=== PATIENT | female | born 1970 | race Caucasian/White ===

== ENCOUNTER 2016-10-25 18:40 | Emergency (ER) | payer OTHER ==
[~2016-10-25] VITALS: Ht 167.6 cm; Wt 72.6 kg
[~2016-10-25 18:40] MED LIST: CRUTCH1 EACH; CYCLOBENZAPRINE5 MG PO; LORAZEPAM0.5 MG PO; MECLIZINE HCL25 MG PO; NAPROXEN500 MG PO; ONDANSETRON ODT8 MG PO; OXYCODONE HCL5 MG PO; POTASSIUM CHLO10 ME2 PO; PROMETHAZINE HC25 M1 PO; PROMETHEGAN25 MG PR
[2016-10-25] MEDS ORDERED: ASPIR 8181 MG PO (18:50)
[2016-10-25] MEDS ORDERED: TRAMADOL HCL50 MG PO (19:48)
--- NOTE | 2016-10-28 21:45 | EKG ---
[facility] [address] [facility] [place] [address] Signed Normal sinus rhythm Normal ECG When compared with ECG of 26-MAR-2016 16:02, No significant change was found Confirmed by STEWART RAMOS MD ([id number]) on 10/28/2016 9:45:14 PM Electronically Signed By: STEWART RAMOS MD 10/28/16 [id number] PATIENT NAME: JAVIER WEAVER Electrocardiogram DATE OF : 70 PHYSICIAN: STEWART RAMOS MD REPORT #: [id number] REPORT IS CONFIDENTIAL AND NOT TO BE RELEASED WITHOUT AUTHORIZATION
== END 2016-10-25 20:01 | disposition home or self-care (01) ==
LOC: ED 18:40
DX: R07.9 Chest pain, unspecified (principal); M25.512 Pain in left shoulder; R10.13 Epigastric pain; Z90.710 Acquired absence of both cervix and uterus; Z88.0 Allergy status to penicillin; Z88.6 Allergy status to analgesic agent; Z79.899 Other long term (current) drug therapy
CPT/HCPCS: 71010; 80053; 84484; 85025; 93005; 93010; 99284

== ENCOUNTER 2017-05-28 15:36 | Emergency (ER) | payer OTHER ==
[~2017-05-28] VITALS: Ht 167.6 cm; Wt 72.6 kg
--- OUTSIDE RECORDS SUMMARY | ~2017-05-28 | XMS | Encounter Summary ---
Demographics + + + | Address | [address] | | | [place] [address] | + + + | Home Phone | | + + + | Preferred Language | Unknown | + + + | Marital Status | | + + + | Buddhism Affiliation | 1013 | + + + | Race | Unknown | + + + | Ethnic Group | Unknown | + + + Author + + + | Author | [facility] | | | and [place] | + + + | Organization | [facility] | | | and [place] | + + + | Address | Unknown | + + + | Phone | Unavailable | + + + Support + + + + + | Name | Relationship | Address | Phone | + + + + + | Tyrel Dillon | ECON | [address] | | | | | [place] [address] | | + + + + + Care Team Providers + +------+ + | Care Moving Worker Name | Role | Phone | + +------+ + | Last Welch DO | PCP | | + +------+ + Encounter Details +--------+ + + + + | Date | Type | Department | Care Team | Description | +--------+ + + + + | 04/21/ | Procedure | [facility] | | | | 2017 | Pass | [facility] [address] | | | | | | [place], | | | | | | [place] [address] | | | | | | [phone] | | | +--------+ + + + + [...] on file | | + + + as of this encounter Plan of Treatment +--------+---------+ + + + | Date | Type | Specialty | Care Team | Description | +--------+---------+ + + + | 06/22/ | Office | Sleep Medicine | Rudolph Manriquez PA | | | 2017 | Visit | | [address] | | | | | | [place] | | | | | | [address] | | | | | | | | +--------+---------+ + + + as of this encounter Visit Diagnoses Not on filein this encounter"
--- OUTSIDE RECORDS SUMMARY | ~2017-05-28 | XMS | Encounter Summary ---
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 Reviewed by Jerilyn Cordova, PharmElder 04/20/2017 12:51 in this encounter Plan of Treatment +--------+---------+ + + + | Date | Type | Specialty | Care Team | Description | +--------+---------+ + + + | 06/22/ Office | Sleep Medicine | Rudolph Manriquez PA | | | 2017 | Visit | | [address] | | | | | | [place] | | | | | | [id number] | | | | | | | | +--------+---------+ + + + as of this encounter Results POC Glucose (04/22/2017 1147) + +-------+ + | Component | Value | Ref Range | + +-------+ + | Glucose, POC | 80 | 70 - 109 mg/dL | + +-------+ + + + + | Specimen | Performing Laboratory | + + + | Blood | [facility] [address] | | | [place] [address] | + + + MRI Thoracic Spine w wo Contrast Limited (04/22/2017 0948) + + | Narrative | + + | UNENHANCED AND ENHANCED MRI CERVICAL SPINE AND LIMITED MRI THORACIC SPINE 04/22/2017 | | 9:05 AM CLINICAL HISTORY: left sided weakness with normal brain mri; r/o cord lesion | | causing left arm/leg weakness COMPARISON: Preceding brain MRI, CTA head | | and neck April 20 TECHNIQUE: The following 1.5T MR sequences were obtained: | | 1. Coronal and sagittal T1 through the cervical spine and coronal T1 through the | | thoracic spine. 2. Axial and sagittal T2 through the cervical spine and sagittal | | large yndzz-el-fzpu T2 through the cervicothoracic spine. 3. Axial GRE through the | | cervical spine. 4. Sagittal STIR through the cervical spine. 5. Following the | | uneventful intravenous administration of 7.5 mL Gadavist, a sagittal T1 sequence | | through the cervical spine and coronal and sagittal T1 images through the thoracic | | spine were obtained. CERVICAL FINDINGS: Marrow signal is normal. Vertebral height | | and disc spaces are maintained, without evident fracture. Imaged contents of the | | posterior fossa and foramen magnum are unremarkable. The cervical spinal cord | | demonstrates normal signal intensity and caliber. No abnormal intradural, epidural, | | interspace, marrow or paraspinal enhancement is evident following contrast | | administration. Imaged cervical soft tissues are unremarkable. The craniocervical | | junction and C1-2 and C2-3 levels are unremarkable on provided sagittal and coronal | | images through the region. Minimal anterolisthesis and minimal posterior disc bulges | | are present at C3-4 and C4-5, without stenosis. Minimal anterolisthesis and a | | small central disc protrusions are present at C5-6 and C6-7, partially effacing the | | ventral thecal sac but only minimally narrowing the central canal overall. The | | C7-T1 level is unremarkable. THORACIC FINDINGS: Vertebral height and alignment are | | maintained without evident fracture or spondylolisthesis. Small Schmorl's nodes are | | present at multiple mid to lower thoracic levels. Small disc protrusions are present | | at T7-8 and T8-9, without significant central canal stenosis apparent on provided | | sagittal images through the region. No other disc pathology or central canal or | | foraminal stenosis is visible. There is mild prominence of the central canal of the | | spinal cord in the mid to lower thoracic region without abnormal intradural, epidural, | | interspace, marrow or paraspinal enhancement following contrast administration. The | | conus medullaris terminates at approximately T12. The thoracic cord above T7 is | | normal in caliber and appearance. No abnormality of the imaged paraspinal, | | intrathoracic or upper abdominal structures is evident. IMPRESSION - 1. MILD | | PROMINENCE OF THE CENTRAL CANAL OF THE MID TO LOWER THORACIC SPINAL CORD WITHOUT | | ASSOCIATED ENHANCING LESION, SIGNIFICANT CANAL STENOSIS OR OTHER SUSPICIOUS | | FINDING. THE SPINAL CORD IS NORMAL IN APPEARANCE ELSEWHERE. 2. MINIMAL | | ANTEROLISTHESIS AND EARLY DEGENERATIVE DISC DISEASE AT SEVERAL CERVICAL LEVELS WITHOUT | | STENOSIS. Dictated and Signed by: Harpreet Washburn MD Electronically signed: | | 04/22/2017 11:07 AM | + + + + | Procedure Note | + + | Abdulaziz, Rad Results In - 04/22/2017 1110 PST UNENHANCED AND ENHANCED MRI CERVICAL SPINE | | AND LIMITED MRI THORACIC SPINE04/22/2017 9:05 AMCLINICAL HISTORY: left sided weakness with | | normal brain mri; r/o cord lesioncausing left arm/leg weakness COMPARISON: Preceding | | brain MRI, CTA head and neck AprilECHNIQUE: The following 1.5T MR sequences were | | obtained:1. Coronal and sagittal T1 through the cervical spine and coronal T1 | | throughthe thoracic spine.2. Axial and sagittal T2 through the cervical spine and | | sagittal msqjbgojei-vu-maie T2 through the cervicothoracic spine.3. Axial GRE through | | the cervical spine.4. Sagittal STIR through the cervical spine.5. Following the | | uneventful intravenous administration of 7.5 mL Gadavist, asagittal T1 sequence through | | the cervical spine and coronal and sagittal [id number] through the thoracic spine were | | obtained.CERVICAL FINDINGS: Marrow signal is normal. Vertebral height and disc | | spacesare maintained, without evident fracture. Imaged contents of the posteriorfossa | | and foramen magnum are unremarkable. The cervical spinal corddemonstrates normal signal | | intensity and caliber. No abnormal intradural,epidural, interspace, marrow or | | paraspinal enhancement is evident followingcontrast administration. Imaged cervical | | soft tissues are unremarkable.The craniocervical junction and C1-2 and C2-3 levels are | | unremarkable onprovided sagittal and coronal images through the region.Minimal | | anterolisthesis and minimal posterior disc bulges are present at C3-4and C4-5, without | | stenosis.Minimal anterolisthesis and a small central disc protrusions are present at | | C5-6and C6-7, partially effacing the ventral thecal sac but only minimally narrowingthe | | central canal overall.The C7-T1 level is unremarkable.THORACIC FINDINGS: Vertebral | | height and alignment are maintained without evidentfracture or spondylolisthesis. Small | | Schmorl's nodes are present at multiplemid to lower thoracic levels. Small disc | | protrusions are present at T7-8 andT8-9, without significant central canal stenosis | | apparent on provided sagittalimages through the region. No other disc pathology or | | central canal orforaminal stenosis is visible. There is mild prominence of the central | | canal ofthe spinal cord in the mid to lower thoracic region without abnormal | | intradural,epidural, interspace, marrow or paraspinal enhancement following | | contrastadministration. The conus medullaris terminates at approximately T12. | | Thethoracic cord above T7 is normal in caliber and appearance. No abnormality ofthe | | imaged paraspinal, intrathoracic or upper abdominal structures is evident.IMPRESSION -1. | | MILD PROMINENCE OF THE CENTRAL CANAL OF THE MID TO LOWER THORACIC SPINALCORD WITHOUT | | ASSOCIATED ENHANCING LESION, SIGNIFICANT CANAL STENOSIS OR OTHERSUSPICIOUS FINDING. THE | | SPINAL CORD IS NORMAL IN APPEARANCE ELSEWHERE.2. MINIMAL ANTEROLISTHESIS AND EARLY | | DEGENERATIVE DISC DISEASE AT SEVERALCERVICAL LEVELS WITHOUT STENOSIS.Dictated and Signed | | by: Harpreet Washburn MD Electronically signed: 04/22/2017 11:07 AM | |The C7-T1 level is unremarkable. | | | |THORACIC FINDINGS: Vertebral height and alignment are maintained without evident | |fracture or spondylolisthesis. Small Schmorl's nodes are present at multiple | |mid to lower thoracic levels. Small disc protrusions are present at T7-8 and | |T8-9, without significant central canal stenosis apparent on provided sagittal | |images through the region. No other disc pathology or central canal or | |foraminal stenosis is visible. There is mild prominence of the central canal of | |the spinal cord in the mid to lower thoracic region without abnormal intradural, | |epidural, interspace, marrow or paraspinal enhancement following contrast | |administration. The conus medullaris terminates at approximately T12. The | |thoracic cord above T7 is normal in caliber and appearance. No abnormality of | |the imaged paraspinal, intrathoracic or upper abdominal structures is evident. | | | |IMPRESSION - | |1. MILD PROMINENCE OF THE CENTRAL CANAL OF THE MID TO LOWER THORACIC SPINAL | |CORD WITHOUT ASSOCIATED ENHANCING LESION, SIGNIFICANT CANAL STENOSIS OR OTHER | |SUSPICIOUS FINDING. THE SPINAL CORD IS NORMAL IN APPEARANCE ELSEWHERE. | | | |2. MINIMAL ANTEROLISTHESIS AND EARLY DEGENERATIVE DISC DISEASE AT SEVERAL | |CERVICAL LEVELS WITHOUT STENOSIS. | | | |Dictated and Signed by: Harpreet Washburn MD | | Electronically signed: 04/22/2017 11:07 AM | + + MRI Cervical Spine w wo Contrast (04/22/2017 0920) + + | Narrative | + + | UNENHANCED AND ENHANCED MRI CERVICAL SPINE AND LIMITED MRI THORACIC SPINE 04/22/2017 | | 9:05 AM CLINICAL HISTORY: left sided weakness with normal brain mri; r/o cord lesion | | causing left arm/leg weakness COMPARISON: Preceding brain MRI, CTA head | | and neck April 20 TECHNIQUE: The following 1.5T MR sequences were obtained: | | 1. Coronal and sagittal T1 through the cervical spine and coronal T1 through the | | thoracic spine. 2. Axial and sagittal T2 through the cervical spine and sagittal | | large wulcl-zp-enbw T2 through the cervicothoracic spine. 3. Axial GRE through the | | cervical spine. 4. Sagittal STIR through the cervical spine. 5. Following the | | uneventful intravenous administration of 7.5 mL Gadavist, a sagittal T1 sequence | | through the cervical spine and coronal and sagittal T1 images through the thoracic | | spine were obtained. CERVICAL FINDINGS: Marrow signal is normal. Vertebral height | | and disc spaces are maintained, without evident fracture. Imaged contents of the | | posterior fossa and foramen magnum are unremarkable. The cervical spinal cord | | demonstrates normal signal intensity and caliber. No abnormal intradural, epidural, | | interspace, marrow or paraspinal enhancement is evident following contrast | | administration. Imaged cervical soft tissues are unremarkable. The craniocervical | | junction and C1-2 and C2-3 levels are unremarkable on provided sagittal and coronal | | images through the region. Minimal anterolisthesis and minimal posterior disc bulges | | are present at C3-4 and C4-5, without stenosis. Minimal anterolisthesis and a | | small central disc protrusions are present at C5-6 and C6-7, partially effacing the | | ventral thecal sac but only minimally narrowing the central canal overall. The | | C7-T1 level is unremarkable. THORACIC FINDINGS: Vertebral height and alignment are | | maintained without evident fracture or spondylolisthesis. Small Schmorl's nodes are | | present at multiple mid to lower thoracic levels. Small disc protrusions are present | | at T7-8 and T8-9, without significant central canal stenosis apparent on provided | | sagittal images through the region. No other disc pathology or central canal or | | foraminal stenosis is visible. There is mild prominence of the central canal of the | | spinal cord in the mid to lower thoracic region without abnormal intradural, epidural, | | interspace, marrow or paraspinal enhancement following contrast administration. The | | conus medullaris terminates at approximately T12. The thoracic cord above T7 is | | normal in caliber and appearance. No abnormality of the imaged paraspinal, | | intrathoracic or upper abdominal structures is evident. IMPRESSION - 1. MILD | | PROMINENCE OF THE CENTRAL CANAL OF THE MID TO LOWER THORACIC SPINAL CORD WITHOUT | | ASSOCIATED ENHANCING LESION, SIGNIFICANT CANAL STENOSIS OR OTHER SUSPICIOUS | | FINDING. THE SPINAL CORD IS NORMAL IN APPEARANCE ELSEWHERE. 2. MINIMAL | | ANTEROLISTHESIS AND EARLY DEGENERATIVE DISC DISEASE AT SEVERAL CERVICAL LEVELS WITHOUT | | STENOSIS. Dictated and Signed by: Harpreet Washburn MD Electronically signed: | | 04/22/2017 11:07 AM | + + + + | Procedure Note | + + | Abdulaziz, Rad Results In - 04/22/2017 1110 PST UNENHANCED AND ENHANCED MRI CERVICAL SPINE | | AND LIMITED MRI THORACIC SPINE04/22/2017 9:05 AMCLINICAL HISTORY: left sided weakness with | | normal brain mri; r/o cord lesioncausing left arm/leg weakness COMPARISON: Preceding | | brain MRI, CTA head and neck AprilECHNIQUE: The following 1.5T MR sequences were | | obtained:1. Coronal and sagittal T1 through the cervical spine and coronal T1 | | throughthe thoracic spine.2. Axial and sagittal T2 through the cervical spine and | | sagittal givoacczzj-pf-llsb T2 through the cervicothoracic spine.3. Axial GRE through | | the cervical spine.4. Sagittal STIR through the cervical spine.5. Following the | | uneventful intravenous administration of 7.5 mL Gadavist, asagittal T1 sequence through | | the cervical spine and coronal and sagittal F8qceoyr through the thoracic spine were | | obtained.CERVICAL FINDINGS: Marrow signal is normal. Vertebral height and disc | | spacesare maintained, without evident fracture. Imaged contents of the posteriorfossa | | and foramen magnum are unremarkable. The cervical spinal corddemonstrates normal signal | | intensity and caliber. No abnormal intradural,epidural, interspace, marrow or | | paraspinal enhancement is evident followingcontrast administration. Imaged cervical | | soft tissues are unremarkable.The craniocervical junction and C1-2 and C2-3 levels are | | unremarkable onprovided sagittal and coronal images through the region.Minimal | | anterolisthesis and minimal posterior disc bulges are present at C3-4and C4-5, without | | stenosis.Minimal anterolisthesis and a small central disc protrusions are present at | | C5-6and C6-7, partially effacing the ventral thecal sac but only minimally narrowingthe | | central canal overall.The C7-T1 level is unremarkable.THORACIC FINDINGS: Vertebral | | height and alignment are maintained without evidentfracture or spondylolisthesis. Small | | Schmorl's nodes are present at multiplemid to lower thoracic levels. Small disc | | protrusions are present at T7-8 andT8-9, without significant central canal stenosis | | apparent on provided sagittalimages through the region. No other disc pathology or | | central canal orforaminal stenosis is visible. There is mild prominence of the central | | canal ofthe spinal cord in the mid to lower thoracic region without abnormal | | intradural,epidural, interspace, marrow or paraspinal enhancement following | | contrastadministration. The conus medullaris terminates at approximately T12. | | Thethoracic cord above T7 is normal in caliber and appearance. No abnormality ofthe | | imaged paraspinal, intrathoracic or upper abdominal structures is evident.IMPRESSION -1. | | MILD PROMINENCE OF THE CENTRAL CANAL OF THE MID TO LOWER THORACIC SPINALCORD WITHOUT | | ASSOCIATED ENHANCING LESION, SIGNIFICANT CANAL STENOSIS OR OTHERSUSPICIOUS FINDING. THE | | SPINAL CORD IS NORMAL IN APPEARANCE ELSEWHERE.2. MINIMAL ANTEROLISTHESIS AND EARLY | | DEGENERATIVE DISC DISEASE AT SEVERALCERVICAL LEVELS WITHOUT STENOSIS.Dictated and Signed | | by: Harpreet Washburn MD Electronically signed: 04/22/2017 11:07 AM | |The C7-T1 level is unremarkable. | | | |THORACIC FINDINGS: Vertebral height and alignment are maintained without evident | |fracture or spondylolisthesis. Small Schmorl's nodes are present at multiple | |mid to lower thoracic levels. Small disc protrusions are present at T7-8 and | |T8-9, without significant central canal stenosis apparent on provided sagittal | |images through the region. No other disc pathology or central canal or | |foraminal stenosis is visible. There is mild prominence of the central canal of | |the spinal cord in the mid to lower thoracic region without abnormal intradural, | |epidural, interspace, marrow or paraspinal enhancement following contrast | |administration. The conus medullaris terminates at approximately T12. The | |thoracic cord above T7 is normal in caliber and appearance. No abnormality of | |the imaged paraspinal, intrathoracic or upper abdominal structures is evident. | | | |IMPRESSION - | |1. MILD PROMINENCE OF THE CENTRAL CANAL OF THE MID TO LOWER THORACIC SPINAL | |CORD WITHOUT ASSOCIATED ENHANCING LESION, SIGNIFICANT CANAL STENOSIS OR OTHER | |SUSPICIOUS FINDING. THE SPINAL CORD IS NORMAL IN APPEARANCE ELSEWHERE. | | | |2. MINIMAL ANTEROLISTHESIS AND EARLY DEGENERATIVE DISC DISEASE AT SEVERAL | |CERVICAL LEVELS WITHOUT STENOSIS. | | | |Dictated and Signed by: Harpreet Washburn MD | | Electronically signed: 04/22/2017 11:07 AM | + + MRI Brain wo Contrast (04/22/2017 0846) + + | Narrative | + + | UNENHANCED BRAIN MRI 04/22/2017 8:18 AM CLINICAL HISTORY: Continued extremity | | weakness despite TPA, r/o stroke COMPARISON: CT from the previous day and | | CTA and MRI April 20 TECHNIQUE: The following 3T MR sequences of the brain were | | obtained: 1. Axial, coronal and sagittal 3-D T1. 2. Axial T2, FLAIR, SWI, DWI | | and ADC. FINDINGS: The cerebral parenchyma, ventricles, brainstem and cerebellum | | remain normal in appearance. There is no mass effect, abnormal diffusion | | restriction, evidence of intracranial hemorrhage or extra-axial abnormality. Mild | | mucous membrane thickening inferiorly in the maxillary sinuses and involving bilateral | | ethmoid air cells is stable. The paranasal sinuses, orbits, sellar region, mastoid | | air cells, basilar cisterns and osseous structures are otherwise unremarkable. Major | | intracranial vessels and dural sinuses demonstrate grossly normal flow voids. | | IMPRESSION - 1. STABLE, NORMAL UNENHANCED MR APPEARANCE OF THE BRAIN. NO EVIDENCE | | OF ISCHEMIA OR INFARCTION. 2. STABLE MILD PARANASAL SINUS DISEASE. Dictated | | and Signed by: Harpreet Washburn MD Electronically signed: 04/22/2017 8:46 AM | + + + + | Procedure Note | + + | Abdulaziz, Rad Results In - 04/22/2017 0850 PST UNENHANCED BRAIN MRI 04/22/2017 8:18 AM | | | | CLINICAL HISTORY: Continued extremity weakness despite TPA, r/o stroke | | | | COMPARISON: CT from the previous day and CTA and MRI April 20 | | | | TECHNIQUE: The following 3T MR sequences of the brain were obtained: | | 1. Axial, coronal and sagittal 3-D T1. | | 2. Axial T2, FLAIR, SWI, DWI and ADC. | | | | FINDINGS: The cerebral parenchyma, ventricles, brainstem and cerebellum remain | | normal in appearance. There is no mass effect, abnormal diffusion restriction, | | evidence of intracranial hemorrhage or extra-axial abnormality. Mild mucous | | membrane thickening inferiorly in the maxillary sinuses and involving bilateral | | ethmoid air cells is stable. The paranasal sinuses, orbits, sellar region, | | mastoid air cells, basilar cisterns and osseous structures are otherwise | | unremarkable. Major intracranial vessels and dural sinuses demonstrate grossly | | normal flow voids. | | | | IMPRESSION - | | 1. STABLE, NORMAL UNENHANCED MR APPEARANCE OF THE BRAIN. NO EVIDENCE OF | | ISCHEMIA OR INFARCTION. | | | | 2. STABLE MILD PARANASAL SINUS DISEASE. | | | | Dictated and Signed by: Harpreet Washburn MD | | Electronically signed: 04/22/2017 8:46 AM | + + POC Glucose (04/22/2017 0638) + +-------+ + | Component | Value | Ref Range | + +-------+ + | Glucose, POC | 84 | 70 - 109 mg/dL | + +-------+ + + + + | Specimen | Performing Laboratory | + + + | Blood | [facility] [address] | | | [place] [address] | + + + POC Glucose (04/21/20172045) + +-------+ + | Component | Value | Ref Range | + +-------+ + | Glucose, POC | 87 | 70 - 109 mg/dL | + +-------+ + + + + | Specimen | Performing Laboratory | + + + | Blood | [facility] [address] | | | [place] [address] | + + + POC Glucose (04/21/2017 1705) + +---------+ + | Component | Value | Ref Range | + +---------+ + | Glucose, POC | 113 (H) | 70 - 109 mg/dL | + +---------+ + + + + | Specimen | Performing Laboratory | + + + | Blood | [facility] [address] | | | [place] [address] | + + + ECG 12 lead (04/21/20171222) + + + + | Component | Value | Ref Range | + + + + | VENTRICULAR RATE EKG | 93 | BPM | + + + + | ATRIAL RATE | 93 | BPM | + + + + | P-R INTERVAL | 134 | ms | + + + + | QRS DURATION | 86 | ms | + + + + | Q-T INTERVAL | 352 | ms | + + + + | Q-T INTERVAL | 437 | ms | | (CORRECTED) | | | + + + + | P WAVE AXIS | 78 | degrees | + + + + | QRS AXIS | 78 | degrees | + + + + | T AXIS | 81 | degrees | + + + + | INTERPRETATION TEXT | Normal sinus rhythmNormal ECGWhen compared | | | | with ECG of 20-APR-2017 07:46,No | | | | significant change was foundConfirmed by | | | | SENDY PICKETT MD ([id number]) on 04/21/2017 5:33:05 | | | | PM | | | | | | + + + + + + + | Specimen | Performing Laboratory | + + + | | [facility] | + + + POC Glucose (04/21/2017 1134) + +-------+ + | Component | Value | Ref Range | + +-------+ + | Glucose, POC | 78 | 70 - 109 mg/dL | + +-------+ + + + + | Specimen | Performing Laboratory | + + + | Blood | [facility] [address] | | | [place] [address] | + + + CT Head wo Contrast (04/21/2017 1038) + + | Narrative | + + | CT HEAD WO CONTRAST 04/21/2017 10:38 AM HISTORY: 24 hours after tPA. COMPARISON: | | Multiple priors. PROTOCOL: Axial images of the head were obtained along with | | coronal and sagittal reformations. FINDINGS: The brain parenchyma demonstrates no | | evidence for acute infarct, mass lesion, or hemorrhage. The brainstem is unremarkable. | | The cerebellum is normal. The pituitary gland is grossly normal. The ventricles, | | cisterns, and sulci are of normal size and shape. Limited evaluation of the | | vasculature demonstrates no acute findings. The orbits show no acute findings. | | Paranasal sinuses are clear. Mastoid air cells are normal. Calvarium, temporal | | bones, and skull base structures are unremarkable. IMPRESSION - No acute | | intracranial findings. Dictated and Signed by: Zhen Stockton MD Electronically | | signed: 04/21/2017 11:09 AM | + + + + | Procedure Note | + + | Abdulaziz, Rad Results In - 04/21/[address] HEAD WO CONTRAST 04/21/2017 10:38 AM | | | | HISTORY: 24 hours after tPA. | | | | COMPARISON: Multiple priors. | | | | PROTOCOL: Axial images of the head were obtained along with coronal and sagittal | | reformations. | | | | FINDINGS: | | The brain parenchyma demonstrates no evidence for acute infarct, mass lesion, or | | hemorrhage. The brainstem is unremarkable. The cerebellum is normal. The | | pituitary gland is grossly normal. | | | | The ventricles, cisterns, and sulci are of normal size and shape. | | | | Limited evaluation of the vasculature demonstrates no acute findings. | | | | The orbits show no acute findings. Paranasal sinuses are clear. Mastoid air | | cells are normal. | | | | Calvarium, temporal bones, and skull base structures are unremarkable. | | | | IMPRESSION - | | No acute intracranial findings. 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 Procedure date | | Date: 04/21/2017Start: 07:57 AM Technical Quality: Good visualizationStudy Location: | | ICU Indications: Stroke 436/I67.89. Patient Status: Routine Height: 66 inchesWeight: | | 165 poundsBSA: 1.84 m^2BMI: 26.63 kg/m^2 Rhythm: Normal Sinus RhythmHR: 70 bpm | | Conclusions Summary Left ventricle is normal in size and function. Ejection fraction | | is estimated at 59%. There is grade 1 LV diastolic dysfunction. No evidence of right | | to left shunt with agitated saline contrast. No significant valvular disease noted. | | Compared with patient's prior study of 2014, no significant changes are noted. | | Signature | | | | 05:34 PM | | Findings Mitral Valve Structurally normal mitral valve without significant stenosis | | or regurgitation. Aortic Valve Aortic valve is trileaflet with good systolic | | excursion. Tricuspid Valve Structurally normal tricuspid valve without significant | | stenosis or regurgitation. Pulmonic Valve Structurally normal pulmonic valve without | | significant stenosis or regurgitation. Left Atrium Normal size left atrium. Left | | Ventricle Left ventricle is normal in size and function. Ejection fraction is | | estimated at 59%. There is grade 1 LV diastolic dysfunction. Right Atrium Normal | | right atrial size. Right Ventricle Normal right ventricular size. Right ventricle | | global systolic function is normal. TAPSE = 2.6 cm. Pericardial Effusion No evidence | | of pericardial effusion. Pleural Effusion No evidence of pleural effusion. | | Miscellaneous Aortic root dimension within normal limits. Ascending aorta is mildly | | enlarged. The IVC appears normal size. IVC respiratory change in dimension > 50%. No | | evidence of right to left shunt with agitated saline contrast. Valves Mitral | | Valve Peak E-Wave: 0.54 m/s Peak A-Wave: 0.42 m/s Tissue Doppler Septal | | e' Velocity: 0.08 m/s Septal E/e' Ratio:6.55 Aortic Valve Area | | (continuity): 2.27 cm^2 Mean Gradient: 2.79 mmHg LVOT Peak Velocity: | | 0.93 m/s LVOT Diameter: 2.03 cm Structures Left Atrium LA A/P | | Dimension: 3.38 cm LA Area: 13.1 cm^2 LA | | Vol/BSA Index: 18 mL/m^2 LA Volume: 32.94 ml | | | | EF Byxwdblsv45% Left Ventricle Diastolic Dimension: 4.55 | | cm Systolic Dimension: 3.02 cm Septum Diastolic: 1.53 cm PW | | Diastolic: 1.1 cm EF Calculated: 59% Miscellaneous Aorta Aortic Root: | | 2.49 cm Ascending Aorta: 3.84 cm | + + + + | Procedure Note | + + | Abdulaziz, Rad Results In - 04/21/2017 1734 PST Transthoracic Echocardiography Report (TTE) | | | | Demographics | | | | Patient Name OWEN HERRERA Room Number 451 | | RIO | | | | Patient Number [id number] Date of Study 04/21/2017 | | | | Visit Number [id number] | | | | Referring Physician JER Moncada | | Number | | | | 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 | | | | Procedure date | | Date: 04/21/2017Start: 07:57 AM | | | | Technical Quality: Good visualizationStudy Location: ICU | | Indications: Stroke 436/I67.89. | | Patient Status: Routine | | Height: 66 inchesWeight: 165 poundsBSA: 1.84 m^2BMI: 26.63 kg/m^2 | | Rhythm: Normal Sinus RhythmHR: 70 bpm | | | | Conclusions | | Summary | | Left ventricle is normal in size and function. Ejection fraction is | | estimated at 59%. | | There is grade 1 LV diastolic dysfunction. | | No evidence of right to left shunt with agitated saline contrast. | | No significant valvular disease noted. | | Compared with patient's prior study of 2014, no significant changes are | | noted. | | | | Signature | | | | Electronically signed by MAGDALENO BELLAMY MD(Interpreting physician) on | | 04/21/2017 05:34 PM | | | | | | Findings | | Mitral Valve | | Structurally normal mitral valve without significant stenosis or | | regurgitation. | | Aortic Valve | | Aortic valve is trileaflet with good systolic excursion. | | Tricuspid Valve | | Structurally normal tricuspid valve without significant stenosis or | | regurgitation. | | Pulmonic Valve | | Structurally normal pulmonic valve without significant stenosis or | | regurgitation. | | Left Atrium | | Normal size left atrium. | | Left Ventricle | | Left ventricle is normal in size and function. Ejection fraction is | | estimated at 59%. | | There is grade 1 LV diastolic dysfunction. | | Right Atrium | | Normal right atrial size. | | Right Ventricle | | Normal right ventricular size. | | Right ventricle global systolic function is normal. | | TAPSE = 2.6 cm. | | Pericardial Effusion | | No evidence of pericardial effusion. | | Pleural Effusion | | No evidence of pleural effusion. | | Miscellaneous | | Aortic root dimension within normal limits. | | Ascending aorta is mildly enlarged. | | The IVC appears normal size. | | IVC respiratory change in dimension > 50%. | | No evidence of right to left shunt with agitated saline contrast. | | | | Valves | | | | Mitral Valve | | | | Peak E-Wave: 0.54 m/s | | Peak A-Wave: 0.42 m/s | | | | Tissue Doppler | | | | Septal e' Velocity: 0.08 m/s | | Septal E/e' Ratio:6.55 | | | | Aortic Valve | | | | Area (continuity): 2.27 cm^2 | | Mean Gradient: 2.79 mmHg | | | | LVOT | | | | Peak Velocity: 0.93 m/s | | LVOT Diameter: 2.03 cm | | | | Structures | | | | Left Atrium | | | | LA A/P Dimension: 3.38 cm LA Area: 13.1 cm^2 | | LA Vol/BSA Index: 18 mL/m^2 LA Volume: 32.94 ml | | EF Ilpfmhorh18% | | | | Left Ventricle | | | | Diastolic Dimension: 4.55 cm Systolic Dimension: 3.02 cm | | Septum Diastolic: 1.53 cm | | PW Diastolic: 1.1 cm | | EF Calculated: 59% | | | | Miscellaneous | | | | Aorta | | | | Aortic Root: 2.49 cm | | Ascending Aorta: 3.84 cm | + + POC Glucose (04/21/2017 075) + +-------+ + | Component | Value | Ref Range | + +-------+ + | Glucose, POC | 94 | 70 - 109 mg/dL | + +-------+ + + + + | Specimen | Performing Laboratory | + + + | Blood | [facility] [address] | | | [place] [address] | + + + Lipid Panel (04/21/2017 0420) + + + + | Component | Value | Ref Range | + + + + | Triglycerides | 142 | 35 - 160 mg/dL | + + + + | Cholesterol | 220 (H) | 150 - 200 mg/dL | + + + + | HDL | 42Comment: New HDL Reference Range as | 28 - 83 mg/dL | | | of October 26, 2014 Values may be | | | | 10-20% lower with new, standardized method. | | | | | | | | | | + + + + | Chol/HDL Ratio | 5.2 | | + + + + | LDL, Calculated | 150 (H) | <=130 mg/dL | + + + + + + + | Specimen | Performing Laboratory | + + + | Blood | [facility] [address] | | | [place] [address] | + + + CBC with Differential (04/21/2017 0420) + + + + | Component | Value | Ref Range | + + + + | WBC | 3.5 (L) | 4.0 - 11.0 K/uL | + + + + | RBC | 4.64 | 3.70 - 5.20 M/uL | + + + + | Hgb | 12.6 | 11.5 - 16.0 g/dL | + + + + | Hct | 39.2 | 34.0 - 47.0 % | + + + + | MCV | 84.4 | 83.0 - 101.0 fL | + + + + | MCH | 27.2 (L) | 28.0 - 35.0 pg | + + + + | MCHC | 32.2 | 32.0 - 36.0 g/dL | + + + + | RDW-CV | 13.5 | <15.0 % | + + + + | Platelet Count | 166 | 140 - 440 K/uL | + + + + | MPV | 8.0 | fL | + + + + | % Neutrophils | 60.6 | 45.0 - 82.0 % | + + + + | % Lymphocytes | 27.1 | 20.0 - 45.0 % | + + + + | % Monocytes | 8.7 | 4.0 - 12.0 % | + + + + | % Eosinophils | 2.9 | 0.0 - 5.0 % | + + + + | % Basophils | 0.7 | 0.0 - 1.0 % | + + + + | Absolute Neutrophils | 2.10 | 1.80 - 8.50 K/uL | + + + + | Absolute Lymphocytes | 1.00 | 0.60 - 3.20 K/uL | + + + + | Absolute Monocytes | 0.30 | 0.00 - 1.00 K/uL | + + + + | Absolute Eosinophils | 0.10 | 0.00 - 0.40 K/uL | + + + + | Absolute Basophils | 0.00 | 0.00 - 0.10 K/uL | + + + + + + + | Specimen | Performing Laboratory | + + + | Blood | [facility] [address] | | | [place] [address] | + + + PTT (04/21/2017 0420) + +-------+ + | Component | Value | Ref Range | + +-------+ + | PTT | 28 | 22 - 36 seconds | + +-------+ + + + + | Specimen | Performing Laboratory | + + + | Blood | [facility] [address] | | | [place] [address] | + + + Protime INR (04/21/2017 0420) + + + + | Component | Value | Ref Range | + + + + | Protime | 13.6 | 11.3 - 13.9 seconds | + + + + | INR | 1.05Comment: Usual Oral Anticoagulation | 0.90 - 1.10 | | | Range: 2.0 - 3.0High Level Oral | | | | Anticoagulation Range: 2.5 - 3.5 | | | |High Level Oral Anticoagulation Range: 2.5 - 3.5 | | + + + + + + + | Specimen | Performing Laboratory | + + + | Blood | [facility] [address] | | | [place] [address] | + + + Phosphorus (04/21/2017 0420) + +---------+ + | Component | Value | Ref Range | + +---------+ + | PHOSPHORUS | 4.7 (H) | 2.5 - 4.6 mg/dL | + +---------+ + + + + | Specimen | Performing Laboratory | + + + | Blood | [facility] [address] | | | [place] [address] | + + + Magnesium (04/21/2017 0420) + +-------+ + | Component | Value | Ref Range | + +-------+ + | MG | 2.2 | 1.8 - 2.5 mg/dL | + +-------+ + + + + | Specimen | Performing Laboratory | + + + | Blood | [facility] [address] | | | [place] [address] | + + + Comprehensive Metabolic Panel (04/21/2017 0420) + + + + | Component | Value | Ref Range | + + + + | NA | 138 | 136 - 149 mmol/L | + + + + | K | 3.6 | 3.5 - 5.1 mmol/L | + + + + | CL | 102 | 98 - 109 mmol/L | + + + + | CO2 | 28 | 24 - 31 mmol/L | + + + + | ANION GAP | 8 | 3 - 16 mmol/L | + + + + | GLUCOSE | 91 | 70 - 109 mg/dL | + + + + | BUN | 15 | 7 - 18 mg/dL | + + + + | Creatinine, | 0.87 | 0.60 - 1.30 mg/dL | | Serum/Plasma | | | + + + + | eGFR if not | >60Comment: GLOMERULAR FILTRATION | >=60 mL/min/1.73m2 | | PALEST[place]IAN | RATE,ESTIMATED mL/min/1.47v7Lxly than | | | | 60 Chronic kidney disease,if found over | | | | a 3-month period.Less than 15 Kidney | | | | failureFor Americans,multiply the | | | | calculated GFR by 1.21. | | | | | | | | | | + + + + | CALCIUM | 9.0 | 8.3 - 10.5 mg/dL | + + + + | ALBUMIN | 3.9 | 3.2 - 5.0 g/dL | + + + + | BILIRUBIN TOTAL | 0.6 | 0.1 - 1.5 mg/dL | + + + + | Total protein | 6.4 | 6.0 - 7.8 g/dL | + + + + | AST | 10 | 10 - 42 U/L | + + + + | ALT | 13 | 6 - 45 U/L | + + + + | ALK PHOS | 85 | 40 - 110 U/L | + + + + | GLOBULIN | 2.5 | 2.1 - 3.8 g/dL | + + + + | Albumin/Globulin | 1.6 | 0.8 - 2.0 | | ratio | | | + + + + | BUN/CREA | 17.2 | | + + + + + + + | Specimen | Performing Laboratory | + + + | Blood | [facility] [address] | | | [place] [address] | + + + Troponin I (04/20/20172334) + + + + | Component | Value | Ref Range | + + + + | Troponin I | <0.01Comment: Reference Ranges:0.00-0.06 = | <0.06 ng/mL | | | NORMAL>0.06 = SUSPICIOUS FOR | | | | MYOCARDIAL DAMAGE NOTE: Values greater than | | | | 0.50 ng/mL have been shown to be strongly | | | | associated with acute myocardial | | | | infarction. The [employer] | | | | Cardiology (ACC) recommends a decision | | | | limit of 0.06 ng/mL for this | | | | assay. Results greater than 0.06 can | | | | reflect a pre-infarct acute coronary | | | | syndrome, but can also reflect myocardial | | | | necrosis or injury that is not due to | | | | coronary artery disease. Some of these | | | | causes are sepsis, hypocolemia, atrial | | | | fibrillation, heart failure, pulmonary | | | | embolism, myocarditis, myocardial | | | | contusion, and renal failure. The | | | | diagnosis of myocardial infarction should | | | | be based on a combination of the patient's | | | | clinical presentation and the clinical | | | | laboratory test results (especially serial | | | | troponin levels). | | + + + + + + + | Specimen | Performing Laboratory | + + + | Blood | [facility] [address] | | | [place] [address] | + + + POC Glucose (04/20/20172) + +-------+ + | Component | Value | Ref Range | + +-------+ + | Glucose, POC | 89 | 70 - 109 mg/dL | + +-------+ + + + + | Specimen | Performing Laboratory | + + + | Blood | [facility] [address] | | | [place] [address] | + + + POC Glucose (04/20/20171707) + +-------+ + | Component | Value | Ref Range | + +-------+ + | Glucose, POC | 90 | 70 - 109 mg/dL | + +-------+ + + + + | Specimen | Performing Laboratory | + + + | Blood | [facility] [address] | | | [place] [address] | + + + Troponin I (04/20/20171654) + + + + | Component | Value | Ref Range | + + + + | Troponin I | <0.01Comment: Reference Ranges:0.00-0.06 = | <0.06 ng/mL | | | NORMAL>0.06 = SUSPICIOUS FOR | | | | MYOCARDIAL DAMAGE NOTE: Values greater than | | | | 0.50 ng/mL have been shown to be strongly | | | | associated with acute myocardial | | | | infarction. The [employer] | | | | Cardiology (ACC) recommends a decision | | | | limit of 0.06 ng/mL for this | | | | assay. Results greater than 0.06 can | | | | reflect a pre-infarct acute coronary | | | | syndrome, but can also reflect myocardial | | | | necrosis or injury that is not due to | | | | coronary artery disease. Some of these | | | | causes are sepsis, hypocolemia, atrial | | | | fibrillation, heart failure, pulmonary | | | | embolism, myocarditis, myocardial | | | | contusion, and renal failure. The | | | | diagnosis of myocardial infarction should | | | | be based on a combination of the patient's | | | | clinical presentation and the clinical | | | | laboratory test results (especially serial | | | | troponin levels). | | + + + + + + + | Specimen | Performing Laboratory | + + + | Blood | [facility] [address] | | | [place] [address] | + + + POC Glucose (04/20/20171255) + +-------+ + | Component | Value | Ref Range | + +-------+ + | Glucose, POC | 88 | 70 - 109 mg/dL | + +-------+ + + + + | Specimen | Performing Laboratory | + + + | Blood | [facility] [address] | | | [place] [address] | + + + Extra Lavender Top Tube (04/20/2017 1229) + +-------+ + | Component | Value | Ref Range | + +-------+ + | Extra Lavender Top | Done | | | Tube | | | + +-------+ + + + + | Specimen | Performing Laboratory | + + + | Blood | [facility] [address] | | | [place] [address] | + + + Troponin I (04/20/2017 122) + + + + | Component | Value | Ref Range | + + + + | Troponin I | <0.01Comment: Reference Ranges:0.00-0.06 = | <0.06 ng/mL | | | NORMAL>0.06 = SUSPICIOUS FOR | | | | MYOCARDIAL DAMAGE NOTE: Values greater than | | | | 0.50 ng/mL have been shown to be strongly | | | | associated with acute myocardial | | | | infarction. The [employer] | | | | Cardiology (ACC) recommends a decision | | | | limit of 0.06 ng/mL for this | | | | assay. Results greater than 0.06 can | | | | reflect a pre-infarct acute coronary | | | | syndrome, but can also reflect myocardial | | | | necrosis or injury that is not due to | | | | coronary artery disease. Some of these | | | | causes are sepsis, hypocolemia, atrial | | | | fibrillation, heart failure, pulmonary | | | | embolism, myocarditis, myocardial | | | | contusion, and renal failure. The | | | | diagnosis of myocardial infarction should | | | | be based on a combination of the patient's | | | | clinical presentation and the clinical | | | | laboratory test results (especially serial | | | | troponin levels). | | + + + + + + + | Specimen | Performing Laboratory | + + + | Blood | [facility] [address] | | | [place] [address] | + + + MRI Brain wo Contrast (04/20/2017 1200) + + | Narrative | + + | UNENHANCED BRAIN MRI 04/20/2017 11:59 AM CLINICAL HISTORY: cva | | COMPARISON: Preceding CTA TECHNIQUE: The following 3T MR sequences of the brain | | were obtained: 1. Axial, coronal and sagittal 3-D T1. 2. Axial T2, FLAIR, SWI, | | DWI and ADC. FINDINGS: The cerebral parenchyma, ventricles, brainstem and cerebellum | | appear normal. There is no mass effect, abnormal diffusion restriction, evidence of | | intracranial hemorrhage or extra-axial abnormality. There is minimal mucous | | membrane thickening inferiorly in the maxillary sinuses and also involving ethmoid air | | cells. The paranasal sinuses, orbits, sellar region, mastoid air cells, basilar | | cisterns and osseous structures are otherwise unremarkable. Major intracranial vessels | | and dural sinuses demonstrate grossly normal flow voids. IMPRESSION - | | 1. NORMAL UNENHANCED MRI APPEARANCE OF THE BRAIN. NO EVIDENCE OF EVOLVING | | ISCHEMIA/INFARCTION. 2. MINIMAL PARANASAL SINUS DISEASE. Dictated and Signed | | by: Harpreet Washburn MD Electronically signed: 04/20/2017 12:43 PM | + + + + | Procedure Note | + + | Abdulaziz, Rad Results In - 04/20/2017 1246 PST UNENHANCED BRAIN MRI 04/20/2017 11:59 AM | | | | CLINICAL HISTORY: cva | | | | COMPARISON: Preceding CTA | | | | TECHNIQUE: The following 3T MR sequences of the brain were obtained: | | 1. Axial, coronal and sagittal 3-D T1. | | 2. Axial T2, FLAIR, SWI, DWI and ADC. | | | | FINDINGS: The cerebral parenchyma, ventricles, brainstem and cerebellum appear | | normal. There is no mass effect, abnormal diffusion restriction, evidence of | | intracranial hemorrhage or extra-axial abnormality. There is minimal mucous | | membrane thickening inferiorly in the maxillary sinuses and also involving | | ethmoid air cells. The paranasal sinuses, orbits, sellar region, mastoid air | | cells, basilar cisterns and osseous structures are otherwise unremarkable. | | Major intracranial vessels and dural sinuses demonstrate grossly normal flow | | voids. | | | | IMPRESSION - | | 1. NORMAL UNENHANCED MRI APPEARANCE OF THE BRAIN. NO EVIDENCE OF EVOLVING | | ISCHEMIA/INFARCTION. | | | | 2. MINIMAL PARANASAL SINUS DISEASE. | | | | Dictated and Signed by: Harpreet Washburn MD | | Electronically signed: 04/20/2017 12:43 PM | + + Culture, MRSA (04/20/2017 1133) + + + + | Component | Value | Ref Range | + + + + | Culture | Negative for MRSA by chromogenic agar | | | | method | | + + + + | Culture | 3+ Coagulase positive Staphylococcus | | + + + + + + + | Specimen | Performing Laboratory | + + + | Respiratory - Nares | [facility] [address] | | | [place] [address] | + + + CT Angiogram Head Neck Acute Stroke (04/20/2017 0843) + + | Narrative | + + | CT ANGIOGRAM HEAD NECK ACUTE STROKE 04/20/2017 7:59 AM HISTORY: Acute Stroke. | | COMPARISON: None. PROTOCOL: Axial CT images of the head were obtained precontrast. | | Thin section axial CTA images of the head and neck were acquired after 65 mL Omnipaque | | 350. Coronal and sagittal reformations were obtained. CT HEAD FINDINGS: The brain | | parenchyma demonstrates no evidence for acute infarct, mass lesion, or hemorrhage. The | | brainstem is unremarkable. The cerebellum is normal. The pituitary gland is grossly | | normal. The orbits show no acute findings. Small right and moderate left inferior | | maxillary sinus mucous retention cysts are noted. Mastoid air cells are normal. | | Calvarium, temporal bones, and skull base structures are unremarkable. CTA HEAD | | FINDINGS: Right Carotid: The petrous, cavernous, and supraclinoid segments are patent. | | There is normal branching of the MCA and CRYSTAL. Anterior and posterior communicating | | arteries are seen. Left Carotid: The petrous, cavernous, and supraclinoid segments | | are patent. There is normal branching of the MCA and CRYSTAL. Anterior and posterior | | communicating arteries are seen. Vertebrobasilar: The bilateral vertebral arteries | | and basilar artery are patent. The pharmaceutical detailer are normal. CTA NECK FINDINGS: Aorta and | | Branches: The aorta and proximal branches are patent. Right Carotid: The common, | | internal, and external carotid arteries are patent with no significant stenosis. | | Left Carotid: The common, internal, and external carotid arteries are patent with no | | significant stenosis. Vertebrals: The bilateral vertebral arteries are patent. | | The nasopharynx, oropharynx, epiglottis, hypopharynx, and larynx are normal. The oral | | cavity is unremarkable. The parapharyngeal, retropharyngeal, and electrical engineering drafting officer spaces are | | normal. The parotid glands and submandibular glands are normal. There is a tiny | | low-attenuation nodule in the right thyroid lobe measuring 3 mm. No enlarged lymph | | nodes are visualized of the neck. There are no acute osseous abnormalities. The | | upper chest shows no acute findings. IMPRESSION - No acute intracranial findings. | | Gross patency of bilateral carotid and vertebrobasilar systems. Dictated and | | Signed by: Zhen Stockton MD Electronically signed: 04/20/2017 9:00 AM | + + + + | Procedure Note | + + | Abdulaziz, Rad Results In - 04/20/[address] ANGIOGRAM HEAD NECK ACUTE STROKE | | 04/20/2017 7:59 AMHISTORY: Acute Stroke.COMPARISON: None.PROTOCOL: Axial CT images of the | | head were obtained precontrast. Thin sectionaxial CTA images of the head and neck were | | acquired after 65 mL Omnipaque 350.Coronal and sagittal reformations were obtained.CT | | HEAD FINDINGS:The brain parenchyma demonstrates no evidence for acute infarct, mass | | lesion, orhemorrhage. The brainstem is unremarkable. The cerebellum is normal. | | Thepituitary gland is grossly normal.The orbits show no acute findings. Small right and | | moderate left inferiormaxillary sinus mucous retention cysts are noted. Mastoid air | | cells are normal.Calvarium, temporal bones, and skull base structures are | | unremarkable.CTA HEAD FINDINGS:Right Carotid: The petrous, cavernous, and supraclinoid | | segments are patent.There is normal branching of the MCA and CRYSTAL. Anterior and | | posteriorcommunicating arteries are seen.Left Carotid: The petrous, cavernous, and | | supraclinoid segments are patent.There is normal branching of the MCA and CRYSTAL. Anterior | | and posteriorcommunicating arteries are seen.Vertebrobasilar: The bilateral vertebral | | arteries and basilar artery are patent.The pharmaceutical detailer are normal.CTA NECK FINDINGS:Aorta and | | Branches: The aorta and proximal branches are patent.Right Carotid: The common, | | internal, and external carotid arteries are patentwith no significant stenosis.Left | | Carotid: The common, internal, and external carotid arteries are patentwith no | | significant stenosis.Vertebrals: The bilateral vertebral arteries are patent.The | | nasopharynx, oropharynx, epiglottis, hypopharynx, and larynx are normal. Theoral cavity | | is unremarkable. The parapharyngeal, retropharyngeal, and masticatorspaces are normal. | | The parotid glands and submandibular glands are normal. Thereis a tiny low-attenuation | | nodule in the right thyroid lobe measuring 3 mm. Noenlarged lymph nodes are visualized | | of the neck.There are no acute osseous abnormalities.The upper chest shows no acute | | findings.IMPRESSION -No acute intracranial findings.Gross patency of bilateral carotid | | and vertebrobasilar systems.Dictated and Signed by: Zhen Stockton MD Electronically | | signed: 04/20/2017 9:00 AM | |communicating arteries are seen. | | | |Vertebrobasilar: The bilateral vertebral arteries and basilar artery are patent. | |The pharmaceutical detailer are normal. | | | |CTA NECK FINDINGS: | |Aorta and Branches: The aorta and proximal branches are patent. | | | |Right Carotid: The common, internal, and external carotid arteries are patent | |with no significant stenosis. | | | |Left Carotid: The common, internal, and external carotid arteries are patent | |with no significant stenosis. | | | |Vertebrals: The bilateral vertebral arteries are patent. | | | |The nasopharynx, oropharynx, epiglottis, hypopharynx, and larynx are normal. The | |oral cavity is unremarkable. The parapharyngeal, retropharyngeal, and electrical engineering drafting officer | |spaces are normal. The parotid glands and submandibular glands are normal. There | |is a tiny low-attenuation nodule in the right thyroid lobe measuring 3 mm. No | |enlarged lymph nodes are visualized of the neck. | | | |There are no acute osseous abnormalities. | | | |The upper chest shows no acute findings. | | | |IMPRESSION - | |No acute intracranial findings. | | | |Gross patency of bilateral carotid and vertebrobasilar systems. | | | |Dictated and Signed by: Zhen Stockton MD | | Electronically signed: 04/20/2017 9:00 AM | + + XR Chest AP Portable (04/20/2017 0839) + + | Narrative | + + | CLINICAL INFORMATION: CVA. COMPARISON: 04/06/2014. FINDINGS: Portable | | frontal chest radiograph Lungs: No focal airspace disease, pleural effusion, or | | pneumothorax. Heart/mediastinum: Cardiac silhouette is of normal size. Central | | pulmonary vasculature has a normal appearance. Bones: No acute osseous abnormality | | appreciated. IMPRESSION - No acute disease. Dictated and Signed by: | | Fran Hair MD Electronically signed: 04/20/2017 9:41 AM | + + + + | Procedure Note | + + | Abdulaziz, Rad Results In - 04/20/2017 0944 PST | | CLINICAL INFORMATION: CVA. | | | | COMPARISON: 04/06/2014. | | | | FINDINGS: | | Portable frontal chest radiograph | | | | Lungs: No focal airspace disease, pleural effusion, or pneumothorax. | | | | Heart/mediastinum: Cardiac silhouette is of normal size. Central pulmonary | | vasculature has a normal appearance. | | | | Bones: No acute osseous abnormality appreciated. | | | | IMPRESSION - No acute disease. | | | | Dictated and Signed by: Fran Hair MD | | Electronically signed: 04/20/2017 9:41 AM | + + Extra Gold Top Tube (04/20/2017 0805) + +-------+ + | Component | Value | Ref Range | + +-------+ + | EGDT | Done | | + +-------+ + + + + | Specimen | Performing Laboratory | + + + | Blood | [facility] [address] | | | [place] [address] | + + + POC Glucose (04/20/2017799) + +-------+ + | Component | Value | Ref Range | + +-------+ + | Glucose, POC | 96 | 70 - 109 mg/dL | + +-------+ + + + + | Specimen | Performing Laboratory | + + + | Blood | [facility] [address] | | | [place] [address] | + + + Troponin I (04/20/2017799) + + + + | Component | Value | Ref Range | + + + + | Troponin I | <0.01Comment: Reference Ranges:0.00-0.06 = | <0.06 ng/mL | | | NORMAL>0.06 = SUSPICIOUS FOR | | | | MYOCARDIAL DAMAGE NOTE: Values greater than | | | | 0.50 ng/mL have been shown to be strongly | | | | associated with acute myocardial | | | | infarction. The [employer] | | | | Cardiology (ACC) recommends a decision | | | | limit of 0.06 ng/mL for this | | | | assay. Results greater than 0.06 can | | | | reflect a pre-infarct acute coronary | | | | syndrome, but can also reflect myocardial | | | | necrosis or injury that is not due to | | | | coronary artery disease. Some of these | | | | causes are sepsis, hypocolemia, atrial | | | | fibrillation, heart failure, pulmonary | | | | embolism, myocarditis, myocardial | | | | contusion, and renal failure. The | | | | diagnosis of myocardial infarction should | | | | be based on a combination of the patient's | | | | clinical presentation and the clinical | | | | laboratory test results (especially serial | | | | troponin levels). | | + + + + + + + | Specimen | Performing Laboratory | + + + | Blood | [facility] [address] | | | [place] [address] | + + + PTT (04/20/2017 0800) + +-------+ + | Component | Value | Ref Range | + +-------+ + | PTT | 25 | 22 - 36 seconds | + +-------+ + + + + | Specimen | Performing Laboratory | + + + | Blood | [facility] [address] | | | [place] [address] | + + + Protime INR (04/20/2017 0800) + + + + | Component | Value | Ref Range | + + + + | Protime | 15.8 (H) | 11.3 - 13.9 seconds | + + + + | INR | 1.26 (H)Comment: Usual Oral Anticoagulation | 0.90 - 1.10 | | | Range: 2.0 - 3.0High Level Oral | | | | Anticoagulation Range: 2.5 - 3.5 | | | |High Level Oral Anticoagulation Range: 2.5 - 3.5 | | + + + + + + + | Specimen | Performing Laboratory | + + + | Blood | [facility] [address] | | | [place] [address] | + + + Comprehensive Metabolic Panel (04/20/2017799) + + + + | Component | Value | Ref Range | + + + + | NA | 137 | 136 - 149 mmol/L | + + + + | K | 3.8 | 3.5 - 5.1 mmol/L | + + + + | CL | 103 | 98 - 109 mmol/L | + + + + | CO2 | 25 | 24 - 31 mmol/L | + + + + | ANION GAP | 9 | 3 - 16 mmol/L | + + + + | GLUCOSE | 100 | 70 - 109 mg/dL | + + + + | BUN | 12 | 7 - 18 mg/dL | + + + + | Creatinine, | 0.83 | 0.60 - 1.30 mg/dL | | Serum/Plasma | | | + + + + | eGFR if not | >60Comment: GLOMERULAR FILTRATION | >=60 mL/min/1.73m2 | | P[place]IAN | RATE,ESTIMATED mL/min/1.86l5Sghv than | | | | 60 Chronic kidney disease,if found over | | | | a 3-month period.Less than 15 Kidney | | | | failureFor Americans,multiply the | | | | calculated GFR by 1.21. | | | | | | | | | | + + + + | CALCIUM | 9.1 | 8.3 - 10.5 mg/dL | + + + + | ALBUMIN | 4.2 | 3.2 - 5.0 g/dL | + + + + | BILIRUBIN TOTAL | 0.6 | 0.1 - 1.5 mg/dL | + + + + | Total protein | 6.9 | 6.0 - 7.8 g/dL | + + + + | AST | 13 | 10 - 42 U/L | + + + + | ALT | 14 | 6 - 45 U/L | + + + + | ALK PHOS | 91 | 40 - 110 U/L | + + + + | GLOBULIN | 2.7 | 2.1 - 3.8 g/dL | + + + + | Albumin/Globulin | 1.6 | 0.8 - 2.0 | | ratio | | | + + + + | BUN/CREA | 14.5 | | + + + + + + + | Specimen | Performing Laboratory | + + + | Blood | [facility] [address] | | | [place] [address] | + + + CBC w/ Auto Differential (04/20/2017 08) + +---------+ + | Component | Value | Ref Range | + +---------+ + | WBC | 4.3 | 4.0 - 11.0 K/uL | + +---------+ + | RBC | 4.97 | 3.70 - 5.20 M/uL | + +---------+ + | Hgb | 14.0 | 11.5 - 16.0 g/dL | + +---------+ + | Hct | 41.5 | 34.0 - 47.0 % | + +---------+ + | MCV | 83.5 | 83.0 - 101.0 fL | + +---------+ + | MCH | 28.1 | 28.0 - 35.0 pg | + +---------+ + | MCHC | 33.7 | 32.0 - 36.0 g/dL | + +---------+ + | RDW-CV | 13.6 | <15.0 % | + +---------+ + | Platelet Count | 180 | 140 - 440 K/uL | + +---------+ + | MPV | 8.3 | fL | + +---------+ + | % Neutrophils | 59.4 | 45.0 - 82.0 % | + +---------+ + | % Lymphocytes | 28.6 | 20.0 - 45.0 % | + +---------+ + | % Monocytes | 7.9 | 4.0 - 12.0 % | + +---------+ + | % Eosinophils | 2.7 | 0.0 - 5.0 % | + +---------+ + | % Basophils | 1.4 (H) | 0.0 - 1.0 % | + +---------+ + | Absolute Neutrophils | 2.60 | 1.80 - 8.50 K/uL | + +---------+ + | Absolute Lymphocytes | 1.20 | 0.60 - 3.20 K/uL | + +---------+ + | Absolute Monocytes | 0.30 | 0.00 - 1.00 K/uL | + +---------+ + | Absolute Eosinophils | 0.10 | 0.00 - 0.40 K/uL | + +---------+ + | Absolute Basophils | 0.10 | 0.00 - 0.10 K/uL | + +---------+ + + + + | Specimen | Performing Laboratory | + + + | Blood | [facility] [address] | | | [place] [address] | + + + ECG 12 lead (04/20/2017745) + + + + | Component | Value | Ref Range | + + + + | VENTRICULAR RATE EKG | 87 | BPM | + + + + | ATRIAL RATE | 87 | BPM | + + + + | P-R INTERVAL | 130 | ms | + + + + | QRS DURATION | 84 | ms | + + + + | Q-T INTERVAL | 364 | ms | + + + + | Q-T INTERVAL | 438 | ms | | (CORRECTED) | | | + + + + | P WAVE AXIS | 64 | degrees | + + + + | QRS AXIS | 57 | degrees | + + + + | T AXIS | 44 | degrees | + + + + | INTERPRETATION TEXT | Normal sinus rhythmNormal ECGWhen compared | | | | with ECG of 20-SEP-2015 09:54,No | | | | significant change was foundConfirmed by | | | | SENDY PICKETT MD ([id number]) on 04/20/2017 3:13:45 | | | | PM | | | | | | + + + + + + + | Specimen | Performing Laboratory | + + + | | [facility] | + + + in this encounter Visit Diagnoses + + | Diagnosis | + + | Acute ischemic stroke (HCC) - Primary | + + | Unspecified cerebral artery occlusion with cerebral infarction | + + | Cerebrovascular accident (CVA) due to thrombosis of cerebral artery (HCC) | + + | Received intravenous tissue plasminogen activator (t-PA) in emergency department | + + | Received intravenous tissue plasminogen activator (tPA) in emergency department | + + | Chest pain, unspecified type | + + | Cerebrovascular accident (CVA) determined by clinical assessment (HCC) | + + Admitting Diagnoses + + | Diagnosis | + + | Acute ischemic stroke (HCC) | + + | Unspecified cerebral artery occlusion with cerebral infarction | + + | Received intravenous tissue plasminogen activator (t-PA) in emergency department | + + | Cerebrovascular accident (CVA) due to thrombosis of cerebral artery (HCC) | + + Administered Medications + +--------+ +--------+-------+------+ | Medication Order | MAR | Action | Dose | Rate | Site | | | Action | Date | | | | + +--------+ +--------+-------+------+ | alteplase (ACTIVASE) 7.5 mg | Given | 04/20/2017 | 7.5 mg | 450 | | | bolus 7.5 mg (rounded from 7.461 | | 9:10 | | mL/hr | | | mg = 0.09 mg/kg | | PST | | | | | 82.9 kg), Intravenous, | | | | | | | Administer over 1 Minutes, ONCE, | | | | | | | 04/20/17 at 0850, For 1 dose | | | | | | + +--------+ +--------+-------+------+ +---+---+ | | | +---+---+ + +---------+ +-------+ +---+ | alteplase (ACTIVASE) infusion | New Bag | 04/20/2017 | 67 mg | 67 mL/hr | | | 67 mg 67 mg (rounded from 67.149 | | 9:15 | | | | | mg = 0.81 mg/kg | | PST | | | | | 82.9 kg), Intravenous, | | | | | | | Administer over 60 Minutes, ONCE, | | | | | | | 04/20/17 at 0850, For 1 dose, | | | | | | | Maximum infusion dose 81 mg (for | | | | | | | patient > 100 kg). Infuse 50 mL | | | | | | | of Normal Saline to clear tubing | | | | | | | when infusion is complete. | | | | | | + +---------+ +-------+ +---+ +---+---+ | | | +---+---+ + +-------+ +--------+---+---+ | aluminum & magnesium | Given | 04/21/2017 | 30 mLs | | | | hydroxide-simethicone (MAALOX | | 20:29 | | | | | PLUS REGULAR STRENGTH) 200-200-20 | | PST | | | | | mg/5 mL suspension 30 mL 30 mL, | | | | | | | Oral, EVERY 4 HOURS PRN, | | | | | | | Indigestion, Starting 04/21/17 | | | | | | | at 2013, Shake well. | | | | | | + +-------+ +--------+---+---+ +---+---+ | | | +---+---+ + +-------+ +--------+---+---+ | aspirin EC tablet 325 mg 325 | Given | 04/22/2017 | 325 mg | | | | mg, Oral, DAILY, First dose on | | 10:05 | | | | | 04/22/17 at 0915, Do not cut or | | PST | | | | | crush. | | | | | | + +-------+ +--------+---+---+ + +---+ | | | + +---+ | atorvaSTATin (LIPITOR) tablet | | | 40 mg 40 mg, Oral, NIGHTLY, | | | First dose on Thu04/22/17 at 2100 | | + +---+ | | | + +---+ | dextrose 50% injection 12.5 g | | | 12.5 g, Intravenous, PRN, Low | | | Blood Sugar, Starting Thu04/20/17 | | | at 1027 | | + +---+ | | | + +---+ + +-------+ +-------+---+---+ | famotidine (PEPCID) injection | Given | 04/21/2017 | 20 mg | | | | 20 mg 20 mg, Intravenous, 2 | | 10:05 | | | | | TIMES DAILY, First dose on Thu | | PST | | | | | 04/20/17 at 1145, Prior to | | | | | | | administration, prepare a 20 mg | | | | | | | dose by diluting 2 mL of | | | | | | | famotidine 10 mg/mL to 10 mL with | | | | | | | normal saline. | | | | | | + +-------+ +-------+---+---+ +-------+ +-------+---+---+ | Given | 04/21/2017 | 20 mg | | | | | 20:29 | | | | | | PST | | | | +-------+ +-------+---+---+ | Given | 04/22/2017 | 20 mg | | | | | 10:05 | | | | | | PST | | | | +-------+ +-------+---+---+ +---+---+ | | | +---+---+ + +-------+ +-------+---+---+ | gadobutrol (GADAVIST) injection | Given | 04/22/2017 | 3 mLs | | | | 3 mL 3 mL, Intravenous, ONCE | | 9:21 | | | | | PRN, Other, Starting 04/22/17 | | PST | | | | | at 0920, For 1 dose, MRI | | | | | | + +-------+ +-------+---+---+ +---+---+ | | | +---+---+ + +-------+ +-------+---+---+ | gadobutrol (GADAVIST) injection | Given | 04/22/2017 | 4 mLs | | | | 4 mL 4 mL, Intravenous, ONCE | | 9:22 | | | | | PRN, Other, Starting 04/22/17 | | PST | | | | | at 0921, For 1 dose, MRI | | | | | | + +-------+ +-------+---+---+ + +---+ | | | + +---+ | insulin lispro (humaLOG | | | KWIKPEN) 100 units/mL injection | | | (pen) 0-6 Units 0-6 Units, | | | Subcutaneous, 4 TIMES DAILY WITH | | | MEALS & NIGHTLY, First dose on | | | 04/20/17 at 1200, CORRECTION | | | SCALE: Blood Glucose (BG) < | | | 150: None BG | | | 150-200: DAY: 1 units. NIGHT: 0 | | | units BG 201-250: DAY: 2 units. | | | NIGHT: 1 units BG 251-300: | | | DAY: 3 units. NIGHT: 2 units | | | BG 301-350: DAY: 4 units. NIGHT: | | | 3 units BG 351-400: DAY: 5 | | | units. NIGHT: 4 units BG > | | | 400 : DAY: 6 units. NIGHT: 5 | | | units | | | AND CALL PROVIDER Use DAY DOSE | | | for doses scheduled: AC, | | | NPO, Daytime [id number] Use NIGHT | | | DOSE for doses scheduled: | | | HS, 3AM, Nighttime [id number] | | + +---+ | | | + +---+ + +-------+ +---------+---+---+ | iohexol (OMNIPAQUE 350) 350 | Given | 04/20/2017 | 115 mLs | | | | mg/mL injection 115 mL 115 mL, | | 8:30 | | | | | Intravenous, ONCE PRN, Other, | | PST | | | | | Starting 04/20/17 at 0844, For | | | | | | | 1 dose, Cat Scanner | | | | | | + +-------+ +---------+---+---+ + +---+ | | | + +---+ | pantoprazole (PROTONIX) DR | | | tablet 40 mg 40 mg, Oral, DAILY | | | BEFORE BREAKFAST, First dose on | | | 04/22/17 at 1215, Do not cut or | | | crush. | | + +---+ | | | + +---+ + +------+ +--------+-------+---+ | sodium chloride 0.9% (NS) bolus | Push | 04/20/2017 | 50 mLs | 3000 | | | 50 mL 50 mL, Intravenous, | | 8:30 | | mL/hr | | | Administer over 1 Minutes, ONCE | | PST | | | | | PRN, for contrast study, Starting | | | | | | | 04/20/17 at 0844, For 1 dose, | | | | | | | May infuse at a different rate | | | | | | | per protocol. | | | | | | + +------+ +--------+-------+---+ +---+---+ | | | +---+---+ + +---------+ +--------+ +---+ | sodium chloride 0.9% (NS) bolus | New Bag | 04/20/2017 | 50 mLs | 50 mL/hr | | | 50 mL 50 mL, Intravenous, | | 10:17 | | | | | Administer over 1 Hours, ONCE, | | PST | | | | | 04/20/17 at 0950, For 1 dose, | | | | | | | To clear tubing when alteplase | | | | | | | infusion is complete. | | | | | | + +---------+ +--------+ +---+ +---+---+ | | | +---+---+ in this encounter
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
--- OUTSIDE RECORDS SUMMARY | ~2017-05-28 | XMS | Encounter Summary ---
Demographics + + + | Address | [address] | | | [place] [address] | + + + | Home Phone | | + + + | Preferred Language | Unknown | + + + | Marital Status | | + + + | Alevism Affiliation | 1013 | + + + | Race | Unknown | + + + | Ethnic Group | Unknown | + + + Author + + + | Author | [facility] | | | and [place] | + + + | Organization | [facility] | | | and [place] | + + + | Address | Unknown | + + + | Phone | Unavailable | + + + Support + + + + + | Name | Relationship | Address | Phone | + + + + + | Tyrel Dillon | ECON | [address] | | | | | [place] [address] | | + + + + + Care Team Providers + +------+ + | Care Horticultural Services Supervisor Name | Role | Phone | + +------+ + | Lats Welch DO | PCP | | + +------+ + Encounter Details +--------+ + + + + | Date | Type | Department | Care Team | Description | +--------+ + + + + | 05/24/ | Procedure | [facility] | | | | 2017 | Pass | [facility] [address] | | | | | | [place], | | | | | | [place] [address] | | | | | | [phone] | | | +--------+ + + + [...]
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
--- OUTSIDE RECORDS SUMMARY | ~2017-05-28 | XMS | Encounter Summary ---
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 Internal Carotid Arteries: Nor mal. Middle Cerebral Arteries: Middle cerebral arteries and major MCA branch vessels are nor mal. Anterior Cerebral Arteries: Anterior cerebral arteries and anterior communicating arter y are normal. Posterior Circulation: Intracranial segments of the vertebral arteries, basila r artery, inferior cerebellar, superior cerebellar, and posterior cerebral arteries are norm al. CTA Neck: Aortic Arch: Conventional anatomy. Brachiocephalic and subclavian arteries are normal. Right Carotid Artery: Carotid origin, common carotid artery, carotid bifurcation, e xternal carotid artery, and cervical segments of the internal carotid artery are normal. Lef t Carotid Artery: Carotid origin, common carotid artery, carotid bifurcation, external carot id artery, and cervical segments of the internal carotid artery are normal. Vertebral Arteri es: Vertebral artery origins and cervical segments of the vertebral arteries are normal. IMP RESSION - 1. No acute intracranial hemorrhage or mass effect. 2. No major branch vessel oc clusion or high grade stenosis. A preliminary report was sent by [facility] with no sign ificant discrepancy on 05/24/2017 3:47:23 PM. Dictated and Signed by: Zhen Stockton MD Electro nically signed: 05/24/2017 4:04 PM ASSESSMENT and PLAN: Active Hospital Problems Diagnosis *Acute left-sided muscle weakness Hyperlipidemia PTSD (post-traumatic stress disorder) GERD (gastroesophageal reflux disease) Burn scar contracture of multiple sites Resolved Hospital Problems Diagnosis Date Noted Date Resolved No resolved problems to display. Acute left-sided weakness and numbness: - Similar symptoms as presentation on 04/20, reports these symptoms had never fully resolved - Received TPA in ER on 05/24 for acute symptoms, admitted to ICU on post-TPA protocol - Brain MRI 05/25 showed no acute or chronic abnormalities other than minimal bilateral maxil varsha sinus disease - CT 05/24 showed no abnormalities in the brain parenchyma or head/neck vasculature - Repeat Head CT at 18:00 today 24 hours s/p TPA - Appreciate PT/OT/speech therapy recommendations - Restart aspirin tomorrow if CT negative - Telemetry has showed no acute abnormalities - Echo done in April showed grade 1 diastolic dysfunction, otherwise normal with no shunt, will not repeat - BP goal <180/105, not an issue at present - Eating well Hyperlipidemia: - Lipids greatly improved from a month ago - Increased atorvastatin to 80 mg nightly GERD: - Continue PPI Disposition : Likely home with outpatient PT as soon as tomorrow Prophylaxis : Walking/SCD Current Facility-Administered Medications: acetaminophen 650 mg Per NG tube Q4H PRN Or acetaminophen 650 mg Oral Q4H PRN Or acetaminophen 650 mg Rectal Q4H PRN atorvaSTATin 80 mg Oral Nightly docusate sodium 100 mg Oral BID PRN labetalol 10 mg Intravenous Q10 Min PRN magnesium hydroxide 30 mL Oral Nightly PRN ondansetron 4 mg Intravenous Q6H PRN pantoprazole 40 mg Oral QAM AC senna 8.6 mg Oral BID PRN Total time of approximately 25 minutes was spent with the patient and/or patient's family, and/or on the patient's floor/unit, of which more than 50% was spent counseling and/or coord ination the patient's care as outlined above. Ari Irizarry 05/25/2017 11:53 [facility] in this encounter Plan of Treatment +--------+---------+ + + + | Date | Type | Specialty | Care Team | Description | +--------+---------+ + + + | 06/22/ | Office | Sleep Medicine | Rudolph Manriquez PA | | | 2017 | Visit | | [address] [facility] | | | | | | [place] | | | | | | [id number] | | | | | | | | +--------+---------+ + + + as of this encounter Results CT Head wo Contrast (05/25/2017 1803) + + | Narrative | + + | EXAM: CT HEAD WO CONTRAST dated 05/25/2017 6:00 PM HISTORY: Acute stroke symptoms | | Comparison: 04/21/2017 TECHNIQUE: Noncontrast CT is performed from the top of | | calvarium through the skull base. Coronal and sagittal reformats are performed. | | FINDINGS: BRAIN: No areas of increased attenuation to suggest intracranial | | hemorrhage. There is no mass, mass effect, or midline shift. There are no abnormal | | extra-axial fluid or air collections. There is preservation of the mckoy-white | | differentiation at this time. Normal There is no significant white matter | | disease. SCALP/ CALVARIUM: The scalp and skull are intact and are unremarkable. | | SINUSES / ORBITS/ MASTOIDS: The visible mastoid air cells and paranasal sinuses are | | clear. The globes and retroconal contents are intact and without evidence of acute | | abnormality. IMPRESSION - 1. No acute intracranial abnormality identified. No | | evidence of hemorrhage or large vessel infarct. Dictated and Signed by: | | Jose Gage MD Electronically signed: 05/25/2017 6:17 PM | + + + + | Procedure Note | + + | Abdulaziz, Rad Results In - 05/25/2017 1820 PDT EXAM: CT HEAD WO CONTRAST dated 05/25/2017 | | 6:00 PMHISTORY: Acute stroke symptomsComparison: 04/21/2017TECHNIQUE: Noncontrast CT is | | performed from the top of calvarium through theskull base. Coronal and sagittal | | reformats are performed.FINDINGS: BRAIN: No areas of increased attenuation to suggest | | intracranial hemorrhage. There is no mass, mass effect, or midline shift. There are no | | abnormalextra-axial fluid or air collections. There is preservation of the | | mckoy-whitedifferentiation at this time. Normal There is no significant white | | matterdisease. SCALP/ CALVARIUM: The scalp and skull are intact and are | | unremarkable.SINUSES / ORBITS/ MASTOIDS: The visible mastoid air cells and paranasal | | sinusesare clear. The globes and retroconal contents are intact and without evidenceof | | acute abnormality.IMPRESSION -1. No acute intracranial abnormality identified. No | | evidence of hemorrhage orlarge vessel infarct.Dictated and Signed by: Jose Gage MD | | Electronically signed: 05/25/2017 6:17 PM | |extra-axial fluid or air collections. There is preservation of the mckoy-white | |differentiation at this time. Normal There is no significant white matter | |disease. | | | |SCALP/ CALVARIUM: The scalp and skull are intact and are unremarkable. | | | |SINUSES / ORBITS/ MASTOIDS: The visible mastoid air cells and paranasal sinuses | |are clear. The globes and retroconal contents are intact and without evidence | |of acute abnormality. | | | |IMPRESSION - | |1. No acute intracranial abnormality identified. No evidence of hemorrhage or | |large vessel infarct. | | | | | | | | | |Dictated and Signed by: Jose Gage MD | | Electronically signed: 05/25/2017 6:17 PM | + + POC Glucose (05/25/2017 0822) + +-------+ + | Component | Value | Ref Range | + +-------+ + | Glucose, POC | 106 | 70 - 109 mg/dL | + +-------+ + + + + | Specimen | Performing Laboratory | + + + | Blood | [facility] Yane[facility] | | | [place] [address] | + + + MRI Brain wo Contrast (05/25/2017 0715) + + | Narrative | + + | TECHNIQUE: MRI of the brain with sequences to include sagittal T1, axial T1, | | coronal T1, axial diffusion-weighted imaging and ADC maps, axial T2, axial T2 FLAIR, | | axial susceptibility weighted imaging. CLINICAL INFORMATION: Acute stroke symptoms | | COMPARISON: MRI dated 04/22/[address] 05/24/2017. FINDINGS: Orbits have a normal | | appearance. Minimal mucosal thickening at the floor of the maxillary sinuses. | | No intracranial blood product or abnormal extra-axial fluid collection. No evidence of | | intracranial mass or mass effect. The ventricles and other CSF spaces are normal in | | size and shape. Normal mckoy and white matter signal characteristics are seen | | throughout. Normal appearance of the midline developmental anatomy. Diffusion | | weighted imaging and ADC maps show no areas of high or low signal respectively to | | suggest acute ischemia/infarction. No abnormal susceptibility artifact to suggest | | petechial hemorrhage. No focal vascular abnormality identified. | | IMPRESSION - No evidence of acute ischemia. Minimal bilateral maxillary sinus | | disease. Dictated and Signed by: Fran Hair MD Electronically signed: | | 05/25/2017 8:40 AM | + + + + | Procedure Note | + + | Abdulaziz, Rad Results In - 05/25/2017 0843 PDT | | TECHNIQUE: MRI of the brain with sequences to include sagittal T1, axial T1, | | coronal T1, axial diffusion-weighted imaging and ADC maps, axial T2, axial T2 | | FLAIR, axial susceptibility weighted imaging. | | | | CLINICAL INFORMATION: Acute stroke symptoms | | | | COMPARISON: MRI dated 04/22/[address] 05/24/2017. | | | | FINDINGS: | | Orbits have a normal appearance. | | | | Minimal mucosal thickening at the floor of the maxillary sinuses. | | | | No intracranial blood product or abnormal extra-axial fluid collection. No | | evidence of intracranial mass or mass effect. | | | | The ventricles and other CSF spaces are normal in size and shape. | | | | Normal mckoy and white matter signal characteristics are seen throughout. Normal | | appearance of the midline developmental anatomy. | | | | Diffusion weighted imaging and ADC maps show no areas of high or low signal | | respectively to suggest acute ischemia/infarction. | | | | No abnormal susceptibility artifact to suggest petechial hemorrhage. | | | | No focal vascular abnormality identified. | | | | | | IMPRESSION - | | No evidence of acute ischemia. | | | | Minimal bilateral maxillary sinus disease. | | | | Dictated and Signed by: Fran Hair MD | | Electronically signed: 05/25/2017 8:40 AM | + + Lipid Panel (05/25/2017 0235) + + + + | Component | Value | Ref Range | + + + + | Triglycerides | 90 | 35 - 160 mg/dL | + + + + | Cholesterol | 129 (L) | 150 - 200 mg/dL | + + + + | HDL | 39Comment: New HDL Reference Range as | 28 - 83 mg/dL | | | of October 26, 2014 Values may be | | | | 10-20% lower with new, standardized method. | | | | | | | | | | + + + + | Chol/HDL Ratio | 3.3 | | + + + + | LDL, Calculated | 72 | <=130 mg/dL | + + + + + + + | Specimen | Performing Laboratory | + + + | Blood | [facility]ane[facility] | | | [place] [address] | + + + CBC with Differential (05/25/2017 023) + + + + | Component | Value | Ref Range | + + + + | WBC | 3.7 (L) | 4.0 - 11.0 K/uL | + + + + | RBC | 4.28 | 3.70 - 5.20 M/uL | + + + + | Hgb | 11.6 | 11.5 - 16.0 g/dL | + + + + | Hct | 36.1 | 34.0 - 47.0 % | + + + + | MCV | 84.4 | 83.0 - 101.0 fL | + + + + | MCH | 27.2 (L) | 28.0 - 35.0 pg | + + + + | MCHC | 32.2 | 32.0 - 36.0 g/dL | + + + + | RDW-CV | 13.6 | <15.0 % | + + + + | Platelet Count | 134 (L) | 140 - 440 K/uL | + + + + | MPV | 8.0 | fL | + + + + | % Neutrophils | 59.4 | 45.0 - 82.0 % | + + + + | % Lymphocytes | 29.7 | 20.0 - 45.0 % | + + + + | % Monocytes | 7.6 | 4.0 - 12.0 % | + + + + | % Eosinophils | 2.4 | 0.0 - 5.0 % | + + + + | % Basophils | 0.9 | 0.0 - 1.0 % | + + + + | Absolute Neutrophils | 2.20 | 1.80 - 8.50 K/uL | + + + + | Absolute Lymphocytes | 1.10 | 0.60 - 3.20 K/uL | + [...] | + + + | Blood | [facility] Peggy Yane[facility] | | | [place] [address] | + + + Basic Metabolic Panel (05/25/2017234) + + + + | Component | Value | Ref Range | + + + + | NA | 139 | 136 - 149 mmol/L | + + + + | K | 3.6 | 3.5 - 5.1 mmol/L | + + + + | CL | 109 | 98 - 109 mmol/L | + + + + | CO2 | 26 | 24 - 31 mmol/L | + + + + | ANION GAP | 4 | 3 - 16 mmol/L | + + + + | GLUCOSE | 97 | 70 - 109 mg/dL | + + + + | BUN | 10 | 7 - 18 mg/dL | + + + + | Creatinine, | 0.73 | 0.60 - 1.30 mg/dL | | Serum/Plasma | | | + + + + | eGFR if not | >60Comment: GLOMERULAR FILTRATION | >=60 mL/min/1.73m2 | | ERITREAN | RATE,ESTIMATED mL/min/1.60h3Nwma than | | | | 60 Chronic kidney disease,if found over | | | | a 3-month period.Less than 15 Kidney | | | | failureFor Americans,multiply the | | | | calculated GFR by 1.21. | | | | | | | | | | + + + + | CALCIUM | 8.8 | 8.3 - 10.5 mg/dL | + + + + | BUN/CREA | 13.7 | | + + + + + + + | Specimen | Performing Laboratory | + + + | Blood | [facility] | | | [place] [address] | + + + POC Glucose (05/24/20171945) + +-------+ + | Component | Value | Ref Range | + +-------+ + | Glucose, POC | 91 | 70 - 109 mg/dL | + +-------+ + + + + | Specimen | Performing Laboratory | + + + | Blood | [facility] Daniels [facility] | | | [place] [address] | + + + Culture, MRSA (05/24/20171851) + + + + | Component | Value | Ref Range | + + + + | Culture | Negative for MRSA by chromogenic agar | | | | method | | + + + + + + + | Specimen | Performing Laboratory | + + + | Respiratory - Nares | [facility] | | | [place] [address] | + + + ECG 12 lead (05/24/2017 1548) + + + + | Component | Value | Ref Range | + + + + | VENTRICULAR RATE EKG | 78 | BPM | + + + + | ATRIAL RATE | 78 | BPM | + + + + | P-R INTERVAL | 138 | ms | + + + + | QRS DURATION | 84 | ms | + + + + | Q-T INTERVAL | 414 | ms | + + + + | Q-T INTERVAL | 471 | ms | | (CORRECTED) | | | + + + + | P WAVE AXIS | 69 | degrees | + + + + | QRS AXIS | 64 | degrees | + + + + | T AXIS | 53 | degrees | + + + + | INTERPRETATION TEXT | Normal sinus rhythmST segments in lead V4 | | | | cannot be interpretedNonspecific T wave | | | | abnormality Anterior leadsProlonged QTcWhen | | | | compared with ECG of 21-APR-2017 12:23,QTC | | | | has increased in durationT wave amplitude | | | | has decreased in Anterior leadsConfirmed by | | | | PIYUSH AVALOS, SENDY ([id number]) on 05/25/2017 | | | | 7:39:13 AM | | | | | | + + + + + + + | Specimen | Performing Laboratory | + + + | | [facility] | + + + XR Chest AP Portable (05/24/2017 1535) + + | Narrative | + + | XR CHEST AP PORTABLE 05/24/2017 3:21 PM HISTORY: WEAKNESS HEART PALPITATIONS. | | COMPARISON: Multiple priors. Findings: Heart size is within normal limits. Aorta is | | normal. Mediastinum is unremarkable. Central pulmonary vasculature is normal. The | | bilateral lungs are clear with no evidence for pleural effusion or pneumothorax. Mild | | right curvature of the thoracolumbar spine is seen. There are cholecystectomy clips. | | IMPRESSION - No acute findings. Dictated and Signed by: Zhen Stockton MD | | Electronically signed: 05/24/2017 4:29 PM | + + + + | Procedure Note | + + | Abdulaziz, Rad Results In - 05/24/2017 1632 PDT XR CHEST AP PORTABLE 05/24/2017 3:21 PM | | | | HISTORY: WEAKNESS | | HEART PALPITATIONS. | | | | COMPARISON: Multiple priors. | | | | Findings: | | Heart size is within normal limits. Aorta is normal. Mediastinum is | | unremarkable. Central pulmonary vasculature is normal. The bilateral lungs are | | clear with no evidence for pleural effusion or pneumothorax. Mild right | | curvature of the thoracolumbar spine is seen. There are cholecystectomy clips. | | | | IMPRESSION - | | No acute findings. | | | | Dictated and Signed by: Zhen Stockton MD | | Electronically signed: 05/24/2017 4:29 PM | + + CT Angiogram Head Neck Acute Stroke (05/24/2017 1528) + + | Narrative | + + | CT ANGIOGRAM HEAD NECK ACUTE STROKE 05/24/2017 3:05 PM HISTORY: Suspect Acute | | Stroke. COMPARISON: None. PROTOCOL: Axial CT images of the head were obtained | | precontrast. Thin section axial CTA images of the head and neck were acquired after 125 | | mL Omnipaque 350. Coronal and sagittal reformations were obtained. FINDINGS: CT | | Head: Brain: No intracranial hemorrhage. No midline shift or pathologic mass effect. | | No cerebral edema, mass lesion, or evidence of acute infarct. Ventricles and | | extra-axial fluid spaces: Normal. Paranasal sinuses and mastoid air cells: Normal. | | Calvarium and extracranial soft tissues: Normal. Orbits: Imaged portions of the | | orbits are normal. CTA Head: Intracranial Segments of the Internal Carotid | | Arteries: Normal. Middle Cerebral Arteries: Middle cerebral arteries and major MCA | | branch vessels are normal. Anterior Cerebral Arteries: Anterior cerebral arteries | | and anterior communicating artery are normal. Posterior Circulation: Intracranial | | segments of the vertebral arteries, basilar artery, inferior cerebellar, superior | | cerebellar, and posterior cerebral arteries are normal. CTA Neck: Aortic Arch: | | Conventional anatomy. Brachiocephalic and subclavian arteries are normal. Right | | Carotid Artery: Carotid origin, common carotid artery, carotid bifurcation, external | | carotid artery, and cervical segments of the internal carotid artery are normal. | | Left Carotid Artery: Carotid origin, common carotid artery, carotid bifurcation, | | external carotid artery, and cervical segments of the internal carotid artery are | | normal. Vertebral Arteries: Vertebral artery origins and cervical segments of the | | vertebral arteries are normal. IMPRESSION - 1. No acute intracranial hemorrhage | | or mass effect. 2. No major branch vessel occlusion or high grade stenosis. A | | preliminary report was sent by [facility] with no significant discrepancy on | | 05/24/2017 3:47:23 PM. Dictated and Signed by: Zhen Stockton MD Electronically | | signed: 05/24/2017 4:04 PM | + + + + | Procedure Note | + + | Abdulaziz, Rad Results In - 05/24/[address] ANGIOGRAM HEAD NECK ACUTE STROKE | | 05/24/2017 3:05 PMHISTORY: Suspect Acute Stroke.COMPARISON: None.PROTOCOL: Axial CT images | | of the head were obtained precontrast. Thin sectionaxial CTA images of the head and | | neck were acquired after 125 mL Omnipaque 350.Coronal and sagittal reformations were | | obtained.FINDINGS:CT Head:Brain: No intracranial hemorrhage. No midline shift or | | pathologic masseffect. No cerebral edema, mass lesion, or evidence of acute | | infarct.Ventricles and extra-axial fluid spaces: Normal.Paranasal sinuses and mastoid | | air cells: Normal.Calvarium and extracranial soft tissues: Normal.Orbits: Imaged | | portions of the orbits are normal.CTA Head:Intracranial Segments of the Internal Carotid | | Arteries: Normal.Middle Cerebral Arteries: Middle cerebral arteries and major MCA | | branchvessels are normal.Anterior Cerebral Arteries: Anterior cerebral arteries and | | anteriorcommunicating artery are normal.Posterior Circulation: Intracranial segments of | | the vertebral arteries,basilar artery, inferior cerebellar, superior cerebellar, and | | posteriorcerebral arteries are normal.CTA Neck:Aortic Arch: Conventional anatomy. | | Brachiocephalic and subclavianarteries are normal.Right Carotid Artery: Carotid origin, | | common carotid artery, carotidbifurcation, external carotid artery, and cervical | | segments of theinternal carotid artery are normal.Left Carotid Artery: Carotid origin, | | common carotid artery, carotidbifurcation, external carotid artery, and cervical | | segments of theinternal carotid artery are normal.Vertebral Arteries: Vertebral artery | | origins and cervical segments ofthe vertebral arteries are normal.IMPRESSION -1. No | | acute intracranial hemorrhage or mass effect.2. No major branch vessel occlusion or | | high grade stenosis.A preliminary report was sent by [facility] with no significant | | discrepancyon 05/24/2017 3:47:23 PM.Dictated and Signed by: Zhen Stockton MD | | Electronically signed: 05/24/2017 4:04 PM | |Intracranial Segments of the Internal Carotid Arteries: Normal. | | | |Middle Cerebral Arteries: Middle cerebral arteries and major MCA branch | |vessels are normal. | | | |Anterior Cerebral Arteries: Anterior cerebral arteries and anterior | |communicating artery are normal. | | | |Posterior Circulation: Intracranial segments of the vertebral arteries, | |basilar artery, inferior cerebellar, superior cerebellar, and posterior | |cerebral arteries are normal. | | | |CTA Neck: | |Aortic Arch: Conventional anatomy. Brachiocephalic and subclavian | |arteries are normal. | | | |Right Carotid Artery: Carotid origin, common carotid artery, carotid | |bifurcation, external carotid artery, and cervical segments of the | |internal carotid artery are normal. | | | |Left Carotid Artery: Carotid origin, common carotid artery, carotid | |bifurcation, external carotid artery, and cervical segments of the | |internal carotid artery are normal. | | | |Vertebral Arteries: Vertebral artery origins and cervical segments of | |the vertebral arteries are normal. | | | |IMPRESSION - | |1. No acute intracranial hemorrhage or mass effect. | |2. No major branch vessel occlusion or high grade stenosis. | | | |A preliminary report was sent by [facility] with no significant discrepancy | |on 05/24/2017 3:47:23 PM. | | | |Dictated and Signed by: Zhen Stockton MD | | Electronically signed: 05/24/2017 4:04 PM | + + Extra Gold Top Tube (05/24/2017 1512) + +-------+ + | Component | Value | Ref Range | + +-------+ + | EGDT | Done | | + +-------+ + + + + | Specimen | Performing Laboratory | + + + | Blood | [facility] Peggy Yane[facility] | | | [place] [address] | + + + Magnesium (05/24/20171504) + +-------+ + | Component | Value | Ref Range | + +-------+ + | MG | 2.2 | 1.8 - 2.5 mg/dL | + +-------+ + + + + | Specimen | Performing Laboratory | + + + | Blood | [facility] | | | [address] [place], [place] [address] | + + + Troponin I (05/24/2017 1505) + + + + | Component | [...] myocardial | | | | infarction. [employer] | | | | [employer] [...] | + + + | Blood | [facility] Peggy FortinoDanitza Yanez | | | [place] [address] | + + + B Type Natriuretic Peptide (05/24/2017 1505) + +-------+ + | Component | Value | Ref Range | + +-------+ + | BNP | 36 | <100 pg/mL | + +-------+ + + + + | Specimen | Performing Laboratory | + + + | Blood | [facility] Peggy Yane[facility] | | | [place] [address] | + + + Protime INR (05/24/2017 1505) + + + + | Component | Value | Ref Range | + + + + | Protime | 12.7 | 11.3 - 13.9 seconds | + + + + | INR | 0.96Comment: Usual Oral Anticoagulation | 0.90 - 1.10 | | | Range: 2.0 - 3.0High Level Oral | | | | Anticoagulation Range: 2.5 - 3.5 | | | |High Level Oral Anticoagulation Range: 2.5 - 3.5 | | + + + + + + + | Specimen | Performing Laboratory | + + + | Blood | [facility] Peggy Yanez | | | [place] [address] | + + + Lipase (05/24/2017 1505) + +-------+ + | Component | Value | Ref Range | + +-------+ + | LIPASE | 27 | 0 - 60 U/L | + +-------+ + + + + | Specimen | Performing Laboratory | + + + | Blood | [facility]ane[facility] | | | [place] [address] | + + + Comprehensive Metabolic Panel (05/24/2017 1505) + + + + | Component | Value | Ref Range | + + + + | NA | 141 | 136 - 149 mmol/L | + + + + | K | 3.2 (L) | 3.5 - 5.1 mmol/L | + + + + | CL | 106 | 98 - 109 mmol/L | + + + + | CO2 | 27 | 24 - 31 mmol/L | + + + + | ANION GAP | 8 | 3 - 16 mmol/L | + + + + | GLUCOSE | 96 | 70 - 109 mg/dL | + + + + | BUN | 10 | 7 - 18 mg/dL | + + + + | Creatinine, | 0.92 | 0.60 - 1.30 mg/dL | | Serum/Plasma | | | + + + + | eGFR if not | >60Comment: GLOMERULAR FILTRATION | >=60 mL/min/1.73m2 | | ERITREAN | RATE,ESTIMATED mL/min/1.31i2Lqfh than | | | | 60 Chronic kidney disease,if found over | | | | a 3-month period.Less than 15 Kidney | | | | failureFor Americans,multiply the | | | | calculated GFR by 1.21. | | | | | | | | | | + + + + | CALCIUM | 9.5 | 8.3 - 10.5 mg/dL | + + + + | ALBUMIN | 4.2 | 3.2 - 5.0 g/dL | + + + + | BILIRUBIN TOTAL | 0.5Comment: This is an appended report. | 0.1 - 1.5 mg/dL | | | These results have been appended to a | | | | previously preliminary verified report. | | + + + + | Total protein | 6.8 | 6.0 - 7.8 g/dL | + + + + | AST | 16Comment: This is an appended report. | 10 - 42 U/L | | | These results have been appended to a | | | | previously preliminary verified report. | | + + + + | ALT | 24Comment: This is an appended report. | 6 - 45 U/L | | | These results have been appended to a | | | | previously preliminary verified report. | | + + + + | ALK PHOS | 107Comment: This is an appended report. | 40 - 110 U/L | | | These results have been appended to a | | | | previously preliminary verified report. | | + + + + | GLOBULIN | 2.6 | 2.1 - 3.8 g/dL | + + + + | Albumin/Globulin | 1.6 | 0.8 - 2.0 | | ratio | | | + + + + | BUN/CREA | 10.9 | | + + + + + + + | Specimen | Performing Laboratory | + + + | Blood | [facility] [address] | | | [place] [address] | + + + CBC with Differential (05/24/2017 1505) + + + + | Component | Value | Ref Range | + + + + | WBC | 5.1 | 4.0 - 11.0 K/uL | + + + + | RBC | 4.77 | 3.70 - 5.20 M/uL | + + + + | Hgb | 13.1 | 11.5 - 16.0 g/dL | + + + + | Hct | 40.3 | 34.0 - 47.0 % | + + + + | MCV | 84.4 |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
--- OUTSIDE RECORDS SUMMARY | ~2017-05-28 | XMS | Encounter Summary ---
Demographics + + + | Address | [address] | | | [place] [address] | + + + | Home Phone | | + + + | Preferred Language | Unknown | + + + | Marital Status | | + + + | Orthodox Affiliation | 1013 | + + + | Race | Unknown | + + + | Ethnic Group | Unknown | + + + Author + + + | Author | [facility] | | | and [place] | + + + | Organization | [facility] | | | and [place] | + + + | Address | Unknown | + + + | Phone | Unavailable | + + + Support + + + + + | Name | Relationship | Address | Phone | + + + + + | Tyrel Dillon | ECON | [address] | | | | | [place] [address] | | + + + + + Care Team Providers + +------+ + | Care Heat Treat Supervisor Name | Role | Phone | + +------+ + | Last Welch DO | PCP | | + +------+ + Encounter Details +--------+ + + + + | Date | Type | Department | Care Team | Description | +--------+ + + + + | 04/22/ | Procedure | [facility] | | | | 2017 | Pass | [facility] [address] | | | | | | [place], | | | | | | [place] [address] | | | | | | [phone] | | | +--------+ + + + [...]
--- OUTSIDE RECORDS SUMMARY | ~2017-05-28 | XMS | Encounter Summary ---
Demographics + + + | Address | [address] | | | [place] [address] | + + + | Home Phone | | + + + | Preferred Language | Unknown | + + + | Marital Status | | + + + | Druze Affiliation | 1013 | + + + | Race | Unknown | + + + | Ethnic Group | Unknown | + + + Author + + + | Author | [facility] | | | and [place] | + + + | Organization | [facility] | | [...] | | | | | [place] [address] | | + + + + + Care Team Providers + +------+ + | Care Bottle House Cleaners Supervisor Name | Role | Phone | [...] [address] | | | | | | [place], | | | | | | [place] [address] | | | | | | [phone] | | | +--------+ + + + [...]
--- OUTSIDE RECORDS SUMMARY | ~2017-05-28 | XMS | Encounter Summary ---
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 mmol/L | + + + + | CL | 101 | 98 - 109 mmol/L | + + + + | CO2 | 30 | 24 - 31 mmol/L | + + + + | ANION GAP | 7 | 3 - 16 mmol/L | + + + + | GLUCOSE | 95 | 70 - 109 mg/dL | + + + + | BUN | 16 | 7 - 18 mg/dL | + + + + | Creatinine, | 0.84 | 0.60 - 1.30 mg/dL | | Serum/Plasma | | | + + + + | eGFR if not | >60Comment: GLOMERULAR FILTRATION | >=60 mL/min/1.73m2 | | MOLDOVAN | RATE,ESTIMATED mL/min/1.00u1Ttwx than | | | | 60 Chronic kidney disease,if found over | | | | a 3-month period.Less than 15 Kidney | | | | failureFor Americans,multiply the | | | | calculated GFR by 1.21. | | | | | | | | | | + + + + | CALCIUM | 9.6 | 8.3 - 10.5 mg/dL | + + + + | BUN/CREA | 19.0 | | + + + + + + + | Specimen | Performing Laboratory | + + + | Blood | [facility] [address] | | | [place] [address] | + + + POC Glucose (04/22/20172041) + +-------+ + | Component | Value | Ref Range | + +-------+ + | Glucose, POC | 91 | 70 - 109 mg/dL | + +-------+ + + + + | Specimen | Performing Laboratory | + + + | Blood | [facility] [address] | | | [place] [address] | + + + POC Glucose (04/22/2017 1727) + +-------+ + | Component | Value | Ref Range | + +-------+ + | Glucose, POC | 77 | 70 - 109 mg/dL | + +-------+ + + + + | Specimen | Performing Laboratory | + + + | Blood | [facility] [address] | | | [place] [address] | + + + in this encounter Visit Diagnoses + + | Diagnosis | + + | Cerebrovascular accident (CVA) due to thrombosis of cerebral artery (HCC) - Primary | + + | PTSD (post-traumatic stress disorder) | + + | Posttraumatic stress disorder | + + Admitting Diagnoses + + | Diagnosis | + + | CVA | + + Administered Medications + +--------+ +--------+------+------+ | Medication Order | MAR | Action | Dose | Rate | Site | | | Action | Date | | | | + +--------+ +--------+------+------+ | acetaminophen (TYLENOL) tablet | Given | | 650 mg | | | | 650 mg 650 mg, Oral, EVERY 4 | | 8 5:58 | | | | | HOURS PRN, Fever, greater than or | | PDT | | | | | equal to 38.3 C (101.5 F) or | | | | | | | Pain, Starting 04/22/17 at | | | | | | | 1421, Not to exceed 4000 mg in 24 | | | | | | | hours | | | | | | + +--------+ +--------+------+------+ +-------+ +--------+---+---+ | Given | | 650 mg | | | | | 8 20:41 | | | | | | PDT | | | | +-------+ +--------+---+---+ +---+---+ | | | +---+---+ + +-------+ +--------+---+---+ | aspirin EC tablet 325 mg 325 | Given | | 325 mg | | | | mg, Oral, DAILY, First dose on | | 8 9:15 | | | | | [place] 04/23/17 at 0900, Do not cut or | | PST | | | | | crush. | | | | | | + +-------+ +--------+---+---+ +-------+ +--------+---+---+ | Given | | 325 mg | | | | | 8 9:04 | | | | | | PDT | | | | +-------+ +--------+---+---+ | Given | | 325 mg | | | | | 8 9:14 | | | | | | PDT | | | | +-------+ +--------+---+---+ +---+---+ | | | +---+---+ + +-------+ +-------+---+---+ | atorvaSTATin (LIPITOR) tablet | Given | 04/24/2017 | 40 mg | | | | 40 mg 40 mg, Oral, NIGHTLY, | | 20:09 | | | | | First dose on Thu04/22/17 at 2100, | | PST | | | | | Discharge Readmit | | | | | | + +-------+ +-------+---+---+ +-------+ +-------+---+---+ | Given | | 40 mg | | | | | 8 21:04 | | | | | | PST | | | | +-------+ +-------+---+---+ | Given | | 40 mg | | | | | 8 20:39 | | | | | | PDT | | | | +-------+ +-------+---+---+ +---+---+ | | | +---+---+ + +-------+ +-------+---+---+ | pantoprazole (PROTONIX) DR | Given | | 40 mg | | | | tablet 40 mg 40 mg, Oral, DAILY | | 8 6:52 | | | | | BEFORE BREAKFAST, First dose on | | PST | | | | | [place] 04/23/17 at 0730, Do not cut or | | | | | | | crush. | | | | | | + +-------+ +-------+---+---+ +-------+ +-------+---+---+ | Given | | 40 mg | | | | | 8 6:00 | | | | | | PDT | | | | +-------+ +-------+---+---+ | Given | | 40 mg | | | | | 8 6:34 | | | | | | PDT | | | | +-------+ +-------+---+---+ +---+---+ | | | +---+---+ in this encounter
--- OUTSIDE RECORDS SUMMARY | ~2017-05-28 | XMS | Encounter Summary ---
Demographics + + + | Address | [address] | | | [place] [address] | + + + | Home Phone [...] Author | [facility] | | | and [place] | + + + | Organization | [facility] | | | and [place] | + + + | Address | Unknown | + + + | Phone | Unavailable | + + + Support + + + + + | Name | Relationship | Address | Phone | + + + + + | Tyrel Dillon | ECON | [address] | | | | | [place] [address] | | + + + + + Care Team Providers + +------+ + | Care Char Filter Operator Name | Role | Phone | [...] W | | | | | | [place], | | | | | | [place] [address] | | | | | | [phone] | | | +--------+ + + + [...]
--- OUTSIDE RECORDS SUMMARY | ~2017-05-28 | XMS | Encounter Summary ---
Demographics + + + | Address | [address] | | | [place] [address] | + + + | Home Phone | | + + + | Preferred Language | Unknown | + + + | Marital Status | | + + + | Synagogue Affiliation | 1013 | + + + | Race | Unknown | + + + | Ethnic Group | Unknown | + + + Author + + + | Author | [facility] | | | and [place] | + + + | Organization | [facility] | | | and [place] | + + + | Address | Unknown | + + + | Phone | Unavailable | + + + Support + + + + + | Name | Relationship | Address | Phone | + + + + + | Tyrel Dillon | ECON | [address] | | | | | [place] [address] | | + + + + + Care Team Providers + +------+ + | Care Floral Assistant Name | Role | Phone | + [...] | SLEEP DISORDER [address] | [address] | Dx) | | | | [address] [place] | [place], [place] | | | | | [place] [address] | [address] | | | | | [phone] | | | +--------+---------+ + + + [...] Exam Assessment: Problem #1: OBSTRUCTIVE SLEEP APNEA ([id number]) This is controlled with CPAP. She has [...] month, sooner prn. Twenty-five minutes were spent [id number] , with the majority of time spent in counseling. Rudolph Manriquez PA-C cc: Last Welch, DO in this encounter Plan of Treatment +--------+---------+ + + + | Date | Type | Specialty | Care Team | Description | +--------+---------+ + + + | 06/22/ | Office | Sleep Medicine | Rudolph Manriquez PA | | | 2017 | Visit | | [address] | | | | | | [...]
--- OUTSIDE RECORDS SUMMARY | ~2017-05-28 | XMS | Clinical Summary ---
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 (04/22/2017947) + + | Narrative | + + [...] cervical spine and sagittal | | large rcgeo-ed-ayym T2 through the cervicothoracic spine. 3. Axial [...] the cervical spine and | | sagittal dsokgunfac-oq-pinh T2 through the cervicothoracic spine.3. Axial GRE through | | the cervical spine.4. Sagittal STIR through the cervical spine.5. Following the | | uneventful intravenous administration of 7.5 mL Gadavist, asagittal T1 sequence through | | the cervical spine and coronal and sagittal F5hpmkee through the thoracic spine were | | [...] cervical spine and sagittal | | large sadbl-ff-mdpl T2 through the cervicothoracic spine. 3. Axial [...] the cervical spine and | | sagittal hqnggpajai-sr-girc T2 through the cervicothoracic spine.3. Axial GRE through | | the cervical spine.4. Sagittal STIR through the cervical spine.5. Following the | | uneventful intravenous administration of 7.5 mL Gadavist, asagittal T1 sequence through | | the cervical spine and coronal and sagittal B0leaupq through the thoracic spine were | | [...] signed: 04/22/2017 11:07 AM | + + ECHO Complete (04/21/2017 0824) + +-------+ + | Component | Value | Ref Range | + +-------+ + | LVEF-TTE | 59 | | | TRANSTHORACIC ECHO | | | + +-------+ + + + | Narrative | + + | Transthoracic Echocardiography Report (TTE) Demographics Patient Name | | HUA HERRERA Room Number 451 | | RIO Patient Number | | [id number] Date of Study 04/21/2017 Visit | | Number [id number] Referring | | Physician RAMO Moncada Number Date of 1970 | | Tare Worker Bradley Sanders Age 46 | | year(s) Interpreting MIA LAUREN | | | | Marble Coper MAGDALENO | | | | MAGDALENO BELLAMY MD Gender | | Female Nurse | | Stress Fire Equipment Inspector Helper | | Procedure Type of Study TTE [...] 32.94 ml | | | | EF Tvuzpjuig95% Left Ventricle Diastolic Dimension: 4.55 | | [...] Demographics | | | | Patient Name HUA HERRERA Room Number 451 | | RIO | | | | Patient Number [id number] Date of Study 04/21/2017 | | | | Visit Number [id number] | | | | Referring Physician RAMO Moncada | | Number | | | | Date of 1970 Tare Worker Bradley Sanders | | | | Age 46 year(s) Interpreting MIA LAUREN | | Marble Coper MAGDALENO | | MAGDALENO BELLAMY MD | | | | Gender Female Nurse | | | | Stress Fire Equipment Inspector Helper | | | | Procedure | | [...] LA Volume: 32.94 ml | | EF Bprpgdesy17% | | | | Left Ventricle | | | | Diastolic Dimension: 4.55 cm Systolic Dimension: 3.02 cm | | Septum Diastolic: 1.53 cm | | PW Diastolic: 1.1 cm | | EF Calculated: 59% | | | | Miscellaneous | | | | Aorta | | | | Aortic Root: 2.49 cm | | Ascending Aorta: 3.84 cm | + + PTT (04/21/2017 0420)Only the most recent of 2 results within the time period is included. + +-------+ + | Component | Value | Ref Range | + +-------+ + | PTT | 28 | 22 - 36 seconds | + +-------+ + + + + | Specimen | Performing Laboratory | + + + | Blood | [facility] Peggy Yanez | | | [place] [address] | + + + Phosphorus (04/21/2017419) + +---------+ + | Component | Value | Ref Range | + +---------+ + | PHOSPHORUS | 4.7 (H) | 2.5 - 4.6 mg/dL | + +---------+ + + + + | Specimen | Performing Laboratory | + + + | Blood | [facility] Peggy Yanez | | | [place] [address] | + + + Extra Lavender Top Tube (04/20/2017 1229) + +-------+ + | Component | Value | Ref Range | + +-------+ + | Extra Lavender Top | Done | | | Tube | | | + +-------+ + + + + | Specimen | Performing Laboratory | + + + | Blood | [facility] [address] | | | [place] [address] | + + + CBC w/ Auto Differential (04/20/2017799) + +---------+ + | Component | Value [...] + + + | Blood | [facility] Peggy Yanez | | | [place] [address] | + + + from Last 3 Months Insurance + +--------+ +------+ +---------+ | Payer | Benefi | Subscriber | Type | Phone | Address | | | t Plan | ID | | | | | | / | | | | | | | Group | | | | | + +--------+ +------+ +---------+ | [employer] | PHP | xxxxxxxxxxx | PPO | [phone] | | PLAN | PERSON | [...] | Self | [birth year] | Home: | [facility] [address] | | | [address] | | 1971 | [phone] | [place] [address] | | | yuli | | | [phone] | | + +--------+ +--------+ + +
--- OUTSIDE RECORDS SUMMARY | ~2017-05-28 | XMS | Encounter Summary ---
Demographics + + + | Address | [address] | | | [place] [address] | + + + | Home Phone | | + + + | Preferred Language | Unknown | + + + | Marital Status | | + + + | Temple Affiliation | 1013 | + + + | Race | Unknown | + + + | Ethnic Group | Unknown | + + + Author + + + | Author | [facility] | | | and [place] | + + + | Organization | [facility] | | | and [place] | + + + | Address | Unknown | + + + | Phone | Unavailable | + + + Support + + + + + | Name | Relationship | Address | Phone | + + + + + | Tyrel Dillon | ECON | [address] | | | | | [place] [address] | | + + + + + Care Team Providers + +------+ + | Care Near East Archeology Professor Name | Role | Phone | + +------+ + | Last Welch DO | PCP | | + +------+ + Encounter Details +--------+ + + + + | Date | Type | Department | Care Team | Description | +--------+ + + + + | 04/27/ | Hospital | [facility] | Jayne Last PT | | | 2018 | Encounter | [facility] | | | | | | PHYSICAL THERAPY | | | | | | [address] [place] | | | | | | [place] [address] | | | | | | [phone] | | | +--------+ + + + [...] + + + as of this encounter Medications at Time [...] +--------+---------+ + + as of this encounter Plan of Treatment +--------+---------+ + + + | Date | Type | Specialty | Care Team | Description | +--------+---------+ + + + | 06/22/ | Office | Sleep Medicine | Rudolph Manriquez PA | | | 2018 | Visit | | [address] | | | | | | [place] | | | | | | [address] | | | | | | | | +--------+---------+ + + + as of this encounter Visit Diagnoses Not on filein this encounter"
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
--- OUTSIDE RECORDS SUMMARY | ~2017-05-28 | XMS | Encounter Summary ---
Demographics + + + | Address | [address] | | | [place] [address] | + + + | Home Phone | | + + + | Preferred Language | Unknown | + + + | Marital Status | | + + + | Mandaen Affiliation | 1013 | + + + | Race | Unknown | + + + | Ethnic Group | Unknown | + + + Author + + + | Author | [facility] | | | and [place] | + + + | Organization | [facility] | | | and [place] | + + + | Address | Unknown | + + + | Phone | Unavailable | + + + Support + + + + + | Name | Relationship | Address | Phone | + + + + + | Tyrel Dillon | ECON | [address] | | | | | [place] [address] | | + + + + + Care Team Providers + +------+ + | Care Co Op Name | Role | Phone | + [...] W | | | | | | [place], | | | | | | [place] [address] | | | | | | [phone] | | | +--------+ + + + [...]
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
--- OUTSIDE RECORDS SUMMARY | ~2017-05-28 | XMS | Encounter Summary ---
Demographics + + + | Address | [address] | | | [place] [address] | + + + | Home Phone | | + + + | Preferred Language | Unknown | + + + | Marital Status | | + + + | Faith Affiliation | 1013 | + + + | Race | Unknown | + + + | Ethnic Group | Unknown | + + + Author + + + | Author | [facility] | | | and [place] | + + + | Organization | [facility] | | | and [place] | + + + | Address | Unknown | + + + | Phone | Unavailable | + + + Support + + + + + | Name | Relationship | Address | Phone | + + + + + | Tyrel Dillon | ECON | [address] | | | | | [place] [address] | | + + + + + Care Team Providers + +------+ + | Care Relief Manager Name | Role | Phone | [...] W | | | | | | [place], | | | | | | [place] [address] | | | | | | [phone] | | | +--------+ + + + [...]
--- OUTSIDE RECORDS SUMMARY | ~2017-05-28 | XMS | Encounter Summary ---
Demographics + + + | Address | [address] | | | [place] [address] | + + + | Home Phone | | + + + | Preferred Language | Unknown | + + + | Marital Status | | + + + | Jainism Affiliation | 1013 | + + + | Race | Unknown | + + + | Ethnic Group | Unknown | + + + Author + + + | Author | [facility] | | | and [place] | + + + | Organization | [facility] | | | and [...] | | | | | [place] [address] | | + + + + + Care Team Providers + +------+ + | Care Jack Spinner Name | Role | Phone | + [...] lar accident | [address] | [place], | | | | | (CVA) due | [place] | [place] [address] | | | | | to | [place] | Phone: | | | | | thrombosis | [address] | [phone] | | | | | of cerebral | Phone: | Fax: | | | | | artery (HCC) | [phone] | [phone] | | | | | I63.30 | Fax: | | | | | | (ICD-10-CM) | [phone] | | | | | | - [...] | | | | | thrombosis | [address] | | | | | | of cerebral | Phone: | | | | | | artery (HCC) | [phone] | | | | | | | Fax: | | | | | | | [phone] | | + + + + + + + Encounter Details +--------+ + + + + | Date | Type | Department | Care Team | Description | +--------+ + + + + | 04/22/ | Hospital | [facility] | Jagdeep Cruz | Cerebrovascular | | 2018 - | Encounter | MED CTR IRF [address] | MD Guy [address] | accident (CVA) due | | | | [place], | [address] [place] | to thrombosis of | | 04/27/ | | [place] [address] | [place] [address] | cerebral artery | | 2018 | | [phone] | [phone] | ([facility]) | | | | | | | [...] on file Social History Narrative Lives [place] in house with . Exercise: walk 2-3 [...] arteries and basilar artery are patent. The family welfare social work professor are normal. CTA NECK FINDINGS: Aorta and [...] cavity is unremarkable. The parapharyngeal, retropharyngeal, and fish agent spaces are normal. The parotid glands and [...] through the cervical spine and sagittal large dtefq-tb-hnyk T2 through the cervicothoracic spine. 3. Axial [...] through the cervical spine and sagittal large isubv-zx-pbpz T2 through the cervicothoracic spine. 3. Axial [...] presented to the emergency room here at [facility] evaluated medically by Dr. Sara Rivas: This [...] stroke treatment medical decision making: Baseline Modified Bellmore Scale (MRS): 0 - No Symptoms CT [...] until cleared to swallow by BSS or ENAMEL CRACKER -PT, OT, ENAMEL CRACKER consults as appropriate -Begin stroke patient/family education [...] Procedure: EGD; Surgeon: August Price MD; Location: [facility] Meds During Hospitalization No [...] this chart may have been created with [employer] voice recognition software. Occasi onal wrong-word or [...] Ms Sequeira was an inpatient here at [facility] April 20 through April 27, 2017 , [...] bowel and bladder, and coordination with the Enrollment Eligibility Representative managing medical co -morbidities; including Coordinate with [...] term memory, problem solving and carry over. Building Maintenance Supervisor Respiratory Therapy Please see each of the [...] of function to allow discharge to the count includes the [facility] at the optimal level of function. Current [...] am is advanced. Specific short term and petroleum terminal plant operator Rehabilitation Team Treatment Goals will be developed, sh ared and implemented in collaboration with our patient and family/caregivers. The Recreational Facilities Motel Manager is the [facility] customer care team coach interfacing with them. Rehab Potential: Good Expected Functional Level at Discharge: Independent/Modified Independent/Supervision/Min Assist. Estimated length of stay: 6 days Discharge Plan: Discharge to pre-morbid independent living setting with the supportive care of patient's spouse/significant other/family/caregivers and community resources.Zackary Cruz MD - 04/24/2017 1733 PSTFormatting of this note may be different from the anabell mcgowan Pwap[facility] Rehabilitation Medicine Daily Progress Note Date: 04/24/17 [...] occupational therapy, speech therapy, case management, and 7th grade social studies teacher #Rehab - -Continue PT for gait, mobility -Continue OT for ADL's, toileting, adaptive equipment -Continue ENAMEL CRACKER for cognition, -Continue SW for discharge planning [...] was provided to the jhon cabrera. Each customer care team coach is addressing this as the patient advances [...] patient and her as well as our window caser, and we reviewed the [facility] plan of care and projected discharged date an,d destination. Supportive and going through hands-on training with the team today. We'll have her go on a day pass this weekend work on her rehab skills in the community sett ing. Note: My Progress Notes document close and ongoing Physiatric involvement; tobr-qy-kxlb vi sits, professionally assessing the Patient, both [...] this chart may have been created with [employer] voice recognition software. Occasi onal wrong-word or sound-alike substitutions may have occurred due to the inherent weaver itations of voice recognition software. Please read the chart carefully and recognize, using context, where these substitutions have occurred.Ryan Holliday RN - 04/24/2017 0546 PSTR eferral placed to Core Shaper Sides. Electronically signed by: RYAN HOLLIDAY RN 04/24/2017 5:46Burges Ryan diez RN - 04/24/2017 0575 PSTPatient called this RN into her room [...] prior to discharge. She would like a adoption social worker to facilitate a conversation with her . Care management will be notified. Patient does report that conversation with is RN was helpful and therapeutic. Electronically signed by: RYAN HOLLIDAY RN 04/24/2017 5:4 Jagdeep Enciso MD - 04/23/2017 0150 PSTFormatting of this note may be different from t frandy original. Ampb-kw[facility]Jx[facility] Rehabilitation Medicine Daily Progress Note Date: 04/23/17 [...] was found Confirmed by PIYUSH AVALOS, SENDY ([id number]) on 04/21/2017 5:33:05 PM POC Glucose Result [...] physical therapy, occupational therapy, case management, and 7th grade social studies teacher #Rehab - -Continue PT for gait, mobility [...] continuing to coordinate and collaborate [facility] to complement their therapy [...] rehab therapy regimen as tolerated; therapy staff sleene schwarz closely to see if any fatigue complaints reported after therapy. I am directing the above issues, and coordinating with the patient's other y sicians in this regards, considering relationships with the other medical co-morbidities, a s well as following up with the patient's bedside nurse, and window caser/adoption social worker. The patient is seen in collaboration with [...] 4 Handrail Location: both sides Level of [place]: supervised, verbal cues required Assistive Device: 2 [...] Notes document close and ongoing Physiatric involvement; wglr-bj-yvvj vis its , professionally assessing the Patient, [...] time, as well as time communicating with [facility] patient and treatment team as discussed above. Also : Please see the post lit KOTHARI Signed: Jagdeep Cruz MD Portions of this chart may have been created with [employer] voice recognition software. Occasi onal wrong-word or [...] 2018 | Visit | | [address] [facility] | | | | | | [place], [place] | | | | | | [id number] | | | | | | | | +--------+---------+ + + + + +--------+ + + | Name | Priori | Associated Diagnoses | Order Schedule | | | ty | | | + +--------+ + + | AMB Referral to [facility] Physical | Routin | Cerebrovascular | Ordered: 04/27/2017 | | Therapy | e | accident (CVA) due | | | | | to thrombosis of | | | | | cerebral artery | | | | | (HCC) | | + +--------+ + + | AMB Referral to [facility] Occupational | Routin | Cerebrovascular | Ordered: [...] | + + + | Blood | [facility] Peggy Yanez | | | [place] [address] | + + + Hemoglobin A1C (04/23/2017629) + +-------+ + | Component | Value | Ref Range | + +-------+ + | Hemoglobin A1c | 4.8 | 4.3 - 6.0 % | + +-------+ + + + + | Specimen | Performing Laboratory | + + + | Blood | [facility] Peggy Yanez | | | [place] [address] | + + + Prealbumin (04/23/2017629) + +-------+ + | Component | Value | Ref Range | + +-------+ + | PREALBUMIN | 28 | 18 - 38 mg/dL | + +-------+ + + + + | Specimen | Performing Laboratory | + + + | Blood | [facility] Peggy Yanez | | | [place] [address] | + + + Magnesium (04/23/2017629) + +-------+ + | Component | Value | Ref Range | + +-------+ + | MG | 2.3 | 1.8 - 2.5 mg/dL | + +-------+ + + + + | Specimen | Performing Laboratory | + + + | Blood | [facility] Peggy Yanez | | | [place] [address] | + + + CBC no Differential [...] + + + | Blood | [facility] Peggy Yanez | | | [place] [address] | + + + Basic Metabolic Panel [...] GLOMERULAR FILTRATION | >=60 mL/min/1.73m2 | | LATVIAN | RATE,ESTIMATED mL/min/1.66r6Cfih than | | | | 60 Chronic [...] | + + + | Blood | [facility] [address] | | | [place] [address] | + + + POC Glucose (04/22/20172041) + +-------+ + | Component | Value | Ref Range | + +-------+ + | Glucose, POC | 91 | 70 - 109 mg/dL | + +-------+ + + + + | Specimen | Performing Laboratory | + + + | Blood | [facility] [address] [place] | | | [place] [address] | + + + POC Glucose (04/22/2017 1727) + +-------+ + | Component | Value | Ref Range | + +-------+ + | Glucose, POC | 77 | 70 - 109 mg/dL | + +-------+ + + + + | Specimen | Performing Laboratory | + + + | Blood | [facility] Peggy Yanez | | | [place] [address] | + + + in this encounter [...]
--- OUTSIDE RECORDS SUMMARY | ~2017-05-28 | XMS | Clinical Summary ---
Demographics + + + | Address | [address] | | | [place] [address] | + + + | Home Phone | | + + + | Preferred Language | Unknown | + + + | Marital Status | Unknown | + + + | Pentecostalism Affiliation | Unknown | + + + | Race | Unknown | + + + | Ethnic Group | Unknown | + + + Author + + + | Author | [facility] | + + + | Organization | [facility] | + + + | Address | Unknown | + + + | Phone | Unavailable | + + + Support + + +---------+ + | Name | Relationship | Address | Phone | + + +---------+ + | No,Contact | ECON | Unknown | | + + +---------+ + Care Team Providers + +------+ + | Care Fulling Mill Operator Name | Role | Phone | [...] | | | | Screening (Pap) | 2 | | | + + + + + | Vaccine: Influenza | | | | | (Season Ended) | 8 | | | + + + + + Results Not on filefrom Last 3 Months"
--- OUTSIDE RECORDS SUMMARY | ~2017-05-28 | XMS | Clinical Summary ---
Demographics + + + | Address | [address] | | | [place] [address] | + + + | Home Phone | | + + + | Preferred Language | Unknown | + + + | Marital Status | Unknown | + + + | Zoroastrian Affiliation | Unknown | + + + | Race | Unknown | + + + | Ethnic Group | Unknown | + + + Author + + + | Author | [facility] | + + + | Organization | [facility] | + + + | Address | Unknown | + + + | Phone | Unavailable | + + + Support + + +---------+ + | Name | Relationship | Address | Phone | + + +---------+ + | No,Contact | ECON | Unknown | | + + +---------+ + Care Team Providers + +------+ + | Care Reheat Furnace Operator Name | Role | Phone | [...]
--- OUTSIDE RECORDS SUMMARY | ~2017-05-28 | XMS | Encounter Summary ---
Demographics + + + | Address | [address] | | | [place] [address] | + + + | Home Phone | | + + + | Preferred Language | Unknown | + + + | Marital Status | | + + + | Anglican Affiliation | 1013 | + + + | Race | Unknown | + + + | Ethnic Group | Unknown | + + + Author + + + | Author | [facility] | | | and [place] | + + + | Organization | [facility] | | | and [place] | + + + | Address | Unknown | + + + | Phone | Unavailable | + + + Support + + + + + | Name | Relationship | Address | Phone | + + + + + | Tyrel Dillon | ECON | [address] | | | | | [place] [address] | | + + + + + Care Team Providers + +------+ + | Care Account Financial Manager Name | Role | Phone | + +------+ + | Last Welch DO | PCP | | + +------+ + Encounter Details +--------+ + + + + | Date | Type | Department | Care Team | Description | +--------+ + + + + | 04/27/ | Hospital | [facility] | Jayne Last PT | | | 2018 | Encounter | MED CTR ACUTE | | | | | | PHYSICAL THERAPY | | | | | | [address] [place] | | | | | | [place] [address] | | | | | | [phone] | | | +--------+ + + + [...] [place] | | | | | | [address] | | | | | | | | +--------+---------+ + + + as of this encounter Visit Diagnoses Not on filein this encounter"
--- OUTSIDE RECORDS SUMMARY | ~2017-05-28 | XMS | Encounter Summary ---
Demographics + + + | Address | [address] | | | [place] [address] | + + + | Home Phone | | + + + | Preferred Language | Unknown | + + + | Marital Status | | + + + | Pentecostalism Affiliation | 1013 | + + + | Race | Unknown | + + + | Ethnic Group | Unknown | + + + Author + + + | Author | [facility] | | | and [place] | + + + | Organization | [facility] | | | and [...] | | | | | [place] [address] | | + + + + + Care Team Providers + +------+ + | Care Diversified Crops Farmworker Name | Role | Phone | + [...] [address] | | | | | | [place], | | | | | | [place] [address] | | | | | | [phone] | | | +--------+ + + + [...]
[~2017-05-28 15:36] MED LIST changes: +ASPIR 8181 MG PO; +TRAMADOL HCL50 MG PO
--- NOTE | 2017-05-29 22:49 | EKG ---
[facility] [address] [facility] [place] [address] Signed Normal sinus rhythm Normal ECG When compared with ECG of 25-OCT-2016 18:45, No significant change was found Confirmed by STEWART RAMOS MD ([id number]) on 05/29/2017 10:48:53 PM Electronically Signed By: STEWART RAMOS MD 05/29/17 2249 PATIENT NAME: JAVIER WEAVER Electrocardiogram DATE OF : 70 PHYSICIAN: STEWART RAMOS MD REPORT #: [id number] REPORT IS CONFIDENTIAL AND NOT TO BE RELEASED WITHOUT AUTHORIZATION
== END 2017-05-28 17:20 | disposition home or self-care (01) ==
LOC: ED 15:36
DX: R20.8 Other disturbances of skin sensation (principal); Z88.8 Allergy status to other drugs, medicaments and biological substances; Z88.0 Allergy status to penicillin; Z79.82 Long term (current) use of aspirin
CPT/HCPCS: 70450; 71045; 80053; 84484; 85025; 85610; 85730; 93005; 93010; 99284

== ENCOUNTER 2017-08-26 09:02 | Emergency (ER) | payer OTHER ==
[~2017-08-26] VITALS: Ht 167.6 cm; Wt 72.6 kg
[2017-08-26] MEDS ORDERED: RIZATRIPTAN10 M1 PO (09:17)
[2017-08-26] MEDS ORDERED: TOPIRAMATE25 MG PO (09:17)
[2017-08-26] MEDS ORDERED: PROCHLORPERAZIN10 MG PO (09:17)
[2017-08-26] MEDS ORDERED: METOPROLOL SUCC50 MG PO (09:17)
[2017-08-26] MEDS ORDERED: PANTOPRAZOLE SO40 MG PO (09:18)
[2017-08-26] MEDS ORDERED: ATORVASTATIN CA80 MG PO (09:18)
== END 2017-08-26 10:48 | disposition home or self-care (01) ==
LOC: ED 09:02
DX: G43.909 Migraine, unspecified, not intractable, without status migrainosus (principal); Z88.8 Allergy status to other drugs, medicaments and biological substances; Z88.0 Allergy status to penicillin; Z79.899 Other long term (current) drug therapy; Z79.82 Long term (current) use of aspirin
CPT/HCPCS: 36415; 80053; 81001; 83605; 85025; 99284

== ENCOUNTER 2017-08-28 22:33 | Emergency (ER) | payer OTHER ==
[~2017-08-28] VITALS: Ht 167.6 cm; Wt 72.6 kg
[~2017-08-28 22:33] MED LIST changes: +ATORVASTATIN CA80 MG PO; +METOPROLOL SUCC50 MG PO; +PANTOPRAZOLE SO40 MG PO; +PROCHLORPERAZIN10 MG PO; +RIZATRIPTAN10 M1 PO; +TOPIRAMATE25 MG PO
[2017-08-28] MEDS ORDERED: TRANSDERM-SCOP1 EACH TD (23:53)
[2017-08-28] MEDS ORDERED: MECLIZINE HCL25 MG PO (23:53)
== END 2017-08-29 00:04 | disposition home or self-care (01) ==
LOC: ED 22:33
DX: R51 Headache (principal); G89.29 Other chronic pain; Z88.6 Allergy status to analgesic agent; Z88.0 Allergy status to penicillin; Z79.899 Other long term (current) drug therapy; Z79.82 Long term (current) use of aspirin
CPT/HCPCS: 99283

== ENCOUNTER 2017-10-14 14:51 | Emergency (ER) | payer OTHER ==
[~2017-10-14] VITALS: Ht 167.6 cm; Wt 72.6 kg
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
--- OUTSIDE RECORDS SUMMARY | ~2017-10-14 | XMS | Clinical Summary ---
Demographics + + + | Address | [address] | | | [place] [address] | + + + | Home Phone | | + + + | Preferred Language | Unknown | + + + | Marital Status | Unknown | + + + | Buddhist Affiliation | Unknown | + + + | Race | Unknown | + + + | Ethnic Group | Unknown | + + + Author + + + | Author | [facility] | + + + | Organization | [facility] | + + + | Address | Unknown | + + + | Phone | Unavailable | + + + Support + + +---------+ + | Name | Relationship | Address | Phone | + + +---------+ + | No,Contact | ECON | Unknown | | + + +---------+ + Care Team Providers + +------+ + | Care Cost Estimating Clerk Name | Role | Phone | + [...] +------+-------+---------+ | [facility] | PROVID | [id number] | PPO | | | | PLAN [...] | 1971 | [phone] | [place] [address] | | | [place] | | | [phone] | | + +--------+ +--------+ + +"
--- OUTSIDE RECORDS SUMMARY | ~2017-10-14 | XMS | Clinical Summary ---
Demographics + + + | Address | [address] | | | [place] [address] | + + + | Home Phone | | + + + | Preferred Language | Unknown | + + + | Marital Status | Unknown | + + + | Restoration Affiliation | Unknown | + + + | Race | Unknown | + + + | Ethnic Group | Unknown | + + + Author + + + | Author | [facility] | + + + | Organization | [facility] | + + + | Address | Unknown | + + + | Phone | Unavailable | + + + Support + + +---------+ + | Name | Relationship | Address | Phone | + + +---------+ + | No,Contact | ECON | Unknown | | + + +---------+ + Care Team Providers + +------+ + | Care Slag Production Worker Name | Role | Phone | [...] +------+-------+---------+ | [facility] | PROVID | [id number] | PPO | | | | PLAN [...] | 1971 | [phone] | [place] [address] | | | [place] | | | [phone] | | + +--------+ +--------+ + +"
--- OUTSIDE RECORDS SUMMARY | ~2017-10-14 | XMS | Encounter Summary ---
Demographics + + + | Address | [address] | | | [place] [address] | + + + | Home Phone | | + + + | Preferred Language | Unknown | + + + | Marital Status | | + + + | Episcopalian Affiliation | 1013 | + + + | Race | Unknown | + + + | Ethnic Group | Unknown | + + + Author + + + | Author | [facility] | | | and [place] | + + + | Organization | [facility] | | | and [...] | | | | | [place] [address] | | + + + + + Care Team Providers + +------+ + | Care Hoisting Pile Driving Engineer Name | Role | Phone | [...] Description | +--------+---------+ + + + | 08/21/ | Office | [facility] | Rudolph Manriquez PA | VIOLET on CPAP (Primary | | 2018 | Visit | SLEEP DISORDER [address] | [address] | Dx) | | | | [address] [place] | [place], [place] | | | | | [place] [address] | [address] | | | | | [phone] | | | +--------+---------+ + + + [...] 0901 PDT | + + + + in [...] + + + as of this encounter Progress Notes Rudolph Manriquez PA - 08/21/2017 1130 PDTFormatting of this note may be different from the or iginal. Subjective: Patient ID: Doris Sequeira is a 46 y.o. female. HPI last office visit: 05/20/2017 date of polysomnography: 08/02/2014 AHI: 8 RDI: 8 O2%: 90% with 0.0 minutes below 88% Machine type: ResMed AirSense 10 Mask type: Full face mask DME: [facility] pressure: 4-20 cm Median: 6.9 cm 95%: 8.9 cm maximum: 9.9 cm Nights using CPAP: 72/91 66/68 68/197 42/159 % of nights >4 hours: 60% 79% 27% 20% average usage (all nights): 4:20 6:01 2:05 1:27 average usage (nights used): 5:30 6:13 6:05 5:32 AHI: 1.0 Doris comes in for CPAP compliance. Her CPAP usage has fluctuated. She does very well at times, but also struggles at times. She was doing pretty well for a while, but has struggle for about the last year. She has again had stressful situations occur. She says this was too overwhelming for her and she "couldn't" use her CPAP. She knows she is able to function better and deal with life stress better when she is using her CPAP. She knows this, but co ntinues to struggle with choosing to wear it. I have discussed the download in detail. The download shows that her sleep apnea is contro lled, with an AHI of 1.0. It also shows that her leaks are [...] for counseling. She is in counseling. She is currently in a safe, healthy relationship. BP 130/80 | Pulse 93 | Resp 16 | Wt 78.4 kg (172 lb 15.2 oz) | LMP (LMP Unknown) | Sp O2 99% | BMI 27.50 kg/m Review of Systems Objective: Physical Exam Assessment: Problem #1: OBSTRUCTIVE SLEEP APNEA (CWL95-X72.33) This is controlled with CPAP. She has struggled with her CPAP usage during the last year. Plan: 1. She is to continue with CPAP indefinitely. 2. She is to continue to work toward wearing her CPAP 100% of the time she is asleep. 3. She is to avoid making excuses for not using her CPAP. I will follow up again in 2 months, sooner prn. Fifteen minutes were spent [id number], w ith the majority of time spent in counseling. Rudolph Manriquez PA-C cc: Last Welch, DO in this encounter Plan of Treatment +--------+---------+ + + + | Date | Type | Specialty | Care Team | Description | +--------+---------+ + + + | 10/23/ | Office | Sleep Medicine | Rudolph Manriquez PA | | | 2018 | Visit | | [address] | | | | | | [place] | | | | | | [address] | | | | | | | | +--------+---------+ + + + as of this encounter Visit Diagnoses + + | Diagnosis | + + | VIOLET on CPAP - Primary | + + | Obstructive sleep apnea (adult) (pediatric) | + +
--- OUTSIDE RECORDS SUMMARY | ~2017-10-14 | XMS | Encounter Summary ---
Demographics + + + | Address | [address] | | | [place] [address] | + + + | Home Phone | | + + + | Preferred Language | Unknown | + + + | Marital Status | | + + + | Rastafari Affiliation | 1013 | + + + | Race | Unknown | + + + | Ethnic Group | Unknown | + + + Author + + + | Author | [facility] | | | and [place] | + + + | Organization | [facility] | | | and [place] | + + + | Address | Unknown | + + + | Phone | Unavailable | + + + Support + + + + + | Name | Relationship | Address | Phone | + + + + + | Tyrel Dillon | ECON | [address] | | | | | [place] [address] | | + + + + + Care Team Providers + +------+ + | Care Medical Equipment Repair Technician Name | Role | Phone | + +------+ + | Last Welch DO | PCP | | + +------+ + Encounter Details +--------+ + + + + | Date | Type | Department | Care Team | Description | +--------+ + + + + | 08/31/ | Transcribed | [facility] | Last Welch, | Migraine without | | 2018 | Orders | [facility] | DO [address] | status migrainosus, | | | | CENTER [address] | [place] | not intractable, | | | | [place], [place] | [address] | unspecified migraine | | | | [address] | [phone] | type (Primary Dx) | | | | [phone] | | | +--------+ + + + [...] + + + as of this encounter Functional Status + [...] 2018 | Visit | | [address] [facility] | | | | | | [place] | | | | | | [address] | | | | | | | | +--------+---------+ + + + as of this encounter Results EEG (09/06/2017 1615) + + + | Narrative | Performed At | + + + | Neal Castano MD 09/06/2017 16:21 ROUTINE EEG REPORT | | | Date: 09/01/17 Time: 14:09:09 to 15:15:19 Ordering | | | provider: Last Welch DO Manual Winder: Danni Lieberman | | | History: Doris Sequeira is a 46 y.o. female with history [...] | Neurology | | + + + in this encounter Visit Diagnoses + + | Diagnosis | + + | Migraine without status migrainosus, not intractable, unspecified migraine type - | | Primary | + +"
--- OUTSIDE RECORDS SUMMARY | ~2017-10-14 | XMS | Encounter Summary ---
Demographics + + + | Address | [address] | | | [place] [address] | + + + | Home Phone | | + + + | Preferred Language | Unknown | + + + | Marital Status | | + + + | Druze Affiliation | 1013 | + + + | Race | Unknown | + + + | Ethnic Group | Unknown | + + + Author + + + | Author | [facility] | | | and [place] | + + + | Organization | [facility] | | | and [place] | + + + | Address | Unknown | + + + | Phone | Unavailable | + + + Support + + + + + | Name | Relationship | Address | Phone | + + + + + | Tyrel Dillon | ECON | [address] | | | | | [place] [address] | | + + + + + Care Team Providers + +------+ + | Care At Home Independent Call Center Agent Name | Role | Phone | + [...] | 08/21/ | Office | [facility] | Rudolph Manriquez PA | VIOLET on CPAP (Primary | | 2018 | Visit | SLEEP DISORDER [address] | [address] | Dx) | | | | [address] [place] | [place], [place] | | | | | [place] [address] | [address] | | | | | [phone] | | | +--------+---------+ + + + [...] face mask DME: [facility] [place] pressure: 4-20 cm Median: 6.9 cm 95%: [...] Exam Assessment: Problem #1: OBSTRUCTIVE SLEEP APNEA ([id number]-O23.33) This is controlled with CPAP. She has [...] months, sooner prn. Fifteen minutes were spent [id number], w ith the majority of time spent in counseling. Rudolph Manriquez PA-C cc: Last Welch, DO in this encounter Plan of Treatment +--------+---------+ + + + | Date | Type | Specialty | Care Team | Description | +--------+---------+ + + + | 10/23/ | Office | Sleep Medicine | Rudolph Manriquez PA | | | 2018 | Visit | | [address] | | | | | | [place] | | | | | | [address] | | | | | | | | +--------+---------+ + + + as of this encounter Visit Diagnoses + + | Diagnosis | + + | VIOLET on CPAP - Primary | + + | Obstructive sleep apnea (adult) (pediatric) | + +
--- OUTSIDE RECORDS SUMMARY | ~2017-10-14 | XMS | Encounter Summary ---
Demographics + + + | Address | [address] | | | [place] [address] | + + + | Home Phone | | + + + | Preferred Language | Unknown | + + + | Marital Status | | + + + | Druze Affiliation | 1013 | + + + | Race | Unknown | + + + | Ethnic Group | Unknown | + + + Author + + + | Author | [facility] | | | and [place] | + + + | Organization | [facility] | | [...] | | | | | [place] [address] | | + + + + + Care Team Providers + +------+ + | Care Wet Trimmer Name | Role | Phone | + +------+ + | Last Welch DO | PCP | | + +------+ + Reason for Visit Service/Procedure (Routine) +--------+--------+ + + + + | Status | Reason | Specialty | Diagnoses / | Referred By | Referred To | | | | | Procedures | Contact | Contact | +--------+--------+ + + + + | Closed | | Sleep | Diagnoses | [facility] | | | | Medicine | Migraine | DO Last | Center [address] | | | | | headache | [address] | [place] | | | | | Procedures | [place] | [place], | | | | | EEG CA EEG | [place] | [place] [address] | | | | | >1 HR EEG > | [address] | Phone: | | | | | 60 min. | Phone: | [phone] | | | | | | [phone] | Fax: | | | | | | Fax: | [phone] | | | | | | [phone] | | +--------+--------+ + + + + Encounter Details +--------+ + + + + | Date | Type | Department | Care Team | Description | +--------+ + + + + | 09/01/ | Hospital | [facility] | Last Welch, | Migraine without | | 2018 - | Encounter | [facility] SLEEP | DO [address] | status migrainosus, | | | | CENTER [address] | [place], [place] | not intractable, | | 09/02/ | | [place] | [address] | unspecified migraine | | 2018 | | [address] | [phone] | type | | | | [phone] | | | +--------+ + + + [...] 2018 | Visit | | [address] | | | | | | [place] | | | | | | [address] | | | | | | | | +--------+---------+ + + + as of this encounter Procedures + +--------+ [...] | | + +--------+ + + + in this encounter Results EEG (09/06/2017 1615) + + + | Narrative | Performed At | + + + | Neal Casatno MD 09/06/2017 16:21 ROUTINE EEG REPORT | | | Date: 09/01/17 Time: 14:09:09 to 15:15:19 Ordering | | | provider: Last Welch DO Ceo & Founder: Danni Lieberman | | | History: Doris [...] status migrainosus, not intractable, unspecified migraine type | + +"
--- OUTSIDE RECORDS SUMMARY | ~2017-10-14 | XMS | Encounter Summary ---
Demographics + + + | Address | [address] | | | [place] [address] | + + + | Home Phone | | + + + | Preferred Language | Unknown | + + + | Marital Status | | + + + | Restorationist Affiliation | 1013 | + + + | Race | Unknown | + + + | Ethnic Group | Unknown | + + + Author + + + | Author | [facility] | | | and [place] | + + + | Organization | [facility] | | | and [place] | + + + | Address | Unknown | + + + | Phone | Unavailable | + + + Support + + + + + | Name | Relationship | Address | Phone | + + + + + | Tyrel Dillon | ECON | [address] | | | | | [place] [address] | | + + + + + Care Team Providers + +------+ + | Care Rip Saw Operator Name | Role | Phone | [...] | | | | CENTER [address] | [place] | not intractable, | | | | [place], [place] | [address] | unspecified migraine | | | | [address] | [phone] | type (Primary Dx) | | | | [phone] | | | +--------+ + + + [...] 2018 | Visit | | [address] [facility] | | | | | | [place] | | | | | | [address] | | | | | | | | +--------+---------+ + + + as of this encounter Results EEG (09/06/2017 1615) + + + | Narrative | Performed At | + + + | Neal Castano MD 09/06/2017 16:21 ROUTINE EEG REPORT | | | Date: 09/01/17 Time: 14:09:09 to 15:15:19 Ordering | | | provider: Last Welch DO Cokeman: Danni Lieberman | | | History: Doris [...]
--- OUTSIDE RECORDS SUMMARY | ~2017-10-14 | XMS | Clinical Summary ---
Demographics + + + | Address | [address] | | | [place] [address] | + + + | Home Phone | | + + + | Preferred Language | Unknown | + + + | Marital Status | | + + + | Mandaen Affiliation | 1013 | + + + | Race | Unknown | + + + | Ethnic Group | Unknown | + + + Author + + + | Author | [facility] | | | and Paulana | + + + | Organization | [facility] | | | and Paulana | + + + | Address | Unknown | + + + | Phone | Unavailable | + + + Support + + + + + | Name | Relationship | Address | Phone | + + + + + | Tyrel Dillon | ECON | [address] | | | | | [place] [address] | | + + + + + Care Team Providers + +------+ + | Care Operations Plant Attendant Name | Role | Phone | [...] 2017 | Visit | | [address] | | | | | | [place] | | | | | | [address] | | | | | | | [...] | | | provider: Last Welch DO Application Support Manager: Danni Lieberman | | | History: Doris [...] | | + +--------+ +------+ +---------+ | [facility] | PHP | [phone] | PPO | [phone] | | PLAN | PERSON | [...] | 1971 | [phone] | [place] [address] | | | [place] | | | [phone] | | + +--------+ +--------+ + +
--- OUTSIDE RECORDS SUMMARY | ~2017-10-14 | XMS | Encounter Summary ---
Demographics + + + | Address | [address] | | | [place] [address] | + + + | Home Phone | | + + + | Preferred Language | Unknown | + + + | Marital Status | | + + + | Spiritism Affiliation | 1013 | + + + | Race | Unknown | + + + | Ethnic Group | Unknown | + + + Author + + + | Author | [facility] | | | and Paulana | + + + | Organization | [facility] | | | and [...] | | | | | [place] [address] | | + + + + + Care Team Providers + +------+ + | Care Psych Specialist Name | Role | Phone | [...] | headache | [address] | [place] | | | | | Procedures | [place] | [place], | | | | | EEG VT EEG | [place] | [place] [address] | | | | | >1 HR EEG > | [address] | Phone: | | | | | 60 min. | Phone: | [phone] | | | | | | [phone] | Fax: | | | | | | Fax: | [phone] | | | | | | [phone] | | +--------+--------+ + + + + Encounter Details +--------+ + + + + | Date | Type | Department | Care Team | Description | +--------+ + + + + | 09/01/ | Hospital | [facility] | Last Welch, | Migraine without | | 2018 - | Encounter | [facility] | DO [address] | status migrainosus, | | | | CENTER [address] | [place], [place] | not intractable, | | 09/02/ | | [place] | [address] | unspecified migraine | | 2018 | | [address] | [phone] | type | | | | [phone] | | | +--------+ + + + [...] 2018 | Visit | | [address] | | | | | | [place] | | | | | | [address] | | | | | | | [...] | | | provider: Last Welch DO Independent Video Producer: Danni Lieberman | | | History: Doris [...]
[~2017-10-14 14:51] MED LIST changes: +TRANSDERM-SCOP1 EACH TD
== END 2017-10-14 16:55 | disposition home or self-care (01) ==
LOC: ED 14:51
DX: S16.1XXA Strain of muscle, fascia and tendon at neck level, 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 (principal); S39.012A Strain of muscle, fascia and tendon of lower back, 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; S00.83XA Contusion of other part of head, 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; V43.51XA Car driver injured in collision with sport utility vehicle in traffic accident, 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; G43.909 Migraine, unspecified, not intractable, without status migrainosus; Z88.0 Allergy status to penicillin; Z88.8 Allergy status to other drugs, medicaments and biological substances; Z79.899 Other long term (current) drug therapy; Z79.82 Long term (current) use of aspirin
CPT/HCPCS: 70450; 72100; 72125; 99284

== ENCOUNTER 2018-03-30 11:04 | Emergency (ER) | payer OTHER ==
[~2018-03-30] VITALS: Ht 167.6 cm; Wt 72.6 kg
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
[2018-03-30] MEDS ORDERED: INDERAL LA60 MG PO (15:46)
--- NOTE | 2018-03-31 00:35 | EKG ---
[facility] [address] [place] [address] Signed Normal sinus rhythm Normal ECG When compared with ECG of 28-MAY-2017 15:40, No significant change was found Confirmed by ROBEL RENAE MD ([id number]) on 03/31/2018 12:34:51 AM Electronically Signed By: ROBEL RENAE MD 03/31/18 0035 PATIENT NAME: JAVIER WEAVER Electrocardiogram DATE OF : 70 PHYSICIAN: ROBEL RENAE MD REPORT #: [id number] REPORT IS CONFIDENTIAL AND NOT TO BE RELEASED WITHOUT AUTHORIZATION
--- NOTE | 2018-03-31 00:35 | EKG ---
[facility] [address] [place], [place] [address] Signed Normal sinus rhythm Normal ECG When compared with ECG of 30-MAR-2018 11:11, (Unconfirmed) No significant change was found Confirmed by ROBEL RENAE MD ([id number]) on 03/31/2018 12:35:04 AM Electronically Signed By: ROBEL RENAE MD 03/31/18 0035 PATIENT NAME: JAVIER WEAVER Electrocardiogram DATE OF : 70 PHYSICIAN: ROBEL RENAE MD REPORT #: [id number] REPORT IS CONFIDENTIAL AND NOT TO BE RELEASED WITHOUT AUTHORIZATION
== END 2018-03-30 15:56 | disposition home or self-care (01) ==
LOC: ED 11:04
DX: R07.89 Other chest pain (principal); Z90.710 Acquired absence of both cervix and uterus; Z88.6 Allergy status to analgesic agent; Z88.0 Allergy status to penicillin; Z79.899 Other long term (current) drug therapy; Z79.82 Long term (current) use of aspirin
CPT/HCPCS: 71045; 80053; 84484; 85025; 85379; 85610; 93005; 93010; 99285-25

== ENCOUNTER 2018-04-18 17:11 | Emergency (ER) | payer OTHER ==
[~2018-04-18] VITALS: Ht 167.6 cm; Wt 73.9 kg
[~2018-04-18 17:11] MED LIST changes: +INDERAL LA60 MG PO
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
[2018-04-18] MEDS ORDERED: NITROGLYCERIN0.4 MG SL (17:29)
[2018-04-18] MEDS ORDERED: SUCRALFATE1 GM PO (17:29)
[2018-04-18] MEDS ORDERED: KLOR-CON20 MEQ PO (18:38)
--- NOTE | 2018-04-18 22:37 | EKG ---
[facility] [address] [facility] [place] [address] Signed Normal sinus rhythm Nonspecific T wave abnormality Prolonged QT Abnormal ECG When compared with ECG of 30-MAR-2018 12:09, No significant change was found Confirmed by ROBEL RENAE MD ([id number]) on 04/18/2018 10:37:21 PM Electronically Signed By: ROBEL RENAE MD 04/18/18 2237 PATIENT NAME: JAVIER WEAVER Electrocardiogram DATE OF : 70 PHYSICIAN: ROBEL RENAE MD REPORT #: [id number] REPORT IS CONFIDENTIAL AND NOT TO BE RELEASED WITHOUT AUTHORIZATION
== END 2018-04-18 20:12 | disposition home or self-care (01) ==
LOC: ED 17:11
DX: E87.6 Hypokalemia (principal); Z90.710 Acquired absence of both cervix and uterus; Z88.6 Allergy status to analgesic agent; Z88.0 Allergy status to penicillin; Z79.899 Other long term (current) drug therapy; Z79.82 Long term (current) use of aspirin
CPT/HCPCS: 71045; 80053; 84484; 85025; 93005; 93010; 96374; 99285-25; J2270

== ENCOUNTER 2018-04-21 13:12 | Emergency (ER) | payer OTHER ==
[~2018-04-21] VITALS: Ht 167.6 cm; Wt 73.9 kg
[~2018-04-21 13:12] MED LIST changes: +KLOR-CON20 MEQ PO; +NITROGLYCERIN0.4 MG SL; +SUCRALFATE1 GM PO
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
--- NOTE | 2018-04-21 17:36 | EKG ---
[facility] [address] [facility] [place], [place] [address] Signed Sinus tachycardia Otherwise normal ECG When compared with ECG of 18-APR-2018 17:18, No significant change was found Confirmed by JOSH TORRES DO ([id number]) on 04/21/2018 5:36:29 PM Electronically Signed By: JOSH TORRES DO 04/21/18 1736 PATIENT NAME: OWENJAVIER Electrocardiogram DATE OF : 70 PHYSICIAN: JOSH TORRES DO REPORT #: [id number] REPORT IS CONFIDENTIAL AND NOT TO BE RELEASED WITHOUT AUTHORIZATION
== END 2018-04-21 15:35 | disposition home or self-care (01) ==
LOC: ED 13:12
DX: E87.6 Hypokalemia (principal); R11.10 Vomiting, unspecified; Z90.710 Acquired absence of both cervix and uterus; Z88.6 Allergy status to analgesic agent; Z88.0 Allergy status to penicillin; Z79.899 Other long term (current) drug therapy; Z79.82 Long term (current) use of aspirin
CPT/HCPCS: 71045; 80053; 81001; 84484; 85025; 85379; 93005; 93010; 96361; 96374; 96375; 96376; 99285-25; J2405; J2550; J7030

== ENCOUNTER → 2018-06-21 | Emergency (ER) | payer OTHER ==
[~2018-06-21] VITALS: Ht 167.6 cm; Wt 72.6 kg
[~2018-06-21] MED LIST changes: +K-TAB ER20 MEQ PO; +KEFLEX500 MG PO; +ZOFRAN4 MG PO
--- OUTSIDE RECORDS SUMMARY | ~2018-06-21 | XMS | Clinical Summary ---
Demographics + + + | Address | [address] | | | [place] [address] | + + + | Home Phone | | + + + | Preferred Language | Unknown | + + + | Marital Status | Unknown | + + + | Advent Affiliation | Unknown | + + + | Race | Unknown | + + + | Ethnic Group | Unknown | + + + Author + + + | Author | [facility] | + + + | Organization | [facility] | + + + | Address | Unknown | + + + | Phone | Unavailable | + + + Support + + +---------+ + | Name | Relationship | Address | Phone | + + +---------+ + | No,Contact | ECON | Unknown | | + + +---------+ + Care Team Providers + +------+ + | Care Base Loader Name | Role | Phone | + +------+ + PP | Unavailable | + +------+ + Allergies Not on File Current Medications Not on file Active Problems Not on file Social History + +-------+ +--------+------+ | Tobacco Use | Types | Packs/Day | Years | Date | | | | | Used | | + +-------+ +--------+------+ | Never Assessed | | | | | + +-------+ +--------+------+ + + + | Sex Assigned at | Date Recorded | | | | + + + | Not on file | | + + + Plan of Treatment + + + + + | Health [...] Vaccine: Influenza | | | | | (Season Ended) | 9 | | | + + + + + Results Not on filefrom Last 3 Months Insurance + +--------+ +------+-------+---------+ | Payer | Benefi | Subscriber | Type | Phone | Address | | | t Plan | ID | | | | | | / | | | | | | | Group | | | | | + +--------+ +------+-------+---------+ | [employer] [facility] | PROVID | [id number] | PPO | | | | PLAN | ENCE | | | | | | | HEALTH | | | | | | | PLAN | | | | | + +--------+ +------+-------+---------+ + +--------+ +--------+ + + | Guarantor Name | Accoun | Relation to | Date | Phone | Billing Address | | | t Type | Patient | of | | | | | | | | | | + +--------+ +--------+ + + | DORIS SEQUEIRA | Person | Self [birth year] Home: | [address] | | | al/Fam | | 1971 | [phone] | [place] [address] | | | yuli | | | [phone] | | + +--------+ +--------+ + +"
--- OUTSIDE RECORDS SUMMARY | ~2018-06-21 | XMS | Encounter Summary ---
Demographics + + + | Address | [address] | | | [place] [address] | + + + | Home Phone | | + + + | Preferred Language | Unknown | + + + | Marital Status | | + + + | Jew Affiliation | 1013 | + + + | Race | Unknown | + + + | Ethnic Group | Unknown | + + + Author + + + | Author | [facility] | | | and [place] | + + + | Organization | [facility] | | | and [place] | + + + | Address | Unknown | + + + | Phone | Unavailable | + + + Support + + + + + | Name | Relationship | Address | Phone | + + + + + | Tyrel Dillon | ECON | [address] | | | | | [address] [facility] [place] | | | | | [address] | | + + + + + | Jelena Maurice | ECON | Unknown | | + + + + + Care Team Providers + +------+ + | Care Polisher Eyeglass Frames Name | Role | Phone | + +------+ + | Last Welch DO | PCP | | + +------+ + Reason for Referral Diagnostic/Screening (Routine) +--------+--------+ + + + + | Status | Reason | Specialty | Diagnoses / | Referred By | Referred To | | | | | Procedures | Contact | Contact | +--------+--------+ + + + + | Closed | | Radiology | Diagnoses | Olswanger, | [facility] | | | | | Chest pain, | Last, DO | [facility] | | | | | unspecified | [address] | [facility] | | | | | type | [facility] | MEDICAL | | | | | Procedures | [place], [place] | CENTER [address] | | | | | [place] | [address] | [place] | | | | | Stress Test | Phone: | [place], | | | | | (Exercise) | [phone] | [place] [address] | | | | | [place] [facility] | Fax: | Phone: | | | | | Stress Test | [phone] | [phone] | | | | | (Exercise) | | Fax: | | | | | | | [phone] | +--------+--------+ + + + + Diagnostic/Screening (Routine) +--------+--------+ + + + + | Status | Reason | Specialty | Diagnoses / | Referred By | Referred To | | | | | Procedures | Contact | Contact | +--------+--------+ + + + + | Closed | | Radiology | Diagnoses | Olswanger, | [facility] | | | | | Chest pain, | DO Last | [facility] | | | | | unspecified | [address] | [facility] | | | | | type | [facility] | MEDICAL | | | | | Procedures | [place] | CENTER [address] | | | | | [place] | [address] | [place] | | | | | Stress Test | Phone: | S[place]ida [place], | | | | | (Exercise) | [phone] | [place] [address] | | | | | [place] [facility] | Fax: | Phone: | | | | | Stress Test | [phone] | [phone] | | | | | (Exercise) | | Fax: | | | | | | | [phone] | +--------+--------+ + + + + Reason for Visit Auth/Cert +--------+--------+ + + + + | Status | Reason | Specialty | Diagnoses / | Referred By | Referred To | | | | | Procedures | Contact | Contact | +--------+--------+ + + + + | | | | | | | +--------+--------+ + + + + Encounter Details +--------+ + + + + | Date | Type | Department | Care Team | Description | +--------+ + + + + | 04/29/ | Hospital | [facility] | Last Welch, | Chest pain, | | 2019 | Encounter | [facility] | DO [address] | unspecified type | | | | MEDICINE [address] | [place], [place] | | | | | [place], | [address] | | | | | [place] [address] | [phone] | | | | | [phone] | | | | | | | Line Service AttendantIsabelle | | +--------+ + + + + Social History + [...] on file | | + + + + + + + | Job Start Date | Occupation | Industry | + + + + | Not on file | Not on file | Not on file | + + + + + + + + | Travel History | Travel Start | Travel End | + + + + + + | No recent travel history available. | + + documented as of this encounter Functional Status + + + + | Functional Status | Response | Date of Assessment | + + + + | Are you deaf or do you have serious | No | 05/26/2017 | | difficulty hearing? | | | + + + + | Are you blind or do you have serious | No | 05/26/2017 | | difficulty seeing, even when wearing | | | | glasses? | | | + + + + | Do you have serious difficulty walking or | No | 05/26/2017 | | climbing stairs? (5 years old or older) | | | + + + + | Do you have difficulty dressing or bathing? | No | 05/26/2017 | | (5 years old or older) | | | + + + + | Because of a physical, mental, or emotional | No | 05/26/2017 | | condition, do you have difficulty doing | | | | errands alone such as visiting a doctor's | | | | office or shopping? [15 years old or | | | | older)] | | | + + + + + + + + | Cognitive Status | Response | Date of Assessment | + + + + | Because of a physical, mental, or emotional | No | 05/26/2017 | | condition, do you have serious difficulty | | | | concentrating, remembering, or making | | | | decisions? (5 years old or older) | | | + + + + documented as of this encounter Medications at Time of Discharge + + + +---------+ + + | Medication | Sig | Dispensed | Refills | Start | End Date | | | | | | Date | | + + + +---------+ + + | atorvaSTATin | Take 1 tablet by | 30 | 0 | 05/27/19 | | | (LIPITOR) 80 MG | mouth nightly. | tablet | | 18 | | | tablet | | | | | | + + + +---------+ + + | diazePAM (VALIUM) | Take 2 mg by mouth | | 0 | 04/27/19 | | | 2 mg tablet | Daily. | | | 19 | | + + + +---------+ + + | metoprolol | 50 mg Daily. | | 0 | 12/21/19 | | | succinate | | | | 18 | | | (TOPROL-XL) 50 mg 24 | | | | | | | hr tablet | | | | | | + + + +---------+ + + | nitroglycerin | 0.4 mg. | | 0 | 03/31/19 | | | (NITROSTAT) 0.4 mg | | | | 19 | | | SL tablet | | | | | | + + + +---------+ + + | omeprazole | Take 20 mg by mouth. | | 0 | 05/16/19 | | | (PRILOSEC) 20 mg | | | | 15 | | | capsule | | | | | | + + + +---------+ + + | pantoprazole | Take 1 tablet by | 30 | 1 | 04/29/19 | | | (PROTONIX) 40 mg | mouth every morning | tablet | | 18 | | | tablet | (before breakfast). | | | | | + + + +---------+ + + | rizatriptan | Take 10 mg by mouth. | | 0 | | | | (MAXALT-C CONSULTANT) 10 mg | | | | | | | disintegrating | | | | | | | tablet | | | | | | + + + +---------+ + + | TIZANIDINE HCL PO | Take by mouth 2 | | 0 | | | | | times daily. | | | | | + + + +---------+ + + | topiramate | Take 25 mg by mouth. | | 0 | | | | (TOPAMAX) 25 mg | | | | | | | tablet | | | | | | + + + +---------+ + + | venlafaxine | Take 1 capsule by | | 0 | 11/09/19 | | | (EFFEXOR XR) 75 mg | mouth. | | | 18 | | | 24 hr capsule | | | | | | + + + +---------+ + + | diazePAM (VALIUM) | Take 3 mg by mouth 3 | | 0 | | | | 1 mg/mL solution | times daily. | | | | 9 | + + + +---------+ + + | omeprazole | Take 20 mg by mouth | | 0 | 05/16/19 | | | (PRILOSEC) 20 mg | Daily. | | | 15 | 9 | | capsule | | | | | | + + + +---------+ + + | potassium chloride | Take by mouth | | 0 | | | | 20 mEq/15 mL liquid | Daily. Pt sts that | | | | 9 | | | she takes 1.5 tsp's. | | | | | | | Unknown | | | | | | | concentration at | | | | | | | this time. | | | | | + + + +---------+ + + documented as of this encounter Plan of Treatment +--------+---------+ + + + | Date | Type | Specialty | Care Team | Description | +--------+---------+ + + + | 11/29/ | Office | Sleep Medicine | Rudolph Manriquez PA | | | 2019 | Visit | | [address] | | | | | | [place] | | | | | | [phone] | | | | | | | | +--------+---------+ + + + documented as of this encounter Procedures + +--------+ + + + | Procedure Name | Priori | Date/Time | Associated Diagnosis | Comments | | | ty | | | | + +--------+ + + + | [place] NUCLEAR STRESS | Routin | 04/29/2018 | Chest pain, | Results for this | | TEST (EXERCISE) | e | 13:18 PDT | unspecified type | procedure are in the | | | | | | results section. | + +--------+ + + + documented in this encounter Results [place] Nuclear Stress Test (Exercise) (04/29/2018 13:18 PDT) + +--------+ + + + | Component | Value | Ref Range | Performed | Pathologist | | | | | At | Signature | + +--------+ + + + | BASELINE | 89 | bpm | [facility] | | | HEART RATE | | | | | + +--------+ + + + | BASELINE | 114/79 | mmHg | [facility] | | | BLOOD | | | | | | PRESSURE | | | | | + +--------+ + + + | PEAK HEART | 181 | | [facility] | | | RATE | | | | | + +--------+ + + + | PEAK BLOOD | 151/83 | mmHG | [facility] | | | PRESSURE | | | | | + +--------+ + + + | Target HR | 147 | | [facility] | | + +--------+ + + + | Exercise | 0 | sec | [facility] | | | duration | | | | | | (sec) | | | | | + +--------+ + + + | Percent HR | 105 | | [facility] | | + +--------+ + + + | Exercise | 4 | min | [facility] | | | duration | | | | | | (min) | | | | | + +--------+ + + + | Estimated | 5.8 | METS | [facility] | | | workload | | | | | + +--------+ + + + | Angina | 1 | | [facility] | | | Index | | | | | + +--------+ + + + | LVEF-SPECT | 81 | % | [facility] | | | NUCLEAR | | | | | | STRESS/VIAB | | | | | | ILITY | | | | | + +--------+ + + + | ST | 0.0 | mm | [facility] | | | Elevation | | | | | | (mm) | | | | | + +--------+ + + + | Cazares | 0 | | [facility] | | | Treadmill | | | | | | Score | | | | | + +--------+ + + + + + | Specimen | + + | | + + + + + | Narrative | Performed At | + + + | 1. Exercise | [facility] | | EKG is negative.2. Blood pressure response is normal.3. Patient | | | has shortness of breath but no chest pain during | | | procedure.4. There is no arrhythmia during procedure.5. Exercise | | | tolerance is markedly diminished for age.6. Normal exercise | | | sestamibi myocardial perfusion imaging study. Normal left | | | ventricular size, wall thickness and motion. Preserved left | | | ventricular systolic function. LVEF by gated SPECT is 81%. | | + + + + +---------+ + + | Performing | Address | City/State/Zipcode | Phone Number | | Organization | | | | + +---------+ + + | [facility] | | | | + +---------+ + + documented in this encounter Visit Diagnoses + + | Diagnosis | + + | Chest pain, unspecified type | + + documented in this encounter Administered Medications + +--------+ + +------+------+ | Medication Order | MAR | Action | Dose | Rate | Site | | | Action | Date | | | | + +--------+ + +------+------+ | technetium TC-99M sestamibi | Given | 04/30/19 | 10.4 | | | | (CARDIOLITE) injection 10.4 | | 19 9:24 | millicur | | | | millicurie 10.4 millicurie, | | PDT | ies | | | | Intravenous, ONCE VEDAN, Other, | | | | | | | Starting [facility] 04/29/18 at 0924, For | | | | | | | 1 dose, Nuclear Medicine | | | | | | + +--------+ + +------+------+ +---+---+ | | | +---+---+ documented in this encounter"
--- OUTSIDE RECORDS SUMMARY | ~2018-06-21 | XMS | Encounter Summary ---
Demographics + + + | Address | [address] | | | [place] [address] | + + + | Home Phone | | + + + | Preferred Language | Unknown | + + + | Marital Status | | + + + | Samaritan Affiliation | 1013 | + + + | Race | Unknown | + + + | Ethnic Group | Unknown | + + + Author + + + | Author | [facility] | | | and [place]ana | + + + | Organization | [facility] | | | and Paulana | + + + | Address | Unknown | + + + | Phone | Unavailable | + + + Support + + + + + | Name | Relationship | Address | Phone | + + + + + | Tyrel Dillon | ECON | [address] | | | | | [place], [place] | | | | | [address] | | + + + + + | Jelena Maurice | ECON | Unknown | | + + + + + Care Team Providers + +------+ + | Care Cathode Builder Name | Role | Phone | + +------+ + | Juan Welch DO | PCP | | + +------+ + Reason for Visit + + + | Reason | Comments | + + + | Chest Pain | | + + + | Shortness of Breath | | + + + Encounter Details +--------+ + + + + | Date | Type | Department | Care Team | Description | +--------+ + + + + | 04/25/ | Emergency | [facility] | Ildefonso, | Atypical chest pain | | 2019 | | [facility] | Joel Loomis MD [address] | (Primary Dx) | | | | [place] [address] | [facility] | | | | | [place], [place] | [place] [address] | | | | | [address] | [phone] | | | | | [phone] | | | +--------+ + + + [...] + + documented as of this encounter Last Filed Vital Signs + + + + | Vital Sign | Reading | Time Taken | + + + + | Blood Pressure | 118/75 | 04/25/20181857 PDT | + + + + | Pulse | 83 | 04/25/20181857 PDT | + + + + | Temperature | 36.8 C (98.2 F) | 04/25/20181651 PDT | + + + + | Respiratory Rate | 14 | 04/25/20181857 PDT | + + + + | Oxygen Saturation | 97% | 04/25/20181857 PDT | + + + + | Inhaled Oxygen | - | - | | Concentration | | | + + + + | Weight | 73.9 kg (163 lb) | 04/25/20181651 PDT | + + + + | Height | 167.6 cm (5' 6") | 04/25/20181651 PDT | + + + + | Body Mass Index | 26.31 | 04/25/20181651 PDT | + + + + documented in this encounter Functional Status + + + [...] + + documented as of this encounter Discharge Instructions Joel Valdes MD - 04/25/2018Selaquita Gandhi as scheduled Return for more severe symptoms, changing symptoms, passing out, or other concerns documented in this encounter Medications at Time of Discharge [...] | | 0 | | | | (MAXALT-VP INFORMATICS) 10 mg | | | | | [...] 11/29/ | Office | Sleep Medicine | uRdolph Manriquez PA | | | 2019 | Visit | | [address] | | | | | | [place] | | | | | | [address] | | | | | | | | +--------+---------+ + + + + +--------+ + + | Name | Priori | Associated Diagnoses | Date/Time | | | ty | | | + +--------+ + + | ED INFORMATION EXCHANGE | Routin | | 04/25/2018 16:47 PDT | | | e | | | + +--------+ + + documented as of this encounter Procedures + +--------+ + + + | Procedure Name | Priori | Date/Time | Associated Diagnosis | Comments | | | ty | | | | + +--------+ + + + | ECG 12 LEAD | STAT | 04/25/2018 | | Results for this | | | | 17:12 PDT | | procedure are in the | | | | | | results section. | + +--------+ + + + | XR CHEST AP PORTABLE | STAT | 04/25/2018 | | Results for this | | | | 17:03 PDT | | procedure are in the | | | | | | results section. | + +--------+ + + + | TROPONIN I | STAT | 04/25/2018 | | Results for this | | | | 17:03 PDT | | procedure are in the | | | | | | results section. | + +--------+ + + + | D-DIMER | STAT | 04/25/2018 | | Results for this | | | | 17:03 PDT | | procedure are in the | | | | | | results section. | + +--------+ + + + | CBC WITH | STAT | 04/25/2018 | | Results for this | | DIFFERENTIAL | | 17:03 PDT | | procedure are in the | | | | | | results section. | + +--------+ + + + | B TYPE NATRIURETIC | STAT | 04/25/2018 | | Results for this | | PEPTIDE | | 17:03 PDT | | procedure are in the | | | | | | results section. | + +--------+ + + + | COMPREHENSIVE | STAT | 04/25/2018 | | Results for this | | METABOLIC PANEL | | 17:03 PDT | | procedure are in the | | | | | | results section. | + +--------+ + + + | ED INFORMATION | Routin | 04/25/2018 | | | | EXCHANGE | e | 16:47 PDT | | | + +--------+ + + + +---+--------+ | | | | | Proced | | | ure | | | Note - | | | Moises, | | | Lab In | | | | | | Hlseve | | | n - | | | 03/10/ | | | 2019 | | | 1648 | | | PDT | | | Format | | | ting | | | of | | | this | | | note | | | might | | | be | | | differ | | | ent | | | from | | | the | | | origin | | | al.COL | | | LECTIV | | | E?NOTI | | | FICATI | | | ON?03/ | | | 10/201 | | | 9 | | | 16:45? | | | OWEN, | | | DORIS | | | | | | M?MRN: | | | | | | [id number] | | | [id number] | | | riteri | | | a Met | | | 4 | | | visits | | | in | | | 60Secu | | | rity | | | and | | | Safety | | | No | | | recent | | | | | | Securi | | | ty | | | Events | | | | | | curren | | | tly on | | | | | | fileED | | | Care | | | Guidel | | | inesTh | | | ere | | | are | | | curren | | | tly no | | | ED | | | Care | | | Guidel | | | jamison | | | for | | | this | | | patien | | | t. | | | Please | | | check | | | your | | | facili | | | ty's | | | medica | | | l | | | record | | | s | | | system | | | .Presc | | | riptio | | | n Drug | | | | | | Report | | | (12 | | | Mo.)PD | | | MP | | | query | | | found | | | no | | | report | | | .E.D. | | | Visit | | | Count | | | (12 | | | mo.)Fa | | | cility | | | | | | Visits | | | Low | | | Acuity | | | | | | Provid | | | ence | | | St. | | | [facility] | | | Medica | | | l | | | Center | | | 4 0 | | | [facility] | [place] | | | y | | | Hospit | | | al 7 0 | | | Total | | | 11 0 | | | Note: | | | Visits | | | | | | indica | | | te | | | total | | | known | | | visits | | | . | | | Medica | | | id Low | | | | | | Acuity | | | Dx | | | are | | | the | | | number | | | of | | | primar | | | y | | | diagno | | | ses on | | | the | | | Medica | | | id's | | | Low | | | Acuity | | | dx | | | list. | | | | | | Recent | | | | | | Emerge | | | ncy | | | Depart | | | ment | | | Visit | | | [facility] | | | yShowi | | | ng 10 | | | most | | | recent | | | | | | visits | | | out | | | of 11 | | | in the | | | past | | | 12 | | | months | | | Date | | | Facili | | | ty | | | City | | | State | | | Type | | | Diagno | | | ses or | | | Chief | | | | | | Compla | | | int | | | Mar | | | 10, | | | 2019 | | | Provid | | | ence | | | St[facility] | | | [facility] | | [place] | | | [place] | | | Emerge | | | ncy | | | Mar 6, | | | 2019 | | | [facility] | [facility] | [place] | | | y H. | | | [place] | | | [place] | | | Emerge | | | ncy | | | Chief | | | Compla | | | int: | | | CHEST | | | PAIN/N | | | AUSEA | | | Mar | | | 3, | | | 2019 | | | [facility] | [place] | | | y H. | | | [place] | | | [place] | | | Emerge | | | ncy | | | | | | Allerg | | | y | | | status | | | to | | | penici | | | llin | | | Long | | | term | | | (curre | | | nt) | | | use of | | | | | | aspiri | | | n | | | Chest | | | pain, | | | unspec | | | ified | | | | | | Allerg | | | y | | | status | | | to | | | analge | | | sic | | | agent | | | status | | | | | | Acquir | | | ed | | | absenc | | | e of | | | both | | | cervix | | | and | | | uterus | | | | | | [place] | | | lemia | | | | | | Other | | | long | | | term | | | (curre | | | nt) | | | drug | | | therap | | | y Feb | | | 12, | | | 2019 | | | [facility] | [place] | | | y H. | | | [place] | | [place] | | | Emerge | | | ncy | | | | | | Allerg | | | y | | | status | | | to | | | penici | | | llin | | | | | | Chest | | | pain, | | | unspec | | | ified | | | | | | Long | | | term | | | (curre | | | nt) | | | use of | | | | | | aspiri | | | n | | | Allerg | | | y | | | status | | | to | | | analge | | | sic | | | agent | | | status | | | | | | Other | | | long | | | term | | | (curre | | | nt) | | | drug | | | therap | | | y | | | Other | | | chest | | | pain | | | | | | Acquir | | | ed | | | absenc | | | e of | | | both | | | cervix | | | and | | | uterus | | | Nov | | | 15, | | | 2018 | | | Provid | | | ence | | | St[facility] | | | [facility] | [place] | | | [place] | | | Emerge | | | ncy | | | cp/ | | | left | | | arm pn | | | | | | Chest | | | Pain | | | | | | Radicu | | | lopath | | | y, | | | cervic | | | othora | | | cic | | | region | | | Oct | | | 7, | | | 2018 | | | Provid | | | ence | | | St[facility] | | | [facility] | | [place] | | | [place] | | | Emerge | | | ncy | | | back | | | pain | | | Low | | | back | | | pain | | | Aug | | | 29, | | | 2018 | | | [facility] | [facility] | [place] | | | [facility]. | | | [place] 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 | | | | | | injure | | | d in | | | sarahy | | | ion | | | with | | | sport | | | utilit | | | y | | | vehicl | | | e in | | | traffi | | | c | | | accide | | | nt, | | | initia | | | l | | | encoun | | | ter | | | | | | Strain | | | of | | | muscle | | | , | | | fascia | | | and | | | tendon | | | of | | | lower | | | back, | | | initia | | | l | | | encoun | | | ter | | | | | | Allerg | | | y | | | status | | | to | | | penici | | | llin | | | Long | | | term | | | (curre | | | nt) | | | use of | | | | | | aspiri | | | n | | | Migrai | | | ne, | | | unspec | | | ified, | | | not | | | intrac | | | table, | | | | | | withou | | | t | | | status | | | | | | migrai | | | nosus | | | | | | Other | | | long | | | term | | | (curre | | | nt) | | | drug | | | therap | | | y | | | Allerg | | | y | | | status | | | to | | | other | | | drugs, | | | | | | medica | | | ments | | | and | | | biolog | | | ical | | | substa | | | nces | | | status | | | Farhad | | | 13, | | | 2018 | | | [facility] | [place] | | | [facility] | | | [place] | | [place] | | | Emerge | | | ncy | | | | | | Allerg | | | y | | | status | | | to | | | penici | | | llin | | | Long | | | term | | | (curre | | | nt) | | | use of | | | | | | aspiri | | | n | | | Headac | | | he | | | Dizzin | | | ess | | | and | | | giddin | | | ess | | | Other | | | long | | | term | | | (curre | | | nt) | | | drug | | | therap | | | y | | | Allerg | | | y | | | status | | | to | | | analge | | | sic | | | agent | | | status | | | | | | Other | | | chroni | | | c pain | | | Farhad | | | 11, | | | 2018 | | | [facility] | [facility] | [place] | | | [facility]. | | | [place] | | | [place] | | | Emerge | | | ncy | | | | | | Migrai | | | ne, | | | unspec | | | ified, | | | not | | | intrac | | | table, | | | | | | withou | | | t | | | status | | | | | | migrai | | | nosus | | | | | | Allerg | | | y | | | status | | | to | | | other | | | drugs, | | | | | | medica | | | ments | | | and | | | biolog | | | ical | | | substa | | | nces | | | status | | | | | | Allerg | | | y | | | status | | | to | | | penici | | | llin | | | Long | | | term | | | (curre | | | nt) | | | use of | | | | | | aspiri | | | n | | | Other | | | long | | | term | | | (curre | | | nt) | | | drug | | | therap | | | y Apr | | | 12, | | | 2018 | | | [facility] | [place] | | | [facility] | | | [place] | | [place] | | | Emerge | | | ncy | | | | | | Allerg | | | y | | | status | | | to | | | penici | | | llin | | | Long | | | term | | | (curre | | | nt) | | | use of | | | | | | aspiri | | | n | | | Allerg | | | y | | | status | | | to | | | other | | | drugs, | | | | | | medica | | | ments | | | and | | | biolog | | | ical | | | substa | | | nces | | | status | | | | | | Other | | | distur | | | bances | | | of | | | skin | | | sensat | | | ion | | | Recent | | | | | | Inpati | | | ent | | | Visit | | | [facility] | | | yDate | | | Facili | | | ty | | | City | | | State | | | Type | | | Diagno | | | ses or | | | Chief | | | | | | Compla | | | int | | | Apr 8, | | | 2018 | | | Provid | | | ence | | | [facility] | | | [facility] | | [place] | | | [place] | | | Intens | | | shannon | | | Care | | | | | | Cerebr | | | al | | | infarc | | | tion, | | | unspec | | | ified | | | | | | Hemipl | | | egia, | | | unspec | | | ified | | | affect | | | ing | | | left | | | nondom | | | inant | | | side | | | | | | Muscle | | | | | | weakne | | | ss | | | (gener | | | alized | | | ) | | | Hyperl | | | ipidem | | | ia, | | | unspec | | | ified | | | | | | Rosas | | | involv | | | ing | | | 30-39% | | | of | | | body | | | surfac | | | e with | | | 0% to | | | 9% | | | third | | | degree | | | rosas | | | Care | | | | | | Provid | | | ersPro | | | vider | | | PRC | | | Type | | | Phone | | | Fax | | | Servic | | | e | | | Dates | | | OLSWAN | | | MARCELA, | | | JUAN | | | , MD | | | Family | | | | | | Medici | | | ne: | | | Adult | | | Medici | | | ne | | | Farhad | | | 12, | | | 2018 - | | | | | | Curren | | | t | | | [facility] | | | tive | | | Portal | | | This | | | patien | | | t has | | | regist | | | ered | | | at the | | | | | | Provid | | | ence | | | St. | | | [facility] | Medica | | | l | | | Center | | | | | | Emerge | | | ncy | | | Depart | | | ment | | | For | | | more | | | inform | | | ation | | | visit: | | | | | | https: | | | //secu | | | [email or web address] | | | ecarep | | | [email or web address] | | | m/[email or web address] | | | ent/[email or web address] | | | [id number] | | | -[email or web address] | | | [phone] | | | [phone] | | | [id number] | | | [id number] | | | The | | | above | | | inform | | | ation | | | is | | | provid | | | ed for | | | the | | | sole | | | purpos | | | e of | | | patien | | | t | | | treatm | | | ent. | | | Use of | | | this | | | inform | | | ation | | | beyond | | | the | | | terms | | | of | | | Data | | | Sharin | | | g | | | Memora | | | ndum | | | of | | | Unders | | | tandin | | | g and | | | Licens | | | e | | | Agreem | | | ent is | | | | | | prohib | | | ited. | | | In | | | certai | | | n | | | cases | | | not | | | all | | | visits | | | may | | | be | | | repres | | | ented. | | | | | | Consul | | | t the | | | aforem | | | ention | | | ed | | | facili | | | ties | | | for | | | additi | | | onal | | | inform | | | ation. | | | ? | | | 2019 | | | [facility] | | | tive | | | Medica | | | l | | | [employer] | | | deshawn | | | , [employer] | | | - | | | [place] | | | [place] | | | [facility], | | | [place] - | | | info@c | | | ollect | | | ivemed | | | icalte | | | [email or web address] | | | | +---+--------+ documented in this encounter Results ECG 12 lead (04/25/2018 17:12 PDT) + + + + + + | Component | Value | Ref Range | Performed | Pathologist | | | | | At | Signature | + + + + + + | VENTRICULAR | 94 | BPM | [facility] | | | RATE EKG | | | | | + + + + + + | ATRIAL RATE | 94 | BPM | [facility] | | + + + + + + | P-R | 138 | ms | [facility] | | | INTERVAL | | | | | + + + + + + | QRS | 84 | ms | [facility] | | | DURATION | | | | | + + + + + + | Q-T | 370 | ms | [facility] | | | INTERVAL | | | | | + + + + + + | Q-T | 462 | ms | [facility] | | | INTERVAL | | | | | | (CORRECTED) | | | | | + + + + + + | P WAVE AXIS | 71 | degrees | [facility] | | + + + + + + | QRS AXIS | 62 | degrees | [facility] | | + + + + + + | T AXIS | 52 | degrees | [facility] | | + + + + + + | INTERPRETAT | Normal sinus rhythmRSR' | | [facility] | | | ION TEXT | or QR pattern in V2 | | | | | | suggests right | | | | | | ventricular conduction | | | | | | delayWhen compared with | | | | | | ECG of 31-DEC-2017 | | | | | | 07:19,Nonspecific T wave | | | | | | abnormality now evident | | | | | | in Anterior leads | | | | | | :cannot exclude | | | | | | ischemiaConfirmed by | | | | | | SENDY PICKETT MD ([id number]) | | | | | | on 04/26/2018 7:48:03 AM | | | | + + + + + + + + | Specimen | + + | | + + + + + | Narrative | Performed At | + + + | | | + + + + +---------+ + + | Performing | Address | City/State/Zipcode | Phone Number | | Organization | | | | + +---------+ + + | [facility] | | | | + +---------+ + + XR Chest AP Portable (04/25/2018 17:03 PDT) + + | Specimen | + + | | + + + + + | Narrative | Performed At | + + + | CLINICAL INFORMATION: CHEST PAIN SHORTNESS OF BREATH. | [facility] | | COMPARISON: 12/31/2017. FINDINGS: Portable frontal chest | | | radiograph. Lungs: No focal airspace disease, pleural effusion, or | | | pneumothorax. Heart/mediastinum: Cardiac silhouette is of normal | | | size. Central pulmonary vasculature has a normal appearance. | | | Bones: No acute osseous abnormality appreciated. IMPRESSION - No | | | acute disease. Dictated and Signed by: Fran Hair MD | | | Electronically signed: 04/25/2018 6:03 PM | | + + + + + | Procedure Note | + + | Moises, Rad Results In - 04/25/2018 1807 PDT | | CLINICAL INFORMATION: CHEST PAIN | | SHORTNESS OF BREATH. | | | | COMPARISON: 12/31/2017. | | | | FINDINGS: | | Portable frontal chest radiograph. | | | | Lungs: No focal [...] Fran Hair MD | | Electronically signed: 04/25/2018 6:03 PM | + + + +---------+ + + | Performing | Address | City/State/Zipcode | Phone Number | | Organization | | | | + +---------+ + + | [facility] | | | | + +---------+ + + D-Dimer (04/25/2018 17:03 PDT) + + + + + + | Component | Value | Ref Range | Performed | Pathologist | | | | | At | Signature | + + + + + + | D-Dimer | <0.27Comment: This | <=0.50 ug/ml | [facility] | | | Quantitativ | quantitative D-Dimer | | [facility] | | | e | assay has been evaluated | | MEDICAL | | | | for screening for | | CENTER - | | | | venous thrombotic | | LABORATORY | | | | disease, and may be | | | | | | useful in ruling out, | | | | | | but not ruling in | | | | | | disease. Values less | | | | | | than 0.50 ug/mL FEU | | | | | | (Fibrinogen Equivalent | | | | | | Units) have a negative | | | | | | predictive value of | | | | | | approximately 95% for | | | | | | ruling out large | | | | | | pulmonary emboli or | | | | | | proximal deep vein | | | | | | thrombosis. Distal DVT | | | | | | are not excluded. An | | | | | | elevated D-dimer can be | | | | | | present in patients with | | | | | | liver disease, | | | | | | , eclampsia, | | | | | | heart disease and some | | | | | | cancers among other | | | | | | conditions. The presence | | | | | | of rheumatoid factor at | | | | | | a level >50 IU/mL may | | | | | | falsely elevate the | | | | | | determined D-dimer | | | | | | levels. | | | | + + + + + + + + | Specimen | + + | Blood | + + + + + + + | Performing | Address | City/State/Zipcode | Phone Number | | Organization | | | | + + + + + | [facility] | [address] | [place] | [phone] | | [facility] | | [address] | | | - LABORATORY | | | | + + + + + B Type Natriuretic Peptide (04/25/2018 17:03 PDT) + +-------+ + + + | Component | Value | Ref Range | Performed | Pathologist | | | | | At | Signature | + +-------+ + + + | BNP | 19 | <100 pg/mL | [facility] | | | | | | [facility] | | | | | | MEDICAL | | | | | | CENTER - | | | | | | LABORATORY | | + +-------+ + + + + + | Specimen | + + | Blood | + + + + + + + | Performing | Address | City/State/Zipcode | Phone Number | | Organization | | | | + + + + + | [facility] | [address] | [place] | [phone] | | [facility] | | [address] | | | - LABORATORY | | | | + + + + + Troponin I (04/25/2018 17:03 PDT) + +-------+ + + + | Component | Value | Ref Range | Performed | Pathologist | | | | | At | Signature | + +-------+ + + + | Troponin I | <0.00 | <0.06 ng/mL | [facility] | | | | | | [facility] | | | | | | [facility]ICAL | | | | | | CENTER - | | | | | | LABORATORY | | + +-------+ + + + + + | Specimen | + + | Blood | + + + + + + + | Performing | Address | City/State/Zipcode | Phone Number | | Organization | | | | + + + + + | [facility] | [address] | [place] | [phone] | | [facility] | | [address] | | | - LABORATORY | | | | + + + + + Comprehensive Metabolic Panel (04/25/2018 17:03 PDT) + +---------+ + + + | Component | Value | Ref Range | Performed | Pathologist | | | | | At | Signature | + +---------+ + + + | Na | 142 | 136 - 145 | [facility] | | | | | mmol/L | [facility] | | | | | | [facility] | | | | | | CENTER - | | | | | | LABORATORY | | + +---------+ + + + | K | 3.2 (L) | 3.4 - 5.1 | [facility] | | | | | mmol/L | [facility] | | | | | | MEDICAL | | | | | | CENTER - | | | | | | LABORATORY | | + +---------+ + + + | Cl | 108 (H) | 98 - 107 mmol/L | [facility] | | | | | | [facility] | | | | | | MEDICAL | | | | | | CENTER - | | | | | | LABORATORY | | + +---------+ + + + | CO2 | 28 | 20 - 31 mmol/L | [facility] | | | | | | [facility] | | | | | | MEDICAL | | | | | | CENTER - | | | | | | LABORATORY | | + +---------+ + + + | Anion Gap | 6 | 3 - 16 mmol/L | [facility] | | | | | | [facility] | | | | | | MEDICAL | | | | | | CENTER - | | | | | | LABORATORY | | + +---------+ + + + | Glucose | 118 (H) | 60 - 106 mg/dL | [facility] | | | | | | [facility] | | | | | | MEDICAL | | | | | | CENTER - | | | | | | LABORATORY | | + +---------+ + + + | BUN | 11 | 9 - 23 mg/dL | [facility] | | | | | | [facility] | | | | | | MEDICAL | | | | | | CENTER - | | | | | | LABORATORY | | + +---------+ + + + | Creatinine | 0.79 | 0.55 - 1.02 | [facility] | | | | | mg/dL | [facility] | | | | | | MEDICAL | | | | | | CENTER - | | | | | | LABORATORY | | + +---------+ + + + | eGFR if not | >60 | >=60 | [facility] | | | | | mL/min/1.73m2 | [facility] | | [facility] | | | [facility] | | | | | | [facility] - | | | | | | LABORATORY | | + +---------+ + + + | Ca | 9.1 | 8.7 - 10.4 | [facility] | | | | | mg/dL | [facility] | | | | | | [facility] | | | | | | CENTER - | | | | | | LABORATORY | | + +---------+ + + + | Albumin | 4.3 | 3.2 - 4.8 g/dL | [facility] | | | | | | [facility] | | | | | | [facility] | | | | | | CENTER - | | | | | | LABORATORY | | + +---------+ + + + | Bilirubin | 0.3 | 0.3 - 1.2 mg/dL | [facility] | | | Total | | | [facility] | | | | | | [facility] | | | | | | CENTER - | | | | | | LABORATORY | | + +---------+ + + + | Total | 6.1 | 5.7 - 8.2 g/dL | [facility] | | | Protein | | | [facility] | | | | | | MEDICAL | | | | | | CENTER - | | | | | | LABORATORY | | + +---------+ + + + | AST | 10 | 0 - 34 U/L | [facility] | | | | | | [facility] | | | [facility] | | [facility] | | | | | | C[facility] - | | | | | | LABORATORY | | + +---------+ + + + | ALT | 14 | 10 - 49 U/L | [facility] | | | | | | [facility] | | | | | | [facility] | | | | | | CENTER - | | | | | | LABORATORY | | + +---------+ + + + | Alkaline | 98 | 46 - 116 U/L | [facility] | | | Phosphatase | | | [facility] | | | | | | [facility] | | | | | | CENTER - | | | | | | LABORATORY | | + +---------+ + + + | Globulin | 1.8 (L) | 2.1 - 3.8 g/dL | [facility] | | | | | | [facility] | | | | | | [facility] | | | | | | CENTER - | | | | | | LABORATORY | | + +---------+ + + + | Albumin/Chrissy | 2.4 (H) | 0.8 - 1.9 | [facility] | | | bulin Ratio | | | [facility] | | | | | | [facility] | | | | | | CENTER - | | | | | | LABORATORY | | + +---------+ + + + | BUN/Creatin | 13.9 | | [facility] | | | ine Ratio | | | [facility] | | | | | | [facility] | | | | | | CENTER - | | | | | | LABORATORY | | + +---------+ + + + + + | Specimen | + + | Blood | + + + + + + + | Performing | Address | City/State/Zipcode | Phone Number | | Organization | | | | + + + + + | [facility] | [address] | [place] | [phone] | | [facility] | | [id number] | | | - LABORATORY | | | | + + + + + CBC with Differential (04/25/2018 17:03 PDT) + + + + + + | Component | Value | Ref Range | Performed | Pathologist | | | | | At | Signature | + + + + + + | WBC | 6.0 | 4.0 - 11.0 K/uL | [facility] | | | | | | [facility] | | | | | | [facility] | | | | | | C[facility] - | | | | | | LABORATORY | | + + + + + + | RBC | 4.44 | 3.70 - 5.20 | [facility] | | | | | M/uL | [facility] | | | | | | [facility] | | | | | | CENTER - | | | | | | LABORATORY | | + + + + + + | Hemoglobin | 12.4 | 11.5 - 16.0 | [facility] | | | | | g/dL | [facility] | | | | | | MEDICAL | | | | | | CENTER - | | | | | | LABORATORY | | + + + + + + | Hematocrit | 38.4 | 34.0 - 47.0 % | [facility] | | | | | | [facility] | | | | | | [facility] | | | | | | CENTER - | | | | | | LABORATORY | | + + + + + + | MCV | 86.5 | 83.0 - 101.0 fL | [facility] | [facility] | | | [facility] - | | | | | | LABORATORY | | + + + + + + | MCH | 27.9 (L) | 28.0 - 35.0 pg | [facility] | | | | | | [facility] | [facility] | [facility] | | | | [facility] - | | | | | | LABORATORY | | + + + + + + | MCHC | 32.3 | 32.0 - 36.0 | [facility] | | | | | g/dL | [facility] | | | | | | [facility] | | | | | | CENTER - | | | | | | LABORATORY | | + + + + + + | RDW-CV | 12.9 | <15.0 % | [facility] | | | | | [facility] | [facility] | | | | [facility] - | | | | | | LABORATORY | | + + + + + + | RDW-SD | 40.0 | 35.1 - 46.3 fL | [facility] | [facility] | [facility] | | | [facility] - | | | | | | LABORATORY | | + + + + + + | Platelet | 196 | 140 - 440 K/uL | [facility] | | | Count | | | [facility] | | | [facility] | | [facility] | | | | [facility] - | | | | | | LABORATORY | | + + + + + + | MPV | 10.1 | 6.5 - 12.4 fL | [facility] | [facility] | | | [facility] | [facility] | [facility] | | | [facility] - | | | | | | LABORATORY | | + + + + + + | % | 67.0 | 45.0 - 82.0 % | [facility] | | | Neutrophils | | | [facility] | | | | | | [facility] | | | | | | CENTER - | | | | | | LABORATORY | | + + + + + + | % | 24.0 | 20.0 - 45.0 % | [facility] | | | Lymphocytes | | | [facility] | | | | | | [facility] | | | | | | C[facility] - | | | | | | LABORATORY | | + + + + + + | % Monocytes | 7.0 | 4.0 - 12.0 % | [facility] | | | | | | [facility] | | | [facility] | [facility] | | | | | | [facility] - | | | | | | LABORATORY | | + + + + + + | % | 1.3 | 0.0 - 5.0 % | [facility] | | | Eosinophils | | | [facility] | [facility] | | [facility] | | | | | | C[facility] - | | | | | | LABORATORY | | + + + + + + | % Basophils | 0.5 | 0.0 - 1.0 % | [facility] | | | | | | [facility] | | | [facility] | [facility] | | | | | | [facility] - | | | | | | LABORATORY | | + + + + + + | % Immature | 0.2 | 0.0 - 0.4 % | [facility] | | | Granulocyte | | | [facility] | | | s | | | MEDICAL | | | | | | CENTER - | | | | | | LABORATORY | | + + + + + + | Absolute | 4.03 | 1.80 - 8.50 | [facility] | | | Neutrophils | | K/uL | [facility] | | | | | | [facility] | | | | | | CENTER - | | | | | | LABORATORY | | + + + + + + | Absolute | 1.44 | 0.60 - 3.20 | [facility] | | | Lymphocytes | | K/uL | [facility] | | | | | | [facility]ICAL | | | | | | CENTER - | | | | | | LABORATORY | | + + + + + + | Absolute | 0.42 | 0.00 - 1.00 | [facility] | | | Monocytes | | K/uL | [facility] | | | | | | [facility] | | | | | | CENTER - | | | | | | LABORATORY | | + + + + + + | Absolute | 0.08 | 0.00 - 0.40 | [facility] | | | Eosinophils | | K/uL | [facility] | [facility] | | | | | | C[facility] - | | | | | | LABORATORY | | + + + + + + | Absolute | 0.03 | 0.00 - 0.10 | [facility] | | | Basophils | | K/uL | [facility] | | | | | | [facility] | | | | | | CENTER - | | | | | | LABORATORY | | + + + + + + | Absolute | 0.01 | 0.00 - 0.03 | [facility] | | | Immature | | K/uL | [facility] | | | Granulocyte | | | MEDICAL | | | s | | | CENTER - | | | | | | LABORATORY | | + + + + + + | % nRBC | 0 | 0 - 2 per 100 | [facility] | | | | | WBC's | [facility] | | | [facility] | | [facility] | | | | | | CENTER - | | | | | | LABORATORY | | + + + + + + | Absolute | 0.00 | 0.00 - 0.01 | [facility] | | | nRBC | | K/uL | [facility] | | | | | | [facility]ICAL | | | | | | CENTER - | | | | | | LABORATORY | | + + + + + + + + | Specimen | + + | Blood | + + + + + + + | Performing | Address | City/State/Zipcode | Phone Number | | Organization | | | | + + + + + | [facility] | [address] | [place], [place] | [phone] | | [facility] | | [address] | | | - LABORATORY | | | | + + + + + documented in this encounter Visit Diagnoses + + | Diagnosis | + + | Atypical chest pain - Primary Other chest pain | + + documented in this encounter Administered Medications + +--------+ +--------+------+------+ | Medication Order | MAR | Action | Dose | Rate | Site | | | Action | Date | | | | + +--------+ +--------+------+------+ | potassium bicarb-citric acid | Given | 04/26/19 | 40 mEq | | | | (EFFER-K) effervescent tablet 40 | | 19 19:02 | | | | | mEq 40 mEq, Oral, ONCE, Sun | | PDT | | | | | 04/25/18 at 1855, For 1 dose, | | | | | | | Dissolve 10 mEq tab in 58-85 mL | | | | | | | water. Dissolve 20 mEq tab in | | | | | | | 85-115 mL water., | | | | | | + +--------+ +--------+------+------+ +---+---+ | | | +---+---+ documented in this encounter
--- OUTSIDE RECORDS SUMMARY | ~2018-06-21 | XMS | Encounter Summary ---
Demographics + + + | Address | [address] | | | [place] [address] | + + + | Home Phone | | + + + | Preferred Language | Unknown | + + + | Marital Status | | + + + | Congregation Affiliation | 1013 | + + + | Race | Unknown | + + + | Ethnic Group | Unknown | + + + Author + + + | Author | [facility] | | | and [place] | + + + | Organization | [facility] | | | and [place] | + + + | Address | Unknown | + + + | Phone | Unavailable | + + + Support + + + + + | Name | Relationship | Address | Phone | + + + + + | Tyrel Dillon | ECON | [address] | | | | | [place] [place] | | | | | [address] | | + + + + + | Jelena Maurice | ECON | Unknown | | + + + + + Care Team Providers + +------+ + | Care Store Sales Manager Name | Role | Phone | + +------+ + | Last Welch DO | PCP | | + +------+ + Reason for Visit Auth/Cert +--------+--------+ + [...] + + | 04/29/ | Hospital | [facility] | Last Welch, | | | 2019 | Encounter | MED CTR NUCLEAR | DO [address] | | | | | MEDICINE [address] | [place], [place] | | | | | [place], | [address] | | | | | [place] [address] | [phone] | | | | | [phone] | | | +--------+ + + + [...] | | 0 | | | | (MAXALT-PASSENGER CAR INSPECTOR) 10 mg | | | | | [...] 1 capsule by | | 0 | 11/08/ | | | (EFFEXOR XR) 75 mg [...] [place] | | | | | | [id number] | | | | | | | [...] + documented in this encounter Visit Diagnoses Not on filedocumented in this encounter Administered Medications + +--------+ + +------+------+ | Medication Order | MAR | Action | Dose | Rate | Site | | | Action | Date | | | | + +--------+ + +------+------+ | technetium TC-99M sestamibi | Given | 04/30/19 | 34.3 | | | | (CARDIOLITE) injection 34.3 | | 19 13:18 | millicur | | | | millicurie 34.3 millicurie, | | PDT | ies | | | | Intravenous, ONCE PRN, Other, | | | | | | | Starting [facility] 04/29/18 at 1318, For | | | | | | | 1 dose, Nuclear Medicine | | | | | | + +--------+ + +------+------+ +---+---+ | | | +---+---+ documented in this encounter"
--- OUTSIDE RECORDS SUMMARY | ~2018-06-21 | XMS | Encounter Summary ---
Demographics + + + | Address | [address] | | | [place] [address] | + + + | Home Phone | | + + + | Preferred Language | Unknown | + + + | Marital Status | | + + + | Restoration Affiliation | 1013 | + + + | Race | Unknown | + + + | Ethnic Group | Unknown | + + + Author + + + | Author | [facility] | | | and [place] | + + + | Organization | [facility] | | | and [place] | + + + | Address | Unknown | + + + | Phone | Unavailable | + + + Support + + + + + | Name | Relationship | Address | Phone | + + + + + | Tyrel Dillon | ECON | [address] | | | | | [facility] [place] [place] [place] | | | | | [address] | | + + + + + | Jelena Maurice | ECON | Unknown | | + + + + + Care Team Providers + +------+ + | Care Adzing And Boring Machine Operator Name | Role | Phone | + +------+ + | Last Welch DO | PCP | | + +------+ + Reason for Visit + + + | Reason | Comments | + + + | Chest Pain | | + + + Encounter Details +--------+ + + + + | Date | Type | Department | Care Team | Description | +--------+ + + + + | 04/27/ | Telephone | [facility] | Faizan Gandhi | Chest Pain | | 2019 | | CARDIOLOGY [address] | MD Sun[address] | | | | | [place], | [address] [place] | | | | | [place] [address] | [place] [address] | | | | | [phone] | [phone] | | | | | | | | +--------+ + + + [...] 2019 | Visit | | [address] | | | | | | [place] | | | | | | [address] | | | | | | | | +--------+---------+ + + + documented as of this encounter Visit Diagnoses Not on filedocumented in this encounter"
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
--- OUTSIDE RECORDS SUMMARY | ~2018-06-21 | XMS | Encounter Summary ---
Demographics + + + | Address | [address] | | | [place] [address] | + + + | Home Phone | | + + + | Preferred Language | Unknown | + + + | Marital Status | | + + + | Roman Catholic Affiliation | 1013 | + + + | Race | Unknown | + + + | Ethnic Group | Unknown | + + + Author + + + | Author | [facility] | | | and [place] | + + + | Organization | [facility] | | | and [place] | + + + | Address | Unknown | + + + | Phone | Unavailable | + + + Support + + + + + | Name | Relationship | Address | Phone | + + + + + | Tyrel Dillon | ECON | [address] | | | | | [facility] [place] | | | | | [address] | | + + + + + | Jelena Maurice | ECON | Unknown | | + + + + + Care Team Providers + +------+ + | Care Dyer And Washer Name | Role | Phone | + [...] | | | | | Procedures | [place], [place] | CENTER [address] | | | | | [place] Nuclear | [address] | [place] | | | | | Stress Test | Phone: | [place], | | | | | (Exercise) | [phone] | [place] [address] | | | | | [place] Nuclear | Fax: | Phone: | | | | | Stress Test | [phone] | [phone] | | | | | (Exercise) | | Fax: | | | | | | | [phone] | +--------+--------+ + + + + Diagnostic/Screening [...] | | | | Procedures | [place] | CENTER [address] | | | | | [place] Nuclear | [address] | [place] | | | | | Stress Test | Phone: | [place], | | | | | (Exercise) | [phone] | [place] [address] | | | | | [place] Nuclear | Fax: | Phone: | | | | | Stress Test | [phone] | [phone] | | | | | (Exercise) | | Fax: | | | | | | | [phone] | +--------+--------+ + + + + Reason [...] + + | 04/29/ | Hospital | [facility] | Last Welch, | Chest pain, | | 2019 | Encounter | MED CTR NUCLEAR | DO [address] | unspecified type | | | | MEDICINE [address] | [place], [place] | | | | | [place], | [address] | | | | | [place] [address] | [phone] | | | | | [phone] | | | | | | | [place] Line AttendantIsabelle | | +--------+ + + + [...] | | 0 | | | | (MAXALT-WEBSITE OPTIMIZATION STRATEGIST) 10 mg | | | | | [...] [place] | | | | | | [id number] | | | | | | | [...] | | | | | | Starting [facility] 04/29/18 at 0924, For | | | | | | | 1 dose, Nuclear Medicine | | | | | | + +--------+ + +------+------+ +---+---+ | | | +---+---+ documented in this encounter"
--- OUTSIDE RECORDS SUMMARY | ~2018-06-21 | XMS | Encounter Summary ---
Demographics + + + | Address | [address] | | | [place] [address] | + + + | Home Phone | | + + + | Preferred Language | Unknown | + + + | Marital Status | | + + + | Gnosticist Affiliation | 1013 | + + + | Race | Unknown | + + + | Ethnic Group | Unknown | + + + Author + + + | Author | [facility] | | | and [place] | + + + | Organization | [facility] | | | and [place] | + + + | Address | Unknown | + + + | Phone | Unavailable | + + + Support + + + + + | Name | Relationship | Address | Phone | + + + + + | Tyrel Dillon | ECON | [address] | | | | | [facility] [place] [place] | | | | | [address] | | + + + + + | Jelena Maurice | ECON | Unknown | | + + + + + Care Team Providers + +------+ + | Care Composing Room Machinist Apprentice Name | Role | Phone | + [...] + + | 05/27/ | Office | [facility] | Rudolph Manriquez PA | VIOLET on CPAP (Primary | | 2019 | Visit | SLEEP DISORDER [address] | [address] | Dx) | | | | [address] [place] | [place] | | | | | [place] [address] | [address] | | | | | [phone] | | | +--------+---------+ + + + [...] face mask DME: [facility] [place] pressure: 4-20 cm Median: 9.7 cm 95%: [...] Exam Assessment: Problem #1: OBSTRUCTIVE SLEEP APNEA ([id number]) This is controlled with CPAP. She has [...] months, sooner prn. Fifteen minutes were spent [id number], w ith the majority of time spent [...] 2019 | Visit | | [address] | | | | | | [place], [place] | | | | | | [address] | | | | | | | | +--------+---------+ + + + documented as of this encounter Visit Diagnoses + + | Diagnosis | + + | VIOLET on CPAP - Primary Obstructive sleep apnea (adult) (pediatric) | + + documented in this encounter"
--- OUTSIDE RECORDS SUMMARY | ~2018-06-21 | XMS | Encounter Summary ---
Demographics + + + | Address | [address] | | | [place] [address] | + + + | Home Phone | | + + + | Preferred Language | Unknown | + + + | Marital Status | | + + + | Yazdanism Affiliation | 1013 | + + + | Race | Unknown | + + + | Ethnic Group | Unknown | + + + Author + + + | Author | [facility] | | | and [place] | + + + | Organization | [facility] | | | and [place] | + + + | Address | Unknown | + + + | Phone | Unavailable | + + + Support + + + + + | Name | Relationship | Address | Phone | + + + + + | Tyrel Dillon | ECON | [address] | | | | | [facility] [place] | | | | | [address] | | + + + + + | Jelena Maurice | ECON | Unknown | | + + + + + Care Team Providers + +------+ + | Care Pin Worker Name | Role | Phone | [...] + + | 04/29/ | Hospital | [facility] | Last Welch, | | | 2019 | Encounter | MED CTR NUCLEAR | DO [address] [facility] [address] [facility] | | | | | MEDICINE [address] | [place], [place] | | | | | [place], | [address] | | | | | [place] [address] | [phone] | | | | | [phone] | | | +--------+ + + + [...] | | 0 | | | | (MAXALT-EDUCATION REPORTER) 10 mg | | | | | [...] [place] | | | | | | [id number] | | | | | | | [...] | | | | | | Starting [facility] 04/29/18 at 1318, For | | | | | | | 1 dose, Nuclear Medicine | | | | | | + +--------+ + +------+------+ +---+---+ | | | +---+---+ documented in this encounter"
--- OUTSIDE RECORDS SUMMARY | ~2018-06-21 | XMS | Encounter Summary ---
Demographics + + + | Address | [address] | | | [place] [address] | + + + | Home Phone | | + + + | Preferred Language | Unknown | + + + | Marital Status | | + + + | Scientology Affiliation | 1013 | + + + | Race | Unknown | + + + | Ethnic Group | Unknown | + + + Author + + + | Author | [facility] | | | and Paulana | + + + | Organization | [facility] | | | and Paulana [...] [place], [place] | | | | | [address] | | + + + + + | Jelena Maurice | ECON | Unknown | | + + + + + Care Team Providers + +------+ + | Care Copywriter Name | Role | Phone | + [...] + + | 04/25/ | Emergency | [facility] | Ildefonso, | Atypical chest pain | | 2019 | | [facility] | Joel Loomis MD [address] | (Primary Dx) | | | | [place] [address] | [facility] | | | | | [place], [place] | [place] [address] | | | | | [address] | [phone] | | | | | [phone] | | | +--------+ + + + [...] | | 0 | | | | (MAXALT-COUNCILLOR ABORIGINAL LAND COUNCIL) 10 mg | | | | | [...] [place] | | | | | | [address] | | | | | | | [...] M?MRN: | | | | | | [id number] | | | [id number] | | | riteri | | | [...] | | | St. | | | [place] | | | y | | | [...] | | | St. | | | [place] | | | y H. | | [...] | | | St. | | | [place] | | | y H. | | [...] | | | St. | | | [place] | | | y H. | | [...] | | | St. | | | [place] | | | y H. 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 | | | [place] | | | y H. | | [...] | | | St. | | | [place] | | | y H. | | [...] | | | St. | | | [place] | | | y H. | | [...] | | | Leonard | | | [facility], | | | [place] - | | | info@c | | | ollect | | | ivemed | | | icalte | | | [email or web address] | | | | +---+--------+ documented in [...] | | | | SENDY PICKETT MD ([id number]) | | | | | | on [...] [address] | [place] | [phone] | | [facility] | | [address] | | | - LABORATORY | | [...] + | [facility] | [address] | [place] | [phone] | | [facility] | | [address] | | | - LABORATORY | | [...] + | [facility] | [address] | [place] | [phone] | | [facility] | | [address] | | | - LABORATORY | | [...] mL/min/1.73m2 | [facility] | | | [place] | | | MEDICAL | | | [...] | | | | | | [facility] | | | | | | MEDICAL [...] + | [facility] | [address] | [place] | [phone] | | [facility] | | [address] | | | - LABORATORY | | [...] ST. | [address] | [place], [place] | [phone] | | [facility] | | [address] | | | - LABORATORY | | [...]
--- OUTSIDE RECORDS SUMMARY | ~2018-06-21 | XMS | Encounter Summary ---
Demographics + + + | Address | [address] | | | [place] [address] | + + + | Home Phone | | + + + | Preferred Language | Unknown | + + + | Marital Status | | + + + | Buddhism Affiliation | 1013 | + + + | Race | Unknown | + + + | Ethnic Group | Unknown | + + + Author + + + | Author | [facility] | | | and Paulana | + + + | Organization | [facility] | | | and Paulana | + + + | Address | Unknown | + + + | Phone | Unavailable | + + + Support + + + + + | Name | Relationship | Address | Phone | + + + + + | Tyrel Dillon | ECON | [address] | | | | | [facility] [place] | | | | | [address] | | + + + + + | Jelena Maurice | ECON | Unknown | | + + + + + Care Team Providers + +------+ + | Care Director Immunology Name | Role | Phone | + [...] + + | 04/27/ | Telephone | [facility] | Faizan Gandhi | Chest Pain | | 2019 | | CARDIOLOGY [address] | MD Sunil [address] | | | | | [place], | [address] [place] | | | | | [place] [address] | [place] [address] | | | | | [phone] | [phone] | | | | | | | [...] 2019 | Visit | | [address] | | | | | | [place] | | | | | | [address] | | | | | | | | +--------+---------+ + + + documented as of this encounter Visit Diagnoses Not on filedocumented in this encounter"
--- OUTSIDE RECORDS SUMMARY | ~2018-06-21 | XMS | Clinical Summary ---
Demographics + + + | Address | [address] | | | [place] [address] | + + + | Home Phone | | + + + | Preferred Language | Unknown | + + + | Marital Status | | + + + | Latter-Day Affiliation | 1013 | + + + | Race | Unknown | + + + | Ethnic Group | Unknown | + + + Author + + + | Author | [facility] | | | and Paulana | + + + | Organization | [facility] | | [...] [place] | | | | | [address] | | + + + + + | Jelena Maurice | ECON | Unknown | | + + + + + Care Team Providers + +------+ + | Care Test Department Helper Name | Role | Phone | + [...] 0 | | | Activ | | (MAXALT-DROP HAMMER OPERATOR HELPER) 10 mg | | | | | [...] | Added automatically from request for surgery [id number] | + + + + + | [...] | 2019 | Encounter | | DO Anchorman, | unspecified type | | | | [...] GO | | | | | | [id number] | | | | | | | [...] M?MRN: | | | | | | [id number] | | | [id number] | | | riteri | | | [...] | | | St. | | | [place] | | | y | | | [...] | | | St. | | | [place] | | | y H. | | [...] | | | St. | | | [place] | | | y H. | | [...] | | | St. | | | [place] | | | y H. | | [...] | | | St. | | | [place] | | | y H. 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 | | | [place] | | | y H. | | [...] | | | St. | | | [place] | | | y H. | | [...] | | | St. | | | [place] | | | y H. | | [...] | | | | | SUNIL [place] ([id number]) on | | | | | | [...] [address] | [place] | [phone] | | [facility] | | [address] | | | - LABORATORY | | [...] [address] | [place] | [phone] | | [facility] | | [address] | | | - LABORATORY | | [...] [address] | [place] | [phone] | | [facility] | | [address] | | | - LABORATORY | | [...] + | [facility] | [address] | [place] | [phone] | | [facility] | | [address] | | | - LABORATORY | | [...] mL/min/1.73m2 | [facility] | | | [place] | | | MEDICAL | | | [...] + | [facility] | [address] | [place] | [phone] | | [facility] | | [address] | | | - LABORATORY | | [...] | | + +--------+ +--------+ +---------+------+ | [facility] | PHP | [phone] | 02/16/19 | [phone] | | PPO | | PLAN | [...] [place] | | | 0 (Home) | [address] | + +--------+ +--------+ + + Advance Directives Patient has advance care planning documents, and code status on file. For more information, please contact:[facility] [place] [address] + + + + + | Code [...]
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
--- OUTSIDE RECORDS SUMMARY | ~2018-06-21 | XMS | Encounter Summary ---
Demographics + + + | Address | [address] | | | [place] [address] | + + + | Home Phone | | + + + | Preferred Language | Unknown | + + + | Marital Status | | + + + | Yazdanism Affiliation | 1013 | + + + | Race | Unknown | + + + | Ethnic Group | Unknown | + + + Author + + + | Author | [facility] | | | and Paulana | + + + | Organization | [facility] | [...] [address] | | | | | [facility] [place] [place] | | | | | [address] | | + + + + + | Jelena Maurice | ECON | Unknown | | + + + + + Care Team Providers + +------+ + | Care Washer Off Name | Role | Phone | + [...] [facility] | [place] | [address] | | | | | PT, LAST | [place] | [place] | | | | | SEEN 09-20-15 | [address] | [place] | | | | | | Phone: | [address] Phone: | | | | | | [phone] | [phone] | | | | | | | Fax: | | | | | | | [phone] | +--------+--------+ + + + + Encounter Details +--------+---------+ + + + | Date | Type | Department | Care Team | Description | +--------+---------+ + + + | 05/06/ | Office | [facility] | Faizan Bellamy | Chest pain, | | 2018 | Visit | CARDIOLOGY [address] | MD Sunil [address] | unspecified type; | | | | [place], | [address] [place] | Palpitations; | | | | [place] [address] | [place] [address] | Cerebrovascular | | | | [phone] | [phone] | accident (CVA) due | | | [...] Procedure: EGD; Surgeon: August Price MD; Location: [facility] Family History Problem Relation [...] Concern None Social History Narrative Lives in [place] in house with . Exercise: walk 2-3 [...] (before break fast). 30 tablet 1 rizatriptan (MAXALT-HOMEBOUND TEACHER) 10 mg disintegrating tablet Take 10 mg [...] PLT 196 04/25/2018 I reviewed records from [facility] for emergency department visit o n [...] made to ensure accuracy; however, inadvertent computerized cartridge filler errors may be pre sent. Electronically signed [...] | | | | | [place] | | | | | | [address] | | | | | | | [...] | | | | | SUNIL AVALOS ([id number]) on | | | | | | [...]
--- OUTSIDE RECORDS SUMMARY | ~2018-06-21 | XMS | Clinical Summary ---
Demographics + + + | Address | [address] | | | [place] [address] | + + + | Home Phone | | + + + | Preferred Language | Unknown | + + + | Marital Status | Unknown | + + + | Yarsani Affiliation | Unknown | + + + | Race | Unknown | + + + | Ethnic Group | Unknown | + + + Author + + + | Author | [facility] [employer] [facility] | + + + | Organization | [facility] | + + + | Address | Unknown | + + + | Phone | Unavailable | + + + Support + + +---------+ + | Name | Relationship | Address | Phone | + + +---------+ + | No,Contact | ECON | Unknown | | + + +---------+ + Care Team Providers + +------+ + | Care Underwear Cutter Name | Role | Phone | + [...] +------+-------+---------+ | [facility] | PROVID | [phone] | PPO | | | | PLAN [...] | 1971 | [phone] | [place] [address] | | | [place] | | | [phone] | | + +--------+ +--------+ + +"
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
== END ==
LOC: ED 19:36
DX: K52.9 Noninfective gastroenteritis and colitis, unspecified (principal); N39.0 Urinary tract infection, site not specified; Z90.49 Acquired absence of other specified parts of digestive tract; Z90.710 Acquired absence of both cervix and uterus; Z88.0 Allergy status to penicillin; Z79.899 Other long term (current) drug therapy; Z79.82 Long term (current) use of aspirin
CPT/HCPCS: 80053; 81001; 85025; 87088; 96374; 96376; 99284-25; J2405; J7040

== ENCOUNTER 2018-08-02 21:26 | Emergency (ER) | payer OTHER ==
[~2018-08-02] VITALS: Ht 167.6 cm; Wt 76.2 kg
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
[2018-08-02] MEDS ORDERED: BENZONATATE200 MG PO (22:12)
[2018-08-02] MEDS ORDERED: HYDROXYZINE HCL25 MG PO (22:12)
[2018-08-02] MEDS ORDERED: [UNRECOGNIZED DRUG - OTHER] PO (22:13)
== END 2018-08-02 23:47 | disposition home or self-care (01) ==
LOC: ED 21:26
DX: S93.401A Sprain of unspecified ligament of right ankle, 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 (principal); Z88.0 Allergy status to penicillin; Z90.49 Acquired absence of other specified parts of digestive tract; Z90.710 Acquired absence of both cervix and uterus; Z79.899 Other long term (current) drug therapy; X50.1XXA Overexertion from prolonged static or awkward postures, 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
CPT/HCPCS: 73610; 99283

== ENCOUNTER 2019-10-08 09:50 | Emergency (ER) | payer OTHER ==
[~2019-10-08] VITALS: Ht 167.6 cm; Wt 71.2 kg
[~2019-10-08 09:50] MED LIST changes: +BENZONATATE200 MG PO; +HYDROXYZINE HCL25 MG PO; +[UNRECOGNIZED DRUG - OTHER] PO
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
[2019-10-08] MEDS ORDERED: ONDANSETRON ODT8 MG PO (10:18)
== END 2019-10-08 12:20 | disposition home or self-care (01) ==
LOC: ED 09:50
DX: S06.0X0A Concussion without loss of consciousness, 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 (principal); G43.909 Migraine, unspecified, not intractable, without status migrainosus; Z88.0 Allergy status to penicillin; W22.8XXA Striking against or struck by other objects, 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
CPT/HCPCS: 99283

== ENCOUNTER 2020-10-03 13:09 | Emergency (ER) | payer OTHER ==
[~2020-10-03] VITALS: Ht 167.6 cm; Wt 71.2 kg
--- OUTSIDE RECORDS SUMMARY | 2020-10-03 13:18 | XMS ---
PreManage Notification: JAVIER MARTÍNEZ Security General Office Assistant Events No recent Security Events currently on file CRITERIA MET - [facility] - 2 Visits in 30 Days CARE PROVIDERS JUAN BERGER Family Medicine: Adult Medicine 10/10/2019-Current PHONE: [phone] Travis has no Care Guidelines for this patient. Care History Medical/Surgical 08/03/2018 [facility] - PATIENT TO ESTABLISH CARE WITH DR OSEGUERA ON 08/13/18. - Patient is currently established with [facility]. If patient is seen in the ED during business hours. Please contact CHWs at [facility]. - Care Recommendation: This patient has had 5 or more Emergency Department visits in the last 12 months.\T\nbsp; Patient requires education on the scope and purpose of the ED as an acute care provider not a Primary Care Provider and should not be utilized for chronic conditions.\T\nbsp; These are guidelines and the provider should exercise clinical judgment when providing care. 06/22/2018 [facility] - E[place]IPA REFERRAL MADE- DUE TO PATIENT ED UTILIZATION AND PCP UTILIZATION- E.D. VISIT COUNT (12 MO.) 1 [facility] 2 [facility]ADEN Reynolds[facility]it[facility] TOTAL 5 NOTE: Visits indicate total known visits. ED/UCC VISIT TRACKING (12 MO.) 10/03/2020 13:10 JADEN Marcelo [place] TYPE: Emergency COMPLAINT: - BEE STING, SOB, TONGUE SWELLING, DRY MOUTH 09/13/2020 21:20 [facility]: Emergency DIAGNOSES: - Esophagitis, unspecified without bleeding - Chest Pain 06/12/2020 10:01 [facility] [place] TYPE: Emergency DIAGNOSES: - Syncope and collapse - Dizziness and giddiness - Anxiety disorder, unspecified - Primary focal hyperhidrosis, palms - Neurologic Problem 01/04/2020 10:43 [facility]: Emergency DIAGNOSES: - poss TIA - Weakness - Injury of unspecified nerve at lower leg level, left leg, 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 10/08/2019 09:51 JADEN Marcelo [place] TYPE: Emergency COMPLAINT: - HEADACHE, VISION PROBLEM- INJ DIAGNOSES: - Striking against or struck by other objects, 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 - Unspecified injury of head, 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 - Concussion without loss of consciousness, 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 - Migraine, unspecified, not intractable, without status migrainosus - Allergy status to penicillin INPATIENT VISIT TRACKING (12 MO.) No inpatient visits to display in this time frame [email or web address]
== END 2020-10-03 16:16 | disposition home or self-care (01) ==
LOC: ED 13:09
DX: T63.441A Toxic effect of venom of bees, accidental (unintentional), 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 (principal); G43.909 Migraine, unspecified, not intractable, without status migrainosus; Z88.0 Allergy status to penicillin; Z79.899 Other long term (current) drug therapy
CPT/HCPCS: 99282

== ENCOUNTER 2020-12-04 20:51 | Emergency (ER) | payer OTHER ==
[~2020-12-04] VITALS: Ht 167.6 cm; Wt 73.0 kg
[2020-12-04] MEDS ORDERED: ASPIRIN81 MG PO (22:05)
[2020-12-04] MEDS ORDERED: K-TAB ER20 MEQ PO (22:05)
[2020-12-04] MEDS ORDERED: AVASTIN25 MG/1 ML PO (22:06)
[2020-12-04] MEDS ORDERED: VITAMIN D310 MC5 PO (22:07)
[2020-12-04] MEDS ORDERED: CALCIUM500 MG PO (22:07)
[2020-12-04] MEDS ORDERED: OMEPRAZOLE20 MG PO (22:07)
== END 2020-12-04 23:30 | disposition home or self-care (01) ==
LOC: ED 20:51
DX: S80.02XA Contusion of left knee, 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 (principal); S50.11XA Contusion of right forearm, 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; G43.909 Migraine, unspecified, not intractable, without status migrainosus; Z88.0 Allergy status to penicillin; W18.30XA Fall on same level, unspecified, 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; Y99.0 Civilian activity done for income or pay; Z79.82 Long term (current) use of aspirin; Z79.899 Other long term (current) drug therapy
CPT/HCPCS: 73090; 73560; 99283-25

== ENCOUNTER 2021-02-05 11:40 | Emergency (ER) | payer OTHER ==
[~2021-02-05] VITALS: Ht 167.6 cm; Wt 73.0 kg
--- NOTE | ~2021-02-05 | EKG ---
[facility] [address] [place], [place] [address] Draft EK completed, results pending confirmation PATIENT NAME: JAVIER MARTÍNEZ Electrocardiogram DATE OF : 70 PHYSICIAN: PRELIMINARY REPORT #: [id number] REPORT IS CONFIDENTIAL AND NOT TO BE RELEASED WITHOUT AUTHORIZATION
[~2021-02-05 11:40] MED LIST changes: +ASPIRIN81 MG PO; +AVASTIN25 MG/1 ML PO; +CALCIUM500 MG PO; +OMEPRAZOLE20 MG PO; +VITAMIN D310 MC5 PO
--- OUTSIDE RECORDS SUMMARY | 2021-02-05 11:42 | XMS ---
PreManage Notification: JAVIER MARTÍNEZ Security Sports Betting Manager Events No recent Security Events currently on file CRITERIA MET - [facility] - 2 Visits in 30 Days - PDMP - [facility] - 3 Facilities in 90 Days - 6 ED Visits in 6 Months CARE PROVIDERS JUAN BERGER Family Medicine: Adult Medicine 10/10/2019-Current PHONE: Unknown Travis has no Care Guidelines for this patient. Care History Medical/Surgical 08/03/2018 [facility] - PATIENT TO ESTABLISH CARE WITH DR OSEGUERA ON 08/13/18. - Patient is currently established with [facility]. If patient is seen in the ED during business hours. Please contact CHWs at [facility]. - Care Recommendation: This patient has had 5 or more Emergency Department visits in the last 12 months.\T\nbsp; Patient requires education on the scope and purpose of the ED as an acute care provider not a Primary Care Provider and should not be utilized for chronic conditions.\T\nbsp; These are guidelines and the provider should exercise clinical judgment when providing care. 06/22/2018 [facility] - E[place]IPA REFERRAL MADE- DUE TO PATIENT ED UTILIZATION AND PCP UTILIZATION- E.D. VISIT COUNT (12 MO.) [facility] [address] [place] TOTAL 9 NOTE: Visits indicate total known visits. ED/UCC VISIT TRACKING (12 MO.) 02/05/2021 11:41 JADEN Marcelo [place] TYPE: Emergency COMPLAINT: - R FOOT PAIN 01/24/2021 03:55 [facility] Sobeida SIMON TYPE: Emergency DIAGNOSES: - Headache, unspecified - poss Aneurysm - Dizziness and giddiness 01/14/2021 17:39 [facility] TYPE: Emergency DIAGNOSES: - Facial Numbness - Anesthesia of skin 01/01/2021 20:48 [facility] TYPE: Emergency DIAGNOSES: - Cerebral aneurysm, nonruptured - Headache (Adult - New Onset Or New Symptoms) - Chest pain, unspecified - Dissection of vertebral artery 12/30/2020 04:39 [facility] TYPE: Emergency DIAGNOSES: - Headache (Adult - New Onset Or New Symptoms) - Numbness - Cerebral aneurysm, nonruptured - Headache, unspecified - Lightheaded 12/04/2020 20:52 JADEN Marcelo [place] TYPE: Emergency COMPLAINT: - RT ARM INJURY, LT LEG PAIN DIAGNOSES: - Civilian activity done for income or pay - Contusion of left knee, 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 - terminal operations manager (current) use of aspirin - Fall on same level, unspecified, 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 - Other halfway (current) drug therapy - Pain in left knee - Contusion of right forearm, 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 - Allergy status to penicillin - Migraine, unspecified, not intractable, without status migrainosus 10/03/2020 13:[address] [facility] [address] [facility] TEIXEIRA TYPE: Emergency COMPLAINT: - BEE STING, SOB, TONGUE SWELLING, DRY MOUTH DIAGNOSES: - Allergy status to penicillin - Other halfway (current) drug therapy - Migraine, unspecified, not intractable, without status migrainosus - Toxic effect of venom of bees, accidental (unintentional), 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 09/13/2020 21:20 [facility] TYPE: Emergency DIAGNOSES: - Esophagitis, unspecified without bleeding - Chest Pain 06/12/2020 10:01 [facility]: Emergency DIAGNOSES: - Syncope and collapse - Dizziness and giddiness - Anxiety disorder, unspecified - Primary focal hyperhidrosis, palms - Neurologic Problem INPATIENT VISIT TRACKING (12 MO.) No inpatient visits to display in this time frame [email or web address]
[2021-02-05] MEDS ORDERED: VITAMIN B122500 MCG PO (12:00)
[2021-02-05] MEDS ORDERED: PREDNISONE20 MG PO (13:05)
[2021-02-06] MEDS ORDERED: METOPROLOL TART25 MG PO (09:44)
[2021-02-06] MEDS ORDERED: NARCAN4 MG NS (09:44)
[2021-02-06] MEDS ORDERED: OXYCODONE HCL5 MG PO (09:44)
[2021-02-06] MEDS ORDERED: FLUOXETINE HCL20 MG PO (09:44)
[2021-02-06] MEDS ORDERED: HYDROXYZINE HCL25 MG PO (09:45)
== END 2021-02-05 13:15 | disposition home or self-care (01) ==
LOC: ED 11:40
DX: M10.9 Gout, unspecified (principal); G43.909 Migraine, unspecified, not intractable, without status migrainosus; Z88.0 Allergy status to penicillin; Z79.899 Other long term (current) drug therapy; Z79.82 Long term (current) use of aspirin
CPT/HCPCS: 73630; 93005; 93010; 99285-25; J7512

== ENCOUNTER 2021-02-06 09:29 | Emergency (ER) | payer OTHER ==
[~2021-02-06] VITALS: Ht 167.6 cm; Wt 73.0 kg
--- NOTE | ~2021-02-06 | EKG ---
[facility] [address] [facility] [place], [place] [address] Draft EK completed, results pending confirmation PATIENT NAME: JAVIER MARTÍNEZ Electrocardiogram DATE OF : 70 PHYSICIAN: PRELIMINARY REPORT #: [id number] REPORT IS CONFIDENTIAL AND NOT TO BE RELEASED WITHOUT AUTHORIZATION
[~2021-02-06 09:29] MED LIST changes: +PREDNISONE20 MG PO; +VITAMIN B122500 MCG PO
--- OUTSIDE RECORDS SUMMARY | 2021-02-06 09:32 | XMS ---
PreManage Notification: JAVIER MARTÍNEZ Security Adjunct Instructor Events No recent Security Events currently on file CRITERIA MET - [facility] - 3 Facilities in 90 Days - PDMP - [facility] - 2 Visits in 30 Days - 6 ED Visits in 6 Months CARE PROVIDERS JUAN BERGER Family Medicine: Adult Medicine 10/10/2019-Current PHONE: Unknown Travis has no Care Guidelines for this patient. Care History Medical/Surgical 08/03/2018 [facility] - PATIENT TO ESTABLISH CARE WITH DR OSEGUERA ON 08/13/18. - Patient is currently established with [facility]. If patient is seen in the ED during business hours. Please contact CHWs at [facility]. - Care Recommendation: This patient has had 5 or more Emergency Department visits in the last 12 months.\T\nbsp; Patient requires education on the scope and purpose of the ED as an acute care provider not a Primary Care Provider and should not be utilized for chronic conditions.\T\nbsp; These are guidelines and the provider should exercise clinical judgment when providing care. 06/22/2018 [facility] - [place]IPA REFERRAL MADE- DUE TO PATIENT ED UTILIZATION AND PCP UTILIZATION- E.D. VISIT COUNT (12 MO.) 4 [facility] 2 [facility] 4 JADEN Roldan TOTAL 10 NOTE: Visits indicate total known visits. ED/UCC VISIT TRACKING (12 MO.) 02/06/2021 09:30 JADEN Marcelo [place] TYPE: Emergency COMPLAINT: - CHEST PAIN, L ARM, ABD, LEG PAIN 02/05/2021 11:41 JADEN Marcelo [place] TYPE: Emergency COMPLAINT: - R FOOT PAIN 01/24/2021 03:[facility] DIAGNOSES: - Headache, unspecified - poss Aneurysm - Dizziness and giddiness 01/14/2021 17:[facility] DIAGNOSES: - Facial Numbness - Anesthesia of skin 01/01/2021 20:[facility]: [facility] DIAGNOSES: - Cerebral aneurysm, nonruptured - Headache (Adult - New Onset Or New Symptoms) - Chest pain, unspecified - Dissection of vertebral artery 12/30/2020 04:39 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 - Pain in left knee - Contusion of right forearm, 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 - Allergy status to penicillin - Migraine, unspecified, not intractable, without status migrainosus 10/03/2020 13:10 JADEN Mejia TYPE: Emergency COMPLAINT: - BEE STING, SOB, TONGUE SWELLING, DRY MOUTH DIAGNOSES: - Allergy status to penicillin - Other petroleum terminal plant operator (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) drug 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 - Migraine, unspecified, not intractable, without status migrainosus - Toxic effect of venom of bees, accidental (unintentional), 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 09/13/2020 21:20 [facility] Royer SIMON TYPE: Emergency DIAGNOSES: - Esophagitis, unspecified without bleeding - Chest Pain 06/12/2020 10:01 [facility] TYPE: Emergency DIAGNOSES: - Syncope and collapse - Dizziness and giddiness - Anxiety disorder, unspecified - Primary focal hyperhidrosis, palms - Neurologic Problem INPATIENT VISIT TRACKING (12 MO.) No inpatient visits to display in this time frame [email or web address]
[2021-02-06] MEDS ORDERED: FLUOXETINE HCL20 MG PO (09:44)
[2021-02-06] MEDS ORDERED: OXYCODONE HCL5 MG PO (09:44)
[2021-02-06] MEDS ORDERED: METOPROLOL TART25 MG PO (09:44)
[2021-02-06] MEDS ORDERED: NARCAN4 MG NS (09:44)
[2021-02-06] MEDS ORDERED: HYDROXYZINE HCL25 MG PO (09:45)
== END 2021-02-06 11:40 | disposition home or self-care (01) ==
LOC: ED 09:29
DX: R07.9 Chest pain, unspecified (principal); Z20.822 Contact with and (suspected) exposure to COVID-19
CPT/HCPCS: 71045; 80048; 84484; 85025; 85379; 93005; 93010; 96374; 99285-25; C9803; J2270

== ENCOUNTER 2021-02-20 18:54 | Emergency (ER) | payer OTHER ==
[~2021-02-20] VITALS: Ht 167.6 cm; Wt 73.0 kg
--- NOTE | ~2021-02-20 | EKG ---
[facility] [address] [place], [place] [address] Draft EK completed, results pending confirmation PATIENT NAME: JAVIER MARTÍNEZ Electrocardiogram DATE OF : 70 PHYSICIAN: PRELIMINARY REPORT #: [id number] REPORT IS CONFIDENTIAL AND NOT TO BE RELEASED WITHOUT AUTHORIZATION
[~2021-02-20 18:54] MED LIST changes: +FLUOXETINE HCL20 MG PO; +METOPROLOL TART25 MG PO; +NARCAN4 MG NS
--- OUTSIDE RECORDS SUMMARY | 2021-02-20 18:56 | XMS ---
PreManage Notification: JAVIER MARTÍNEZ Security Director Of Operations For Therapy Events No recent Security Events currently on file CRITERIA MET - [facility] - 2 Visits in 30 Days - PDMP - 6 ED Visits in 6 Months - [facility] - 3 Facilities in 90 Days CARE PROVIDERS JUAN BERGER Family Medicine: Adult Medicine 10/10/2019-Current PHONE: Unknown Travis has no Care Guidelines for this patient. Care History Medical/Surgical 08/03/2018 [facility] - PATIENT TO ESTABLISH CARE WITH DR OSEGUERA ON 08/13/18. - Patient is currently established with [facility]. If patient is seen in the ED during business hours. Please contact CHWs at [facility]. - Care Recommendation: This patient has had 5 or more Emergency Department visits in the last 12 months.\T\nbsp; Patient requires education on the scope and purpose of the ED as an acute care provider not a Primary Care Provider and should not be utilized for chronic conditions.\T\nbsp; These are guidelines and the provider should exercise clinical judgment when providing care. 06/22/2018 [facility] - EOIPA REFERRAL MADE- DUE TO PATIENT ED UTILIZATION AND PCP UTILIZATION- E.D. VISIT COUNT (12 MO.) [address] [facility] JADEN Roldan TOTAL 13 NOTE: Visits indicate total known visits. ED/UCC VISIT TRACKING (12 MO.) 02/20/2021 18:54 JADEN Marcelo [place] TYPE: Emergency COMPLAINT: - CHEST PAIN 02/10/2021 08:04 [facility] [place] TYPE: Emergency DIAGNOSES: - Chest pain, unspecified - Muscle weakness (generalized) - Chest Pain - Unspecified fall, 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 - Weakness - Neurologic Problem 02/07/2021 16:19 [facility] Royer SIMON TYPE: Emergency DIAGNOSES: - Chest Pain - LOC - Syncope and collapse - Loss of Consciousness 02/06/2021 09:30 JADEN Mejia TYPE: Emergency COMPLAINT: - CHEST PAIN, L ARM, ABD, LEG PAIN DIAGNOSES: - Chest pain, unspecified 02/05/2021 11:41 JADEN Marcelo [place] TYPE: Emergency COMPLAINT: - R FOOT PAIN DIAGNOSES: - Allergy status to penicillin - Migraine, unspecified, not intractable, without status migrainosus - 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 of 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 - Gout, unspecified - Other rat exterminator (current) drug therapy 01/24/2021 03:55 [facility] TYPE: Emergency DIAGNOSES: - Headache, unspecified - poss Aneurysm - Dizziness and giddiness 01/14/2021 17:39 [facility] TYPE: Emergency DIAGNOSES: - Facial Numbness - Anesthesia of skin 01/01/2021 20:48 [facility] TYPE: Emergency DIAGNOSES: - Cerebral aneurysm, nonruptured - Headache (Adult - New Onset Or New Symptoms) - Chest pain, unspecified - Dissection of vertebral artery 12/30/2020 04:39 [facility] TYPE: Emergency DIAGNOSES: - Headache (Adult - New Onset Or New Symptoms) - Numbness - Cerebral aneurysm, nonruptured - Headache, unspecified - Lightheaded 12/04/2020 20:52 [facility] [place] TYPE: Emergency COMPLAINT: - RT ARM INJURY, LT LEG PAIN DIAGNOSES: - Civilian activity done for income or pay - Contusion of left knee, 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 - intermediate (current) use of aspirin - Fall on same level, unspecified, 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 - Other rat exterminator (current) drug therapy - Pain in left knee - Contusion of right forearm, 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 - Allergy status to penicillin - Migraine, unspecified, not intractable, without status migrainosus 10/03/2020 13:[address] [facility] [address] [facility] TEIXEIRA TYPE: Emergency COMPLAINT: - BEE STING, SOB, TONGUE SWELLING, DRY MOUTH DIAGNOSES: - Allergy status to penicillin - Other correction (current) drug therapy - Migraine, unspecified, not intractable, without status migrainosus - Toxic effect of venom of bees, accidental (unintentional), 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 09/13/2020 21:20 [facility] Cesia SIMON TYPE: Emergency DIAGNOSES: - Esophagitis, unspecified without bleeding - Chest Pain 06/12/2020 10:01 [facility] [place] TYPE: Emergency DIAGNOSES: - Syncope and collapse - Dizziness and giddiness - Anxiety disorder, unspecified - Primary focal hyperhidrosis, palms - Neurologic Problem INPATIENT VISIT TRACKING (12 MO.) 02/10/2021 08:04 [facility] [place] TYPE: Internal Medicine DIAGNOSES: - Muscle weakness (generalized) - Unspecified fall, 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 - Chest pain, unspecified - Weakness 02/07/2021 16:[facility] DIAGNOSES: - Syncope and collapse - Other chest pain - Cerebral aneurysm, nonruptured - Torticollis - Chest pain, unspecified - Dissection of vertebral artery - Cerebral infarction due to thrombosis of unspecified cerebral artery [email or web address]
[2021-02-20] MEDS ORDERED: PREGABALIN50 MG PO (19:10)
[2021-02-20] MEDS ORDERED: OXYCODONE-ACET1 EAC3 PO (19:11)
[2021-02-20] MEDS ORDERED: DIAZEPAM5 MG PO (19:11)
[2021-02-20] MEDS ORDERED: OXYCODONE HCL30 MG PO (19:11)
[2021-02-20] MEDS ORDERED: ATORVASTATIN CA80 MG PO (19:11)
== END 2021-02-20 21:14 | disposition home or self-care (01) ==
LOC: ED 18:54
DX: R07.89 Other chest pain (principal); G43.909 Migraine, unspecified, not intractable, without status migrainosus; Z88.0 Allergy status to penicillin; Z79.52 Long term (current) use of systemic steroids; Z79.899 Other long term (current) drug therapy; Z79.891 Long term (current) use of opiate analgesic; Z79.82 Long term (current) use of aspirin
CPT/HCPCS: 71045; 80053; 83735; 84484; 85025; 93005; 93010; 99285-25

== ENCOUNTER 2021-11-12 02:48 | Emergency (ER) | payer OTHER ==
[~2021-11-12] VITALS: Ht 167.6 cm; Wt 76.2 kg
[~2021-11-12 02:48] MED LIST changes: +DIAZEPAM5 MG PO; +OXYCODONE HCL30 MG PO; +OXYCODONE-ACET1 EAC3 PO; +PREGABALIN50 MG PO
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
[2021-11-12] MEDS ORDERED: GABAPENTIN100 MG PO (03:07)
[2021-11-12] MEDS ORDERED: BENZONATATE100 MG PO (05:15)
[2021-11-12] MEDS ORDERED: ONDANSETRON ODT8 MG PO (05:15)
--- NOTE | 2021-11-12 20:05 | EKG ---
[facility] [address] [place], [place] [address] Signed Sinus tachycardia Otherwise normal ECG When compared with ECG of 20-FEB-2021 18:58, No significant change was found Confirmed by ROBEL RENAE MD ([id number]) on 11/12/2021 8:05:06 PM Electronically Signed By: ROBEL RENAE MD 11/12/212004 PATIENT NAME: JAVIER MARTÍNEZ Electrocardiogram DATE OF : 70 PHYSICIAN: ROBEL RENAE MD REPORT #: [id number] REPORT IS CONFIDENTIAL AND NOT TO BE RELEASED WITHOUT AUTHORIZATION
== END 2021-11-12 05:37 | disposition home or self-care (01) ==
LOC: ED 02:48
DX: R42 Dizziness and giddiness (principal); R11.2 Nausea with vomiting, unspecified; R05.9 Cough, unspecified; T38.0X5A Adverse effect of glucocorticoids and synthetic analogues, 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; M51.36 Other intervertebral disc degeneration, lumbar region; Z20.822 Contact with and (suspected) exposure to COVID-19; Z88.0 Allergy status to penicillin; Z88.8 Allergy status to other drugs, medicaments and biological substances; Z79.899 Other long term (current) drug therapy; Z79.82 Long term (current) use of aspirin
CPT/HCPCS: 36415; 71045; 80053; 81001; 83735; 83880; 84484; 85025; 85379; 87502; 93005; 93010; 96361; 96374; 96375; 99284-25; A9270; J2405; J2550; J7030; U0003

== ENCOUNTER 2021-11-24 20:07 | Emergency (ER) | payer OTHER ==
[~2021-11-24] VITALS: Ht 167.6 cm; Wt 76.2 kg
[~2021-11-24 20:07] MED LIST changes: +BENZONATATE100 MG PO; +GABAPENTIN100 MG PO
--- OUTSIDE RECORDS SUMMARY | 2021-11-24 20:10 | XMS ---
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 Care History Medical/Surgical 08/03/2018 [facility] - PATIENT TO ESTABLISH CARE WITH DR OSEGUERA ON 08/13/18. - Patient is currently established with [facility]. If patient is seen in the ED during business hours. Please contact CHWs at [facility]. - Care Recommendation: This patient has had 5 or more Emergency Department visits in the last 12 months.\T\nbsp; Patient requires education on the scope and purpose of the ED as an acute care provider not a Primary Care Provider and should not be utilized for chronic conditions.\T\nbsp; These are guidelines and the provider should exercise clinical judgment when providing care. 06/22/2018 [facility] - [place] REFERRAL MADE- DUE TO PATIENT ED UTILIZATION AND PCP UTILIZATION- E.D. VISIT COUNT (12 MO.) 5 [facility] 5 [facility] 7 JADEN Roldan TOTAL 17 NOTE: Visits indicate total known visits. ED/UCC VISIT TRACKING (12 MO.) 11/24/2021 20:08 JADEN Marcelo [place] TYPE: Emergency COMPLAINT: - CHEST PAIN 11/12/2021 02:48 JADEN Marcelo [place] TYPE: Emergency COMPLAINT: - VOMITING DIAGNOSES: - Cough, unspecified - director phone (current) use of aspirin - Adverse effect of glucocorticoids and synthetic analogues, 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 - Nausea with vomiting, unspecified - Allergy status to other drugs, medicaments and biological substances - Other intervertebral disc degeneration, lumbar region - Other missile inspector (current) drug therapy - Dizziness and giddiness - Contact with and (suspected) exposure to COVID-19 - Allergy status to penicillin 10/31/2021 [facility] DIAGNOSES: - Back Pain - lower back pain numbness in legs and incontinence - Lumbago with sciatica, left side 10/09/2021 12:14 JADEN Mejia TYPE: Emergency COMPLAINT: - FINGER LACERATION 07/12/2021 11:39 [facility] DIAGNOSES: - Epigastric pain - Dizziness and giddiness - Syncope - Chest Pain - Chest Pain/Syncope - Personal history of other (healed) physical injury and trauma 07/11/2021 15:11 [facility] Mary Royer SIMON TYPE: Emergency DIAGNOSES: - Dizziness - Abdominal Pain - Unspecified abdominal pain - Scar conditions and fibrosis of skin - Concussion without loss of consciousness, 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 07/08/2021 14:20 [facility] TYPE: Emergency DIAGNOSES: - Abdominal Pain - Unspecified abdominal pain 02/20/2021 18:54 JADEN Mejia TYPE: Emergency COMPLAINT: - CHEST PAIN DIAGNOSES: - Chest pain, unspecified - long-term (current) use of opiate analgesic - Other chest pain - Other missile inspector (current) drug therapy - Migraine, unspecified, not intractable, without status migrainosus - director phone (current) use of systemic steroids - director phone (current) use of aspirin - Allergy status to penicillin 02/10/2021 08:04 [facility] TYPE: Emergency DIAGNOSES: - Neurologic Problem - Unspecified fall, 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 - Muscle weakness (generalized) - Weakness - Chest Pain - Chest pain, unspecified 02/07/2021 16:19 [facility] [place] TYPE: Emergency DIAGNOSES: - Loss of Consciousness - LOC - Syncope and collapse - Chest Pain 02/06/2021 09:30 [facility] [place] TYPE: Emergency COMPLAINT: - CHEST PAIN, L ARM, ABD, LEG PAIN DIAGNOSES: - Chest pain, unspecified - Contact with and (suspected) exposure to COVID-19 02/05/2021 11:[address] [facility] [address] [facility] Mendoza [place] TYPE: Emergency COMPLAINT: - R FOOT PAIN DIAGNOSES: - Gout, unspecified - Migraine, unspecified, not intractable, without status migrainosus - Other shelter (current) drug therapy - long-term (current) use of aspirin - Allergy status to penicillin 01/24/2021 03:55 [facility] [place] [facility]: Emergency DIAGNOSES: - poss Aneurysm - Dizziness and giddiness - Headache, unspecified 01/14/2021 17:39 [facility] TYPE: Emergency DIAGNOSES: - Anesthesia of skin - Facial Numbness 01/01/2021 20:48 [facility] TYPE: Emergency DIAGNOSES: - Dissection of vertebral artery - Headache (Adult - New Onset Or New Symptoms) - Chest pain, unspecified - Cerebral aneurysm, nonruptured 12/30/2020 04:39 [facility] TYPE: Emergency DIAGNOSES: - Headache, unspecified - Numbness - Lightheaded - Cerebral aneurysm, nonruptured - Headache (Adult - New Onset Or New Symptoms) 12/04/2020 20:52 JADEN Marcelo [place] TYPE: Emergency COMPLAINT: - RT ARM INJURY, LT LEG PAIN DIAGNOSES: - Pain in left knee - Fall on same level, unspecified, 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 - Contusion of left knee, 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 - Migraine, unspecified, not intractable, without status migrainosus - Contusion of right forearm, 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 - Other missile inspector (current) drug therapy - long-term (current) use of aspirin - Civilian activity done for income or pay - Allergy status to penicillin INPATIENT VISIT TRACKING (12 MO.) 02/10/2021 08:04 [facility] TYPE: Internal Medicine DIAGNOSES: - Weakness - Unspecified fall, 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 - Chest pain, unspecified - Muscle weakness (generalized) 02/07/2021 16:19 [facility] Sobeida SIMON TYPE: Surgical Services DIAGNOSES: - Dissection of vertebral artery - Torticollis - Other chest pain - Cerebral infarction due to thrombosis of unspecified cerebral artery - Chest pain, unspecified - Cerebral aneurysm, nonruptured - Syncope and collapse [email or web address]
--- NOTE | 2021-11-25 16:10 | EKG ---
[facility] [address] [place], [place] [address] Signed Normal sinus rhythm Normal ECG When compared with ECG of 12-NOV-2021 03:02, No significant change was found Confirmed by ROBEL RENAE MD ([id number]) on 11/25/2021 4:10:20 PM Electronically Signed By: ROBEL RENAE MD 11/25/21 1610 PATIENT NAME: JAVIER MARTÍNEZ Electrocardiogram DATE OF : 70 PHYSICIAN: ROBEL RENAE MD REPORT #: [id number] REPORT IS CONFIDENTIAL AND NOT TO BE RELEASED WITHOUT AUTHORIZATION
== END 2021-11-24 21:49 | disposition home or self-care (01) ==
LOC: ED 20:07
DX: R07.89 Other chest pain (principal); G43.909 Migraine, unspecified, not intractable, without status migrainosus; Z88.0 Allergy status to penicillin; Z88.8 Allergy status to other drugs, medicaments and biological substances; Z86.73 Personal history of transient ischemic attack (TIA), and cerebral infarction without residual deficits
CPT/HCPCS: 36415; 70450; 71045; 80053; 83735; 84484; 85025; 85379; 93005; 93010; 96374; 96375; 99285-25; A9270; J1170; J2405

== ENCOUNTER 2021-12-04 03:57 | Emergency (ER) | payer OTHER ==
[~2021-12-04] VITALS: Ht 167.6 cm; Wt 76.2 kg
--- OUTSIDE RECORDS SUMMARY | 2021-12-04 04:00 | XMS ---
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 Care History Medical/Surgical 08/03/2018 [facility] - PATIENT TO ESTABLISH CARE WITH DR OSEGUERA ON 08/13/18. - Patient is currently established with [facility]. If patient is seen in the ED during business hours. Please contact CHWs at [facility]. - Care Recommendation: This patient has had [...] E.D. VISIT COUNT (12 MO.) 5 [facility] 5 [facility] 8 JADEN Roldan TOTAL 18 NOTE: Visits indicate total known visits. ED/UCC VISIT TRACKING (12 MO.) 12/04/2021 03:58 JADEN Marcelo [place] TYPE: Emergency COMPLAINT: - WEAKNESS, SEIZURE 11/24/2021 20:08 JADEN Marcelo [place] TYPE: Emergency COMPLAINT: - CHEST PAIN 11/12/2021 02:48 JADEN Marcel[place] TYPE: Emergency COMPLAINT: - VOMITING DIAGNOSES: - Nausea with vomiting, unspecified - Allergy status to other drugs, medicaments and biological substances - Other intervertebral disc degeneration, lumbar region - Other medical terminologist (current) drug therapy - Dizziness and giddiness - Contact with and (suspected) exposure to COVID-19 - Allergy status to penicillin - Cough, unspecified - continuous churn buttermaker (current) use of aspirin - Adverse effect of glucocorticoids and synthetic analogues, 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 10/31/2021 14:26 [facility] Royer SIMON TYPE: Emergency DIAGNOSES: - lower back pain numbness in legs and incontinence - Lumbago with sciatica, left side - Back Pain 10/09/2021 12:14 JADEN Marcelo [place] TYPE: Emergency COMPLAINT: - FINGER LACERATION 07/12/2021 11:39 [facility] [place]FRED TYPE: Emergency DIAGNOSES: - Chest Pain - Chest Pain/Syncope - Personal history of other (healed) physical injury and trauma - Epigastric pain - Dizziness and giddiness - Syncope 07/11/2021 15:11 [facility] [place] ALFRED TYPE: Emergency DIAGNOSES: - Unspecified abdominal pain - Scar conditions and fibrosis of skin - Concussion without loss of consciousness, 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 - Dizziness - Abdominal Pain 07/08/2021 14:20 [facility] ALFRED TYPE: Emergency DIAGNOSES: - Unspecified abdominal pain - Abdominal Pain 02/20/2021 18:54 JADEN Marcelo [place] TYPE: Emergency COMPLAINT: - CHEST PAIN DIAGNOSES: - Other chcf (current) drug therapy - Migraine, unspecified, not intractable, without status migrainosus - continuous churn buttermaker (current) use of systemic steroids - continuous churn buttermaker (current) use of aspirin - Allergy status to penicillin - Chest pain, unspecified - continuous churn buttermaker (current) use of opiate analgesic - Other chest pain 02/10[facility]2021 08[facility] [place] [place] [facility] DIAGNOSES: - Weakness - Chest Pain - Chest pain, unspecified - Neurologic Problem - Unspecified fall, 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 - Muscle weakness (generalized) 02/07/2021 16[facility] DIAGNOSES: - Syncope and collapse - Chest Pain - Loss of Consciousness - LOC 02/06/2021 09:30 [facility] [place] TYPE: Emergency COMPLAINT: - CHEST PAIN, L ARM, ABD, LEG PAIN DIAGNOSES: - Contact with and (suspected) exposure to COVID-19 - Chest pain, unspecified 02/05/2021 11:41 [place] [facility] [place] TYPE: Emergency COMPLAINT: - R FOOT PAIN DIAGNOSES: - Other medical terminologist (current) drug therapy - jail (current) use of aspirin - Allergy status to penicillin - Gout, unspecified - Migraine, unspecified, not intractable, without status migrainosus 01/24/2021 03:55 [facility] Royer SIMON TYPE: Emergency DIAGNOSES: - Dizziness and giddiness - Headache, unspecified - poss Aneurysm 01/14/2021 17:39 [facility] [place] [facility]: Emergency DIAGNOSES: - Facial Numbness - Anesthesia of skin 01/01/2021 20:48 [facility] TYPE: Emergency DIAGNOSES: - Chest pain, unspecified - Cerebral aneurysm, nonruptured - Dissection of vertebral artery - Headache (Adult - New Onset Or New Symptoms) 12/30/2020 04:39 [facility] TYPE: Emergency DIAGNOSES: - Lightheaded - Cerebral aneurysm, nonruptured - Headache (Adult - New Onset Or New Symptoms) - Headache, unspecified - Numbness 12/04/2020 20:52 JADEN Mejia TYPE: Emergency COMPLAINT: - RT ARM INJURY, LT LEG PAIN DIAGNOSES: - Migraine, unspecified, not intractable, without status migrainosus - Contusion of right forearm, 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 - Other medical terminologist (current) drug therapy - continuous churn buttermaker (current) use of aspirin - Civilian activity done for income or pay - Allergy status to penicillin - Pain in left knee - Fall on same level, unspecified, 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 - Contusion of left knee, 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 INPATIENT VISIT TRACKING (12 MO.) 02/10/2021 08:04 [facility] TYPE: Internal Medicine DIAGNOSES: - Chest pain, unspecified - Muscle weakness (generalized) - Weakness - Unspecified fall, 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 02/07/2021 16:19 [facility] DIAGNOSES: - Cerebral infarction due to thrombosis of unspecified cerebral artery - Chest pain, unspecified - Cerebral aneurysm, nonruptured - Syncope and collapse - Dissection of vertebral artery - Torticollis - Other chest pain [email or web address]
[2021-12-04] MEDS ORDERED: LAMOTRIGINE150 MG PO (04:21)
[2021-12-04] MEDS ORDERED: LEVETIRACETAM250 MG PO (04:21)
[2021-12-04] MEDS ORDERED: ATIVAN0.5 MG PO (04:55)
--- NOTE | 2021-12-05 12:46 | EKG ---
[facility] [address] [place], [place] [address] Signed Normal sinus rhythm Normal ECG When compared with ECG of 24-NOV-2021 20:09, No significant change was found Confirmed by STEWRAT RAMOS MD ([id number]) on 12/05/2021 12:46:44 PM Electronically Signed By: STEWART RAMOS MD 12/05/21 1246 PATIENT NAME: JAVIER MARTÍNEZ Electrocardiogram DATE OF : 70 PHYSICIAN: STEWART RAMOS MD REPORT #: [id number] REPORT IS CONFIDENTIAL AND NOT TO BE RELEASED WITHOUT AUTHORIZATION
== END 2021-12-04 05:40 | disposition home or self-care (01) ==
LOC: ED 03:57
DX: G40.409 Other generalized epilepsy and epileptic syndromes, not intractable, without status epilepticus (principal); Z88.0 Allergy status to penicillin; Z88.8 Allergy status to other drugs, medicaments and biological substances; Z79.899 Other long term (current) drug therapy; Z79.82 Long term (current) use of aspirin
CPT/HCPCS: 36415; 70450; 70496; 70498; 71045; 80053; 81001; 84484; 85025; 85610; 85730; 93005; 93010; J2060; Q9967

== ENCOUNTER 2021-12-08 14:07 | Emergency (ER) | payer OTHER ==
[~2021-12-08] VITALS: Ht 167.6 cm; Wt 75.3 kg
[~2021-12-08 14:07] MED LIST changes: +ATIVAN0.5 MG PO; +LAMOTRIGINE150 MG PO; +LEVETIRACETAM250 MG PO
--- OUTSIDE RECORDS SUMMARY | 2021-12-08 14:10 | XMS ---
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 Care History Medical/Surgical 08/03/2018 [facility] - PATIENT TO ESTABLISH CARE WITH DR OSEGUERA ON 08/13/18. - Patient is currently established with [facility]. If patient is seen in the ED during business hours. Please contact CHWs at [facility]. - Care Recommendation: This patient has had 5 or more Emergency Department visits in the last 12 months.\T\nbsp; Patient requires education on the scope and purpose of the ED as an acute care provider not a Primary Care Provider and should not be utilized for chronic conditions.\T\nbsp; These are guidelines and the provider should exercise clinical judgment when providing care. 06/22/2018 [facility] - [place] REFERRAL MADE- DUE TO PATIENT ED UTILIZATION AND PCP UTILIZATION- E.D. VISIT COUNT (12 MO.) 6 [facility] 7 [facility] 8 JADEN [place] H. TOTAL 21 NOTE: Visits indicate total known visits. ED/UCC VISIT TRACKING (12 MO.) 12/08/2021 14:08 JADEN Marcelo [place] TYPE: Emergency COMPLAINT: - SEIZURES 12/07/2021 10:58 [facility] TYPE: Emergency DIAGNOSES: - Seizure (Adult - Prior Hx Of) - Tremor, unspecified - Altered Mental Status [facility]06[facility]2021 [facility] DIAGNOSES: - Unspecified convulsions - Seizure (Adult - Actively Seizing On Arrival) 12/05/2021 11:39 [facility] DIAGNOSES: - Chest Pressure - Seizure (Adult - Prior Hx Of) - Epilepsy, unspecified, not intractable, without status epilepticus 12/04/2021 03:58 [facility] Marcelo [place] TYPE: Emergency COMPLAINT: - WEAKNESS, SEIZURE DIAGNOSES: - Allergy status to penicillin - Unspecified convulsions - Allergy status to other drugs, medicaments and biological substances - Other generalized epilepsy and epileptic syndromes, not intractable, without status epilepticus - Other skilled nursing (current) drug therapy - technician terminal and repeater (current) use of aspirin 11/24/2021 20:08 [facility] Marcel[facility] [place] TYPE: Emergency COMPLAINT: - CHEST PAIN 11/12/2021 02:48 [facility] Marcel[place] TYPE: Emergency COMPLAINT: - VOMITING DIAGNOSES: - Allergy status to other drugs, medicaments and biological substances - Other intervertebral disc degeneration, lumbar region - Other watermaster (current) drug therapy - Dizziness and giddiness - Contact with and (suspected) exposure to COVID-19 - Allergy status to penicillin - Cough, unspecified - technician terminal and repeater (current) use of aspirin - Adverse effect of glucocorticoids and synthetic analogues, 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 - Nausea with vomiting, unspecified 10/31/2021 14:26 [facility] Royer SIMON TYPE: Emergency DIAGNOSES: - lower back pain numbness in legs and incontinence - Lumbago with sciatica, left side - Back Pain 10/09/2021 12:14 [facility]AD[facility] Marcelo [place] TYPE: Emergency COMPLAINT: - FINGER LACERATION 07/12/2021 11:39 [facility] Sobeida SIMON TYPE: Emergency DIAGNOSES: - Chest Pain - Chest Pain/Syncope - Personal history of other (healed) physical injury and trauma - Epigastric pain - Dizziness and giddiness - Syncope 07/11/2021 15:11 [facility]: [facility] DIAGNOSES: - Unspecified abdominal pain - Scar conditions and fibrosis of skin - Concussion without loss of consciousness, 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 - Dizziness - Abdominal Pain 07/08/2021 14:20 [facility] ALFR[place] TYPE: Emergency DIAGNOSES: - Unspecified abdominal pain - Abdominal Pain 02/20/2021 18:54 [facility] Marcel[place] TYPE: Emergency COMPLAINT: - CHEST PAIN DIAGNOSES: - Other skilled nursing (current) drug therapy - Migraine, unspecified, not intractable, without status migrainosus - technician terminal and repeater (current) use of systemic steroids - technician terminal and repeater (current) use of aspirin - Allergy status to penicillin - Chest pain, unspecified - intermediate (current) use of opiate analgesic - Other chest pain 02/10/2021 08:04 [facility] TYPE: Emergency DIAGNOSES: - Weakness - Chest Pain - Chest pain, unspecified - Neurologic Problem - Unspecified fall, 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 - Muscle weakness (generalized) 02/07/2021 16:19 [facility] TYPE: Emergency DIAGNOSES: - Syncope and collapse - Chest Pain - Loss of Consciousness - LOC 02/06/2021 09:30 [facility] Marcel[facility] [place] TYPE: Emergency COMPLAINT: - CHEST PAIN, L ARM, ABD, LEG PAIN DIAGNOSES: - Contact with and (suspected) exposure to COVID-19 - Chest pain, unspecified 02/05/2021 11:41 [facility] Marcel[place] TYPE: Emergency COMPLAINT: - R FOOT PAIN DIAGNOSES: - Other watermaster (current) drug therapy - technician terminal and repeater (current) use of aspirin - Allergy status to penicillin - Gout, unspecified - Migraine, unspecified, not intractable, without status migrainosus [facility]2021 03[facility] DIAGNOSES: - Dizziness and giddiness - Headache, unspecified - poss Aneurysm 01/14/2021 17:39 [facility] [place] TYPE: Emergency DIAGNOSES: - Facial Numbness - Anesthesia of skin 01/01/2021 20:48 [facility] [place] TYPE: Emergency DIAGNOSES: - Chest pain, unspecified - Cerebral aneurysm, nonruptured - Dissection of vertebral artery - Headache (Adult - New Onset Or New Symptoms) Plus 1 More Visit INPATIENT VISIT TRACKING (12 MO.) 02/10/2021 08:04 [facility] Royer SIMON TYPE: Internal Medicine DIAGNOSES: - Chest pain, unspecified - Muscle weakness (generalized) - Weakness - Unspecified fall, 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 02/07/2021 16:19 [facility] Royer SIMON TYPE: Surgical Services DIAGNOSES: - Cerebral infarction due to thrombosis of unspecified cerebral artery - Chest pain, unspecified - Cerebral aneurysm, nonruptured - Syncope and collapse - Dissection of vertebral artery - Torticollis - Other chest pain [email or web address]
[2021-12-08] MEDS ORDERED: ATIVAN1 MG PO (14:34)
--- NOTE | 2021-12-08 21:15 | EKG ---
[facility] [address] [place] [address] Signed Sinus tachycardia Otherwise normal ECG Confirmed by Grecia Gabriel MD () on 12/08/2021 9:15:43 PM Electronically Signed By: GRECIA GABRIEL MD 12/08/212114 PATIENT NAME: JAVIER MARTÍNEZ Electrocardiogram DATE OF : 70 PHYSICIAN: GRECIA GABRIEL MD REPORT #: [id number] REPORT IS CONFIDENTIAL AND NOT TO BE RELEASED WITHOUT AUTHORIZATION
== END 2021-12-08 17:55 | disposition home or self-care (01) ==
LOC: ED 14:07
DX: G40.909 Epilepsy, unspecified, not intractable, without status epilepticus (principal); Z88.8 Allergy status to other drugs, medicaments and biological substances; Z88.0 Allergy status to penicillin
CPT/HCPCS: 36415; 80053; 85025; 93005; 93010; 99284-25

== ENCOUNTER 2021-12-10 05:41 | Emergency (ER) | payer OTHER ==
[~2021-12-10] VITALS: Ht 167.6 cm; Wt 75.3 kg
[~2021-12-10 05:41] MED LIST changes: +ATIVAN1 MG PO
--- OUTSIDE RECORDS SUMMARY | 2021-12-10 05:44 | XMS ---
PreManage Notification: JAVIER MARTÍNEZ Security Jacket Preparer Events No recent Security Events currently on file CRITERIA MET - [facility] - 3 Facilities in 90 Days - PDMP - 6 ED Visits in 6 Months - [facility] - 2 Visits in 30 Days CARE PROVIDERS JUAN BERGER Family Medicine: Adult Medicine 10/10/2019-Current PHONE: Unknown Travis has no Care Guidelines for this patient. Care History Medical/Surgical 08/03/2018 [facility] - PATIENT TO ESTABLISH CARE WITH DR OSEGUERA ON 08/13/18. - Patient is currently established with [facility]. If patient is seen in the ED during business hours. Please contact CHWs at [facility]. - Care Recommendation: This patient has had 5 or more Emergency Department visits in the last 12 months.\T\nbsp; Patient requires education on the scope and purpose of the ED as an acute care provider not a Primary Care Provider and should not be utilized for chronic conditions.\T\nbsp; These are guidelines and the provider should exercise clinical judgment when providing care. 06/22/2018 [facility] - EOIPA REFERRAL MADE- DUE TO PATIENT ED UTILIZATION AND PCP UTILIZATION- E.D. VISIT COUNT (12 MO.) 6 [facility] 7 [facility] 9 JADEN Roldan TOTAL 22 NOTE: Visits indicate total known visits. ED/UCC VISIT TRACKING (12 MO.) 12/10/2021 05:42 [facility] TYPE: Emergency COMPLAINT: - SEIZURE 12/08/2021 14:08 [facility] Marcelo [place] TYPE: Emergency COMPLAINT: - SEIZURES 12/07/2021 10:58 [facility] Smooth SIMON TYPE: Emergency DIAGNOSES: - Seizure (Adult - Prior Hx Of) - Tremor, unspecified - Altered Mental Status 12/06/2021 14[facility]37 [facility] DIAGNOSES: - Unspecified convulsions - Seizure (Adult - Actively Seizing On Arrival) 12/05/2021 11:39 [facility]: Emergency DIAGNOSES: - Chest Pressure - Seizure (Adult - Prior Hx Of) - Epilepsy, unspecified, not intractable, without status epilepticus 12/04/2021 03:58 JADEN Mejia TYPE: Emergency COMPLAINT: - WEAKNESS, SEIZURE DIAGNOSES: - Allergy status to penicillin - Unspecified convulsions - Allergy status to other drugs, medicaments and biological substances - Other generalized epilepsy and epileptic syndromes, not intractable, without status epilepticus - Other prison (current) drug therapy - [facility] (current) use of aspirin 11/24/2021 20:08 [facility] [address] [facility] [place] TYPE: Emergency COMPLAINT: - CHEST PAIN DIAGNOSES: - Personal history of transient ischemic attack (TIA), and cerebral infarction without residual deficits - Allergy status to penicillin - Allergy status to other drugs, medicaments and biological substances - Migraine, unspecified, not intractable, without status migrainosus - Other chest pain 11/12/2021 02:48 [facility] Marcelo [place] TYPE: Emergency COMPLAINT: - VOMITING DIAGNOSES: - Other intervertebral disc degeneration, lumbar region - Other prison (current) drug therapy - Dizziness and giddiness - Contact with and (suspected) exposure to COVID-19 - Allergy status to penicillin - Cough, unspecified - [facility] (current) use of aspirin - Adverse effect of glucocorticoids and synthetic analogues, 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 - Nausea with vomiting, unspecified - Allergy status to other drugs, medicaments and biological substances 10/31/2021 14:26 [facility] [place] TYPE: Emergency DIAGNOSES: - lower back pain numbness in legs and incontinence - Lumbago with sciatica, left side - Back Pain 10/09/2021 12:14 [facility] [address] [facility] TEIXEIRA TYPE: Emergency COMPLAINT: - FINGER LACERATION 07/12/2021 11:39 [facility] Sobeida SIMON TYPE: Emergency DIAGNOSES: - Chest Pain - Chest Pain/Syncope - Personal history of other (healed) physical injury and trauma - Epigastric pain - Dizziness and giddiness - Syncope 07/11/2021 15:11 [facility] [place] TYPE: Emergency DIAGNOSES: - Unspecified abdominal pain - Scar conditions and fibrosis of skin - Concussion without loss of consciousness, 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 - Dizziness - Abdominal Pain 07/08/2021 14:20 [facility] AL[place] TYPE: Emergency DIAGNOSES: - Unspecified abdominal pain - Abdominal Pain 02/20/2021 18:54 JADEN Mejia TYPE: Emergency COMPLAINT: - CHEST PAIN DIAGNOSES: - Migraine, unspecified, not intractable, without status migrainosus - middle or intermediate school principal (current) use of systemic steroids - middle or intermediate school principal (current) use of aspirin - Allergy status to penicillin - Chest pain, unspecified - [facility] (current) use of opiate analgesic - Other chest pain - Other prison (current) drug therapy 02/10/2021 08:04 [facility] [place] TYPE: Emergency DIAGNOSES: - Weakness - Chest Pain - Chest pain, unspecified - Neurologic Problem - Unspecified fall, 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 - Muscle weakness (generalized) 02/07/2021 16:19 [facility] Royer SIMON TYPE: Emergency DIAGNOSES: - Syncope and collapse - Chest Pain - Loss of Consciousness - LOC 02/06/2021 09:30 [facility]AD[facility] Marcelo [place] TYPE: Emergency COMPLAINT: - CHEST PAIN, L ARM, ABD, LEG PAIN DIAGNOSES: - Contact with and (suspected) exposure to COVID-19 - Chest pain, unspecified 02/05/2021 11:41 JADEN Mejia TYPE: Emergency COMPLAINT: - R FOOT PAIN DIAGNOSES: - Other prison (current) drug therapy - [facility] (current) use of aspirin - Allergy status to penicillin - Gout, unspecified - Migraine, unspecified, not intractable, without status migrainosus 01/24/2021 03:55 [facility] Cesia SIMON TYPE: Emergency DIAGNOSES: - Dizziness and giddiness - Headache, unspecified - poss Aneurysm 01/14/2021 17:39 [facility] Royer SIMON TYPE: Emergency DIAGNOSES: - Facial Numbness - Anesthesia of skin Plus 2 More Visits INPATIENT VISIT TRACKING (12 MO.) 02/10/2021 08:04 [facility] Royer SIMON TYPE: Internal Medicine DIAGNOSES: - Chest pain, unspecified - Muscle weakness (generalized) - Weakness - Unspecified fall, 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 02/07/2021 16[facility]19 [facility] DIAGNOSES: - Chest pain, unspecified - Cerebral aneurysm, nonruptured - Syncope and collapse - Dissection of vertebral artery - Torticollis - Other chest pain - Cerebral infarction due to thrombosis of unspecified cerebral artery [email or web address]
[2021-12-10] MEDS ORDERED: LIPITOR80 MG GT (08:34)
[2021-12-10] MEDS ORDERED: NALOXONE HCL4 MG NS (08:43)
== END 2021-12-10 10:20 | disposition home or self-care (01) ==
LOC: ED 05:41
DX: S90.31XA Contusion of right foot, 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 (principal); R56.9 Unspecified convulsions; Z88.8 Allergy status to other drugs, medicaments and biological substances; Z79.82 Long term (current) use of aspirin; Z79.899 Other long term (current) drug therapy; X58.XXXA Exposure to other specified factors, 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
CPT/HCPCS: 73610; 73630; A9270; J1953; J2060; J7030

== ENCOUNTER 2021-12-17 14:44 | Emergency (ER) | payer OTHER ==
[~2021-12-17] VITALS: Ht 167.6 cm; Wt 75.3 kg
[~2021-12-17 14:44] MED LIST changes: +LIPITOR80 MG GT; +NALOXONE HCL4 MG NS
--- OUTSIDE RECORDS SUMMARY | 2021-12-17 14:46 | XMS ---
PreManage Notification: JAVIER MARTÍNEZ Security Medical Officer Psychiatry Events No recent Security Events currently on file CRITERIA MET - PDMP - 6 ED Visits in 6 Months - [facility] - 3 Facilities in 90 Days - [facility] - 2 Visits in 30 Days CARE PROVIDERS JUAN BERGER Family Medicine: Adult Medicine 10/10/2019-Current PHONE: Unknown Travis has no Care Guidelines for this patient. Care History Medical/Surgical 08/03/2018 [facility] - PATIENT TO ESTABLISH CARE WITH DR OSEGUERA ON 08/13/18. - Patient is currently established with [facility]. If patient is seen in the ED during business hours. Please contact CHWs at [facility]. - Care Recommendation: This patient has had 5 or more Emergency Department visits in the last 12 months.\T\nbsp; Patient requires education on the scope and purpose of the ED as an acute care provider not a Primary Care Provider and should not be utilized for chronic conditions.\T\nbsp; These are guidelines and the provider should exercise clinical judgment when providing care. 06/22/2018 [facility] - EOIPA REFERRAL MADE- DUE TO PATIENT ED UTILIZATION AND PCP UTILIZATION- E.D. VISIT COUNT (12 MO.) 6 [facility] 7 [facility] 10 JADEN Roldan TOTAL 23 NOTE: Visits indicate total known visits. ED/UCC VISIT TRACKING (12 MO.) 12/17/2021 14:44 JAD[facility] Marcelo [place] TYPE: Emergency COMPLAINT: - SEIZURE 12/10/2021 05:42 [facility] Marcelo [place] TYPE: Emergency COMPLAINT: - SEIZURE DIAGNOSES: - Allergy status to other drugs, medicaments and biological substances - Other intermodal customer service (current) drug therapy - Exposure to other specified factors, 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 - bed bug exterminator (current) use of aspirin - Contusion of right foot, 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 - Unspecified convulsions 12/08/2021 14:08 JADEN Mejai TYPE: Emergency COMPLAINT: - SEIZURES DIAGNOSES: - Allergy status to penicillin - Allergy status to other drugs, medicaments and biological substances - Epilepsy, unspecified, not intractable, without status epilepticus 12/07/2021 10:58 [facility] [place] TYPE: Emergency DIAGNOSES: - Seizure (Adult - Prior Hx Of) - Tremor, unspecified - Altered Mental Status 12/06/2021 14:37 [facility] Sobeida SIMON TYPE: Emergency DIAGNOSES: - Unspecified convulsions - Seizure (Adult - Actively Seizing On Arrival) 12/05/2021 11:39 [facility] Cesia SIMON TYPE: Emergency DIAGNOSES: - Chest Pressure [...] - Other prison (current) drug therapy - bed bug exterminator (current) use of aspirin 11/24/2021 20:08 JADEN [...] status to penicillin - Cough, unspecified - snf (current) use of aspirin - Adverse effect of glucocorticoids and synthetic analogues, 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 - Nausea with vomiting, unspecified - Allergy status to other drugs, medicaments and biological substances 10[facility]31[facility]2021 [facility] DIAGNOSES: - lower back pain numbness in legs and incontinence - Lumbago with sciatica, left side - Back Pain 10/09/2021 12:14 JAD[facility] Marcelo [place] TYPE: Emergency COMPLAINT: - FINGER LACERATION 07/12/2021 11:39 [facility] DIAGNOSES: - Chest Pain - Chest Pain/Syncope - Personal history of other (healed) physical injury and trauma - Epigastric pain - Dizziness and giddiness - Syncope 07/11/2021 15:11 [facility] DIAGNOSES: - Unspecified abdominal pain - Scar conditions and fibrosis of skin - Concussion without loss of consciousness, 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 - Dizziness - Abdominal Pain 07/08/2021 14:20 [facility] AL[place] TYPE: Emergency DIAGNOSES: - Unspecified abdominal pain - Abdominal Pain 02/20/2021 18:54 JADEN Marcelo [place] TYPE: Emergency COMPLAINT: - CHEST PAIN DIAGNOSES: - Migraine, unspecified, not intractable, without status migrainosus - bed bug exterminator (current) use of systemic steroids - bed bug exterminator (current) use of aspirin - Allergy status to penicillin - Chest pain, unspecified - snf (current) use of opiate analgesic - Other chest pain - Other intermodal customer service (current) drug therapy 02/10/2021 08:04 [facility] [place] TYPE: Emergency DIAGNOSES: - Weakness - Chest Pain - Chest pain, unspecified - Neurologic Problem - Unspecified fall, 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 - Muscle weakness (generalized) 02/07/2021 [facility] DIAGNOSES: - Syncope and collapse - Chest Pain - Loss of Consciousness - LOC 02/06/2021 09:30 JADEN Mejia TYPE: Emergency COMPLAINT: - CHEST PAIN, L ARM, ABD, LEG PAIN DIAGNOSES: - Contact with and (suspected) exposure to COVID-19 - Chest pain, unspecified 02/05/2021 11:41 JADEN Mejia TYPE: Emergency COMPLAINT: - R FOOT PAIN DIAGNOSES: - Other prison (current) drug therapy - bed bug exterminator (current) use of aspirin - Allergy status to penicillin - Gout, unspecified - Migraine, unspecified, not intractable, without status migrainosus 01/24/2021 03:55 [facility] DIAGNOSES: - Dizziness and giddiness - Headache, unspecified - poss Aneurysm Plus 3 More Visits INPATIENT VISIT TRACKING (12 MO.) 02/10/2021 08:04 [facility] Royer SIMON TYPE: Internal Medicine DIAGNOSES: - Chest pain, unspecified - Muscle weakness (generalized) - Weakness - Unspecified fall, 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 02/07/2021 16:19 [facility] Cesia SIMON TYPE: Surgical Services DIAGNOSES: - Chest pain, unspecified - Cerebral aneurysm, nonruptured - Syncope and collapse - Dissection of vertebral artery - Torticollis - Other chest pain - Cerebral infarction due to thrombosis of unspecified cerebral artery [email or web address]
--- NOTE | 2021-12-18 15:32 | EKG ---
[facility] [address] [place] [address] Signed Normal sinus rhythm Normal ECG When compared with ECG of 08-DEC-2021 14:12, Nonspecific T wave abnormality no longer evident in Inferior leads Confirmed by STEWART RAMOS MD ([id number]) on 12/18/2021 3:32:01 PM Electronically Signed By: STEWART RAMOS MD 12/18/21 1532 PATIENT NAME: MAURICIOJAVIER Electrocardiogram DATE OF : 70 PHYSICIAN: STEWART RAMOS MD REPORT #: [id number] REPORT IS CONFIDENTIAL AND NOT TO BE RELEASED WITHOUT AUTHORIZATION
== END 2021-12-17 19:14 | disposition home or self-care (01) ==
LOC: ED 14:44
DX: S13.9XXA Sprain of joints and ligaments of unspecified parts of neck, 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 (principal); S40.011A Contusion of right shoulder, 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; G43.909 Migraine, unspecified, not intractable, without status migrainosus; Z88.8 Allergy status to other drugs, medicaments and biological substances; Z88.0 Allergy status to penicillin; Z79.899 Other long term (current) drug therapy; Z79.82 Long term (current) use of aspirin; W01.198A Fall on same level from slipping, tripping and stumbling with subsequent striking against other object, 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
CPT/HCPCS: 72125; 73030; 93005; 93010; 96374; 96375; 99284-25; A9270-GY; J1170; J2405

== ENCOUNTER 2022-05-24 08:43 | Emergency (ER) | payer OTHER ==
[~2022-05-24] VITALS: Ht 167.6 cm; Wt 75.3 kg
--- OUTSIDE RECORDS SUMMARY | 2022-05-24 08:47 | XMS ---
PreManage Notification: JAVIER MARTÍNEZ Security Transportation Coordinator Events No recent Security Events currently on file CRITERIA MET - PDMP - 6 ED Visits in 6 Months CARE PROVIDERS -Olga- Dentist: Middle School Baseball Coach [facility] PHONE: [phone] JUAN BERGER Family Medicine: Adult Medicine 10/10/2019-Current PHONE: [phone] Travis has no Care Guidelines for this patient. Care History Medical/Surgical 08/03/2018 [facility] - PATIENT TO ESTABLISH CARE WITH DR OSEGUERA ON 08/13/18. - Patient is currently established with [facility]. If patient is seen in the ED during business hours. Please contact CHWs at [facility]. - Care Recommendation: This patient has had 5 or more Emergency Department visits in the last 12 months.\T\nbsp; Patient requires education on the scope and purpose of the ED as an acute care provider not a Primary Care Provider and should not be utilized for chronic conditions.\T\nbsp; These are guidelines and the provider should exercise clinical judgment when providing care. 06/22/2018 [facility] - [place] REFERRAL MADE- DUE TO PATIENT ED UTILIZATION AND PCP UTILIZATION- [place] VISIT COUNT (12 MO.) 2 [facility] 5 [facility] 8 [facility] TOTAL 15 NOTE: Visits indicate total known visits. ED/UCC VISIT TRACKING (12 MO.) [facility] [place] [facility] COMPLAINT: - ABDOMINAL PAIN 12/17/2021 14:44 [facility] [place] TYPE: Emergency COMPLAINT: - SEIZURE DIAGNOSES: - Allergy status to other drugs, medicaments and biological substances - Contusion of right shoulder, 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 - Other jail (current) drug therapy - Sprain of joints and ligaments of unspecified parts of neck, 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 - Allergy status to penicillin - care home (current) use of aspirin - Fall on same level from slipping, tripping and stumbling with subsequent striking against other object, 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 - Migraine, unspecified, not intractable, without status migrainosus 12/10/2021 05:42 [facility] [place] TYPE: Emergency COMPLAINT: - SEIZURE DIAGNOSES: - Allergy status to other drugs, medicaments and biological substances - Other termite helper (current) drug therapy - Exposure to other specified factors, 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 - care home (current) use of aspirin - Contusion of right foot, 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 - Unspecified convulsions 12/08/2021 14:08 [facility] [place] TYPE: Emergency COMPLAINT: - SEIZURES DIAGNOSES: - Allergy status to penicillin - Allergy status to other drugs, medicaments and biological substances - Epilepsy, unspecified, not intractable, without status epilepticus 12/07/2021 10:58 [facility] [place] TYPE: Emergency DIAGNOSES: - Seizure (Adult - Prior Hx Of) - Tremor, unspecified - Altered Mental Status [facility] DIAGNOSES: - Unspecified convulsions - Seizure (Adult - Actively Seizing On Arrival) 12/05/2021 11[facility] DIAGNOSES: - Chest Pressure [...] not intractable, without status epilepticus - Other jail (current) drug therapy - long term care phlebotomist (current) use of aspirin 11/24/2021 20:08 [facility] [place] TYPE: [...] intervertebral disc degeneration, lumbar region - Other termite helper (current) drug therapy - Dizziness and giddiness - Contact with and (suspected) exposure to COVID-19 - Allergy status to penicillin - Cough, unspecified - long term care phlebotomist (current) use of aspirin - Adverse effect of glucocorticoids and synthetic analogues, 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 10/31/2021 14:26 [facility] [place] TYPE: Emergency DIAGNOSES: - lower back pain numbness in legs and incontinence - Lumbago with sciatica, left side - Back Pain 10/09/2021 12:14 [facility] TE[facility] TYPE: Emergency COMPLAINT: - FINGER LACERATION 07/12/2021 11:39 [facility] [place]ON TYPE: Emergency DIAGNOSES: - Chest Pain - Chest Pain/Syncope - Personal history of other (healed) physical injury and trauma - Epigastric pain - Dizziness and giddiness - Syncope 07/11/2021 15:11 [facility] [place] TYPE: Emergency DIAGNOSES: - Unspecified abdominal pain - Scar conditions and fibrosis of skin - Concussion without loss of consciousness, 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 - Dizziness - Abdominal Pain 07/08/2021 14:20 [facility] [place] [facility] TYPE: Emergency DIAGNOSES: - Unspecified abdominal pain - Abdominal Pain INPATIENT VISIT TRACKING (12 MO.) No inpatient visits to display in this time frame [email or web address]
[2022-05-24] MEDS ORDERED: LIDOCAINE HCL100 ML MT (12:19)
--- NOTE | 2022-05-24 21:28 | EKG ---
[facility] [address] [place] [address] Signed Sinus tachycardia Otherwise normal ECG When compared with ECG of 17-DEC-2021 14:42, No significant change was found Confirmed by Grecia Gabriel MD () on 05/24/2022 9:28:15 PM Electronically Signed By: GRECIA GABRIEL MD 05/24/22 2128 PATIENT NAME: JAVIER MARTÍNEZ Electrocardiogram DATE OF : 70 PHYSICIAN: GRECIA GABRIEL MD REPORT #: [id number] REPORT IS CONFIDENTIAL AND NOT TO BE RELEASED WITHOUT AUTHORIZATION
[2022-05-26] MEDS ORDERED: AZITHROMYCIN500 MG PO (12:43)
== END 2022-05-24 12:38 | disposition home or self-care (01) ==
LOC: ED 08:43
DX: R07.9 Chest pain, unspecified (principal); R10.9 Unspecified abdominal pain; K21.9 Gastro-esophageal reflux disease without esophagitis; Z88.8 Allergy status to other drugs, medicaments and biological substances; Z79.899 Other long term (current) drug therapy
CPT/HCPCS: 36415; 71045; 80053; 83735; 84484; 85025; 85379; 93005; 93010; 96374; 96375; 99285-25; C9113; J1170; J2405

== ENCOUNTER 2022-10-08 08:49 | Emergency (ER) | payer OTHER ==
[~2022-10-08] VITALS: Ht 167.6 cm; Wt 76.5 kg
--- OUTSIDE RECORDS SUMMARY | ~2022-10-08 | XMS | Continuity of Care Document ---
Demographics + + + | Address | [address] | | | [place] [address] | + + + | Preferred Language | Unknown | + + + | Marital Status | | + + + | Anabaptism Affiliation | Unknown | + + + | Race | White | + + + | Ethnic Group | Not or | + + + Author + + + | Author | [facility] | + + + | Organization | [facility] | + + + | Address | [address] | | | [place] [address] | + + + | Phone | | + + + Care Team Providers + + + + | Care Ash Kier Boiler Name | Role | Phone | + + + + Unavailable | Unavailable | + + + + Unavailable | Unavailable | + + + + Unavailable | Unavailable | + + + + Allergies and Intolerances + + + + + + | date | description | facility | reaction | severity | + + + + + + | (no date) | Prednisone | [facility] | (no reaction) | (no severity) | | | [facility] | | | + + + + + + | (no date) | Penicillin | [facility] | (no reaction) | (no severity) | | | [facility] | | | + + + + + + | (no date) | Penicillin | [facility] | (no reaction) | (no severity) | | | [facility] | | | + + + + + + | (no date) | Prednisone | [facility] | (no reaction) | (no severity) | | | [facility] | | | + + + + + + | (no date) | Penicillins | [facility] | (no reaction) | (no severity) | + + + + + + | (no date) | prednisone | [facility] | (no reaction) | (no severity) | + + + + + + | (no date) | Penicillin | [facility] | (no reaction) | (no severity) | | | [facility] | | | + + + + + + | (no date) | Penicillin | [facility] | (no reaction) | (no severity) | | | [facility] | | | + + + + + + | (no date) | Prednisone | [facility] | (no reaction) | (no severity) | | | [facility] | | | + + + + + + Encounters No information. Functional Status No information. Immunizations + + + + | date | description | facility | + + + + | 2022-05-26 00:00 | Tdap | [facility] | + + + + Medications + + + + | date | description | facility | + + + + | 2022-05-24 00:00 | LIDOCAINE 2% VISCOUS | [facility] | + + + + | 2021-12-08 00:00 | LORAZEPAM | [facility] | + + + + | 2021-12-10 00:00 | LORAZEPAM | [facility] | + + + + | 2021-12-17 00:00 | LORAZEPAM | [facility] | + + + + | 2022-05-24 00:00 | LORAZEPAM | [facility] | + + + + | 2022-05-26 00:00 | LORAZEPAM | [facility] | + + + + | 2022-06-13 00:00 | LORAZEPAM | [facility] | + + + + | 2022-08-19 00:00 | LORAZEPAM | [facility] | + + + + | 2018-06-21 00:00 | ONDANSETRON HCL | [facility] | + + + + | 2018-06-21 00:00 | ONDANSETRON HCL | [facility] | + + + + | 2021-10-10 00:00 | OXYCODONE | [facility] | | | HCL/ACETAMINOPHEN | | + + + + | 2021-11-12 00:00 | OXYCODONE | [facility] | | | HCL/ACETAMINOPHEN | | + + + + | 2021-11-24 00:00 | OXYCODONE | [facility] | | | HCL/ACETAMINOPHEN | | + + + + | 2021-12-04 00:00 | OXYCODONE | [facility] | | | HCL/ACETAMINOPHEN | | + + + + | 2021-12-08 00:00 | OXYCODONE | [facility] | | | HCL/ACETAMINOPHEN | | + + + + | 2021-12-10 00:00 | OXYCODONE | [facility] | | | HCL/ACETAMINOPHEN | | + + + + | 2021-12-17 00:00 | OXYCODONE | [facility] | | | HCL/ACETAMINOPHEN | | + + + + | 2022-05-24 00:00 | OXYCODONE | [facility] | | | HCL/ACETAMINOPHEN | | + + + + | 2022-05-26 00:00 | OXYCODONE | [facility] | | | HCL/ACETAMINOPHEN | | + + + + | 2022-06-13 00:00 | OXYCODONE | [facility] | | | HCL/ACETAMINOPHEN | | + + + + | 2022-08-19 00:00 | OXYCODONE | [facility] | | | HCL/ACETAMINOPHEN | | + + + + | 2021-10-10 00:00 | OXYCODONE HCL | [facility] | + + + + | 2021-11-12 00:00 | OXYCODONE HCL | [facility] | + + + + | 2021-11-24 00:00 | OXYCODONE HCL | [facility] | + + + + | 2021-12-04 00:00 | OXYCODONE HCL | [facility] | + + + + | 2021-12-08 00:00 | OXYCODONE HCL | [facility] | + + + + | 2021-12-10 00:00 | OXYCODONE HCL | [facility] | + + + + | 2021-12-17 00:00 | OXYCODONE HCL | [facility] | + + + + | 2022-05-24 00:00 | OXYCODONE HCL | [facility] | + + + + | 2022-05-26 00:00 | OXYCODONE HCL | [facility] | + + + + | 2022-06-13 00:00 | OXYCODONE HCL | [facility] | + + + + | 2022-08-19 00:00 | OXYCODONE HCL | [facility] | + + + + | 2021-10-10 00:00 | OXYCODONE HCL | [facility] | + + + + | 2021-11-12 00:00 | OXYCODONE HCL | [facility] | + + + + | 2021-11-24 00:00 | OXYCODONE HCL | [facility] | + + + + | 2021-12-04 00:00 | OXYCODONE HCL | [facility] | + + + + | 2021-12-08 00:00 | OXYCODONE HCL | [facility] | + + + + | 2021-12-10 00:00 | OXYCODONE HCL | [facility] | + + + + | 2021-12-17 00:00 | OXYCODONE HCL | [facility] | + + + + | 2022-05-24 00:00 | OXYCODONE HCL | [facility] | + + + + | 2022-05-26 00:00 | OXYCODONE HCL | [facility] | + + + + | 2022-06-13 00:00 | OXYCODONE HCL | [facility] | + + + + | 2022-08-19 00:00 | OXYCODONE HCL | [facility] | + + + + | 2021-10-10 00:00 | CYANOCOBALAMIN (VITAMIN | [facility] | | | B-12) | | + + + + | 2021-11-12 00:00 | CYANOCOBALAMIN (VITAMIN | [facility] | | | B-12) | | + + + + | 2021-11-24 00:00 | CYANOCOBALAMIN (VITAMIN | [facility] | | | B-12) | | + + + + | 2021-12-04 00:00 | CYANOCOBALAMIN (VITAMIN | [facility] | | | B-12) | | + + + + | 2021-12-08 00:00 | CYANOCOBALAMIN (VITAMIN | [facility] | | | B-12) | | + + + + | 2021-12-10 00:00 | CYANOCOBALAMIN (VITAMIN | [facility] | | | B-12) | | + + + + | 2021-12-17 00:00 | CYANOCOBALAMIN (VITAMIN | [facility] | | | B-12) | | + + + + | 2022-05-24 00:00 | CYANOCOBALAMIN (VITAMIN | [facility] | | | B-12) | | + + + + | 2022-05-26 00:00 | CYANOCOBALAMIN (VITAMIN | [facility] | | | B-12) | | + + + + | 2022-06-13 00:00 | CYANOCOBALAMIN (VITAMIN | [facility] | | | B-12) | | + + + + | 2022-08-19 00:00 | CYANOCOBALAMIN (VITAMIN | [facility] | | | B-12) | | + + + + | 2021-10-10 00:00 | POTASSIUM CHLORIDE | [facility] | + + + + | 2021-11-12 00:00 | POTASSIUM CHLORIDE | [facility] | + + + + | 2021-11-24 00:00 | POTASSIUM CHLORIDE | [facility] | + + + + | 2021-12-04 00:00 | POTASSIUM CHLORIDE | [facility] | + + + + | 2021-12-08 00:00 | POTASSIUM CHLORIDE | [facility] | + + + + | 2021-12-10 00:00 | POTASSIUM CHLORIDE | [facility] | + + + + | 2021-12-17 00:00 | POTASSIUM CHLORIDE | [facility] | + + + + | 2022-05-24 00:00 | POTASSIUM CHLORIDE | [facility] | + + + + | 2022-05-26 00:00 | POTASSIUM CHLORIDE | [facility] | + + + + | 2022-06-13 00:00 | POTASSIUM CHLORIDE | [facility] | + + + + | 2022-08-19 00:00 | POTASSIUM CHLORIDE | [facility] | + + + + | 2021-10-10 00:00 | Bevacizumab | [facility] | + + + + | 2021-11-12 00:00 | Bevacizumab | [facility] | + + + + | 2021-11-24 00:00 | Bevacizumab | [facility] | + + + + | 2021-12-04 00:00 | Bevacizumab | [facility] | + + + + | 2021-12-08 00:00 | Bevacizumab | [facility] | + + + + | 2021-12-10 00:00 | Bevacizumab | [facility] | + + + + | 2021-12-17 00:00 | Bevacizumab | [facility] | + + + + | 2022-05-24 00:00 | Bevacizumab | [facility] | + + + + | 2022-05-26 00:00 | Bevacizumab | [facility] | + + + + | 2022-06-13 00:00 | Bevacizumab | [facility] | + + + + | 2022-08-19 00:00 | Bevacizumab | [facility] | + + + + | 2021-12-10 00:00 | Naloxone HCl | [facility] | + + + + | 2021-12-17 00:00 | Naloxone HCl | [facility] | + + + + | 2022-05-24 00:00 | Naloxone HCl | [facility] | + + + + | 2022-05-26 00:00 | Naloxone HCl | [facility] | + + + + | 2022-06-13 00:00 | Naloxone HCl | [facility] | + + + + | 2022-08-19 00:00 | Naloxone HCl | [facility] | + + + + | 2021-10-10 00:00 | Naloxone HCl | [facility] | + + + + | 2021-10-10 00:00 | POTASSIUM CHLORIDE | [facility] | + + + + | 2021-11-12 00:00 | POTASSIUM CHLORIDE | [facility] | + + + + | 2021-11-24 00:00 | POTASSIUM CHLORIDE | [facility] | + + + + | 2021-12-04 00:00 | POTASSIUM CHLORIDE | [facility] | + + + + | 2021-12-08 00:00 | POTASSIUM CHLORIDE | [facility] | + + + + | 2021-12-10 00:00 | POTASSIUM CHLORIDE | [facility] | + + + + | 2021-12-17 00:00 | POTASSIUM CHLORIDE | [facility] | + + + + | 2022-05-24 00:00 | POTASSIUM CHLORIDE | [facility] | + + + + | 2022-05-26 00:00 | POTASSIUM CHLORIDE | [facility] | + + + + | 2022-06-13 00:00 | POTASSIUM CHLORIDE | [facility] | + + + + | 2022-08-19 00:00 | POTASSIUM CHLORIDE | [facility] | + + + + | 2021-11-12 00:00 | BENZONATATE | [facility] | + + + + | 2021-10-10 00:00 | DIAZEPAM | [facility] | + + + + | 2021-11-12 00:00 | DIAZEPAM | [facility] | + + + + | 2021-11-24 00:00 | DIAZEPAM | [facility] | + + + + | 2021-12-04 00:00 | DIAZEPAM | [facility] | + + + + | 2021-12-08 00:00 | DIAZEPAM | [facility] | + + + + | 2021-12-10 00:00 | DIAZEPAM | [facility] | + + + + | 2021-12-17 00:00 | DIAZEPAM | [facility] | + + + + | 2022-05-24 00:00 | DIAZEPAM | [facility] | + + + + | 2022-05-26 00:00 | DIAZEPAM | [facility] | + + + + | 2022-06-13 00:00 | DIAZEPAM | [facility] | + + + + | 2022-08-19 00:00 | DIAZEPAM | [facility] | + + + + | 2021-10-10 00:00 | LORAZEPAM | [facility] | + + + + | 2021-11-12 00:00 | LORAZEPAM | [facility] | + + + + | 2021-11-24 00:00 | LORAZEPAM | [facility] | + + + + | 2021-12-04 00:00 | LORAZEPAM | [facility] | + + + + | 2021-12-08 00:00 | LORAZEPAM | [facility] | + + + + | 2021-12-10 00:00 | LORAZEPAM | [facility] | + + + + | 2021-12-17 00:00 | LORAZEPAM | [facility] | + + + + | 2022-05-24 00:00 | LORAZEPAM | [facility] | + + + + | 2022-05-26 00:00 | LORAZEPAM | [facility] | + + + + | 2022-06-13 00:00 | LORAZEPAM | [facility] | + + + + | 2022-08-19 00:00 | LORAZEPAM | [facility] | + + + + | 2015-11-04 00:00 | NAPROXEN | [facility] | + + + + | 2015-11-04 00:00 | NAPROXEN | [facility] | + + + + | 2021-10-10 00:00 | NITROGLYCERIN | [facility] | + + + + | 2021-11-12 00:00 | NITROGLYCERIN | [facility] | + + + + | 2021-11-24 00:00 | NITROGLYCERIN | [facility] | + + + + | 2021-12-04 00:00 | NITROGLYCERIN | [facility] | + + + + | 2021-12-08 00:00 | NITROGLYCERIN | [facility] | + + + + | 2021-12-10 00:00 | NITROGLYCERIN | [facility] | + + + + | 2021-12-17 00:00 | NITROGLYCERIN | [facility] | + + + + | 2022-05-24 00:00 | NITROGLYCERIN | [facility] | + + + + | 2022-05-26 00:00 | NITROGLYCERIN | [facility] | + + + + | 2022-06-13 00:00 | NITROGLYCERIN | [facility] | + + + + | 2022-08-19 00:00 | NITROGLYCERIN | [facility] | + + + + | 2021-10-10 00:00 | OMEPRAZOLE | [facility] | + + + + | 2021-11-12 00:00 | OMEPRAZOLE | [facility] | + + + + | 2021-11-24 00:00 | OMEPRAZOLE | [facility] | + + + + | 2021-12-04 00:00 | OMEPRAZOLE | [facility] | + + + + | 2021-12-08 00:00 | OMEPRAZOLE | [facility] | + + + + | 2021-12-10 00:00 | OMEPRAZOLE | [facility] | + + + + | 2021-12-17 00:00 | OMEPRAZOLE | [facility] | + + + + | 2022-05-24 00:00 | OMEPRAZOLE | [facility] | + + + + | 2022-05-26 00:00 | OMEPRAZOLE | [facility] | + + + + | 2022-06-13 00:00 | OMEPRAZOLE | [facility] | + + + + | 2022-08-19 00:00 | OMEPRAZOLE | [facility] | + + + + | 2021-10-10 00:00 | PROCHLORPERAZINE MALEATE | [facility] | + + + + | 2021-11-12 00:00 | PROCHLORPERAZINE MALEATE | [facility] | + + + + | 2021-11-24 00:00 | PROCHLORPERAZINE MALEATE | [facility] | + + + + | 2021-12-04 00:00 | PROCHLORPERAZINE MALEATE | [facility] | + + + + | 2021-12-08 00:00 | PROCHLORPERAZINE MALEATE | [facility] | + + + + | 2021-12-10 00:00 | PROCHLORPERAZINE MALEATE | [facility] | + + + + | 2021-12-17 00:00 | PROCHLORPERAZINE MALEATE | [facility] | + + + + | 2022-05-24 00:00 | PROCHLORPERAZINE MALEATE | [facility] | + + + + | 2022-05-26 00:00 | PROCHLORPERAZINE MALEATE | [facility] | + + + + | 2022-06-13 00:00 | PROCHLORPERAZINE MALEATE | [facility] | + + + + | 2022-08-19 00:00 | PROCHLORPERAZINE MALEATE | [facility] | + + + + | 2021-12-04 00:00 | LAMOTRIGINE | [facility] | + + + + | 2021-12-08 00:00 | LAMOTRIGINE | [facility] | + + + + | 2021-12-10 00:00 | LAMOTRIGINE | [facility] | + + + + | 2021-12-17 00:00 | LAMOTRIGINE | [facility] | + + + + | 2022-05-24 00:00 | LAMOTRIGINE | [facility] | + + + + | 2022-05-26 00:00 | LAMOTRIGINE | [facility] | + + + + | 2022-06-13 00:00 | LAMOTRIGINE | [facility] | + + + + | 2022-08-19 00:00 | LAMOTRIGINE | [facility] | + + + + | 2021-10-10 00:00 | TOPIRAMATE | [facility] | + + + + | 2021-11-12 00:00 | TOPIRAMATE | [facility] | + + + + | 2021-11-24 00:00 | TOPIRAMATE | [facility] | + + + + | 2021-12-04 00:00 | TOPIRAMATE | [facility] | + + + + | 2021-12-08 00:00 | TOPIRAMATE | [facility] | + + + + | 2021-12-10 00:00 | TOPIRAMATE | [facility] | + + + + | 2021-12-17 00:00 | TOPIRAMATE | [facility] | + + + + | 2022-05-24 00:00 | TOPIRAMATE | [facility] | + + + + | 2022-05-26 00:00 | TOPIRAMATE | [facility] | + + + + | 2022-06-13 00:00 | TOPIRAMATE | [facility] | + + + + | 2022-08-19 00:00 | TOPIRAMATE | [facility] | + + + + | 2021-12-04 00:00 | LORAZEPAM | [facility] | + + + + | 2018-06-21 00:00 | CEPHALEXIN | [facility] | + + + + | 2018-06-21 00:00 | CEPHALEXIN | [facility] | + + + + | 2021-10-10 00:00 | ATORVASTATIN CALCIUM | [facility] | + + + + | 2021-11-12 00:00 | ATORVASTATIN CALCIUM | [facility] | + + + + | 2021-11-24 00:00 | ATORVASTATIN CALCIUM | [facility] | + + + + | 2021-12-04 00:00 | ATORVASTATIN CALCIUM | [facility] | + + + + | 2021-12-08 00:00 | ATORVASTATIN CALCIUM | [facility] | + + + + | 2021-12-10 00:00 | ATORVASTATIN CALCIUM | [facility] | + + + + | 2021-12-17 00:00 | ATORVASTATIN CALCIUM | [facility] | + + + + | 2022-05-24 00:00 | ATORVASTATIN CALCIUM | [facility] | + + + + | 2022-05-26 00:00 | ATORVASTATIN CALCIUM | [facility] | + + + + | 2022-06-13 00:00 | ATORVASTATIN CALCIUM | [facility] | + + + + | 2022-08-19 00:00 | ATORVASTATIN CALCIUM | [facility] | + + + + | 2021-12-10 00:00 | ATORVASTATIN | [facility] | + + + + | 2021-12-17 00:00 | ATORVASTATIN | [facility] | + + + + | 2022-05-24 00:00 | ATORVASTATIN | [facility] | + + + + | 2022-05-26 00:00 | ATORVASTATIN | [facility] | + + + + | 2022-06-13 00:00 | ATORVASTATIN | [facility] | + + + + | 2022-08-19 00:00 | ATORVASTATIN | [facility] | + + + + | 2021-10-10 00:00 | CALCIUM CARBONATE | [facility] | + + + + | 2021-11-12 00:00 | CALCIUM CARBONATE | [facility] | + + + + | 2021-11-24 00:00 | CALCIUM CARBONATE | [facility] | + + + + | 2021-12-04 00:00 | CALCIUM CARBONATE | [facility] | + + + + | 2021-12-08 00:00 | CALCIUM CARBONATE | [facility] | + + + + | 2021-12-10 00:00 | CALCIUM CARBONATE | [facility] | + + + + | 2021-12-17 00:00 | CALCIUM CARBONATE | [facility] | + + + + | 2022-05-24 00:00 | CALCIUM CARBONATE | [facility] | + + + + | 2022-05-26 00:00 | CALCIUM CARBONATE | [facility] | + + + + | 2022-06-13 00:00 | CALCIUM CARBONATE | [facility] | + + + + | 2022-08-19 00:00 | CALCIUM CARBONATE | [facility] | + + + + | 2021-10-10 00:00 | BENZONATATE | [facility] | + + + + | 2021-11-12 00:00 | BENZONATATE | [facility] | + + + + | 2021-11-24 00:00 | BENZONATATE | [facility] | + + + + | 2021-12-04 00:00 | BENZONATATE | [facility] | + + + + | 2021-12-08 00:00 | BENZONATATE | [facility] | + + + + | 2021-12-10 00:00 | BENZONATATE | [facility] | + + + + | 2021-12-17 00:00 | BENZONATATE | [facility] | + + + + | 2022-05-24 00:00 | BENZONATATE | [facility] | + + + + | 2022-05-26 00:00 | BENZONATATE | [facility] | + + + + | 2022-06-13 00:00 | BENZONATATE | [facility] | + + + + | 2022-08-19 00:00 | BENZONATATE | [facility] | + + + + | 2021-10-10 00:00 | ASPIRIN | [facility] | + + + + | 2021-11-12 00:00 | ASPIRIN | [facility] | + + + + | 2021-11-24 00:00 | ASPIRIN | [facility] | + + + + | 2021-12-04 00:00 | ASPIRIN | [facility] | + + + + | 2021-12-08 00:00 | ASPIRIN | [facility] | + + + + | 2021-12-10 00:00 | ASPIRIN | [facility] | + + + + | 2021-12-17 00:00 | ASPIRIN | [facility] | + + + + | 2022-05-24 00:00 | ASPIRIN | [facility] | + + + + | 2022-05-26 00:00 | ASPIRIN | [facility] | + + + + | 2022-06-13 00:00 | ASPIRIN | [facility] | + + + + | 2022-08-19 00:00 | ASPIRIN | [facility] | + + + + | 2021-10-10 00:00 | FLUOXETINE HCL | [facility] | + + + + | 2021-11-12 00:00 | FLUOXETINE HCL | [facility] | + + + + | 2021-11-24 00:00 | FLUOXETINE HCL | [facility] | + + + + | 2021-12-04 00:00 | FLUOXETINE HCL | [facility] | + + + + | 2021-12-08 00:00 | FLUOXETINE HCL | [facility] | + + + + | 2021-12-10 00:00 | FLUOXETINE HCL | [facility] | + + + + | 2021-12-17 00:00 | FLUOXETINE HCL | [facility] | + + + + | 2022-05-24 00:00 | FLUOXETINE HCL | [facility] | + + + + | 2022-05-26 00:00 | FLUOXETINE HCL | [facility] | + + + + | 2022-06-13 00:00 | FLUOXETINE HCL | [facility] | + + + + | 2022-08-19 00:00 | FLUOXETINE HCL | [facility] | + + + + | 2021-11-12 00:00 | GABAPENTIN | [facility] | + + + + | 2021-11-24 00:00 | GABAPENTIN | [facility] | + + + + | 2021-12-04 00:00 | GABAPENTIN | [facility] | + + + + | 2021-12-08 00:00 | GABAPENTIN | [facility] | + + + + | 2021-12-10 00:00 | GABAPENTIN | [facility] | + + + + | 2021-12-17 00:00 | GABAPENTIN | [facility] | + + + + | 2022-05-24 00:00 | GABAPENTIN | [facility] | + + + + | 2022-05-26 00:00 | GABAPENTIN | [facility] | + + + + | 2022-06-13 00:00 | [facility]IN [facility] [facility] | + + + + | 2022-08-19 00:00 | GABAPENTIN | [facility] | + + + + | 2021-12-04 00:00 | LEVETIRACETAM | [facility] | + + + + | 2021-12-08 00:00 | LEVETIRACETAM | [facility] | + + + + | 2021-12-10 00:00 | LEVETIRACETAM | [facility] | + + + + | 2021-12-17 00:00 | LEVETIRACETAM | [facility] | + + + + | 2022-05-24 00:00 | LEVETIRACETAM | [facility] | + + + + | 2022-05-26 00:00 | LEVETIRACETAM | [facility] | + + + + | 2022-06-13 00:00 | LEVETIRACETAM | [facility] | + + + + | 2022-08-19 00:00 | LEVETIRACETAM | [facility] | + + + + | 2019-10-08 00:00 | ONDANSETRON | [facility] | + + + + | 2021-10-10 00:00 | ONDANSETRON | [facility] | + + + + | 2021-11-12 00:00 | ONDANSETRON | [facility] | + + + + | 2021-11-12 00:00 | ONDANSETRON | [facility] | + + + + | 2021-11-24 00:00 | ONDANSETRON | [facility] | + + + + | 2021-12-04 00:00 | ONDANSETRON | [facility] | + + + + | 2021-12-08 00:00 | ONDANSETRON | [facility] | + + + + | 2021-12-10 00:00 | ONDANSETRON | [facility] | + + + + | 2021-12-17 00:00 | ONDANSETRON | [facility] | + + + + | 2022-05-24 00:00 | ONDANSETRON | [facility] | + + + + | 2022-05-26 00:00 | ONDANSETRON | [facility] | + + + + | 2022-06-13 00:00 | ONDANSETRON | [facility] | + + + + | 2022-08-19 00:00 | ONDANSETRON | [facility] | + + + + | 2021-02-05 00:00 | predniSONE | [facility] | + + + + | 2021-02-05 00:00 | predniSONE | [facility] | + + + + | 2021-10-10 00:00 | RIZATRIPTAN BENZOATE | [facility] | + + + + | 2021-11-12 00:00 | RIZATRIPTAN BENZOATE | [facility] | + + + + | 2021-11-24 00:00 | RIZATRIPTAN BENZOATE | [facility] | + + + + | 2021-12-04 00:00 | RIZATRIPTAN BENZOATE | [facility] | + + + + | 2021-12-08 00:00 | RIZATRIPTAN BENZOATE | [facility] | + + + + | 2021-12-10 00:00 | RIZATRIPTAN BENZOATE | [facility] | + + + + | 2021-12-17 00:00 | RIZATRIPTAN BENZOATE | [facility] | + + + + | 2022-05-24 00:00 | RIZATRIPTAN BENZOATE | [facility] | + + + + | 2022-05-26 00:00 | RIZATRIPTAN BENZOATE | [facility] | + + + + | 2022-06-13 00:00 | RIZATRIPTAN BENZOATE | [facility] | + + + + | 2022-08-19 00:00 | RIZATRIPTAN BENZOATE | [facility] | + + + + | 2021-10-10 00:00 | PANTOPRAZOLE SODIUM | [facility] | + + + + | 2021-11-12 00:00 | PANTOPRAZOLE SODIUM | [facility] | + + + + | 2021-11-24 00:00 | PANTOPRAZOLE SODIUM | [facility] | + + + + | 2021-12-04 00:00 | PANTOPRAZOLE SODIUM | [facility] | + + + + | 2021-12-08 00:00 | PANTOPRAZOLE SODIUM | [facility] | + + + + | 2021-12-10 00:00 | PANTOPRAZOLE SODIUM | [facility] | + + + + | 2021-12-17 00:00 | PANTOPRAZOLE SODIUM | [facility] | + + + + | 2022-05-24 00:00 | PANTOPRAZOLE SODIUM | [facility] | + + + + | 2022-05-26 00:00 | PANTOPRAZOLE SODIUM | [facility] | + + + + | 2022-06-13 00:00 | PANTOPRAZOLE SODIUM | [facility] | + + + + | 2022-08-19 00:00 | PANTOPRAZOLE SODIUM | [facility] | + + + + | 2021-10-10 00:00 | SUCRALFATE | [facility] | + + + + | 2021-11-12 00:00 | SUCRALFATE | [facility] | + + + + | 2021-11-24 00:00 | SUCRALFATE | [facility] | + + + + | 2021-12-04 00:00 | SUCRALFATE | [facility] | + + + + | 2021-12-08 00:00 | SUCRALFATE | [facility] | + + + + | 2021-12-10 00:00 | SUCRALFATE | [facility] | + + + + | 2021-12-17 00:00 | SUCRALFATE | [facility] | + + + + | 2022-05-24 00:00 | SUCRALFATE | [facility] | + + + + | 2022-05-26 00:00 | SUCRALFATE | [facility] | + + + + | 2022-06-13 00:00 | SUCRALFATE | [facility] | + + + + | 2022-08-19 00:00 | SUCRALFATE | [facility] | + + + + | 2021-10-10 00:00 | ASPIRIN | [facility] | + + + + | 2021-11-12 00:00 | ASPIRIN | [facility] | + + + + | 2021-11-24 00:00 | ASPIRIN | [facility] | + + + + | 2021-12-04 00:00 | ASPIRIN | [facility] | + + + + | 2021-12-08 00:00 | ASPIRIN | [facility] | + + + + | 2021-12-10 00:00 | ASPIRIN | [facility] | + + + + | 2021-12-17 00:00 | ASPIRIN | [facility] | + + + + | 2022-05-24 00:00 | ASPIRIN | [facility] | + + + + | 2022-05-26 00:00 | ASPIRIN | [facility] | + + + + | 2022-06-13 00:00 | ASPIRIN | [facility] | + + + + | 2022-08-19 00:00 | ASPIRIN | [facility] | + + + + | 2017-08-28 00:00 | Scopolamine | [facility] | + + + + | 2017-08-28 00:00 | Scopolamine | [facility] | + + + + | 2021-10-10 00:00 | Cholecalciferol (Vitamin | [facility] | | | D3) | | + + + + | 2021-11-12 00:00 | Cholecalciferol (Vitamin | [facility] | | | D3) | | + + + + | 2021-11-24 00:00 | Cholecalciferol (Vitamin | [facility] | | | D3) | | + + + + | 2021-12-04 00:00 | Cholecalciferol (Vitamin | [facility] | | | D3) | | + + + + | 2021-12-08 00:00 | Cholecalciferol (Vitamin | [facility] | | | D3) | | + + + + | 2021-12-10 00:00 | Cholecalciferol (Vitamin | [facility] | | | D3) | | + + + + | 2021-12-17 00:00 | Cholecalciferol (Vitamin | [facility] | | | D3) | | + + + + | 2022-05-24 00:00 | Cholecalciferol (Vitamin | [facility] | | | D3) | | + + + + | 2022-05-26 00:00 | Cholecalciferol (Vitamin | [facility] | | | D3) | | + + + + | 2022-06-13 00:00 | Cholecalciferol (Vitamin | [facility] | | | D3) | | + + + + | 2022-08-19 00:00 | Cholecalciferol (Vitamin | [facility] | | | D3) | | + + + + | 2021-10-10 00:00 | Pregabalin | [facility] | + + + + | 2021-11-12 00:00 | Pregabalin | [facility] | + + + + | 2022-05-26 00:00 | AZITHROMYCIN | [facility] | + + + + | 2015-11-04 00:00 | CYCLOBENZAPRINE HCL | [facility] | + + + + | 2015-11-04 00:00 | CYCLOBENZAPRINE HCL | [facility] | + + + + | 2016-10-25 00:00 | TRAMADOL HCL | [facility] | + + + + | 2016-10-25 00:00 | TRAMADOL HCL | [facility] | + + + + | 2018-03-30 00:00 | PROPRANOLOL HCL | [facility] | + + + + | 2018-03-30 00:00 | PROPRANOLOL HCL | [facility] | + + + + | 2021-10-10 00:00 | METOPROLOL SUCCINATE | [facility] | + + + + | 2021-11-12 00:00 | METOPROLOL SUCCINATE | [facility] | + + + + | 2021-11-24 00:00 | METOPROLOL SUCCINATE | [facility] | + + + + | 2021-12-04 00:00 | METOPROLOL SUCCINATE | [facility] | + + + + | 2021-12-08 00:00 | METOPROLOL SUCCINATE | [facility] | + + + + | 2021-12-10 00:00 | METOPROLOL SUCCINATE | [facility] | + + + + | 2021-12-17 00:00 | METOPROLOL SUCCINATE | [facility] | + + + + | 2022-05-24 00:00 | METOPROLOL SUCCINATE | [facility] | + + + + | 2022-05-26 00:00 | METOPROLOL SUCCINATE | [facility] | + + + + | 2022-06-13 00:00 | METOPROLOL SUCCINATE | [facility] | + + + + | 2022-08-19 00:00 | METOPROLOL SUCCINATE | [facility] | + + + + | 2021-10-10 00:00 | METOPROLOL TARTRATE | [facility] | + + + + | 2021-11-12 00:00 | METOPROLOL TARTRATE | [facility] | + + + + | 2021-11-24 00:00 | METOPROLOL TARTRATE | [facility] | + + + + | 2021-12-04 00:00 | METOPROLOL TARTRATE | [facility] | + + + + | 2021-12-08 00:00 | METOPROLOL TARTRATE | [facility] | + + + + | 2021-12-10 00:00 | METOPROLOL TARTRATE | [facility] | + + + + | 2021-12-17 00:00 | METOPROLOL TARTRATE | [facility] | + + + + | 2022-05-24 00:00 | METOPROLOL TARTRATE | [facility] | + + + + | 2022-05-26 00:00 | METOPROLOL TARTRATE | [facility] | + + + + | 2022-06-13 00:00 | METOPROLOL TARTRATE | [facility] | + + + + | 2022-08-19 00:00 | METOPROLOL TARTRATE | [facility] | + + + + | 2022-08-19 00:00 | HYDROMORPHONE HCL | [facility] | + + + + | 2015-07-20 00:00 | PROMETHAZINE HCL | [facility] | + + + + | 2015-07-20 00:00 | PROMETHAZINE HCL | [facility] | + + + + | 2015-07-20 00:00 | PROMETHAZINE HCL | [facility] | + + + + | 2015-07-20 00:00 | PROMETHAZINE HCL | [facility] | + + + + | 2021-10-10 00:00 | hydrOXYzine HCL | [facility] | + + + + | 2021-11-12 00:00 | hydrOXYzine HCL | [facility] | + + + + | 2021-11-24 00:00 | hydrOXYzine HCL | [facility] | + + + + | 2021-12-04 00:00 | hydrOXYzine HCL | [facility] | + + + + | 2021-12-08 00:00 | hydrOXYzine HCL | [facility] | + + + + | 2021-12-10 00:00 | hydrOXYzine HCL | [facility] | + + + + | 2021-12-17 00:00 | hydrOXYzine HCL | [facility] | + + + + | 2022-05-24 00:00 | hydrOXYzine HCL | [facility] | + + + + | 2022-05-26 00:00 | hydrOXYzine HCL | [facility] | + + + + | 2022-06-13 00:00 | hydrOXYzine HCL | [facility] | + + + + | 2022-08-19 00:00 | hydrOXYzine HCL | [facility] | + + + + | 2016-03-04 00:00 | MECLIZINE HCL | [facility] | + + + + | 2016-03-04 00:00 | MECLIZINE HCL | [facility] | + + + + | 2017-08-28 00:00 | MECLIZINE HCL | [facility] | + + + + | 2017-08-28 00:00 | MECLIZINE HCL | [facility] | + + + + | 2021-10-10 00:00 | | [facility] | | | GUAIFENESIN/DEXTROMETHORPHA | | | | N | | + + + + | 2021-11-12 00:00 | | [facility] | | | GUAIFENESIN/DEXTROMETHORPHA | | | | N | | + + + + | 2021-11-24 00:00 | | [facility] | | | GUAIFENESIN/DEXTROMETHORPHA | | | | N | | + + + + | 2021-12-04 00:00 | | [facility] | | | GUAIFENESIN/DEXTROMETHORPHA | | | | N | | + + + + | 2021-12-08 00:00 | | [facility] | | | GUAIFENESIN/DEXTROMETHORPHA | | | | N | | + + + + | 2021-12-10 00:00 | | [facility] | | | GUAIFENESIN/DEXTROMETHORPHA | | | | N | | + + + + | 2021-12-17 00:00 | | [facility] | | | GUAIFENESIN/DEXTROMETHORPHA | | | | N | | + + + + | 2022-05-24 00:00 | | [facility] | | | GUAIFENESIN/DEXTROMETHORPHA | | | | N | | + + + + | 2022-05-26 00:00 | | [facility] | | | GUAIFENESIN/DEXTROMETHORPHA | | | | N | | + + + + | 2022-06-13 00:00 | | [facility] | | | GUAIFENESIN/DEXTROMETHORPHA | | | | N | | + + + + | 2022-08-19 00:00 | | [facility] | | | GUAIFENESIN/DEXTROMETHORPHA | | | | N | | + + + + Problems + + + + | date | description | facility | + + + + | 2015-07-20 00:00 | Orthostatic hypotension | [facility] | + + + + | 2015-07-20 00:00 | Orthostatic hypotension | [facility] | + + + + | 2015-07-20 00:00 | Acute gastritis | [facility] | + + + + | 2015-07-20 00:00 | Acute gastritis | [facility] | + + + + | 2015-07-20 00:00 | Acute headache | [facility] | + + + + | 2015-07-20 00:00 | Acute headache | [facility] | + + + + | 2015-11-04 00:00 | Strain of neck muscle | [facility] | + + + + | 2015-11-04 00:00 | Strain of neck muscle | [facility] | + + + + | 2015-11-04 00:00 | Strain of left shoulder | [facility] | + + + + | 2015-11-04 00:00 | Strain of left shoulder | [facility] | + + + + | 2015-11-04 00:00 | Fall from standing | [facility] | + + + + | 2015-11-04 00:00 | Fall from standing | [facility] | + + + + | 2016-03-04 00:00 | Nausea and vomiting | [facility] | + + + + | 2016-03-04 00:00 | Nausea and vomiting | [facility] | + + + + | 2016-03-04 00:00 | Headache | [facility] | + + + + | 2016-03-04 00:00 | Headache | [facility] | + + + + | 2016-03-22 00:00 | Laceration | [facility] | + + + + | 2016-03-22 00:00 | Laceration | [facility] | + + + + | 2016-03-22 00:00 | Syncope | [facility] | + + + + | 2016-03-22 00:00 | Syncope | [facility] | + + + + | 2016-03-26 00:00 | Chest pain | [facility] | + + + + | 2016-03-26 00:00 | Chest pain | [facility] | + + + + | 2017-05-28 00:00 | Dysesthesia of face | [facility] | + + + + | 2017-05-28 00:00 | Dysesthesia of face | [facility] | + + + + | 2017-08-26 00:00 | Migraine headache | [facility] | + + + + | 2017-08-26 00:00 | Migraine headache | [facility] | + + + + | 2017-08-28 00:00 | Vertigo | [facility] | + + + + | 2017-08-28 00:00 | Vertigo | [facility] | + + + + | 2017-08-28 00:00 | Chronic headache | [facility] | + + + + | 2017-08-28 00:00 | Chronic headache | [facility] | + + + + | 2017-10-14 00:00 | Contusion of face | [facility] | + + + + | 2017-10-14 00:00 | Contusion of face | [facility] | + + + + | 2017-10-14 00:00 | Minor head injury | [facility] | + + + + | 2017-10-14 00:00 | Minor head injury | [facility] | + + + + | 2017-10-14 00:00 | Strain of lumbar region | [facility] | + + + + | 2017-10-14 00:00 | Strain of lumbar region | [facility] | + + + + | 2018-03-30 00:00 | Atypical chest pain | [facility] | + + + + | 2018-03-30 00:00 | Atypical chest pain | [facility] | + + + + | 2018-04-18 00:00 | Hypokalemia | [facility] | + + + + | 2018-04-18 00:00 | Hypokalemia | [facility] | + + + + | 2018-04-21 00:00 | Hypokalemia due to | [facility] | | | inadequate potassium intake | | | | | | + + + + | 2018-04-21 00:00 | Hypokalemia due to | [facility] | | | inadequate potassium intake | | | | | | + + + + | 2018-04-21 00:00 | Vomiting | [facility] | + + + + | 2018-04-21 00:00 | Vomiting | [facility] | + + + + | 2018-06-21 00:00 | Gastroenteritis | [facility] | + + + + | 2018-06-21 00:00 | Gastroenteritis | [facility] | + + + + | 2018-06-21 00:00 | Urinary tract infection | [facility] | + + + + | 2018-06-21 00:00 | Urinary tract infection | [facility] | + + + + | 2019-10-08 00:00 | Concussion | [facility] | + + + + | 2019-10-08 00:00 | Concussion | [facility] | + + + + | 2019-10-08 09:51 | Migraine, unspecified, not | [facility] | | | intractable, without | [facility] | | | status migrai | | + + + + | 2019-10-08 09:51 | Concussion without loss of | [facility] | | | consciousness, initial | [employer] | | | encounter | | + + + + | 2019-10-08 09:51 | Unspecified injury of | [facility] | | | head, 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 | [employer] | + + + + | 2019-10-08 09:51 | Striking against or struck | [facility] | | | by other objects, initial | [employer] | | | encounte | | + + + + | 2019-10-08 09:51 | Allergy status to | [facility] | | | penicillin | [employer] | + + + + | 2020-12-04 00:00 | Contusion of right forearm | [facility] | | | | | + + + + | 2020-12-04 00:00 | Contusion of right forearm | [facility] | | | | | + + + + | 2020-12-04 00:00 | Contusion of left knee | [facility] | + + + + | 2020-12-04 00:00 | Contusion of left knee | [facility] | + + + + | 2021-02-05 00:00 | Gout of right foot | [facility] | + + + + | 2021-02-05 00:00 | Gout of right foot | [facility] | + + + + | 2021-02-07 22:09:01 | Syncope and collapse | [facility] | | | [facility] [employer] | + + + + | 2021-07-08 14:20:46 | Unspecified abdominal pain | [facility] | | | [facility] [employer] | + + + + | 2021-07-11 15:11 | 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 | [employer] | + + + + | 2021-07-11 15:11 | Unspecified abdominal pain | [facility] | | | [facility] [employer] | + + + + | 2021-07-11 15:11 | Concussion without loss of | [facility] | | | consciousness, initial | [facility] | | | encounter | | + + + + | 2021-07-12 11:39 | Epigastric pain | [facility] | | | [facility] [employer] | + + + + | 2021-07-12 11:39 | Dizziness and giddiness | [facility] | | | [facility] [employer] | + + + + | 2021-07-12 11:39 | Personal history of other | [facility] | | | (healed) physical injury | [facility] | | | and trauma | | + + + + | 2021-10-09 00:00 | Encounter for medical | [facility] | | | screening examination | | + + + + | 2021-10-09 00:00 | Encounter for medical | [facility] | | | screening examination | | + + + + | 2021-11-12 00:00 | Adverse effect of | [facility] | | | prednisone | | + + + + | 2021-11-12 00:00 | Adverse effect of | [facility] | | | prednisone | | + + + + | 2021-11-24 00:00 | Non-cardiac chest pain | [facility] | + + + + | 2021-11-24 00:00 | Non-cardiac chest pain | [facility] | + + + + | 2021-11-24 00:00 | Recurrent episodes of | [facility] | | | unresponsiveness | | + + + + | 2021-11-24 00:00 | Recurrent episodes of | [facility] | | | unresponsiveness | | + + + + | 2021-12-04 00:00 | Generalized seizure | [facility] | | | disorder | | + + + + | 2021-12-04 00:00 | Generalized seizure | [facility] | | | disorder | | + + + + | 2021-12-08 00:00 | Convulsions | [facility] | + + + + | 2021-12-08 00:00 | Convulsions | [facility] | + + + + | 2022-01-29 12:41 | CERVICALGIA | [facility] | + + + + | 2022-02-18 08:07 | PLEURODYNIA | [facility] | + + + + | 2022-05-24 08:43 | GASTRO-ESOPHAGEAL REFLUX | [facility] | | | DISEASE WITHOUT ESOPHAGIT | | + + + + | 2022-05-24 08:43 | CHEST PAIN, UNSPECIFIED | [facility] | + + + + | 2022-05-24 08:43 | UNSPECIFIED ABDOMINAL PAIN | [facility] | | | | | + + + + | 2022-05-24 08:43 | OTHER NEON ELECTRICIAN (CURRENT) | [facility] | | | DRUG THERAPY | | + + + + | 2022-05-24 08:43 | ALLERGY STATUS TO OTH | [facility] | | | DRUG/MEDS/BIOL SUBST STATUS | | | | | | + + + + | 2022-05-26 00:00 | Cat scratch | [facility] | + + + + | 2022-05-26 11:11 | ABRASION OF RIGHT THUMB, | [facility] | | | INITIAL ENCOUNTER | | + + + + | 2022-05-26 11:11 | ABRASION OF RIGHT INDEX | [facility] | | | FINGER, INITIAL ENCOUNTER | | + + + + | 2022-05-26 11:11 | ABRASION OF RIGHT WRIST, | [facility] | | | INITIAL ENCOUNTER | | + + + + | 2022-05-26 11:11 | ABRASION OF LEFT WRIST, | [facility] | | | INITIAL ENCOUNTER | | + + + + | 2022-05-26 11:11 | SCRATCHED BY CAT, INITIAL | [facility] | | | ENCOUNTER | | + + + + | 2022-05-26 11:11 | Encounter for immunization | [facility] | | | | | + + + + | 2022-05-26 11:11 | SENIOR CARE (CURRENT) USE OF | [facility] | | | ASPIRIN | | + + + + | 2022-05-26 11:11 | OTHER SENIOR CARE (CURRENT) | [facility] | | | DRUG THERAPY | | + + + + | 2022-05-26 11:11 | ALLERGY STATUS TO | [facility] | | | PENICILLIN | | + + + + | 2022-05-26 11:11 | ALLERGY STATUS TO OTH | [facility] | | | DRUG/MEDS/BIOL SUBST STATUS | | | | | | + + + + | 2022-06-12 22:08 | CHEST PAIN, UNSPECIFIED | [facility] | + + + + | 2022-06-12 22:08 | OTHER SENIOR CARE (CURRENT) | [facility] | | | DRUG THERAPY | | + + + + | 2022-06-12 22:08 | ALLERGY STATUS TO | [facility] | | | PENICILLIN | | + + + + | 2022-06-12 22:08 | ALLERGY STATUS TO OTH | [facility] | | | DRUG/MEDS/BIOL SUBST STATUS | | | | | | + + + + | 2022-08-19 00:00 | Postoperative pain | [facility] | + + + + | 2022-08-19 04:40 | OTHER ACUTE POSTPROCEDURAL | [facility] | | | PAIN | | + + + + | 2022-08-19 04:40 | NEON ELECTRICIAN (CURRENT) USE OF | [facility] | | | ASPIRIN | | + + + + | 2022-08-19 04:40 | OTHER NEON ELECTRICIAN (CURRENT) | [facility] | | | DRUG THERAPY | | + + + + | 2022-08-19 04:40 | ALLERGY STATUS TO | [facility] | | | PENICILLIN | | + + + + | 2022-08-19 04:40 | ALLERGY STATUS TO OTH | [facility] | | | DRUG/MEDS/BIOL SUBST STATUS | | | | | | + + + + Procedures No information. Results/Labs +--------+--------+ +---------+--------+---------+ | test | date | facility | value | unit | notes | +--------+--------+ +---------+--------+---------+ + + | Result panel 1 | + + + + + +-------+ + + | | 2021-11-12 | [facility] | 6.2 | (missing) | (missing) | | (unavailable | 03:11 | [facility] | | | | + + + +-------+ + + + + | Result panel 2 | + + + + + +--------+ + + | | 2021-11-12 | [facility] | 4.58 | (missing) | (missing) | | (unavailable | 03:11 | [facility] | | | | + + + +--------+ + + + + | Result panel 3 | + + + + + +--------+ + + | | 2021-11-12 | [facility] | 12.7 | (missing) | (missing) | | (unavailable | 03:11 | [facility] | | | | + + + +--------+ + + + + | Result panel 4 | + + + + + +--------+ + + | | 2021-11-12 | [facility] | 38.0 | (missing) | (missing) | | (unavailable | 03:11 | [facility] | | | | + + + +--------+ + + + + | Result panel 5 | + + + + + +--------+ + + | | 2021-11-12 | [facility] | 83.0 | (missing) | (missing) | | (unavailable | 03:11 | [facility] | | | | + + + +--------+ + + + + | Result panel 6 | + + + + + +--------+ + + | | 2021-11-12 | [facility] | 27.8 | (missing) | (missing) | | (unavailable | 03:11 | [facility] | | | | + + + +--------+ + + + + | Result panel 7 | + + + + + +--------+ + + | | 2021-11-12 | [facility] | 33.5 | (missing) | (missing) | | (unavailable | 03:11 | [facility] | | | | + + + +--------+ + + + + | Result panel 8 | + + + + + +--------+ + + | | 2021-11-12 | [facility] | 13.5 | (missing) | (missing) | | (unavailable | 03:11 | [facility] | | | | + + + +--------+ + + + + | Result panel 9 | + + + + + +-------+ + + | | 2021-11-12 | [facility] | 143 | (missing) | (missing) | | (unavailable | 03:11 | [facility] | | | | + + + +-------+ + + + + | Result panel 10 | + + + + + +--------+ + + | | 2021-11-12 | [facility] | 66.0 | (missing) | (missing) | | (unavailable | 03:11 | [facility] | | | | + + + +--------+ + + + + | Result panel 11 | + + + + + +--------+ + + | | 2021-11-12 | [facility] | 19.5 | (missing) | (missing) | | (unavailable | 03:11 | [facility] | | | | + + + +--------+ + + + + | Result panel 12 | + + + + + +--------+ + + | | 2021-11-12 | [facility] | 11.5 | (missing) | (missing) | | (unavailable | 03:11 | [facility] | | | | + + + +--------+ + + + + | Result panel 13 | + + + + + +-------+ + + | | 2021-11-12 | [facility] | 1.8 | (missing) | (missing) | | (unavailable | 03:11 | [facility] | | | | + + + +-------+ + + + + | Result panel 14 | + + + + + +-------+ + + | | 2021-11-12 | [facility] | 1.2 | (missing) | (missing) | | (unavailable | 03:11 | [facility] | | | | + + + +-------+ + + + + | Result panel 15 | + + + + + + + + + | | 2021-11-12 | [facility] | < 0.27 | (missing) | (missing) | | (unavailable | 03:11 | [facility] | | | | + + + + + + + + + | Result panel 16 | + + + + + +-------+---------+ + | | 2021-11-12 | [facility] | 114 | mg/dL | (missing) | | (unavailable | 03:11 | [facility] | | | | + + + +-------+---------+ + + + | Result panel 17 | + + + + + +-----+---------+ + | | 2021-11-12 | [facility] | 7 | mg/dL | (missing) | | (unavailable | 03:11 | [facility] | | | | + + + +-----+---------+ + + + | Result panel 18 | + + + + + +--------+---------+ + | | 2021-11-12 | [facility] | 0.98 | mg/dL | (missing) | | (unavailable | 03:11 | [facility] | | | | + + + +--------+---------+ + + + | Result panel 19 | + + + + + +------+ + + | | 2021-11-12 | [facility] | 70 | (missing) | (missing) | | (unavailable | 03:11 | [facility] | | | | + + + +------+ + + + + | Result panel 20 | + + + + + +--------+ + + | | 2021-11-12 | [facility] | 7.14 | (missing) | (missing) | | (unavailable | 03:11 | [facility] | | | | + + + +--------+ + + + + | Result panel 21 | + + + + + +-------+ + + | | 2021-11-12 | [facility] | 137 | (missing) | (missing) | | (unavailable | 03:11 | [facility] | | | | + + + +-------+ + + + + | Result panel 22 | + + + + + +-------+ + + | | 2021-11-12 | [facility] | 3.1 | (missing) | (missing) | | (unavailable | 03:11 | [facility] | | | | + + + +-------+ + + + + | Result panel 23 | + + + + + +-------+ + + | | 2021-11-12 | [facility] | 101 | (missing) | (missing) | | (unavailable | 03:11 | [facility] | | | | + + + +-------+ + + + + | Result panel 24 | + + + + + +------+ + + | | 2021-11-12 | [facility] | 27 | (missing) | (missing) | | (unavailable | 03:11 | [facility] | | | | + + + +------+ + + + + | Result panel 25 | + + + + + +--------+ + + | | 2021-11-12 | [facility] | 12.1 | (missing) | (missing) | | (unavailable | 03:11 | [facility] | | | | + + + +--------+ + + + + | Result panel 26 | + + + + + +-------+---------+ + | | 2021-11-12 | [facility] | 8.4 | mg/dL | (missing) | | (unavailable | 03:11 | [facility] | | | | + + + +-------+---------+ + + + | Result panel 27 | + + + + + +-------+---------+ + | | 2021-11-12 | [facility] | 2.3 | mg/dL | (missing) | | (unavailable | 03:11 | [facility] | | | | + + + +-------+---------+ + + + | Result panel 28 | + + + + + +-------+ + + | | 2021-11-12 | [facility] | 7.3 | (missing) | (missing) | | (unavailable | 03:11 | [facility] | | | | + + + +-------+ + + + + | Result panel 29 | + + + + + +-------+ + + | | 2021-11-12 | [facility] | 3.8 | (missing) | (missing) | | (unavailable | 03:11 | [facility] | | | | + + + +-------+ + + + + | Result panel 30 | + + + + + +-------+ + + | | 2021-11-12 | [facility] | 3.5 | (missing) | (missing) | | (unavailable | 03:11 | [facility] | | | | + + + +-------+ + + + + | Result panel 31 | + + + + + +--------+ + + | | 2021-11-12 | [facility] | 1.09 | (missing) | (missing) | | (unavailable | 03:11 | [facility] | | | | + + + +--------+ + + + + | Result panel 32 | + + + + + +-------+ + + | | 2021-11-12 | [facility] | 0.6 | (missing) | (missing) | | (unavailable | 03:11 | [facility] | | | | + + + +-------+ + + + + | Result panel 33 | + + + + + +------+ + + | | 2021-11-12 | [facility] | 10 | (missing) | (missing) | | (unavailable | 03:11 | [facility] | | | | + + + +------+ + + + + | Result panel 34 | + + + + + +------+ + + | | 2021-11-12 | [facility] | 19 | (missing) | (missing) | | (unavailable | 03:11 | [facility] | | | | + + + +------+ + + + + | Result panel 35 | + + + + + +-------+ + + | | 2021-11-12 | [facility] | 102 | (missing) | (missing) | | (unavailable | 03:11 | [facility] | | | | + + + +-------+ + + + + | Result panel 36 | + + + + + +--------+ + + | | 2021-11-12 | [facility] | <4.0 | (missing) | (missing) | | (unavailable | 03:11 | [facility] | | | | + + + +--------+ + + + + | Result panel 37 | + + + + + + + + + | | 2021-11-12 | [facility] | NEGATIVE | (missing) | (missing) | | (unavailable | 03:25 | [facility] | | | | + + + + + + + + + | Result panel 38 | + + + + + + + + + | | 2021-11-12 | [facility] | NEGATIVE | (missing) | (missing) | | (unavailable | 03:25 | [facility] | | | | + + + + + + + + + | Result panel 39 | + + + + + + + + + | | 2021-11-12 | [facility] | NEGATIVE | (missing) | (missing) | | (unavailable | 03:25 | [facility] | | | | + + + + + + + + + | Result panel 40 | + + + + + + + + + | | 2021-11-12 | [facility] | NEGATIVE | (missing) | (missing) | | (unavailable | 03:25 | [facility] | | | | + + + + + + + + + | Result panel 41 | + + + + + + + + + | | 2021-11-12 | [facility] | NEGATIVE | (missing) | (missing) | | (unavailable | 03:25 | [facility] | | | | + + + + + + + + + | Result panel 42 | + + + + + + + + + | | 2021-11-12 | [facility] | NEGATIVE | (missing) | (missing) | | (unavailable | 03:25 | [facility] | | | | + + + + + + + + + | Result panel 43 | + + + + + + + + + | | 2021-11-12 | [facility] | NEGATIVE | (missing) | (missing) | | (unavailable | 03:25 | [facility] | | | | + + + + + + + + + | Result panel 44 | + + + + + + + + + | | 2021-11-12 | [facility] | NEGATIVE | (missing) | (missing) | | (unavailable | 03:25 | [facility] | | | | + + + + + + + + + | Result panel 45 | + + + + + + + + + | | 2021-11-12 | [facility] | NEGATIVE | (missing) | (missing) | | (unavailable | 03:25 | [facility] | | | | + + + + + + + + + | Result panel 46 | + + + + + + + + + | | 2021-11-12 | [facility] | NEGATIVE | (missing) | (missing) | | (unavailable | 03:25 | [facility] | | | | + + + + + + + + + | Result panel 47 | + + + + + + + + + | | 2021-11-12 | [facility] | NEGATIVE | (missing) | (missing) | | (unavailable | 03:25 | [facility] | | | | + + + + + + + + + | Result panel 48 | + + + + + + + + + | | 2021-11-12 | [facility] | NEGATIVE | (missing) | (missing) | | (unavailable | 03:25 | [facility] | | | | + + + + + + + + + | Result panel 49 | + + + + + + + + + | | 2021-11-12 | [facility] | NEGATIVE | (missing) | (missing) | | (unavailable | 03:25 | [facility] | | | | + + + + + + + + + | Result panel 50 | + + + + + + + + + | | 2021-11-12 | [facility] | NEGATIVE | (missing) | (missing) | | (unavailable | 03:25 | [facility] | | | | + + + + + + + + + | Result panel 51 | + + + + + + + + + | | 2021-11-12 | [facility] | NEGATIVE | (missing) | (missing) | | (unavailable | 03:25 | [facility] | | | | + + + + + + + + + | Result panel 52 | + + + + + + + + + | | 2021-11-12 | [facility] | NEGATIVE | (missing) | (missing) | | (unavailable | 03:25 | [facility] | | | | + + + + + + + + + | Result panel 53 | + + + + + + + + + | | 2021-11-12 | [facility] | NEGATIVE | (missing) | (missing) | | (unavailable | 03:25 | [facility] | | | | + + + + + + + + + | Result panel 54 | + + + + + + + + + | | 2021-11-12 | [facility] | NEGATIVE | (missing) | (missing) | | (unavailable | 03:25 | [facility] | | | | + + + + + + + + + | Result panel 55 | + + + + + + + + + | | 2021-11-12 | [facility] | NEGATIVE | (missing) | (missing) | | (unavailable | 03:25 | [facility] | | | | + + + + + + + + + | Result panel 56 | + + + + + + + + + | | 2021-11-12 | [facility] | NEGATIVE | (missing) | (missing) | | (unavailable | 03:25 | [facility] | | | | + + + + + + + + + | Result panel 57 | + + + + + + + + + | | 2021-11-24 | [facility] | < 0.27 | (missing) | (missing) | | (unavailable | 20:22 | [facility] | | | | + + + + + + + + + | Result panel 58 | + + + + + +-------+---------+ + | | 2021-11-24 | [facility] | 2.1 | mg/dL | (missing) | | (unavailable | 20:22 | [facility] | | | | + + + +-------+---------+ + + + | Result panel 59 | + + + + + + + + + | | 2021-11-24 | [facility] | < 0.27 | (missing) | (missing) | | (unavailable | 20:22 | [facility] | | | | + + + + + + + + + | Result panel 60 | + + + + + +-------+---------+ + | | 2021-11-24 | [facility] | 2.1 | mg/dL | (missing) | | (unavailable | 20:22 | [facility] | | | | + + + +-------+---------+ + + + | Result panel 61 | + + + + + + + + + | | 2021-11-24 | [facility] | < 0.27 | (missing) | (missing) | | (unavailable | 20:22 | [facility] | | | | + + + + + + + + + | Result panel 62 | + + + + + +-------+---------+ + | | 2021-11-24 | [facility] | 2.1 | mg/dL | (missing) | | (unavailable | 20:22 | [facility] | | | | + + + +-------+---------+ + + + | Result panel 63 | + + + + + +-------+ + + | | 2021-11-24 | [facility] | 5.6 | (missing) | (missing) | | (unavailable | 20:22 | [facility] | | | | + + + +-------+ + + + + | Result panel 64 | + + + + + +--------+ + + | | 2021-11-24 | [facility] | 4.76 | (missing) | (missing) | | (unavailable | 20:22 | [facility] | | | | + + + +--------+ + + + + | Result panel 65 | + + + + + +--------+ + + | | 2021-11-24 | [facility] | 13.2 | (missing) | (missing) | | (unavailable | 20:22 | [facility] | | | | + + + +--------+ + + + + | Result panel 66 | + + + + + +--------+ + + | | 2021-11-24 | [facility] | 39.3 | (missing) | (missing) | | (unavailable | 20:22 | [facility] | | | | + + + +--------+ + + + + | Result panel 67 | + + + + + +--------+ + + | | 2021-11-24 | [facility] | 82.5 | (missing) | (missing) | | (unavailable | 20:22 | [facility] | | | | + + + +--------+ + + + + | Result panel 68 | + + + + + +--------+ + + | | 2021-11-24 | [facility] | 27.8 | (missing) | (missing) | | (unavailable | 20:22 | [facility] | | | | + + + +--------+ + + + + | Result panel 69 | + + + + + +--------+ + + | | 2021-11-24 | [facility] | 33.7 | (missing) | (missing) | | (unavailable | 20:22 | [facility] | | | | + + + +--------+ + + + + | Result panel 70 | + + + + + +--------+ + + | | 2021-11-24 | [facility] | 13.6 | (missing) | (missing) | | (unavailable | 20:22 | [facility] | | | | + + + +--------+ + + + + | Result panel 71 | + + + + + +-------+ + + | | 2021-11-24 | [facility] | 237 | (missing) | (missing) | | (unavailable | 20:22 | [facility] | | | | + + + +-------+ + + + + | Result panel 72 | + + + + + +--------+ + + | | 2021-11-24 | [facility] | 60.1 | (missing) | (missing) | | (unavailable | 20:22 | [facility] | | | | + + + +--------+ + + + + | Result panel 73 | + + + + + +--------+ + + | | 2021-11-24 | [facility] | 27.5 | (missing) | (missing) | | (unavailable | 20:22 | [facility] | | | | + + + +--------+ + + + + | Result panel 74 | + + + + + +-------+ + + | | 2021-11-24 | [facility] | 7.9 | (missing) | (missing) | | (unavailable | 20:22 | [facility] | | | | + + + +-------+ + + + + | Result panel 75 | + + + + + +-------+ + + | | 2021-11-24 | [facility] | 3.2 | (missing) | (missing) | | (unavailable | 20:22 | [facility] | | | | + + + +-------+ + + + + | Result panel 76 | + + + + + +-------+ + + | | 2021-11-24 | [facility] | 1.3 | (missing) | (missing) | | (unavailable | 20:22 | [facility] | | | | + + + +-------+ + + + + | Result panel 77 | + + + + + + + + + | | 2021-11-24 | [facility] | < 0.27 | (missing) | (missing) | | (unavailable | 20:22 | [facility] | | | | + + + + + + + + + | Result panel 78 | + + + + + +-------+---------+ + | | 2021-11-24 | [facility] | 104 | mg/dL | (missing) | | (unavailable | 20:22 | [facility] | | | | + + + +-------+---------+ + + + | Result panel 79 | + + + + + +-----+---------+ + | | 2021-11-24 | [facility] | 8 | mg/dL | (missing) | | (unavailable | 20:22 | [facility] | | | | + + + +-----+---------+ + + + | Result panel 80 | + + + + + +--------+---------+ + | | 2021-11-24 | [facility] | 0.89 | mg/dL | (missing) | | (unavailable | 20:22 | [facility] | | | | + + + +--------+---------+ + + + | Result panel 81 | + + + + + +------+ + + | | 2021-11-24 | [facility] | 78 | (missing) | (missing) | | (unavailable | 20:22 | [facility] | | | | + + + +------+ + + + + | Result panel 82 | + + + + + +--------+ + + | | 2021-11-24 | [facility] | 8.98 | (missing) | (missing) | | (unavailable | 20:22 | [facility] | | | | + + + +--------+ + + + + | Result panel 83 | + + + + + +-------+ + + | | 2021-11-24 | [facility] | 140 | (missing) | (missing) | | (unavailable | 20:22 | [facility] | | | | + + + +-------+ + + + + | Result panel 84 | + + + + + +-------+ + + | | 2021-11-24 | [facility] | 3.8 | (missing) | (missing) | | (unavailable | 20:22 | [facility] | | | | + + + +-------+ + + + + | Result panel 85 | + + + + + +-------+ + + | | 2021-11-24 | [facility] | 101 | (missing) | (missing) | | (unavailable | 20:22 | [facility] | | | | + + + +-------+ + + + + | Result panel 86 | + + + + + +------+ + + | | 2021-11-24 | [facility] | 32 | (missing) | (missing) | | (unavailable | 20:22 | [facility] | | | | + + + +------+ + + + + | Result panel 87 | + + + + + +--------+ + + | | 2021-11-24 | [facility] | 10.8 | (missing) | (missing) | | (unavailable | 20:22 | [facility] | | | | + + + +--------+ + + + + | Result panel 88 | + + + + + +-------+---------+ + | | 2021-11-24 | [facility] | 9.5 | mg/dL | (missing) | | (unavailable | 20:22 | [facility] | | | | + + + +-------+---------+ + + + | Result panel 89 | + + + + + +-------+---------+ + | | 2021-11-24 | [facility] | 2.1 | mg/dL | (missing) | | (unavailable | 20:22 | [facility] | | | | + + + +-------+---------+ + + + | Result panel 90 | + + + + + +-------+ + + | | 2021-11-24 | [facility] | 7.3 | (missing) | (missing) | | (unavailable | 20:22 | [facility] | | | | + + + +-------+ + + + + | Result panel 91 | + + + + + +-------+ + + | | 2021-11-24 | [facility] | 3.7 | (missing) | (missing) | | (unavailable | 20:22 | [facility] | | | | + + + +-------+ + + + + | Result panel 92 | + + + + + +-------+ + + | | 2021-11-24 | [facility] | 3.6 | (missing) | (missing) | | (unavailable | 20:22 | [facility] | | | | + + + +-------+ + + + + | Result panel 93 | + + + + + +--------+ + + | | 2021-11-24 | [facility] | 1.03 | (missing) | (missing) | | (unavailable | 20:22 | [facility] | | | | + + + +--------+ + + + + | Result panel 94 | + + + + + +-------+ + + | | 2021-11-24 | [facility] | 0.3 | (missing) | (missing) | | (unavailable | 20:22 | [facility] | | | | + + + +-------+ + + + + | Result panel 95 | + + + + + +-----+ + + | | 2021-11-24 | [facility] | 6 | (missing) | (missing) | | (unavailable | 20:22 | [facility] | | | | + + + +-----+ + + + + | Result panel 96 | + + + + + +------+ + + | | 2021-11-24 | [facility] | 20 | (missing) | (missing) | | (unavailable | 20:22 | [facility] | | | | + + + +------+ + + + + | Result panel 97 | + + + + + +-------+ + + | | 2021-11-24 | [facility] | 101 | (missing) | (missing) | | (unavailable | 20:22 | [facility] | | | | + + + +-------+ + + + + | Result panel 98 | + + + + + +-------+ + + | | 2021-11-24 | [facility] | 4.2 | (missing) | (missing) | | (unavailable | 20:22 | [facility] | | | | + + + +-------+ + + + + | Result panel 99 | + + + + + + + + + | | 2021-11-24 | [facility] | < 0.27 | (missing) | (missing) | | (unavailable | 20:22 | [facility] | | | | + + + + + + + + + | Result panel 100 | + + + + + +-------+---------+ + | | 2021-11-24 | [facility] | 2.1 | mg/dL | (missing) | | (unavailable | 20:22 | [facility] | | | | + + + +-------+---------+ + + + | Result panel 101 | + + + + + +-------+ + + | | 2021-12-04 | [facility] | 3.7 | (missing) | (missing) | | (unavailable | 04:20 | [facility] | | | | + + + +-------+ + + + + | Result panel 102 | + + + + + +--------+ + + | | 2021-12-04 | [facility] | 4.57 | (missing) | (missing) | | (unavailable | 04:20 | [facility] | | | | + + + +--------+ + + + + | Result panel 103 | + + + + + +--------+ + + | | 2021-12-04 | [facility] | 12.5 | (missing) | (missing) | | (unavailable | 04:20 | [facility] | | | | + + + +--------+ + + + + | Result panel 104 | + + + + + +--------+ + + | | 2021-12-04 | [facility] | 38.1 | (missing) | (missing) | | (unavailable | 04:20 | [facility] | | | | + + + +--------+ + + + + | Result panel 105 | + + + + + +--------+ + + | | 2021-12-04 | [facility] | 83.3 | (missing) | (missing) | | (unavailable | 04:20 | [facility] | | | | + + + +--------+ + + + + | Result panel 106 | + + + + + +--------+ + + | | 2021-12-04 | [facility] | 27.3 | (missing) | (missing) | | (unavailable | 04:20 | [facility] | | | | + + + +--------+ + + + + | Result panel 107 | + + + + + +--------+ + + | | 2021-12-04 | [facility] | 32.8 | (missing) | (missing) | | (unavailable | 04:20 | [facility] | | | | + + + +--------+ + + + + | Result panel 108 | + + + + + +--------+ + + | | 2021-12-04 | [facility] | 13.7 | (missing) | (missing) | | (unavailable | 04:20 | [facility] | | | | + + + +--------+ + + + + | Result panel 109 | + + + + + +-------+ + + | | 2021-12-04 | [facility] | 188 | (missing) | (missing) | | (unavailable | 04:20 | [facility] | | | | + + + +-------+ + + + + | Result panel 110 | + + + + + +--------+ + + | | 2021-12-04 | [facility] | 59.4 | (missing) | (missing) | | (unavailable | 04:20 | [facility] | | | | + + + +--------+ + + + + | Result panel 111 | + + + + + +--------+ + + | | 2021-12-04 | [facility] | 27.6 | (missing) | (missing) | | (unavailable | 04:20 | [facility] | | | | + + + +--------+ + + + + | Result panel 112 | + + + + + +-------+ + + | | 2021-12-04 | [facility] | 7.9 | (missing) | (missing) | | (unavailable | 04:20 | [facility] | | | | + + + +-------+ + + + + | Result panel 113 | + + + + + +-------+ + + | | 2021-12-04 | [facility] | 3.9 | (missing) | (missing) | | (unavailable | 04:20 | [facility] | | | | + + + +-------+ + + + + | Result panel 114 | + + + + + +-------+ + + | | 2021-12-04 | [facility] | 1.2 | (missing) | (missing) | | (unavailable | 04:20 | [facility] | | | | + + + +-------+ + + + + | Result panel 115 | + + + + + +--------+ + + | | 2021-12-04 | [facility] | 12.8 | (missing) | (missing) | | (unavailable | 04:20 | [facility] | | | | + + + +--------+ + + + + | Result panel 116 | + + + + + +--------+ + + | | 2021-12-04 | [facility] | 0.98 | (missing) | (missing) | | (unavailable | 04:20 | [facility] | | | | + + + +--------+ + + + + | Result panel 117 | + + + + + +--------+ + + | | 2021-12-04 | [facility] | 24.6 | (missing) | (missing) | | (unavailable | 04:20 | [facility] | | | | + + + +--------+ + + + + | Result panel 118 | + + + + + +-------+---------+ + | | 2021-12-04 | [facility] | 103 | mg/dL | (missing) | | (unavailable | 04:20 | [facility] | | | | + + + +-------+---------+ + + + | Result panel 119 | + + + + + +-----+---------+ + | | 2021-12-04 | [facility] | 7 | mg/dL | (missing) | | (unavailable | 04:20 | [facility] | | | | + + + +-----+---------+ + + + | Result panel 120 | + + + + + +--------+---------+ + | | 2021-12-04 | [facility] | 0.91 | mg/dL | (missing) | | (unavailable | 04:20 | [facility] | | | | + + + +--------+---------+ + + + | Result panel 121 | + + + + + +------+ + + | | 2021-12-04 | [facility] | 76 | (missing) | (missing) | | (unavailable | 04:20 | [facility] | | | | + + + +------+ + + + + | Result panel 122 | + + + + + +--------+ + + | | 2021-12-04 | [facility] | 7.69 | (missing) | (missing) | | (unavailable | 04:20 | [facility] | | | | + + + +--------+ + + + + | Result panel 123 | + + + + + +-------+ + + | | 2021-12-04 | [facility] | 136 | (missing) | (missing) | | (unavailable | 04:20 | [facility] | | | | + + + +-------+ + + + + | Result panel 124 | + + + + + +-------+ + + | | 2021-12-04 | [facility] | 3.3 | (missing) | (missing) | | (unavailable | 04:20 | [facility] | | | | + + + +-------+ + + + + | Result panel 125 | + + + + + +-------+ + + | | 2021-12-04 | [facility] | 102 | (missing) | (missing) | | (unavailable | 04:20 | [facility] | | | | + + + +-------+ + + + + | Result panel 126 | + + + + + +------+ + + | | 2021-12-04 | [facility] | 27 | (missing) | (missing) | | (unavailable | 04:20 | [facility] | | | | + + + +------+ + + + + | Result panel 127 | + + + + + +--------+ + + | | 2021-12-04 | [facility] | 10.3 | (missing) | (missing) | | (unavailable | 04:20 | [facility] | | | | + + + +--------+ + + + + | Result panel 128 | + + + + + +-------+---------+ + | | 2021-12-04 | [facility] | 8.4 | mg/dL | (missing) | | (unavailable | 04:20 | [facility] | | | | + + + +-------+---------+ + + + | Result panel 129 | + + + + + +-------+ + + | | 2021-12-04 | [facility] | 6.7 | (missing) | (missing) | | (unavailable | 04:20 | [facility] | | | | + + + +-------+ + + + + | Result panel 130 | + + + + + +-------+ + + | | 2021-12-04 | [facility] | 3.4 | (missing) | (missing) | | (unavailable | 04:20 | [facility] | | | | + + + +-------+ + + + + | Result panel 131 | + + + + + +-------+ + + | | 2021-12-04 | [facility] | 3.3 | (missing) | (missing) | | (unavailable | 04:20 | [facility] | | | | + + + +-------+ + + + + | Result panel 132 | + + + + + +--------+ + + | | 2021-12-04 | [facility] | 1.03 | (missing) | (missing) | | (unavailable | 04:20 | [facility] | | | | + + + +--------+ + + + + | Result panel 133 | + + + + + +-------+ + + | | 2021-12-04 | [facility] | 0.2 | (missing) | (missing) | | (unavailable | 04:20 | [facility] | | | | + + + +-------+ + + + + | Result panel 134 | + + + + + +-----+ + + | | 2021-12-04 | [facility] | 6 | (missing) | (missing) | | (unavailable | 04:20 | [facility] | | | | + + + +-----+ + + + + | Result panel 135 | + + + + + +------+ + + | | 2021-12-04 | [facility] | 17 | (missing) | (missing) | | (unavailable | 04:20 | [facility] | | | | + + + +------+ + + + + | Result panel 136 | + + + + + +-------+ + + | | 2021-12-04 | [facility] | 112 | (missing) | (missing) | | (unavailable | 04:20 | [facility] | | | | + + + +-------+ + + + + | Result panel 137 | + + + + + +-------+ + + | | 2021-12-04 | [facility] | 4.7 | (missing) | (missing) | | (unavailable | 04:20 | [facility] | | | | + + + +-------+ + + + + | Result panel 138 | + + + + + +--------+ + + | | 2021-12-04 | [facility] | 12.8 | (missing) | (missing) | | (unavailable | 04:20 | [facility] | | | | + + + +--------+ + + + + | Result panel 139 | + + + + + +--------+ + + | | 2021-12-04 | [facility] | 0.98 | (missing) | (missing) | | (unavailable | 04:20 | [facility] | | | | + + + +--------+ + + + + | Result panel 140 | + + + + + +--------+ + + | | 2021-12-04 | [facility] | 24.6 | (missing) | (missing) | | (unavailable | 04:20 | [facility] | | | | + + + +--------+ + + + + | Result panel 141 | + + + + + +-------+ + + | | 2021-12-04 | [facility] | 4.7 | (missing) | (missing) | | (unavailable | 04:20 | [facility] | | | | + + + +-------+ + + + + | Result panel 142 | + + + + + +--------+ + + | | 2021-12-04 | [facility] | 12.8 | (missing) | (missing) | | (unavailable | 04:20 | [facility] | | | | + + + +--------+ + + + + | Result panel 143 | + + + + + +--------+ + + | | 2021-12-04 | [facility] | 0.98 | (missing) | (missing) | | (unavailable | 04:20 | [facility] | | | | + + + +--------+ + + + + | Result panel 144 | + + + + + +--------+ + + | | 2021-12-04 | [facility] | 24.6 | (missing) | (missing) | | (unavailable | 04:20 | [facility] | | | | + + + +--------+ + + + + | Result panel 145 | + + + + + +-------+ + + | | 2021-12-04 | [facility] | 4.7 | (missing) | (missing) | | (unavailable | 04:20 | [facility] | | | | + + + +-------+ + + + + | Result panel 146 | + + + + + +--------+ + + | | 2021-12-04 | [facility] | 12.8 | (missing) | (missing) | | (unavailable | 04:20 | [facility] | | | | + + + +--------+ + + + + | Result panel 147 | + + + + + +--------+ + + | | 2021-12-04 | [facility] | 0.98 | (missing) | (missing) | | (unavailable | 04:20 | [facility] | | | | + + + +--------+ + + + + | Result panel 148 | + + + + + +--------+ + + | | 2021-12-04 | [facility] | 24.6 | (missing) | (missing) | | (unavailable | 04:20 | [facility] | | | | + + + +--------+ + + + + | Result panel 149 | + + + + + +-------+ + + | | 2021-12-04 | [facility] | 4.7 | (missing) | (missing) | | (unavailable | 04:20 | [facility] | | | | + + + +-------+ + + + + | Result panel 150 | + + + + + + + + + | | 2021-12-04 | [facility] | COLORLESS | (missing) | (missing) | | (unavailable | 04:25 | [facility] | | | | + + + + + + + + + | Result panel 151 | + + + + + +---------+ + + | | 2021-12-04 | [facility] | CLEAR | (missing) | (missing) | | (unavailable | 04:25 | [facility] | | | | + + + +---------+ + + + + | Result panel 152 | + + + + + + + + + | | 2021-12-04 | [facility] | NEGATIVE | (missing) | (missing) | | (unavailable | 04:25 | [facility] | | | | + + + + + + + + + | Result panel 153 | + + + + + + + + + | | 2021-12-04 | [facility] | NEGATIVE | (missing) | (missing) | | (unavailable | 04:25 | [facility] | | | | + + + + + + + + + | Result panel 154 | + + + + + + + + + | | 2021-12-04 | [facility] | NEGATIVE | (missing) | (missing) | | (unavailable | 04:25 | [facility] | | | | + + + + + + + + + | Result panel 155 | + + + + + + + + + | | 2021-12-04 | [facility] | <=1.005 | (missing) | (missing) | | (unavailable | 04:25 | [facility] | | | | + + + + + + + + + | Result panel 156 | + + + + + + + + + | | 2021-12-04 | [facility] | NEGATIVE | (missing) | (missing) | | (unavailable | 04:25 | [facility] | | | | + + + + + + + + + | Result panel 157 | + + + + + +-------+ + + | | 2021-12-04 | [facility] | 7.0 | (missing) | (missing) | | (unavailable | 04:25 | [facility] | | | | + + + +-------+ + + + + | Result panel 158 | + + + + + + + + + | | 2021-12-04 | [facility] | NEGATIVE | (missing) | (missing) | | (unavailable | 04:25 | [facility] | | | | + + + + + + + + + | Result panel 159 | + + + + + + + + + | | 2021-12-04 | [facility] | NORMAL | (missing) | (missing) | | (unavailable | 04:25 | [facility] | | | | + + + + + + + + + | Result panel 160 | + + + + + + + + + | | 2021-12-04 | [facility] | NEGATIVE | (missing) | (missing) | | (unavailable | 04:25 | [facility] | | | | + + + + + + + + + | Result panel 161 | + + + + + + + + + | | 2021-12-04 | [facility] | NEGATIVE | (missing) | (missing) | | (unavailable | 04:25 | [facility] | | | | + + + + + + + + + | Result panel 162 | + + + + + + + + + | | 2021-12-04 | [facility] | NEGATIVE | (missing) | (missing) | | (unavailable | 04:25 | [facility] | | | | + + + + + + + + + | Result panel 163 | + + + + + + + + + | | 2021-12-04 | [facility] | NEGATIVE | (missing) | (missing) | | (unavailable | 04:25 | [facility] | | | | + + + + + + + + + | Result panel 164 | + + + + + + + + + | | 2021-12-04 | [facility] | NEGATIVE | (missing) | (missing) | | (unavailable | 04:25 | [facility] | | | | + + + + + + + + + | Result panel 165 | + + + + + + + + + | | 2021-12-04 | [facility] | NEGATIVE | (missing) | (missing) | | (unavailable | 04:25 | [facility] | | | | + + + + + + + + + | Result panel 166 | + + + + + + + + + | | 2021-12-04 | [facility] | NEGATIVE | (missing) | (missing) | | (unavailable | 04:25 | [facility] | | | | + + + + + + + + + | Result panel 167 | + + + + + + + + + | | 2021-12-04 | [facility] | NEGATIVE | (missing) | (missing) | | (unavailable | 04:25 | [facility] | | | | + + + + + + + + + | Result panel 168 | + + + + + + + + + | | 2021-12-04 | [facility] | NEGATIVE | (missing) | (missing) | | (unavailable | 04:25 | [facility] | | | | + + + + + + + + + | Result panel 169 | + + + + + + + + + | | 2021-12-04 | [facility] | NEGATIVE | (missing) | (missing) | | (unavailable | 04:25 | [facility] | | | | + + + + + + + + + | Result panel 170 | + + + + + + + + + | | 2021-12-04 | [facility] | NEGATIVE | (missing) | (missing) | | (unavailable | 04:25 | [facility] | | | | + + + + + + + + + | Result panel 171 | + + + + + + + + + | | 2021-12-04 | [facility] | NEGATIVE | (missing) | (missing) | | (unavailable | 04:25 | [facility] | | | | + + + + + + + + + | Result panel 172 | + + + + + + + + + | | 2021-12-04 | [facility] | NEGATIVE | (missing) | (missing) | | (unavailable | 04:25 | [facility] | | | | + + + + + + + + + | Result panel 173 | + + + + + + + + + | | 2021-12-04 | [facility] | NEGATIVE | (missing) | (missing) | | (unavailable | 04:25 | [facility] | | | | + + + + + + + + + | Result panel 174 | + + + + + + + + + | | 2021-12-04 | [facility] | NEGATIVE | (missing) | (missing) | | (unavailable | 04:25 | [facility] | | | | + + + + + + + + + | Result panel 175 | + + + + + + + + + | | 2021-12-04 | [facility] | COLORLESS | (missing) | (missing) | | (unavailable | 04:25 | [facility] | | | | + + + + + + + + + | Result panel 176 | + + + + + +---------+ + + | | 2021-12-04 | [facility] | CLEAR | (missing) | (missing) | | (unavailable | 04:25 | [facility] | | | | + + + +---------+ + + + + | Result panel 177 | + + + + + + + + + | | 2021-12-04 | [facility] | NEGATIVE | (missing) | (missing) | | (unavailable | 04:25 | [facility] | | | | + + + + + + + + + | Result panel 178 | + + + + + + + + + | | 2021-12-04 | [facility] | NEGATIVE | (missing) | (missing) | | (unavailable | 04:25 | [facility] | | | | + + + + + + + + + | Result panel 179 | + + + + + + + + + | | 2021-12-04 | [facility] | NEGATIVE | (missing) | (missing) | | (unavailable | 04:25 | [facility] | | | | + + + + + + + + + | Result panel 180 | + + + + + + + + + | | 2021-12-04 | [facility] | <=1.005 | (missing) | (missing) | | (unavailable | 04:25 | [facility] | | | | + + + + + + + + + | Result panel 181 | + + + + + + + + + | | 2021-12-04 | [facility] | NEGATIVE | (missing) | (missing) | | (unavailable | 04:25 | [facility] | | | | + + + + + + + + + | Result panel 182 | + + + + + +-------+ + + | | 2021-12-04 | [facility] | 7.0 | (missing) | (missing) | | (unavailable | 04:25 | [facility] | | [facility] ) | | [facility] | | | | + + + +-------+ + + + + | Result panel 183 | + + + + + + + + + | | 2021-12-04 | [facility] | NEGATIVE | (missing) | (missing) | | (unavailable | 04:25 | [facility] | | | | + + + + + + + + + | Result panel 184 | + + + + + + + + + | | 2021-12-04 | [facility] | NORMAL | (missing) | (missing) | | (unavailable | 04:25 | [facility] | | | | + + + + + + + + + | Result panel 185 | + + + + + + + + + | | 2021-12-04 | [facility] | NEGATIVE | (missing) | (missing) | | (unavailable | 04:25 | [facility] | | | | + + + + + + + + + | Result panel 186 | + + + + + + + + + | | 2021-12-04 | [facility] | NEGATIVE | (missing) | (missing) | | (unavailable | 04:25 | [facility] | | | | + + + + + + + + + | Result panel 187 | + + + + + + + + + | | 2021-12-04 | [facility] | NEGATIVE | (missing) | (missing) | | (unavailable | 04:25 | [facility] | | | | + + + + + + + + + | Result panel 188 | + + + + + + + + + | | 2021-12-04 | [facility] | NEGATIVE | (missing) | (missing) | | (unavailable | 04:25 | [facility] | | | | + + + + + + + + + | Result panel 189 | + + + + + + + + + | | 2021-12-04 | [facility] | NEGATIVE | (missing) | (missing) | | (unavailable | 04:25 | [facility] | | | | + + + + + + + + + | Result panel 190 | + + + + + + + + + | | 2021-12-04 | [facility] | NEGATIVE | (missing) | (missing) | | (unavailable | 04:25 | [facility] | | | | + + + + + + + + + | Result panel 191 | + + + + + + + + + | | 2021-12-04 | [facility] | NEGATIVE | (missing) | (missing) | | (unavailable | 04:25 | [facility] | | | | + + + + + + + + + | Result panel 192 | + + + + + + + + + | | 2021-12-04 | [facility] | NEGATIVE | (missing) | (missing) | | (unavailable | 04:25 | [facility] | | | | + + + + + + + + + | Result panel 193 | + + + + + + + + + | | 2021-12-04 | [facility] | NEGATIVE | (missing) | (missing) | | (unavailable | 04:25 | [facility] | | | | + + + + + + + + + | Result panel 194 | + + + + + + + + + | | 2021-12-04 | [facility] | NEGATIVE | (missing) | (missing) | | (unavailable | 04:25 | [facility] | | | | + + + + + + + + + | Result panel 195 | + + + + + + + + + | | 2021-12-04 | [facility] | NEGATIVE | (missing) | (missing) | | (unavailable | 04:25 | [facility] | | | | + + + + + + + + + | Result panel 196 | + + + + + + + + + | | 2021-12-04 | [facility] | NEGATIVE | (missing) | (missing) | | (unavailable | 04:25 | [facility] | | | | + + + + + + + + + | Result panel 197 | + + + + + + + + + | | 2021-12-04 | [facility] | NEGATIVE | (missing) | (missing) | | (unavailable | 04:25 | [facility] | | | | + + + + + + + + + | Result panel 198 | + + + + + + + + + | | 2021-12-04 | [facility] | NEGATIVE | (missing) | (missing) | | (unavailable | 04:25 | [facility] | | | | + + + + + + + + + | Result panel 199 | + + + + + + + + + | | 2021-12-04 | [facility] | NEGATIVE | (missing) | (missing) | | (unavailable | 04:25 | [facility] | | | | + + + + + + + + + | Result panel 200 | + + + + + + + + + | | 2021-12-04 | [facility] | COLORLESS | (missing) | (missing) | | (unavailable | 04:25 | [facility] | | | | + + + + + + + + + | Result panel 201 | + + + + + +---------+ + + | | 2021-12-04 | [facility] | CLEAR | (missing) | (missing) | | (unavailable | 04:25 | [facility] | | | | + + + +---------+ + + + + | Result panel 202 | + + + + + + + + + | | 2021-12-04 | [facility] | NEGATIVE | (missing) | (missing) | | (unavailable | 04:25 | [facility] | | | | + + + + + + + + + | Result panel 203 | + + + + + + + + + | | 2021-12-04 | [facility] | NEGATIVE | (missing) | (missing) | | (unavailable | 04:25 | [facility] | | | | + + + + + + + + + | Result panel 204 | + + + + + + + + + | | 2021-12-04 | [facility] | NEGATIVE | (missing) | (missing) | | (unavailable | 04:25 | [facility] | | | | + + + + + + + + + | Result panel 205 | + + + + + + + + + | | 2021-12-04 | [facility] | <=1.005 | (missing) | (missing) | | (unavailable | 04:25 | [facility] | | | | + + + + + + + + + | Result panel 206 | + + + + + + + + + | | 2021-12-04 | [facility] | NEGATIVE | (missing) | (missing) | | (unavailable | 04:25 | [facility] | | | | + + + + + + + + + | Result panel 207 | + + + + + +-------+ + + | | 2021-12-04 | [facility] | 7.0 | (missing) | (missing) | | (unavailable | 04:25 | [facility] | | | | + + + +-------+ + + + + | Result panel 208 | + + + + + + + + + | | 2021-12-04 | [facility] | NEGATIVE | (missing) | (missing) | | (unavailable | 04:25 | [facility] | | | | + + + + + + + + + | Result panel 209 | + + + + + + + + + | | 2021-12-04 | [facility] | NORMAL | (missing) | (missing) | | (unavailable | 04:25 | [facility] | | | | + + + + + + + + + | Result panel 210 | + + + + + + + + + | | 2021-12-04 | [facility] | NEGATIVE | (missing) | (missing) | | (unavailable | 04:25 | [facility] | | | | + + + + + + + + + | Result panel 211 | + + + + + + + + + | | 2021-12-04 | [facility] | NEGATIVE | (missing) | (missing) | | (unavailable | 04:25 | [facility] | | | | + + + + + + + + + | Result panel 212 | + + + + + + + + + | | 2021-12-04 | [facility] | NEGATIVE | (missing) | (missing) | | (unavailable | 04:25 | [facility] | | | | + + + + + + + + + | Result panel 213 | + + + + + + + + + | | 2021-12-04 | [facility] | NEGATIVE | (missing) | (missing) | | (unavailable | 04:25 | [facility] | | | | + + + + + + + + + | Result panel 214 | + + + + + + + + + | | 2021-12-04 | [facility] | NEGATIVE | (missing) | (missing) | | (unavailable | 04:25 | [facility] | | | | + + + + + + + + + | Result panel 215 | + + + + + + + + + | | 2021-12-04 | [facility] | NEGATIVE | (missing) | (missing) | | (unavailable | 04:25 | [facility] | | | | + + + + + + + + + | Result panel 216 | + + + + + + + + + | | 2021-12-04 | [facility] | NEGATIVE | (missing) | (missing) | | (unavailable | 04:25 | [facility] | | | | + + + + + + + + + | Result panel 217 | + + + + + + + + + | | 2021-12-04 | [facility] | NEGATIVE | (missing) | (missing) | | (unavailable | 04:25 | [facility] | | | | + + + + + + + + + | Result panel 218 | + + + + + + + + + | | 2021-12-04 | [facility] | NEGATIVE | (missing) | (missing) | | (unavailable | 04:25 | [facility] | | | | + + + + + + + + + | Result panel 219 | + + + + + + + + + | | 2021-12-04 | [facility] | NEGATIVE | (missing) | (missing) | | (unavailable | 04:25 | [facility] | | | | + + + + + + + + + | Result panel 220 | + + + + + + + + + | | 2021-12-04 | [facility] | NEGATIVE | (missing) | (missing) | | (unavailable | 04:25 | [facility] | | | | + + + + + + + + + | Result panel 221 | + + + + + + + + + | | 2021-12-04 | [facility] | NEGATIVE | (missing) | (missing) | | (unavailable | 04:25 | [facility] | | | | + + + + + + + + + | Result panel 222 | + + + + + + + + + | | 2021-12-04 | [facility] | NEGATIVE | (missing) | (missing) | | (unavailable | 04:25 | [facility] | | | | + + + + + + + + + | Result panel 223 | + + + + + + + + + | | 2021-12-04 | [facility] | NEGATIVE | (missing) | (missing) | | (unavailable | 04:25 | [facility] | | | | + + + + + + + + + | Result panel 224 | + + + + + + + + + | | 2021-12-04 | [facility] | NEGATIVE | (missing) | (missing) | | (unavailable | 04:25 | [facility] | | | | + + + + + + + + + | Result panel 225 | + + + + + + + + + | | 2021-12-04 | [facility] | COLORLESS | (missing) | (missing) | | (unavailable | 04:25 | [facility] | | | | + + + + + + + + + | Result panel 226 | + + + + + +---------+ + + | | 2021-12-04 | [facility] | CLEAR | (missing) | (missing) | | (unavailable | 04:25 | [facility] | | | | + + + +---------+ + + + + | Result panel 227 | + + + + + + + + + | | 2021-12-04 | [facility] | NEGATIVE | (missing) | (missing) | | (unavailable | 04:25 | [facility] | | | | + + + + + + + + + | Result panel 228 | + + + + + + + + + | | 2021-12-04 | [facility] | NEGATIVE | (missing) | (missing) | | (unavailable | 04:25 | [facility] | | | | + + + + + + + + + | Result panel 229 | + + + + + + + + + | | 2021-12-04 | [facility] | NEGATIVE | (missing) | (missing) | | (unavailable | 04:25 | [facility] | | | | + + + + + + + + + | Result panel 230 | + + + + + + + + + | | 2021-12-04 | [facility] | <=1.005 | (missing) | (missing) | | (unavailable | 04:25 | [facility] | | | | + + + + + + + + + | Result panel 231 | + + + + + + + + + | | 2021-12-04 | [facility] | NEGATIVE | (missing) | (missing) | | (unavailable | 04:25 | [facility] | | | | + + + + + + + + + | Result panel 232 | + + + + + +-------+ + + | | 2021-12-04 | [facility] | 7.0 | (missing) | (missing) | | (unavailable | 04:25 | [facility] | | | | + + + +-------+ + + + + | Result panel 233 | + + + + + + + + + | | 2021-12-04 | [facility] | NEGATIVE | (missing) | (missing) | | (unavailable | 04:25 | [facility] | | | | + + + + + + + + + | Result panel 234 | + + + + + + + + + | | 2021-12-04 | [facility] | NORMAL | (missing) | (missing) | | (unavailable | 04:25 | [facility] | | | | + + + + + + + + + | Result panel 235 | + + + + + + + + + | | 2021-12-04 | [facility] | NEGATIVE | (missing) | (missing) | | (unavailable | 04:25 | [facility] | | | | + + + + + + + + + | Result panel 236 | + + + + + + + + + | | 2021-12-04 | [facility] | NEGATIVE | (missing) | (missing) | | (unavailable | 04:25 | [facility] | | | | + + + + + + + + + | Result panel 237 | + + + + + + + + + | | 2021-12-04 | [facility] | NEGATIVE | (missing) | (missing) | | (unavailable | 04:25 | [facility] | | | | + + + + + + + + + | Result panel 238 | + + + + + + + + + | | 2021-12-04 | [facility] | NEGATIVE | (missing) | (missing) | | (unavailable | 04:25 | [facility] | | | | + + + + + + + + + | Result panel 239 | + + + + + + + + + | | 2021-12-04 | [facility] | NEGATIVE | (missing) | (missing) | | (unavailable | 04:25 | [facility] | | | | + + + + + + + + + | Result panel 240 | + + + + + + + + + | | 2021-12-04 | [facility] | NEGATIVE | (missing) | (missing) | | (unavailable | 04:25 | [facility] | | | | + + + + + + + + + | Result panel 241 | + + + + + + + + + | | 2021-12-04 | [facility] | NEGATIVE | (missing) | (missing) | | (unavailable | 04:25 | [facility] | | | | + + + + + + + + + | Result panel 242 | + + + + + + + + + | | 2021-12-04 | [facility] | NEGATIVE | (missing) | (missing) | | (unavailable | 04:25 | [facility] | | | | + + + + + + + + + | Result panel 243 | + + + + + + + + + | | 2021-12-04 | [facility] | NEGATIVE | (missing) | (missing) | | (unavailable | 04:25 | [facility] | | | | + + + + + + + + + | Result panel 244 | + + + + + + + + + | | 2021-12-04 | [facility] | NEGATIVE | (missing) | (missing) | | (unavailable | 04:25 | [facility] | | | | + + + + + + + + + | Result panel 245 | + + + + + + + + + | | 2021-12-04 | [facility] | NEGATIVE | (missing) | (missing) | | (unavailable | 04:25 | [facility] | | | | + + + + + + + + + | Result panel 246 | + + + + + + + + + | | 2021-12-04 | [facility] | NEGATIVE | (missing) | (missing) | | (unavailable | 04:25 | [facility] | | | | + + + + + + + + + | Result panel 247 | + + + + + + + + + | | 2021-12-04 | [facility] | NEGATIVE | (missing) | (missing) | | (unavailable | 04:25 | [facility] | | | | + + + + + + + + + | Result panel 248 | + + + + + + + + + | | 2021-12-04 | [facility] | NEGATIVE | (missing) | (missing) | | (unavailable | 04:25 | [facility] | | | | + + + + + + + + + | Result panel 249 | + + + + + + + + + | | 2021-12-04 | [facility] | NEGATIVE | (missing) | (missing) | | (unavailable | 04:25 | [facility] | | | | + + + + + + + + + | Result panel 250 | + + + + + +-------+ + + | | 2021-12-08 | [facility] | 4.3 | (missing) | (missing) | | (unavailable | 14:17 | [facility] | | | | + + + +-------+ + + + + | Result panel 251 | + + + + + +--------+ + + | | 2021-12-08 | [facility] | 4.57 | (missing) | (missing) | | (unavailable | 14:17 | [facility] | | | | + + + +--------+ + + + + | Result panel 252 | + + + + + +--------+ + + | | 2021-12-08 | [facility] | 12.4 | (missing) | (missing) | | (unavailable | 14:17 | [facility] | | | | + + + +--------+ + + + + | Result panel 253 | + + + + + +--------+ + + | | 2021-12-08 | [facility] | 38.3 | (missing) | (missing) | | (unavailable | 14:17 | [facility] | | | | + + + +--------+ + + + + | Result panel 254 | + + + + + +--------+ + + | | 2021-12-08 | [facility] | 83.8 | (missing) | (missing) | | (unavailable | 14:17 | [facility] | | | | + + + +--------+ + + + + | Result panel 255 | + + + + + +--------+ + + | | 2021-12-08 | [facility] | 27.2 | (missing) | (missing) | | (unavailable | 14:17 | [facility] | | | | + + + +--------+ + + + + | Result panel 256 | + + + + + +--------+ + + | | 2021-12-08 | [facility] | 32.5 | (missing) | (missing) | | (unavailable | 14:17 | [facility] | | | | + + + +--------+ + + + + | Result panel 257 | + + + + + +--------+ + + | | 2021-12-08 | [facility] | 13.8 | (missing) | (missing) | | (unavailable | 14:17 | [facility] | | | | + + + +--------+ + + + + | Result panel 258 | + + + + + +-------+ + + | | 2021-12-08 | [facility] | 171 | (missing) | (missing) | | (unavailable | 14:17 | [facility] | | | | + + + +-------+ + + + + | Result panel 259 | + + + + + +--------+ + + | | 2021-12-08 | [facility] | 64.7 | (missing) | (missing) | | (unavailable | 14:17 | [facility] | | | | + + + +--------+ + + + + | Result panel 260 | + + + + + +--------+ + + | | 2021-12-08 | [facility] | 23.2 | (missing) | (missing) | | (unavailable | 14:17 | [facility] | | | | + + + +--------+ + + + + | Result panel 261 | + + + + + +-------+ + + | | 2021-12-08 | [facility] | 7.5 | (missing) | (missing) | | (unavailable | 14:17 | [facility] | | | | + + + +-------+ + + + + | Result panel 262 | + + + + + +-------+ + + | | 2021-12-08 | [facility] | 3.7 | (missing) | (missing) | | (unavailable | 14:17 | [facility] | | | | + + + +-------+ + + + + | Result panel 263 | + + + + + +-------+ + + | | 2021-12-08 | [facility] | 0.9 | (missing) | (missing) | | (unavailable | 14:17 | [facility] | | | | + + + +-------+ + + + + | Result panel 264 | + + + + + +------+---------+ + | | 2021-12-08 | [facility] | 92 | mg/dL | (missing) | | (unavailable | 14:17 | [facility] | | | | + + + +------+---------+ + + + | Result panel 265 | + + + + + +------+---------+ + | | 2021-12-08 | [facility] | 11 | mg/dL | (missing) | | (unavailable | 14:17 | [facility] | | | | + + + +------+---------+ + + + | Result panel 266 | + + + + + +--------+---------+ + | | 2021-12-08 | [facility] | 0.95 | mg/dL | (missing) | | (unavailable | 14:17 | [facility] | | | | + + + +--------+---------+ + + + | Result panel 267 | + + + + + +------+ + + | | 2021-12-08 | [facility] | 73 | (missing) | (missing) | | (unavailable | 14:17 | [facility] | | | | + + + +------+ + + + + | Result panel 268 | + + + + + +---------+ + + | | 2021-12-08 | [facility] | 11.57 | (missing) | (missing) | | (unavailable | 14:17 | [facility] | | | | + + + +---------+ + + + + | Result panel 269 | + + + + + +-------+ + + | | 2021-12-08 | [facility] | 142 | (missing) | (missing) | | (unavailable | 14:17 | [facility] | | | | + + + +-------+ + + + + | Result panel 270 | + + + + + +-------+ + + | | 2021-12-08 | [facility] | 3.6 | (missing) | (missing) | | (unavailable | 14:17 | [facility] | | | | + + + +-------+ + + + + | Result panel 271 | + + + + + +-------+ + + | | 2021-12-08 | [facility] | 105 | (missing) | (missing) | | (unavailable | 14:17 | [facility] | | | | + + + +-------+ + + + + | Result panel 272 | + + + + + +------+ + + | | 2021-12-08 | [facility] | 26 | (missing) | (missing) | | (unavailable | 14:17 | [facility] | | | | + + + +------+ + + + + | Result panel 273 | + + + + + +--------+ + + | | 2021-12-08 | [facility] | 14.6 | (missing) | (missing) | | (unavailable | 14:17 | [facility] | | | | + + + +--------+ + + + + | Result panel 274 | + + + + + +-------+---------+ + | | 2021-12-08 | [facility] | 8.5 | mg/dL | (missing) | | (unavailable | 14:17 | [facility] | | | | + + + +-------+---------+ + + + | Result panel 275 | + + + + + +-------+ + + | | 2021-12-08 | [facility] | 6.9 | (missing) | (missing) | | (unavailable | 14:17 | [facility] | | | | + + + +-------+ + + + + | Result panel 276 | + + + + + +-------+ + + | | 2021-12-08 | [facility] | 3.6 | (missing) | (missing) | | (unavailable | 14:17 | [facility] | | | | + + + +-------+ + + + + | Result panel 277 | + + + + + +-------+ + + | | 2021-12-08 | [facility] | 3.3 | (missing) | (missing) | | (unavailable | 14:17 | [facility] | | | | + + + +-------+ + + + + | Result panel 278 | + + + + + +--------+ + + | | 2021-12-08 | [facility] | 1.09 | (missing) | (missing) | | (unavailable | 14:17 | [facility] | | | | + + + +--------+ + + + + | Result panel 279 | + + + + + +-------+ + + | | 2021-12-08 | [facility] | 0.6 | (missing) | (missing) | | (unavailable | 14:17 | [facility] | | | | + + + +-------+ + + + + | Result panel 280 | + + + + + +-----+ + + | | 2021-12-08 | [facility] | 7 | (missing) | (missing) | | (unavailable | 14:17 | [facility] | | | | + + + +-----+ + + + + | Result panel 281 | + + + + + +------+ + + | | 2021-12-08 | [facility] | 19 | (missing) | (missing) | | (unavailable | 14:17 | [facility] | | | | + + + +------+ + + + + | Result panel 282 | + + + + + +-------+ + + | | 2021-12-08 | [facility] | 102 | (missing) | (missing) | | (unavailable | 14:17 | [facility] | | | | + + + +-------+ + + + + | Result panel 283 | + + + + + +-------+ + + | | 2021-12-08 | [facility] | 4.3 | (missing) | (missing) | | (unavailable | 14:17 | [facility] | | | | + + + +-------+ + + + + | Result panel 284 | + + + + + +--------+ + + | | 2021-12-08 | [facility] | 4.57 | (missing) | (missing) | | (unavailable | 14:17 | [facility] | | | | + + + +--------+ + + + + | Result panel 285 | + + + + + +--------+ + + | | 2021-12-08 | [facility] | 12.4 | (missing) | (missing) | | (unavailable | 14:17 | [facility] | | | | + + + +--------+ + + + + | Result panel 286 | + + + + + +--------+ + + | | 2021-12-08 | [facility] | 38.3 | (missing) | (missing) | | (unavailable | 14:17 | [facility] | | | | + + + +--------+ + + + + | Result panel 287 | + + + + + +--------+ + + | | 2021-12-08 | [facility] | 83.8 | (missing) | (missing) | | (unavailable | 14:17 | [facility] | | | | + + + +--------+ + + + + | Result panel 288 | + + + + + +--------+ + + | | 2021-12-08 | [facility] | 27.2 | (missing) | (missing) | | (unavailable | 14:17 | [facility] | | | | + + + +--------+ + + + + | Result panel 289 | + + + + + +--------+ + + | | 2021-12-08 | [facility] | 32.5 | (missing) | (missing) | | (unavailable | 14:17 | [facility] | | | | + + + +--------+ + + + + | Result panel 290 | + + + + + +--------+ + + | | 2021-12-08 | [facility] | 13.8 | (missing) | (missing) | | (unavailable | 14:17 | [facility] | | | | + + + +--------+ + + + + | Result panel 291 | + + + + + +-------+ + + | | 2021-12-08 | [facility] | 171 | (missing) | (missing) | | (unavailable | 14:17 | [facility] | | | | + + + +-------+ + + + + | Result panel 292 | + + + + + +--------+ + + | | 2021-12-08 | [facility] | 64.7 | (missing) | (missing) | | (unavailable | 14:17 | [facility] | | | | + + + +--------+ + + + + | Result panel 293 | + + + + + +--------+ + + | | 2021-12-08 | [facility] | 23.2 | (missing) | (missing) | | (unavailable | 14:17 | [facility] | | | | + + + +--------+ + + + + | Result panel 294 | + + + + + +-------+ + + | | 2021-12-08 | [facility] | 7.5 | (missing) | (missing) | | (unavailable | 14:17 | [facility] | | | | + + + +-------+ + + + + | Result panel 295 | + + + + + +-------+ + + | | 2021-12-08 | [facility] | 3.7 | (missing) | (missing) | | (unavailable | 14:17 | [facility] | | | | + + + +-------+ + + + + | Result panel 296 | + + + + + +-------+ + + | | 2021-12-08 | [facility] | 0.9 | (missing) | (missing) | | (unavailable | 14:17 | [facility] | | | | + + + +-------+ + + + + | Result panel 297 | + + + + + +------+---------+ + | | 2021-12-08 | [facility] | 92 | mg/dL | (missing) | | (unavailable | 14:17 | [facility] | | | | + + + +------+---------+ + + + | Result panel 298 | + + + + + +------+---------+ + | | 2021-12-08 | [facility] | 11 | mg/dL | (missing) | | (unavailable | 14:17 | [facility] | | | | + + + +------+---------+ + + + | Result panel 299 | + + + + + +--------+---------+ + | | 2021-12-08 | [facility] | 0.95 | mg/dL | (missing) | | (unavailable | 14:17 | [facility] | | | | + + + +--------+---------+ + + + | Result panel 300 | + + + + + +------+ + + | | 2021-12-08 | [facility] | 73 | (missing) | (missing) | | (unavailable | 14:17 | [facility] | | | | + + + +------+ + + + + | Result panel 301 | + + + + + +---------+ + + | | 2021-12-08 | [facility] | 11.57 | (missing) | (missing) | | (unavailable | 14:17 | [facility] | | | | + + + +---------+ + + + + | Result panel 302 | + + + + + +-------+ + + | | 2021-12-08 | [facility] | 142 | (missing) | (missing) | | (unavailable | 14:17 | [facility] | | | | + + + +-------+ + + + + | Result panel 303 | + + + + + +-------+ + + | | 2021-12-08 | [facility] | 3.6 | (missing) | (missing) | | (unavailable | 14:17 | [facility] | | | | + + + +-------+ + + + + | Result panel 304 | + + + + + +-------+ + + | | 2021-12-08 | [facility] | 105 | (missing) | (missing) | | (unavailable | 14:17 | [facility] | | | | + + + +-------+ + + + + | Result panel 305 | + + + + + +------+ + + | | 2021-12-08 | [facility] | 26 | (missing) | (missing) | | (unavailable | 14:17 | [facility] | | | | + + + +------+ + + + + | Result panel 306 | + + + + + +--------+ + + | | 2021-12-08 | [facility] | 14.6 | (missing) | (missing) | | (unavailable | 14:17 | [facility] | | | | + + + +--------+ + + + + | Result panel 307 | + + + + + +-------+---------+ + | | 2021-12-08 | [facility] | 8.5 | mg/dL | (missing) | | (unavailable | 14:17 | [facility] | | | | + + + +-------+---------+ + + + | Result panel 308 | + + + + + +-------+ + + | | 2021-12-08 | [facility] | 6.9 | (missing) | (missing) | | (unavailable | 14:17 | [facility] | | | | + + + +-------+ + + + + | Result panel 309 | + + + + + +-------+ + + | | 2021-12-08 | [facility] | 3.6 | (missing) | (missing) | | (unavailable | 14:17 | [facility] | | | | + + + +-------+ + + + + | Result panel 310 | + + + + + +-------+ + + | | 2021-12-08 | [facility] | 3.3 | (missing) | (missing) | | (unavailable | 14:17 | [facility] | | | | + + + +-------+ + + + + | Result panel 311 | + + + + + +--------+ + + | | 2021-12-08 | [facility] | 1.09 | (missing) | (missing) | | (unavailable | 14:17 | [facility] | | | | + + + +--------+ + + + + | Result panel 312 | + + + + + +-------+ + + | | 2021-12-08 | [facility] | 0.6 | (missing) | (missing) | | (unavailable | 14:17 | [facility] | | | | + + + +-------+ + + + + | Result panel 313 | + + + + + +-----+ + + | | 2021-12-08 | [facility] | 7 | (missing) | (missing) | | (unavailable | 14:17 | [facility] | | | | + + + +-----+ + + + + | Result panel 314 | + + + + + +------+ + + | | 2021-12-08 | [facility] | 19 | (missing) | (missing) | | (unavailable | 14:17 | [facility] | | | | + + + +------+ + + + + | Result panel 315 | + + + + + +-------+ + + | | 2021-12-08 | [facility] | 102 | (missing) | (missing) | | (unavailable | 14:17 | [facility] | | | | + + + +-------+ + + + + | Result panel 316 | + + + + + +-------+ + + | | 2021-12-08 | [facility] | 4.3 | (missing) | (missing) | | (unavailable | 14:17 | [facility] | | | | + + + +-------+ + + + + | Result panel 317 | + + + + + +--------+ + + | | 2021-12-08 | [facility] | 4.57 | (missing) | (missing) | | (unavailable | 14:17 | [facility] | | | | + + + +--------+ + + + + | Result panel 318 | + + + + + +--------+ + + | | 2021-12-08 | [facility] | 12.4 | (missing) | (missing) | | (unavailable | 14:17 | [facility] | | | | + + + +--------+ + + + + | Result panel 319 | + + + + + +--------+ + + | | 2021-12-08 | [facility] | 38.3 | (missing) | (missing) | | (unavailable | 14:17 | [facility] | | | | + + + +--------+ + + + + | Result panel 320 | + + + + + +--------+ + + | | 2021-12-08 | [facility] | 83.8 | (missing) | (missing) | | (unavailable | 14:17 | [facility] | | | | + + + +--------+ + + + + | Result panel 321 | + + + + + +--------+ + + | | 2021-12-08 | [facility] | 27.2 | (missing) | (missing) | | (unavailable | 14:17 | [facility] | | | | + + + +--------+ + + + + | Result panel 322 | + + + + + +--------+ + + | | 2021-12-08 | [facility] | 32.5 | (missing) | (missing) | | (unavailable | 14:17 | [facility] | | | | + + + +--------+ + + + + | Result panel 323 | + + + + + +--------+ + + | | 2021-12-08 | [facility] | 13.8 | (missing) | (missing) | | (unavailable | 14:17 | [facility] | | | | + + + +--------+ + + + + | Result panel 324 | + + + + + +-------+ + + | | 2021-12-08 | [facility] | 171 | (missing) | (missing) | | (unavailable | 14:17 | [facility] | | | | + + + +-------+ + + + + | Result panel 325 | + + + + + +--------+ + + | | 2021-12-08 | [facility] | 64.7 | (missing) | (missing) | | (unavailable | 14:17 | [facility] | | | | + + + +--------+ + + + + | Result panel 326 | + + + + + +--------+ + + | | 2021-12-08 | [facility] | 23.2 | (missing) | (missing) | | (unavailable | 14:17 | [facility] | | | | + + + +--------+ + + + + | Result panel 327 | + + + + + +-------+ + + | | 2021-12-08 | [facility] | 7.5 | (missing) | (missing) | | (unavailable | 14:17 | [facility] | | | | + + + +-------+ + + + + | Result panel 328 | + + + + + +-------+ + + | | 2021-12-08 | [facility] | 3.7 | (missing) | (missing) | | (unavailable | 14:17 | [facility] | | | | + + + +-------+ + + + + | Result panel 329 | + + + + + +-------+ + + | | 2021-12-08 | [facility] | 0.9 | (missing) | (missing) | | (unavailable | 14:17 | [facility] | | | | + + + +-------+ + + + + | Result panel 330 | + + + + + +------+---------+ + | | 2021-12-08 | [facility] | 92 | mg/dL | (missing) | | (unavailable | 14:17 | [facility] | | | | + + + +------+---------+ + + + | Result panel 331 | + + + + + +------+---------+ + | | 2021-12-08 | [facility] | 11 | mg/dL | (missing) | | (unavailable | 14:17 | [facility] | | | | + + + +------+---------+ + + + | Result panel 332 | + + + + + +--------+---------+ + | | 2021-12-08 | [facility] | 0.95 | mg/dL | (missing) | | (unavailable | 14:17 | [facility] | | | | + + + +--------+---------+ + + + | Result panel 333 | + + + + + +------+ + + | | 2021-12-08 | [facility] | 73 | (missing) | (missing) | | (unavailable | 14:17 | [facility] | | | | + + + +------+ + + + + | Result panel 334 | + + + + + +---------+ + + | | 2021-12-08 | [facility] | 11.57 | (missing) | (missing) | | (unavailable | 14:17 | [facility] | | | | + + + +---------+ + + + + | Result panel 335 | + + + + + +-------+ + + | | 2021-12-08 | [facility] | 142 | (missing) | (missing) | | (unavailable | 14:17 | [facility] | | | | + + + +-------+ + + + + | Result panel 336 | + + + + + +-------+ + + | | 2021-12-08 | [facility] | 3.6 | (missing) | (missing) | | (unavailable | 14:17 | [facility] | | | | + + + +-------+ + + + + | Result panel 337 | + + + + + +-------+ + + | | 2021-12-08 | [facility] | 105 | (missing) | (missing) | | (unavailable | 14:17 | [facility] | | | | + + + +-------+ + + + + | Result panel 338 | + + + + + +------+ + + | | 2021-12-08 | [facility] | 26 | (missing) | (missing) | | (unavailable | 14:17 | [facility] | | | | + + + +------+ + + + + | Result panel 339 | + + + + + +--------+ + + | | 2021-12-08 | [facility] | 14.6 | (missing) | (missing) | | (unavailable | 14:17 | [facility] | | | | + + + +--------+ + + + + | Result panel 340 | + + + + + +-------+---------+ + | | 2021-12-08 | [facility] | 8.5 | mg/dL | (missing) | | (unavailable | 14:17 | [facility] | | | | + + + +-------+---------+ + + + | Result panel 341 | + + + + + +-------+ + + | | 2021-12-08 | [facility] | 6.9 | (missing) | (missing) | | (unavailable | 14:17 | [facility] | | | | + + + +-------+ + + + + | Result panel 342 | + + + + + +-------+ + + | | 2021-12-08 | [facility] | 3.6 | (missing) | (missing) | | (unavailable | 14:17 | [facility] | | | | + + + +-------+ + + + + | Result panel 343 | + + + + + +-------+ + + | | 2021-12-08 | [facility] | 3.3 | (missing) | (missing) | | (unavailable | 14:17 | [facility] | | | | + + + +-------+ + + + + | Result panel 344 | + + + + + +--------+ + + | | 2021-12-08 | [facility] | 1.09 | (missing) | (missing) | | (unavailable | 14:17 | [facility] | | | | + + + +--------+ + + + + | Result panel 345 | + + + + + +-------+ + + | | 2021-12-08 | [facility] | 0.6 | (missing) | (missing) | | (unavailable | 14:17 | [facility] | | | | + + + +-------+ + + + + | Result panel 346 | + + + + + +-----+ + + | | 2021-12-08 | [facility] | 7 | (missing) | (missing) | | (unavailable | 14:17 | [facility] | | | | + + + +-----+ + + + + | Result panel 347 | + + + + + +------+ + + | | 2021-12-08 | [facility] | 19 | (missing) | (missing) | | (unavailable | 14:17 | [facility] | | | | + + + +------+ + + + + | Result panel 348 | + + + + + +-------+ + + | | 2021-12-08 | [facility] | 102 | (missing) | (missing) | | (unavailable | 14:17 | [facility] | | | | + + + +-------+ + + + + | Result panel 349 | + + + + + +-------+ + + | | 2022-05-24 | [facility] | 1.0 | (missing) | (missing) | | (unavailable | 09:00:07 | [facility] | | | | + + + +-------+ + + + + | Result panel 350 | + + + + + + + + + | | 2022-05-24 | [facility] | < 0.27 | (missing) | (missing) | | (unavailable | 09::07 | [facility] | | | | + + + + + + + + + | Result panel 351 | + + + + + +-------+---------+ + | | 2022-05-24 | [facility] | 123 | mg/dL | (missing) | | (unavailable | :00:07 | [facility] | | | | + + + +-------+---------+ + + + | Result panel 352 | + + + + + +-----+---------+ + | | 2022-05-24 | [facility] | 9 | mg/dL | (missing) | | (unavailable | 09::07 | [facility] | | | | + + + +-----+---------+ + + + | Result panel 353 | + + + + + +--------+---------+ + | | 2022-05-24 | [facility] | 0.92 | mg/dL | (missing) | | (unavailable | :00:07 | [facility] | | | | + + + +--------+---------+ + + + | Result panel 354 | + + + + + +------+ + + | | 2022-05-24 | [facility] | 75 | (missing) | (missing) | | (unavailable | 09:00:07 | [facility] | | | | + + + +------+ + + + + | Result panel 355 | + + + + + +--------+ + + | | 2022-05-24 | [facility] | 9.78 | (missing) | (missing) | | (unavailable | 09:00:07 | [facility] | | | | + + + +--------+ + + + + | Result panel 356 | + + + + + +-------+ + + | | 2022-05-24 | [facility] | 139 | (missing) | (missing) | | (unavailable | 09:00:07 | [facility] | | | | + + + +-------+ + + + + | Result panel 357 | + + + + + +-------+ + + | | 2022-05-24 | [facility] | 3.5 | (missing) | (missing) | | (unavailable | 09:00:07 | [facility] | | | | + + + +-------+ + + + + | Result panel 358 | + + + + + +-------+ + + | | 2022-05-24 | [facility] | 101 | (missing) | (missing) | | (unavailable | 09:00:07 | [facility] | | | | + + + +-------+ + + + + | Result panel 359 | + + + + + +------+ + + | | 2022-05-24 | [facility] | 26 | (missing) | (missing) | | (unavailable | 09:00:07 | [facility] | | | | + + + +------+ + + + + | Result panel 360 | + + + + + +--------+ + + | | 2022-05-24 | [facility] | 15.5 | (missing) | (missing) | | (unavailable | 09:00:07 | [facility] | | | | + + + +--------+ + + + + | Result panel 361 | + + + + + +-------+---------+ + | | 2022-05-24 | [facility] | 9.5 | mg/dL | (missing) | | (unavailable | 09:00:07 | [facility] | | | | + + + +-------+---------+ + + + | Result panel 362 | + + + + + +-------+---------+ + | | 2022-05-24 | [facility] | 2.2 | mg/dL | (missing) | | (unavailable | 09:00:07 | [facility] | | | | + + + +-------+---------+ + + + | Result panel 363 | + + + + + +-------+ + + | | 2022-05-24 | [facility] | 7.2 | (missing) | (missing) | | (unavailable | 09:00:07 | [facility] | | | | + + + +-------+ + + + + | Result panel 364 | + + + + + +-------+ + + | | 2022-05-24 | [facility] | 3.8 | (missing) | (missing) | | (unavailable | 09:00:07 | [facility] | | | | + + + +-------+ + + + + | Result panel 365 | + + + + + +-------+ + + | | 2022-05-24 | [facility] | 3.4 | (missing) | (missing) | | (unavailable | 09:00:07 | [facility] | | | | + + + +-------+ + + + + | Result panel 366 | + + + + + +--------+ + + | | 2022-05-24 | [facility] | 1.12 | (missing) | (missing) | | (unavailable | 09:00:07 | [facility] | | | | + + + +--------+ + + + + | Result panel 367 | + + + + + +-------+ + + | | 2022-05-24 | [facility] | 0.4 | (missing) | (missing) | | (unavailable | 09:00:07 | [facility] | | | | + + + +-------+ + + + + | Result panel 368 | + + + + + +------+ + + | | 2022-05-24 | [facility] | 13 | (missing) | (missing) | | (unavailable | 09:00:07 | [facility] | | | | + + + +------+ + + + + | Result panel 369 | + + + + + +------+ + + | | 2022-05-24 | [facility] | 27 | (missing) | (missing) | | (unavailable | 09:00:07 | [facility] | | | | + + + +------+ + + + + | Result panel 370 | + + + + + +-------+ + + | | 2022-05-24 | [facility] | 115 | (missing) | (missing) | | (unavailable | 09:00:07 | [facility] | | | | + + + +-------+ + + + + | Result panel 371 | + + + + + +-------+ + + | | 2022-05-24 | [facility] | 5.0 | (missing) | (missing) | | (unavailable | 09:00:07 | [facility] | | | | + + + +-------+ + + + + | Result panel 372 | + + + + + +--------+ + + | | 2022-05-24 | [facility] | 4.66 | (missing) | (missing) | | (unavailable | 09:00:07 | [facility] | | | | + + + +--------+ + + + + | Result panel 373 | + + + + + +--------+ + + | | 2022-05-24 | [facility] | 12.8 | (missing) | (missing) | | (unavailable | 09:00:07 | [facility] | | | | + + + +--------+ + + + + | Result panel 374 | + + + + + +--------+ + + | | 2022-05-24 | [facility] | 38.7 | (missing) | (missing) | | (unavailable | 09:00:07 | [facility] | | | | + + + +--------+ + + + + | Result panel 375 | + + + + + +--------+ + + | | 2022-05-24 | [facility] | 83.0 | (missing) | (missing) | | (unavailable | 09::07 | [facility] | | | | + + + +--------+ + + + + | Result panel 376 | + + + + + +--------+ + + | | 2022-05-24 | [facility] | 27.4 | (missing) | (missing) | | (unavailable | 09::07 | [facility] | | | | + + + +--------+ + + + + | Result panel 377 | + + + + + +--------+ + + | | 2022-05-24 | [facility] | 33.0 | (missing) | (missing) | | (unavailable | 09:00:07 | [facility] | | | | + + + +--------+ + + + + | Result panel 378 | + + + + + +--------+ + + | | 2022-05-24 | [facility] | 14.7 | (missing) | (missing) | | (unavailable | 09:00:07 | [facility] | | | | + + + +--------+ + + + + | Result panel 379 | + + + + + +-------+ + + | | 2022-05-24 | [facility] | 204 | (missing) | (missing) | | (unavailable | 09:00:07 | [facility] | | | | + + + +-------+ + + + + | Result panel 380 | + + + + + +--------+ + + | | 2022-05-24 | [facility] | 56.9 | (missing) | (missing) | | (unavailable | 09:00:07 | [facility] | | | | + + + +--------+ + + + + | Result panel 381 | + + + + + +--------+ + + | | 2022-05-24 | [facility] | 31.5 | (missing) | (missing) | | (unavailable | 09:00:07 | [facility] | | | | + + + +--------+ + + + + | Result panel 382 | + + + + + +-------+ + + | | 2022-05-24 | [facility] | 8.2 | (missing) | (missing) | | (unavailable | 09:00:07 | [facility] | | | | + + + +-------+ + + + + | Result panel 383 | + + + + + +-------+ + + | | 2022-05-24 | [facility] | 2.4 | (missing) | (missing) | | (unavailable | 09:00:07 | [facility] | | | | + + + +-------+ + + + + | Result panel 384 | + + + + + +-------+ + + | | 2022-05-24 | [facility] | 1.0 | (missing) | (missing) | | (unavailable | 09:00:07 | [facility] | | | | + + + +-------+ + + + + | Result panel 385 | + + + + + + + + + | | 2022-05-24 | [facility] | < 0.27 | (missing) | (missing) | | (unavailable | 09:00:07 | [facility] | | | | + + + + + + + + + | Result panel 386 | + + + + + +-------+---------+ + | | 2022-05-24 | [facility] | 123 | mg/dL | (missing) | | (unavailable | 09:00:07 | [facility] | | | | + + + +-------+---------+ + + + | Result panel 387 | + + + + + +-----+---------+ + | | 2022-05-24 | [facility] | 9 | mg/dL | (missing) | | (unavailable | :00:07 | [facility] | | | | + + + +-----+---------+ + + + | Result panel 388 | + + + + + +--------+---------+ + | | 2022-05-24 | [facility] | 0.92 | mg/dL | (missing) | | (unavailable | 09:00:07 | [facility] | | | | + + + +--------+---------+ + + + | Result panel 389 | + + + + + +------+ + + | | 2022-05-24 | [facility] | 75 | (missing) | (missing) | | (unavailable | 09:00:07 | [facility] | | | | + + + +------+ + + + + | Result panel 390 | + + + + + +--------+ + + | | 2022-05-24 | [facility] | 9.78 | (missing) | (missing) | | (unavailable | 09:00:07 | [facility] | | | | + + + +--------+ + + + + | Result panel 391 | + + + + + +-------+ + + | | 2022-05-24 | [facility] | 139 | (missing) | (missing) | | (unavailable | 09:00:07 | [facility] | | | | + + + +-------+ + + + + | Result panel 392 | + + + + + +-------+ + + | | 2022-05-24 | [facility] | 3.5 | (missing) | (missing) | | (unavailable | 09:00:07 | [facility] | | | | + + + +-------+ + + + + | Result panel 393 | + + + + + +-------+ + + | | 2022-05-24 | [facility] | 101 | (missing) | (missing) | | (unavailable | 09:00:07 | [facility] | | | | + + + +-------+ + + + + | Result panel 394 | + + + + + +------+ + + | | 2022-05-24 | [facility] | 26 | (missing) | (missing) | | (unavailable | 09:00:07 | [facility] | | | | + + + +------+ + + + + | Result panel 395 | + + + + + +--------+ + + | | 2022-05-24 | [facility] | 15.5 | (missing) | (missing) | | (unavailable | 09:00:07 | [facility] | | | | + + + +--------+ + + + + | Result panel 396 | + + + + + +-------+---------+ + | | 2022-05-24 | [facility] | 9.5 | mg/dL | (missing) | | (unavailable | 09:00:07 | [facility] | | | | + + + +-------+---------+ + + + | Result panel 397 | + + + + + +-------+---------+ + | | 2022-05-24 | [facility] | 2.2 | mg/dL | (missing) | | (unavailable | 09::07 | [facility] | | | | + + + +-------+---------+ + + + | Result panel 398 | + + + + + +-------+ + + | | 2022-05-24 | [facility] | 7.2 | (missing) | (missing) | | (unavailable | 09:00:07 | [facility] | | | | + + + +-------+ + + + + | Result panel 399 | + + + + + +-------+ + + | | 2022-05-24 | [facility] | 3.8 | (missing) | (missing) | | (unavailable | 09:00:07 | [facility] | | | | + + + +-------+ + + + + | Result panel 400 | + + + + + +-------+ + + | | 2022-05-24 | [facility] | 3.4 | (missing) | (missing) | | (unavailable | 09:00:07 | [facility] | | | | + + + +-------+ + + + + | Result panel 401 | + + + + + +--------+ + + | | 2022-05-24 | [facility] | 1.12 | (missing) | (missing) | | (unavailable | 09:00:07 | [facility] | | | | + + + +--------+ + + + + | Result panel 402 | + + + + + +-------+ + + | | 2022-05-24 | [facility] | 0.4 | (missing) | (missing) | | (unavailable | 09:00:07 | [facility] | | | | + + + +-------+ + + + + | Result panel 403 | + + + + + +------+ + + | | 2022-05-24 | [facility] | 13 | (missing) | (missing) | | (unavailable | 09:00:07 | [facility] | | | | + + + +------+ + + + + | Result panel 404 | + + + + + +------+ + + | | 2022-05-24 | [facility] | 27 | (missing) | (missing) | | (unavailable | 09:00:07 | [facility] | | | | + + + +------+ + + + + | Result panel 405 | + + + + + +-------+ + + | | 2022-05-24 | [facility] | 115 | (missing) | (missing) | | (unavailable | 09:00:07 | [facility] | | | | + + + +-------+ + + + + | Result panel 406 | + + + + + +-------+ + + | | 2022-05-24 | [facility] | 5.0 | (missing) | (missing) | | (unavailable | 09:00:07 | [facility] | | | | + + + +-------+ + + + + | Result panel 407 | + + + + + +--------+ + + | | 2022-05-24 | [facility] | 4.66 | (missing) | (missing) | | (unavailable | 09:00:07 | [facility] | | | | + + + +--------+ + + + + | Result panel 408 | + + + + + +--------+ + + | | 2022-05-24 | [facility] | 12.8 | (missing) | (missing) | | (unavailable | 09:00:07 | [facility] | | | | + + + +--------+ + + + + | Result panel 409 | + + + + + +--------+ + + | | 2022-05-24 | [facility] | 38.7 | (missing) | (missing) | | (unavailable | 09:00:07 | [facility] | | | | + + + +--------+ + + + + | Result panel 410 | + + + + + +--------+ + + | | 2022-05-24 | [facility] | 83.0 | (missing) | (missing) | | (unavailable | 09:00:07 | [facility] | | | | + + + +--------+ + + + + | Result panel 411 | + + + + + +--------+ + + | | 2022-05-24 | [facility] | 27.4 | (missing) | (missing) | | (unavailable | 09:00:07 | [facility] | | | | + + + +--------+ + + + + | Result panel 412 | + + + + + +--------+ + + | | 2022-05-24 | [facility] | 33.0 | (missing) | (missing) | | (unavailable | 09:00:07 | [facility] | | | | + + + +--------+ + + + + | Result panel 413 | + + + + + +--------+ + + | | 2022-05-24 | [facility] | 14.7 | (missing) | (missing) | | (unavailable | 09:00:07 | [facility] | | | | + + + +--------+ + + + + | Result panel 414 | + + + + + +-------+ + + | | 2022-05-24 | [facility] | 204 | (missing) | (missing) | | (unavailable | 09:00:07 | [facility] | | | | + + + +-------+ + + + + | Result panel 415 | + + + + + +--------+ + + | | 2022-05-24 | [facility] | 56.9 | (missing) | (missing) | | (unavailable | 09:00:07 | [facility] | | | | + + + +--------+ + + + + | Result panel 416 | + + + + + +--------+ + + | | 2022-05-24 | [facility] | 31.5 | (missing) | (missing) | | (unavailable | 09:00:07 | [facility] | | | | + + + +--------+ + + + + | Result panel 417 | + + + + + +-------+ + + | | 2022-05-24 | [facility] | 8.2 | (missing) | (missing) | | (unavailable | 09:00:07 | [facility] | | | | + + + +-------+ + + + + | Result panel 418 | + + + + + +-------+ + + | | 2022-05-24 | [facility] | 2.4 | (missing) | (missing) | | (unavailable | 09:00:07 | [facility] | | | | + + + +-------+ + + + + | Result panel 419 | + + + + + +-------+ + + | | 2022-05-24 | [facility] | 4.0 | (missing) | (missing) | | (unavailable | 10:25:07 | [facility] | | | | + + + +-------+ + + + + | Result panel 420 | + + + + + +-------+ + + | | 2022-05-24 | [facility] | 4.0 | (missing) | (missing) | | (unavailable | 10:25:07 | [facility] | | | | + + + +-------+ + + + + | Result panel 421 | + + + + + +-------+ + + | | 2022-06-12 | [facility] | 5.0 | (missing) | (missing) | | (unavailable | 00:07:07 | [facility] | | | | + + + +-------+ + + + + | Result panel 422 | + + + + + +--------+ + + | | 2022-06-12 | [facility] | 66.0 | (missing) | (missing) | | (unavailable | 00:07:07 | [facility] | | | | + + + +--------+ + + + + | Result panel 423 | + + + + + +--------+ + + | | 2022-06-12 | [facility] | 24.3 | (missing) | (missing) | | (unavailable | 00:07:07 | [facility] | | | | + + + +--------+ + + + + | Result panel 424 | + + + + + +-------+ + + | | 2022-06-12 | [facility] | 6.9 | (missing) | (missing) | | (unavailable | 00:07:07 | [facility] | | | | + + + +-------+ + + + + | Result panel 425 | + + + + + +-------+ + + | | 2022-06-12 | [facility] | 2.6 | (missing) | (missing) | | (unavailable | 00:07:07 | [facility] | | | | + + + +-------+ + + + + | Result panel 426 | + + + + + +-------+ + + | | 2022-06-12 | [facility] | 0.2 | (missing) | (missing) | | (unavailable | 00:07:07 | [facility] | | | | + + + +-------+ + + + + | Result panel 427 | + + + + + +-------+---------+ + | | 2022-06-12 | [facility] | 103 | mg/dL | (missing) | | (unavailable | 00:07:07 | [facility] | | | | + + + +-------+---------+ + + + | Result panel 428 | + + + + + +------+---------+ + | | 2022-06-12 | [facility] | 11 | mg/dL | (missing) | | (unavailable | 00::07 | [facility] | | | | + + + +------+---------+ + + + | Result panel 429 | + + + + + +--------+---------+ + | | 2022-06-12 | [facility] | 0.79 | mg/dL | (missing) | | (unavailable | 00:07:07 | [facility] | | | | + + + +--------+---------+ + + + | Result panel 430 | + + + + + +------+ + + | | 2022-06-12 | [facility] | 91 | (missing) | (missing) | | (unavailable | 00:07:07 | [facility] | | | | + + + +------+ + + + + | Result panel 431 | + + + + + +---------+ + + | | 2022-06-12 | [facility] | 13.92 | (missing) | (missing) | | (unavailable | 00:07:07 | [facility] | | | | + + + +---------+ + + + + | Result panel 432 | + + + + + +--------+ + + | | 2022-06-12 | [facility] | 4.61 | (missing) | (missing) | | (unavailable | 00:07:07 | [facility] | | | | + + + +--------+ + + + + | Result panel 433 | + + + + + +-------+ + + | | 2022-06-12 | [facility] | 139 | (missing) | (missing) | | (unavailable | 00:07:07 | [facility] | | | | + + + +-------+ + + + + | Result panel 434 | + + + + + +-------+ + + | | 2022-06-12 | [facility] | 3.3 | (missing) | (missing) | | (unavailable | 00:07:07 | [facility] | | | | + + + +-------+ + + + + | Result panel 435 | + + + + + +-------+ + + | | 2022-06-12 | [facility] | 102 | (missing) | (missing) | | (unavailable | 00:07:07 | [facility] | | | | + + + +-------+ + + + + | Result panel 436 | + + + + + +------+ + + | | 2022-06-12 | [facility] | 28 | (missing) | (missing) | | (unavailable | 00:07:07 | [facility] | | | | + + + +------+ + + + + | Result panel 437 | + + + + + +--------+ + + | | 2022-06-12 | [facility] | 12.3 | (missing) | (missing) | | (unavailable | 00:07:07 | [facility] | | | | + + + +--------+ + + + + | Result panel 438 | + + + + + +-------+---------+ + | | 2022-06-12 | [facility] | 9.5 | mg/dL | (missing) | | (unavailable | 00:07:07 | [facility] | | | | + + + +-------+---------+ + + + | Result panel 439 | + + + + + +-------+---------+ + | | 2022-06-12 | [facility] | 2.2 | mg/dL | (missing) | | (unavailable | 00:07:07 | [facility] | | | | + + + +-------+---------+ + + + | Result panel 440 | + + + + + +-------+ + + | | 2022-06-12 | [facility] | 7.2 | (missing) | (missing) | | (unavailable | 00:07 | [facility] | | | | + + + +-------+ + + + + | Result panel 441 | + + + + + +-------+ + + | | 2022-06-12 | [facility] | 3.8 | (missing) | (missing) | | (unavailable | 00::07 | [facility] | | | | + + + +-------+ + + + + | Result panel 442 | + + + + + +-------+ + + | | 2022-06-12 | [facility] | 3.4 | (missing) | (missing) | | (unavailable | 00:07:07 | [facility] | | | | + + + +-------+ + + + + | Result panel 443 | + + + + + +--------+ + + | | 2022-06-12 | [facility] | 12.8 | (missing) | (missing) | | (unavailable | 00:07:07 | [facility] | | | | + + + +--------+ + + + + | Result panel 444 | + + + + + +--------+ + + | | 2022-06-12 | [facility] | 1.12 | (missing) | (missing) | | (unavailable | 00:07:07 | [facility] | | | | + + + +--------+ + + + + | Result panel 445 | + + + + + +-------+ + + | | 2022-06-12 | [facility] | 0.3 | (missing) | (missing) | | (unavailable | 00:07:07 | [facility] | | | | + + + +-------+ + + + + | Result panel 446 | + + + + + +-----+ + + | | 2022-06-12 | [facility] | 6 | (missing) | (missing) | | (unavailable | 00:07:07 | [facility] | | | | + + + +-----+ + + + + | Result panel 447 | + + + + + +------+ + + | | 2022-06-12 | [facility] | 18 | (missing) | (missing) | | (unavailable | 00:07:07 | [facility] | | | | + + + +------+ + + + + | Result panel 448 | + + + + + +-------+ + + | | 2022-06-12 | [facility] | 113 | (missing) | (missing) | | (unavailable | 00:07:07 | [facility] | | | | + + + +-------+ + + + + | Result panel 449 | + + + + + +-------+ + + | | 2022-06-12 | [facility] | 4.7 | (missing) | (missing) | | (unavailable | 00:07:07 | [facility] | | | | + + + +-------+ + + + + | Result panel 450 | + + + + + +--------+ + + | | 2022-06-12 | [facility] | 37.8 | (missing) | (missing) | | (unavailable | 00:07:07 | [facility] | | | | + + + +--------+ + + + + | Result panel 451 | + + + + + +--------+ + + | | 2022-06-12 | [facility] | 82.0 | (missing) | (missing) | | (unavailable | 00:07:07 | [facility] | | | | + + + +--------+ + + + + | Result panel 452 | + + + + + +--------+ + + | | 2022-06-12 | [facility] | 27.7 | (missing) | (missing) | | (unavailable | 00:07:07 | [facility] | | | | + + + +--------+ + + + + | Result panel 453 | + + + + + +--------+ + + | | 2022-06-12 | [facility] | 33.8 | (missing) | (missing) | | (unavailable | 00:07:07 | [facility] | | | | + + + +--------+ + + + + | Result panel 454 | + + + + + +--------+ + + | | 2022-06-12 | [facility] | 14.2 | (missing) | (missing) | | (unavailable | 00:07:07 | [facility] | | | | + + + +--------+ + + + + | Result panel 455 | + + + + + +-------+ + + | | 2022-06-12 | [facility] | 203 | (missing) | (missing) | | (unavailable | 00:: | [facility] | | | | + + + +-------+ + + + + | Result panel 456 | + + + + + + + + + | | 2022-06-13 | [facility] | YELLOW | (missing) | (missing) | | (unavailable | 00:01:07 | [facility] | | | | + + + + + + + + + | Result panel 457 | + + + + + +---------+ + + | | 2022-06-13 | [facility] | CLEAR | (missing) | (missing) | | (unavailable | 00::07 | [facility] | | | | + + + +---------+ + + + + | Result panel 458 | + + + + + + + + + | | 2022-06-13 | [facility] | NEGATIVE | (missing) | (missing) | | (unavailable | 00:01:07 | [facility] | | | | + + + + + + + + + | Result panel 459 | + + + + + + + + + | | 2022-06-13 | [facility] | NEGATIVE | (missing) | (missing) | | (unavailable | 00::07 | [facility] | | | | + + + + + + + + + | Result panel 460 | + + + + + + + + + | | 2022-06-13 | [facility] | NEGATIVE | (missing) | (missing) | | (unavailable | 00:01:07 | [facility] | | | | + + + + + + + + + | Result panel 461 | + + + + + +---------+ + + | | 2022-06-13 | [facility] | 1.025 | (missing) | (missing) | | (unavailable | 00:01:07 | [facility] | | | | + + + +---------+ + + + + | Result panel 462 | + + + + + + + + + | | 2022-06-13 | [facility] | NEGATIVE | (missing) | (missing) | | (unavailable | 00:01:07 | [facility] | | | | + + + + + + + + + | Result panel 463 | + + + + + +-------+ + + | | 2022-06-13 | [facility] | 5.5 | (missing) | (missing) | | (unavailable | 00:01:07 | [facility] | | | | + + + +-------+ + + + + | Result panel 464 | + + + + + + + + + | | 2022-06-13 | [facility] | NEGATIVE | (missing) | (missing) | | (unavailable | 00:01:07 | [facility] | | | | + + + + + + + + + | Result panel 465 | + + + + + + + + + | | 2022-06-13 | [facility] | NORMAL | (missing) | (missing) | | (unavailable | 00:01:07 | [facility] | | | | + + + + + + + + + | Result panel 466 | + + + + + + + + + | | 2022-06-13 | [facility] | NEGATIVE | (missing) | (missing) | | (unavailable | 00:01:07 | [facility] | | | | + + + + + + + + + | Result panel 467 | + + + + + + + + + | | 2022-06-13 | [facility] | NEGATIVE | (missing) | (missing) | | (unavailable | 00:01:07 | [facility] | | | | + + + + + + + + + | Result panel 468 | + + + + + +--------+ + + | | 2022-06-13 | [facility] | 12.6 | (missing) | (missing) | | (unavailable | 00:55:07 | [facility] | | | | + + + +--------+ + + + + | Result panel 469 | + + + + + +--------+ + + | | 2022-06-13 | [facility] | 0.98 | (missing) | (missing) | | (unavailable | 00:55:07 | [facility] | | | | + + + +--------+ + + + + | Result panel 470 | + + + + + +--------+ + + | | 2022-06-13 | [facility] | 0.29 | (missing) | (missing) | | (unavailable | 00:55:07 | [facility] | | | | + + + +--------+ + + Social History No information. Vital Signs + + + +---------+ | date | measurement | value | units | + + + +---------+ | 2021-10-09 00:00 | BMI | 26.0 | kg/m2 | + + + +---------+ | 2021-10-09 00:00 | BP_diastolic | 101 | mmHg | + + + +---------+ | 2021-10-09 00:00 | BP_systolic | 147 | mmHg | + + + +---------+ | 2021-10-09 00:00 | heart_rate | 99 | /min | + + + +---------+ | 2021-10-09 00:00 | height_metric | 167.64 | cm | + + + +---------+ | 2021-10-09 00:00 | height_standard | 66 | in | + + + +---------+ | 2021-10-09 00:00 | o2_saturation | 97 | % | + + + +---------+ | 2021-10-09 00:00 | respiration_rate | 18 | /min | + + + +---------+ | 2021-10-09 00:00 | temperature_metric | 37.33 | C | | | | | | + + + +---------+ | 2021-10-09 00:00 | | 99.2 | F | | | temperature_standar | | | | | d | | | + + + +---------+ | 2021-10-09 00:00 | weight_metric | 73 | kg | + + + +---------+ | 2021-10-09 00:00 | weight_standard | 160.94 | lb | + + + +---------+ | 2021-11-12 00:00 | BMI | 27.1 | kg/m2 | + + + +---------+ | 2021-11-12 00:00 | BP_diastolic | 78 | mmHg | + + + +---------+ | 2021-11-12 00:00 | BP_systolic | 106 | mmHg | + + + +---------+ | 2021-11-12 00:00 | heart_rate | 89 | /min | + + + +---------+ | 2021-11-12 00:00 | height_metric | 167.64 | cm | + + + +---------+ | 2021-11-12 00:00 | height_standard | 66 | in | + + + +---------+ | 2021-11-12 00:00 | o2_saturation | 94 | % | + + + +---------+ | 2021-11-12 00:00 | respiration_rate | 18 | /min | + + + +---------+ | 2021-11-12 00:00 | temperature_metric | 37.5 | C | | | | | | + + + +---------+ | 2021-11-12 00:00 | | 99.5 | F | | | temperature_standar | | | | | d | | | + + + +---------+ | 2021-11-12 00:00 | weight_metric | 76.2 | kg | + + + +---------+ | 2021-11-12 00:00 | weight_standard | 167.99 | lb | + + + +---------+ | 2021-11-24 00:00 | BMI | 27.1 | kg/m2 | + + + +---------+ | 2021-11-24 00:00 | BP_diastolic | 82 | mmHg | + + + +---------+ | 2021-11-24 00:00 | BP_systolic | 113 | mmHg | + + + +---------+ | 2021-11-24 00:00 | heart_rate | 90 | /min | + + + +---------+ | 2021-11-24 00:00 | height_metric | 167.64 | cm | + + + +---------+ | 2021-11-24 00:00 | height_standard | 66 | in | + + + +---------+ | 2021-11-24 00:00 | o2_saturation | 95 | % | + + + +---------+ | 2021-11-24 00:00 | respiration_rate | 19 | /min | + + + +---------+ | 2021-11-24 00:00 | temperature_metric | 36.56 | C | | | | | | + + + +---------+ | 2021-11-24 00:00 | | 97.8 | F | | | temperature_standar | | | | | d | | | + + + +---------+ | 2021-11-24 00:00 | weight_metric | 76.18 | kg | + + + +---------+ | 2021-11-24 00:00 | weight_standard | 167.94 | lb | + + + +---------+ | 2021-11-24 00:00 | weight_standard | 167.95 | lb | + + + +---------+ | 2021-12-04 00:00 | BMI | 27.1 | kg/m2 | + + + +---------+ | 2021-12-04 00:00 | BP_diastolic | 75 | mmHg | + + + +---------+ | 2021-12-04 00:00 | BP_systolic | 104 | mmHg | + + + +---------+ | 2021-12-04 00:00 | heart_rate | 93 | /min | + + + +---------+ | 2021-12-04 00:00 | height_metric | 167.64 | cm | + + + +---------+ | 2021-12-04 00:00 | height_standard | 66 | in | + + + +---------+ | 2021-12-04 00:00 | o2_saturation | 96 | % | + + + +---------+ | 2021-12-04 00:00 | respiration_rate | 15 | /min | + + + +---------+ | 2021-12-04 00:00 | temperature_metric | 37 | C | | | | | | + + + +---------+ | 2021-12-04 00:00 | | 98.6 | F | | | temperature_standar | | | | | d | | | + + + +---------+ | 2021-12-04 00:00 | weight_metric | 76.18 | kg | + + + +---------+ | 2021-12-04 00:00 | weight_standard | 167.94 | lb | + + + +---------+ | 2021-12-04 00:00 | weight_standard | 167.95 | lb | + + + +---------+ | 2021-12-08 00:00 | BMI | 26.8 | kg/m2 | + + + +---------+ | 2021-12-08 00:00 | BP_diastolic | 82 | mmHg | + + + +---------+ | 2021-12-08 00:00 | BP_systolic | 125 | mmHg | + + + +---------+ | 2021-12-08 00:00 | heart_rate | 108 | /min | + + + +---------+ | 2021-12-08 00:00 | height_metric | 167.64 | cm | + + + +---------+ | 2021-12-08 00:00 | height_standard | 66 | in | + + + +---------+ | 2021-12-08 00:00 | o2_saturation | 96 | % | + + + +---------+ | 2021-12-08 00:00 | respiration_rate | 20 | /min | + + + +---------+ | 2021-12-08 00:00 | temperature_metric | 36.83 | C | | | | | | + + + +---------+ | 2021-12-08 00:00 | | 98.3 | F | | | temperature_standar | | | | | d | | | + + + +---------+ | 2021-12-08 00:00 | weight_metric | 75.27 | kg | + + + +---------+ | 2021-12-08 00:00 | weight_standard | 165.94 | lb | + + + +---------+ | 2021-12-10 00:00 | BMI | 26.8 | kg/m2 | + + + +---------+ | 2021-12-10 00:00 | BP_diastolic | 79 | mmHg | + + + +---------+ | 2021-12-10 00:00 | BP_systolic | 110 | mmHg | + + + +---------+ | 2021-12-10 00:00 | heart_rate | 94 | /min | + + + +---------+ | 2021-12-10 00:00 | height_metric | 167.64 | cm | + + + +---------+ | 2021-12-10 00:00 | height_standard | 66 | in | + + + +---------+ | 2021-12-10 00:00 | o2_saturation | 93 | % | + + + +---------+ | 2021-12-10 00:00 | respiration_rate | 19 | /min | + + + +---------+ | 2021-12-10 00:00 | temperature_metric | 37.06 | C | | | | | | + + + +---------+ | 2021-12-10 00:00 | | 98.7 | F | | | temperature_standar | | | | | d | | | + + + +---------+ | 2021-12-10 00:00 | weight_metric | 75.27 | kg | + + + +---------+ | 2021-12-10 00:00 | weight_standard | 165.94 | lb | + + + +---------+ | 2021-12-17 00:00 | BMI | 26.8 | kg/m2 | + + + +---------+ | 2021-12-17 00:00 | BP_diastolic | 71 | mmHg | + + + +---------+ | 2021-12-17 00:00 | BP_systolic | 116 | mmHg | + + + +---------+ | 2021-12-17 00:00 | heart_rate | 96 | /min | + + + +---------+ | 2021-12-17 00:00 | height_metric | 167.64 | cm | + + + +---------+ | 2021-12-17 00:00 | height_standard | 66 | in | + + + +---------+ | 2021-12-17 00:00 | o2_saturation | 99 | % | + + + +---------+ | 2021-12-17 00:00 | respiration_rate | 15 | /min | + + + +---------+ | 2021-12-17 00:00 | temperature_metric | 36.83 | C | | | | | | + + + +---------+ | 2021-12-17 00:00 | | 98.3 | F | | | temperature_standar | | | | | d | | | + + + +---------+ | 2021-12-17 00:00 | weight_metric | 75.27 | kg | + + + +---------+ | 2021-12-17 00:00 | weight_standard | 165.94 | lb | + + + +---------+ | 2022-05-24 00:00 | BMI | 26.8 | kg/m2 | + + + +---------+ | 2022-05-24 00:00 | BP_diastolic | 78 | mmHg | + + + +---------+ | 2022-05-24 00:00 | BP_systolic | 110 | mmHg | + + + +---------+ | 2022-05-24 00:00 | heart_rate | 88 | /min | + + + +---------+ | 2022-05-24 00:00 | height_metric | 167.64 | cm | + + + +---------+ | 2022-05-24 00:00 | height_standard | 66 | in | + + + +---------+ | 2022-05-24 00:00 | o2_saturation | 97 | % | + + + +---------+ | 2022-05-24 00:00 | respiration_rate | 14 | /min | + + + +---------+ | 2022-05-24 00:00 | temperature_metric | 36.67 | C | | | | | | + + + +---------+ | 2022-05-24 00:00 | | 98 | F | | | temperature_standar | | | | | d | | | + + + +---------+ | 2022-05-24 00:00 | weight_metric | 75.27 | kg | + + + +---------+ | 2022-05-24 00:00 | weight_standard | 165.94 | lb | + + + +---------+ | 2022-05-26 00:00 | BMI | 26.8 | kg/m2 | + + + +---------+ | 2022-05-26 00:00 | BP_diastolic | 91 | mmHg | + + + +---------+ | 2022-05-26 00:00 | BP_systolic | 130 | mmHg | + + + +---------+ | 2022-05-26 00:00 | heart_rate | 104 | /min | + + + +---------+ | 2022-05-26 00:00 | height_metric | 167.64 | cm | + + + +---------+ | 2022-05-26 00:00 | height_standard | 66 | in | + + + +---------+ | 2022-05-26 00:00 | o2_saturation | 99 | % | + + + +---------+ | 2022-05-26 00:00 | respiration_rate | 16 | /min | + + + +---------+ | 2022-05-26 00:00 | temperature_metric | 36.67 | C | | | | | | + + + +---------+ | 2022-05-26 00:00 | | 98 | F | | | temperature_standar | | | | | d | | | + + + +---------+ | 2022-05-26 00:00 | weight_metric | 75.27 | kg | + + + +---------+ | 2022-05-26 00:00 | weight_standard | 165.94 | lb | + + + +---------+ | 2022-06-13 00:00 | BMI | 28.7 | kg/m2 | + + + +---------+ | 2022-06-13 00:00 | BP_diastolic | 78 | mmHg | + + + +---------+ | 2022-06-13 00:00 | BP_systolic | 107 | mmHg | + + + +---------+ | 2022-06-13 00:00 | heart_rate | 72 | /min | + + + +---------+ | 2022-06-13 00:00 | height_metric | 167.64 | cm | + + + +---------+ | 2022-06-13 00:00 | height_standard | 66 | in | + + + +---------+ | 2022-06-13 00:00 | o2_saturation | 96 | % | + + + +---------+ | 2022-06-13 00:00 | respiration_rate | 16 | /min | + + + +---------+ | 2022-06-13 00:00 | temperature_metric | 36.72 | C | | | | | | + + + +---------+ | 2022-06-13 00:00 | | 98.1 | F | | | temperature_standar | | | | | d | | | + + + +---------+ | 2022-06-13 00:00 | weight_metric | 80.74 | kg | + + + +---------+ | 2022-06-13 00:00 | weight_standard | 178 | lb | + + + +---------+ | 2022-08-19 00:00 | BMI | 28.7 | kg/m2 | + + + +---------+ | 2022-08-19 00:00 | BP_diastolic | 76 | mmHg | + + + +---------+ | 2022-08-19 00:00 | BP_systolic | 135 | mmHg | + + + +---------+ | 2022-08-19 00:00 | heart_rate | 75 | /min | + + + +---------+ | 2022-08-19 00:00 | height_metric | 167.64 | cm | + + + +---------+ | 2022-08-19 00:00 | height_standard | 66 | in | + + + +---------+ | 2022-08-19 00:00 | o2_saturation | 96 | % | + + + +---------+ | 2022-08-19 00:00 | respiration_rate | 17 | /min | + + + +---------+ | 2022-08-19 00:00 | temperature_metric | 36.61 | C | | | | | | + + + +---------+ | 2022-08-19 00:00 | | 97.9 | F | | | temperature_standar | | | | | d | | | + + + +---------+ | 2022-08-19 00:00 | weight_metric | 80.74 | kg | + + + +---------+ | 2022-08-19 00:00 | weight_standard | 178 | lb | + + + +---------+"
--- OUTSIDE RECORDS SUMMARY | ~2022-10-08 | XMS | Continuity of Care Document ---
Demographics + + + | Address | [phone] | | | [place] [address] | + + + | Preferred Language | Unknown | + + + | Marital Status | | + + + | Gnosticism Affiliation | Unknown | + + + | Race | White | + + + | Ethnic Group | Not or | + + + Author + + + | Author | [facility] | + + + | Organization | [facility] | + + + | Address | [address] | | | [place] [address] | + + + | Phone | | + + + Care Team Providers + + + + | Care Budget Report Clerk Name | Role | Phone | [...] | 2022-05-26 00:00 | Tdap | [facility] | + + + + Medications + + + + | date | description | facility | + + + + | 2022-05-24 00:00 | LIDOCAINE 2% VISCOUS | [facility] | + + + + | 2021-12-08 00:00 | LORAZEPAM | [facility] | + + + + | 2021-12-10 00:00 | LORAZEPAM | [facility] | + + + + | 2021-12-17 00:00 | LORAZEPAM | [facility] | + + + + | 2022-05-24 00:00 | LORAZEPAM | [facility] | + + + + | 2022-05-26 00:00 | LORAZEPAM | [facility] | + + + + | 2022-06-13 00:00 | LORAZEPAM | [facility] | + + + + | 2022-08-19 00:00 | LORAZEPAM | [facility] | + + + + | 2018-06-21 00:00 | ONDANSETRON HCL | [facility] | + + + + | 2018-06-21 00:00 | ONDANSETRON HCL | [facility] | + + + + | 2021-10-10 00:00 | OXYCODONE | [facility] | | | HCL/ACETAMINOPHEN | | + + + + | 2021-11-12 00:00 | OXYCODONE | [facility] | | | HCL/ACETAMINOPHEN | | + + + + | 2021-11-24 00:00 | OXYCODONE | [facility] | | | HCL/ACETAMINOPHEN | | + + + + | 2021-12-04 00:00 | OXYCODONE | [facility] | | | HCL/ACETAMINOPHEN | | + + + + | 2021-12-08 00:00 | OXYCODONE | [facility] | | | HCL/ACETAMINOPHEN | | + + + + | 2021-12-10 00:00 | OXYCODONE | [facility] | | | HCL/ACETAMINOPHEN | | + + + + | 2021-12-17 00:00 | OXYCODONE | [facility] | | | HCL/ACETAMINOPHEN | | + + + + | 2022-05-24 00:00 | OXYCODONE | [facility] | | | HCL/ACETAMINOPHEN | | + + + + | 2022-05-26 00:00 | OXYCODONE | [facility] | | | HCL/ACETAMINOPHEN | | + + + + | 2022-06-13 00:00 | OXYCODONE | [facility] | | | HCL/ACETAMINOPHEN | | + + + + | 2022-08-19 00:00 | OXYCODONE | [facility] | | | HCL/ACETAMINOPHEN | | + + + + | 2021-10-10 00:00 | OXYCODONE HCL | [facility] | + + + + | 2021-11-12 00:00 | OXYCODONE HCL | [facility] | + + + + | 2021-11-24 00:00 | OXYCODONE HCL | [facility] | + + + + | 2021-12-04 00:00 | OXYCODONE HCL | [facility] | + + + + | 2021-12-08 00:00 | OXYCODONE HCL | [facility] | + + + + | 2021-12-10 00:00 | OXYCODONE HCL | [facility] | + + + + | 2021-12-17 00:00 | OXYCODONE HCL | [facility] | + + + + | 2022-05-24 00:00 | OXYCODONE HCL | [facility] | + + + + | 2022-05-26 00:00 | OXYCODONE HCL | [facility] | + + + + | 2022-06-13 00:00 | OXYCODONE HCL | [facility] | + + + + | 2022-08-19 00:00 | OXYCODONE HCL | [facility] | + + + + | 2021-10-10 00:00 | OXYCODONE HCL | [facility] | + + + + | 2021-11-12 00:00 | OXYCODONE HCL | [facility] | + + + + | 2021-11-24 00:00 | OXYCODONE HCL | [facility] | + + + + | 2021-12-04 00:00 | OXYCODONE HCL | [facility] | + + + + | 2021-12-08 00:00 | OXYCODONE HCL | [facility] | + + + + | 2021-12-10 00:00 | OXYCODONE HCL | [facility] | + + + + | 2021-12-17 00:00 | OXYCODONE HCL | [facility] | + + + + | 2022-05-24 00:00 | OXYCODONE HCL | [facility] | + + + + | 2022-05-26 00:00 | OXYCODONE HCL | [facility] | + + + + | 2022-06-13 00:00 | OXYCODONE HCL | [facility] | + + + + | 2022-08-19 00:00 | OXYCODONE HCL | [facility] | + + + + | 2021-10-10 00:00 | CYANOCOBALAMIN (VITAMIN | [facility] | | | B-12) | | + + + + | 2021-11-12 00:00 | CYANOCOBALAMIN (VITAMIN | [facility] | | | B-12) | | + + + + | 2021-11-24 00:00 | CYANOCOBALAMIN (VITAMIN | [facility] | | | B-12) | | + + + + | 2021-12-04 00:00 | CYANOCOBALAMIN (VITAMIN | [facility] | | | B-12) | | + + + + | 2021-12-08 00:00 | CYANOCOBALAMIN (VITAMIN | [facility] | | | B-12) | | + + + + | 2021-12-10 00:00 | CYANOCOBALAMIN (VITAMIN | [facility] | | | B-12) | | + + + + | 2021-12-17 00:00 | CYANOCOBALAMIN (VITAMIN | [facility] | | | B-12) | | + + + + | 2022-05-24 00:00 | CYANOCOBALAMIN (VITAMIN | [facility] | | | B-12) | | + + + + | 2022-05-26 00:00 | CYANOCOBALAMIN (VITAMIN | [facility] | | | B-12) | | + + + + | 2022-06-13 00:00 | CYANOCOBALAMIN (VITAMIN | [facility] | | | B-12) | | + + + + | 2022-08-19 00:00 | CYANOCOBALAMIN (VITAMIN | [facility] | | | B-12) | | + + + + | 2021-10-10 00:00 | POTASSIUM CHLORIDE | [facility] | + + + + | 2021-11-12 00:00 | POTASSIUM CHLORIDE | [facility] | + + + + | 2021-11-24 00:00 | POTASSIUM CHLORIDE | [facility] | + + + + | 2021-12-04 00:00 | POTASSIUM CHLORIDE | [facility] | + + + + | 2021-12-08 00:00 | POTASSIUM CHLORIDE | [facility] | + + + + | 2021-12-10 00:00 | POTASSIUM CHLORIDE | [facility] | + + + + | 2021-12-17 00:00 | POTASSIUM CHLORIDE | [facility] | + + + + | 2022-05-24 00:00 | POTASSIUM CHLORIDE | [facility] | + + + + | 2022-05-26 00:00 | POTASSIUM CHLORIDE | [facility] | + + + + | 2022-06-13 00:00 | POTASSIUM CHLORIDE | [facility] | + + + + | 2022-08-19 00:00 | POTASSIUM CHLORIDE | [facility] | + + + + | 2021-10-10 00:00 | Bevacizumab | [facility] | + + + + | 2021-11-12 00:00 | Bevacizumab | [facility] | + + + + | 2021-11-24 00:00 | Bevacizumab | [facility] | + + + + | 2021-12-04 00:00 | Bevacizumab | [facility] | + + + + | 2021-12-08 00:00 | Bevacizumab | [facility] | + + + + | 2021-12-10 00:00 | Bevacizumab | [facility] | + + + + | 2021-12-17 00:00 | Bevacizumab | [facility] | + + + + | 2022-05-24 00:00 | Bevacizumab | [facility] | + + + + | 2022-05-26 00:00 | Bevacizumab | [facility] | + + + + | 2022-06-13 00:00 | Bevacizumab | [facility] | + + + + | 2022-08-19 00:00 | Bevacizumab | [facility] | + + + + | 2021-12-10 00:00 | Naloxone HCl | [facility] | + + + + | 2021-12-17 00:00 | Naloxone HCl | [facility] | + + + + | 2022-05-24 00:00 | Naloxone HCl | [facility] | + + + + | 2022-05-26 00:00 | Naloxone HCl | [facility] | + + + + | 2022-06-13 00:00 | Naloxone HCl | [facility] | + + + + | 2022-08-19 00:00 | Naloxone HCl | [facility] | + + + + | 2021-10-10 00:00 | Naloxone HCl | [facility] | + + + + | 2021-10-10 00:00 | POTASSIUM CHLORIDE | [facility] | + + + + | 2021-11-12 00:00 | POTASSIUM CHLORIDE | [facility] | + + + + | 2021-11-24 00:00 | POTASSIUM CHLORIDE | [facility] | + + + + | 2021-12-04 00:00 | POTASSIUM CHLORIDE | [facility] | + + + + | 2021-12-08 00:00 | POTASSIUM CHLORIDE | [facility] | + + + + | 2021-12-10 00:00 | POTASSIUM CHLORIDE | [facility] | + + + + | 2021-12-17 00:00 | POTASSIUM CHLORIDE | [facility] | + + + + | 2022-05-24 00:00 | POTASSIUM CHLORIDE | [facility] | + + + + | 2022-05-26 00:00 | POTASSIUM CHLORIDE | [facility] | + + + + | 2022-06-13 00:00 | POTASSIUM CHLORIDE | [facility] | + + + + | 2022-08-19 00:00 | POTASSIUM CHLORIDE | [facility] | + + + + | 2021-11-12 00:00 | BENZONATATE | [facility] | + + + + | 2021-10-10 00:00 | DIAZEPAM | [facility] | + + + + | 2021-11-12 00:00 | DIAZEPAM | [facility] | + + + + | 2021-11-24 00:00 | DIAZEPAM | [facility] | + + + + | 2021-12-04 00:00 | DIAZEPAM | [facility] | + + + + | 2021-12-08 00:00 | DIAZEPAM | [facility] | + + + + | 2021-12-10 00:00 | DIAZEPAM | [facility] | + + + + | 2021-12-17 00:00 | DIAZEPAM | [facility] | + + + + | 2022-05-24 00:00 | DIAZEPAM | [facility] | + + + + | 2022-05-26 00:00 | DIAZEPAM | [facility] | + + + + | 2022-06-13 00:00 | DIAZEPAM | [facility] | + + + + | 2022-08-19 00:00 | DIAZEPAM | [facility] | + + + + | 2021-10-10 00:00 | LORAZEPAM | [facility] | + + + + | 2021-11-12 00:00 | LORAZEPAM | [facility] | + + + + | 2021-11-24 00:00 | LORAZEPAM | [facility] | + + + + | 2021-12-04 00:00 | LORAZEPAM | [facility] | + + + + | 2021-12-08 00:00 | LORAZEPAM | [facility] | + + + + | 2021-12-10 00:00 | LORAZEPAM | [facility] | + + + + | 2021-12-17 00:00 | LORAZEPAM | [facility] | + + + + | 2022-05-24 00:00 | LORAZEPAM | [facility] | + + + + | 2022-05-26 00:00 | LORAZEPAM | [facility] | + + + + | 2022-06-13 00:00 | LORAZEPAM | [facility] | + + + + | 2022-08-19 00:00 | LORAZEPAM | [facility] | + + + + | 2015-11-04 00:00 | NAPROXEN | [facility] | + + + + | 2015-11-04 00:00 | NAPROXEN | [facility] | + + + + | 2021-10-10 00:00 | NITROGLYCERIN | [facility] | + + + + | 2021-11-12 00:00 | NITROGLYCERIN | [facility] | + + + + | 2021-11-24 00:00 | NITROGLYCERIN | [facility] | + + + + | 2021-12-04 00:00 | NITROGLYCERIN | [facility] | + + + + | 2021-12-08 00:00 | NITROGLYCERIN | [facility] | + + + + | 2021-12-10 00:00 | NITROGLYCERIN | [facility] | + + + + | 2021-12-17 00:00 | NITROGLYCERIN | [facility] | + + + + | 2022-05-24 00:00 | NITROGLYCERIN | [facility] | + + + + | 2022-05-26 00:00 | NITROGLYCERIN | [facility] | + + + + | 2022-06-13 00:00 | NITROGLYCERIN | [facility] | + + + + | 2022-08-19 00:00 | NITROGLYCERIN | [facility] | + + + + | 2021-10-10 00:00 | OMEPRAZOLE | [facility] | + + + + | 2021-11-12 00:00 | OMEPRAZOLE | [facility] | + + + + | 2021-11-24 00:00 | OMEPRAZOLE | [facility] | + + + + | 2021-12-04 00:00 | OMEPRAZOLE | [facility] | + + + + | 2021-12-08 00:00 | OMEPRAZOLE | [facility] | + + + + | 2021-12-10 00:00 | OMEPRAZOLE | [facility] | + + + + | 2021-12-17 00:00 | OMEPRAZOLE | [facility] | + + + + | 2022-05-24 00:00 | OMEPRAZOLE | [facility] | + + + + | 2022-05-26 00:00 | OMEPRAZOLE | [facility] | + + + + | 2022-06-13 00:00 | OMEPRAZOLE | [facility] | + + + + | 2022-08-19 00:00 | OMEPRAZOLE | [facility] | + + + + | 2021-10-10 00:00 | PROCHLORPERAZINE MALEATE | [facility] | + + + + | 2021-11-12 00:00 | PROCHLORPERAZINE MALEATE | [facility] | + + + + | 2021-11-24 00:00 | PROCHLORPERAZINE MALEATE | [facility] | + + + + | 2021-12-04 00:00 | PROCHLORPERAZINE MALEATE | [facility] | + + + + | 2021-12-08 00:00 | PROCHLORPERAZINE MALEATE | [facility] | + + + + | 2021-12-10 00:00 | PROCHLORPERAZINE MALEATE | [facility] | + + + + | 2021-12-17 00:00 | PROCHLORPERAZINE MALEATE | [facility] | + + + + | 2022-05-24 00:00 | PROCHLORPERAZINE MALEATE | [facility] | + + + + | 2022-05-26 00:00 | PROCHLORPERAZINE MALEATE | [facility] | + + + + | 2022-06-13 00:00 | PROCHLORPERAZINE MALEATE | [facility] | + + + + | 2022-08-19 00:00 | PROCHLORPERAZINE MALEATE | [facility] | + + + + | 2021-12-04 00:00 | LAMOTRIGINE | [facility] | + + + + | 2021-12-08 00:00 | LAMOTRIGINE | [facility] | + + + + | 2021-12-10 00:00 | LAMOTRIGINE | [facility] | + + + + | 2021-12-17 00:00 | LAMOTRIGINE | [facility] | + + + + | 2022-05-24 00:00 | LAMOTRIGINE | [facility] | + + + + | 2022-05-26 00:00 | LAMOTRIGINE | [facility] | + + + + | 2022-06-13 00:00 | LAMOTRIGINE | [facility] | + + + + | 2022-08-19 00:00 | LAMOTRIGINE | [facility] | + + + + | 2021-10-10 00:00 | TOPIRAMATE | [facility] | + + + + | 2021-11-12 00:00 | TOPIRAMATE | [facility] | + + + + | 2021-11-24 00:00 | TOPIRAMATE | [facility] | + + + + | 2021-12-04 00:00 | TOPIRAMATE | [facility] | + + + + | 2021-12-08 00:00 | TOPIRAMATE | [facility] | + + + + | 2021-12-10 00:00 | TOPIRAMATE | [facility] | + + + + | 2021-12-17 00:00 | TOPIRAMATE | [facility] | + + + + | 2022-05-24 00:00 | TOPIRAMATE | [facility] | + + + + | 2022-05-26 00:00 | TOPIRAMATE | [facility] | + + + + | 2022-06-13 00:00 | TOPIRAMATE | [facility] | + + + + | 2022-08-19 00:00 | TOPIRAMATE | [facility] | + + + + | 2021-12-04 00:00 | LORAZEPAM | [facility] | + + + + | 2018-06-21 00:00 | CEPHALEXIN | [facility] | + + + + | 2018-06-21 00:00 | CEPHALEXIN | [facility] | + + + + | 2021-10-10 00:00 | ATORVASTATIN CALCIUM | [facility] | + + + + | 2021-11-12 00:00 | ATORVASTATIN CALCIUM | [facility] | + + + + | 2021-11-24 00:00 | ATORVASTATIN CALCIUM | [facility] | + + + + | 2021-12-04 00:00 | ATORVASTATIN CALCIUM | [facility] | + + + + | 2021-12-08 00:00 | ATORVASTATIN CALCIUM | [facility] | + + + + | 2021-12-10 00:00 | ATORVASTATIN CALCIUM | [facility] | + + + + | 2021-12-17 00:00 | ATORVASTATIN CALCIUM | [facility] | + + + + | 2022-05-24 00:00 | ATORVASTATIN CALCIUM | [facility] | + + + + | 2022-05-26 00:00 | ATORVASTATIN CALCIUM | [facility] | + + + + | 2022-06-13 00:00 | ATORVASTATIN CALCIUM | [facility] | + + + + | 2022-08-19 00:00 | ATORVASTATIN CALCIUM | [facility] | + + + + | 2021-12-10 00:00 | ATORVASTATIN | [facility] | + + + + | 2021-12-17 00:00 | ATORVASTATIN | [facility] | + + + + | 2022-05-24 00:00 | ATORVASTATIN | [facility] | + + + + | 2022-05-26 00:00 | ATORVASTATIN | [facility] | + + + + | 2022-06-13 00:00 | ATORVASTATIN | [facility] | + + + + | 2022-08-19 00:00 | ATORVASTATIN | [facility] | + + + + | 2021-10-10 00:00 | CALCIUM CARBONATE | [facility] | + + + + | 2021-11-12 00:00 | CALCIUM CARBONATE | [facility] | + + + + | 2021-11-24 00:00 | CALCIUM CARBONATE | [facility] | + + + + | 2021-12-04 00:00 | CALCIUM CARBONATE | [facility] | + + + + | 2021-12-08 00:00 | CALCIUM CARBONATE | [facility] | + + + + | 2021-12-10 00:00 | CALCIUM CARBONATE | [facility] | + + + + | 2021-12-17 00:00 | CALCIUM CARBONATE | [facility] | + + + + | 2022-05-24 00:00 | CALCIUM CARBONATE | [facility] | + + + + | 2022-05-26 00:00 | CALCIUM CARBONATE | [facility] | + + + + | 2022-06-13 00:00 | CALCIUM CARBONATE | [facility] | + + + + | 2022-08-19 00:00 | CALCIUM CARBONATE | [facility] | + + + + | 2021-10-10 00:00 | BENZONATATE | [facility] | + + + + | 2021-11-12 00:00 | BENZONATATE | [facility] | + + + + | 2021-11-24 00:00 | BENZONATATE | [facility] | + + + + | 2021-12-04 00:00 | BENZONATATE | [facility] | + + + + | 2021-12-08 00:00 | BENZONATATE | [facility] | + + + + | 2021-12-10 00:00 | BENZONATATE | [facility] | + + + + | 2021-12-17 00:00 | BENZONATATE | [facility] | + + + + | 2022-05-24 00:00 | BENZONATATE | [facility] | + + + + | 2022-05-26 00:00 | BENZONATATE | [facility] | + + + + | 2022-06-13 00:00 | BENZONATATE | [facility] | + + + + | 2022-08-19 00:00 | BENZONATATE | [facility] | + + + + | 2021-10-10 00:00 | ASPIRIN | [facility] | + + + + | 2021-11-12 00:00 | ASPIRIN | [facility] | + + + + | 2021-11-24 00:00 | ASPIRIN | [facility] | + + + + | 2021-12-04 00:00 | ASPIRIN | [facility] | + + + + | 2021-12-08 00:00 | ASPIRIN | [facility] | + + + + | 2021-12-10 00:00 | ASPIRIN | [facility] | + + + + | 2021-12-17 00:00 | ASPIRIN | [facility] | + + + + | 2022-05-24 00:00 | ASPIRIN | [facility] | + + + + | 2022-05-26 00:00 | ASPIRIN | [facility] | + + + + | 2022-06-13 00:00 | ASPIRIN | [facility] | + + + + | 2022-08-19 00:00 | ASPIRIN | [facility] | + + + + | 2021-10-10 00:00 | FLUOXETINE HCL | [facility] | + + + + | 2021-11-12 00:00 | FLUOXETINE HCL | [facility] | + + + + | 2021-11-24 00:00 | FLUOXETINE HCL | [facility] | + + + + | 2021-12-04 00:00 | FLUOXETINE HCL | [facility] | + + + + | 2021-12-08 00:00 | FLUOXETINE HCL | [facility] | + + + + | 2021-12-10 00:00 | FLUOXETINE HCL | [facility] | + + + + | 2021-12-17 00:00 | FLUOXETINE HCL | [facility] | + + + + | 2022-05-24 00:00 | FLUOXETINE HCL | [facility] | + + + + | 2022-05-26 00:00 | FLUOXETINE HCL | [facility] | + + + + | 2022-06-13 00:00 | FLUOXETINE HCL | [facility] | + + + + | 2022-08-19 00:00 | FLUOXETINE HCL | [facility] | + + + + | 2021-11-12 00:00 | GABAPENTIN | [facility] | + + + + | 2021-11-24 00:00 | GABAPENTIN | [facility] | + + + + | 2021-12-04 00:00 | GABAPENTIN | [facility] | + + + + | 2021-12-08 00:00 | GABAPENTIN | [facility] | + + + + | 2021-12-10 00:00 | GABAPENTIN | [facility] | + + + + | 2021-12-17 00:00 | GABAPENTIN | [facility] | + + + + | 2022-05-24 00:00 | GABAPENTIN | [facility] | + + + + | 2022-05-26 00:00 | GABAPENTIN | [facility] | + + + + | 2022-06-13 00:00 | GABAPENTIN | [facility] | + + + + | 2022-08-19 00:00 | GABAPENTIN | [facility] | + + + + | 2021-12-04 00:00 | LEVETIRACETAM | [facility] | + + + + | 2021-12-08 00:00 | LEVETIRACETAM | [facility] | + + + + | 2021-12-10 00:00 | LEVETIRACETAM | [facility] | + + + + | 2021-12-17 00:00 | LEVETIRACETAM | [facility] | + + + + | 2022-05-24 00:00 | LEVETIRACETAM | [facility] | + + + + | 2022-05-26 00:00 | LEVETIRACETAM | [facility] | + + + + | 2022-06-13 00:00 | LEVETIRACETAM | [facility] | + + + + | 2022-08-19 00:00 | LEVETIRACETAM | [facility] | + + + + | 2019-10-08 00:00 | ONDANSETRON | [facility] | + + + + | 2021-10-10 00:00 | ONDANSETRON | [facility] | + + + + | 2021-11-12 00:00 | ONDANSETRON | [facility] | + + + + | 2021-11-12 00:00 | ONDANSETRON | [facility] | + + + + | 2021-11-24 00:00 | ONDANSETRON | [facility] | + + + + | 2021-12-04 00:00 | ONDANSETRON | [facility] | + + + + | 2021-12-08 00:00 | ONDANSETRON | [facility] | + + + + | 2021-12-10 00:00 | ONDANSETRON | [facility] | + + + + | 2021-12-17 00:00 | ONDANSETRON | [facility] | + + + + | 2022-05-24 00:00 | ONDANSETRON | [facility] | + + + + | 2022-05-26 00:00 | ONDANSETRON | [facility] | + + + + | 2022-06-13 00:00 | ONDANSETRON | [facility] | + + + + | 2022-08-19 00:00 | ONDANSETRON | [facility] | + + + + | 2021-02-05 00:00 | predniSONE | [facility] | + + + + | 2021-02-05 00:00 | predniSONE | [facility] | + + + + | 2021-10-10 00:00 | RIZATRIPTAN BENZOATE | [facility] | + + + + | 2021-11-12 00:00 | RIZATRIPTAN BENZOATE | [facility] | + + + + | 2021-11-24 00:00 | RIZATRIPTAN BENZOATE | [facility] | + + + + | 2021-12-04 00:00 | RIZATRIPTAN BENZOATE | [facility] | + + + + | 2021-12-08 00:00 | RIZATRIPTAN BENZOATE | [facility] | + + + + | 2021-12-10 00:00 | RIZATRIPTAN BENZOATE | [facility] | + + + + | 2021-12-17 00:00 | RIZATRIPTAN BENZOATE | [facility] | + + + + | 2022-05-24 00:00 | RIZATRIPTAN BENZOATE | [facility] | + + + + | 2022-05-26 00:00 | RIZATRIPTAN BENZOATE | [facility] | + + + + | 2022-06-13 00:00 | RIZATRIPTAN BENZOATE | [facility] | + + + + | 2022-08-19 00:00 | RIZATRIPTAN BENZOATE | [facility] | + + + + | 2021-10-10 00:00 | PANTOPRAZOLE SODIUM | [facility] | + + + + | 2021-11-12 00:00 | PANTOPRAZOLE SODIUM | [facility] | + + + + | 2021-11-24 00:00 | PANTOPRAZOLE SODIUM | [facility] | + + + + | 2021-12-04 00:00 | PANTOPRAZOLE SODIUM | [facility] | + + + + | 2021-12-08 00:00 | PANTOPRAZOLE SODIUM | [facility] | + + + + | 2021-12-10 00:00 | PANTOPRAZOLE SODIUM | [facility] | + + + + | 2021-12-17 00:00 | PANTOPRAZOLE SODIUM | [facility] | + + + + | 2022-05-24 00:00 | PANTOPRAZOLE SODIUM | [facility] | + + + + | 2022-05-26 00:00 | PANTOPRAZOLE SODIUM | [facility] | + + + + | 2022-06-13 00:00 | PANTOPRAZOLE SODIUM | [facility] | + + + + | 2022-08-19 00:00 | PANTOPRAZOLE SODIUM | [facility] | + + + + | 2021-10-10 00:00 | SUCRALFATE | [facility] [facility] | + + + + | 2021-11-12 00:00 | SUCRALFATE | [facility] | + + + + | 2021-11-24 00:00 | SUCRALFATE | [facility] | + + + + | 2021-12-04 00:00 | SUCRALFATE | [facility] | + + + + | 2021-12-08 00:00 | SUCRALFATE | [facility] | + + + + | 2021-12-10 00:00 | SUCRALFATE | [facility] | + + + + | 2021-12-17 00:00 | SUCRALFATE | [facility] | + + + + | 2022-05-24 00:00 | SUCRALFATE | [facility] | + + + + | 2022-05-26 00:00 | SUCRALFATE | [facility] | + + + + | 2022-06-13 00:00 | SUCRALFATE | [facility] | + + + + | 2022-08-19 00:00 | SUCRALFATE | [facility] | + + + + | 2021-10-10 00:00 | ASPIRIN | [facility] | + + + + | 2021-11-12 00:00 | ASPIRIN | [facility] | + + + + | 2021-11-24 00:00 | ASPIRIN | [facility] | + + + + | 2021-12-04 00:00 | ASPIRIN | [facility] | + + + + | 2021-12-08 00:00 | ASPIRIN | [facility] | + + + + | 2021-12-10 00:00 | ASPIRIN | [facility] | + + + + | 2021-12-17 00:00 | ASPIRIN | [facility] | + + + + | 2022-05-24 00:00 | ASPIRIN | [facility] | + + + + | 2022-05-26 00:00 | ASPIRIN | [facility] | + + + + | 2022-06-13 00:00 | ASPIRIN | [facility] | + + + + | 2022-08-19 00:00 | ASPIRIN | [facility] | + + + + | 2017-08-28 00:00 | Scopolamine | [facility] | + + + + | 2017-08-28 00:00 | Scopolamine | [facility] | + + + + | 2021-10-10 00:00 | Cholecalciferol (Vitamin | [facility] | | | D3) | | + + + + | 2021-11-12 00:00 | Cholecalciferol (Vitamin | [facility] | | | D3) | | + + + + | 2021-11-24 00:00 | Cholecalciferol (Vitamin | [facility] | | | D3) | | + + + + | 2021-12-04 00:00 | Cholecalciferol (Vitamin | [facility] | | | D3) | | + + + + | 2021-12-08 00:00 | Cholecalciferol (Vitamin | [facility] | | | D3) | | + + + + | 2021-12-10 00:00 | Cholecalciferol (Vitamin | [facility] | | | D3) | | + + + + | 2021-12-17 00:00 | Cholecalciferol (Vitamin | [facility] | | | D3) | | + + + + | 2022-05-24 00:00 | Cholecalciferol (Vitamin | [facility] | | | D3) | | + + + + | 2022-05-26 00:00 | Cholecalciferol (Vitamin | [facility] | | | D3) | | + + + + | 2022-06-13 00:00 | Cholecalciferol (Vitamin | [facility] | | | D3) | | + + + + | 2022-08-19 00:00 | Cholecalciferol (Vitamin | [facility] | | | D3) | | + + + + | 2021-10-10 00:00 | Pregabalin | [facility] | + + + + | 2021-11-12 00:00 | Pregabalin | [facility] | + + + + | 2022-05-26 00:00 | AZITHROMYCIN | [facility] | + + + + | 2015-11-04 00:00 | CYCLOBENZAPRINE HCL | [facility] | + + + + | 2015-11-04 00:00 | CYCLOBENZAPRINE HCL | [facility] | + + + + | 2016-10-25 00:00 | TRAMADOL HCL | [facility] | + + + + | 2016-10-25 00:00 | TRAMADOL HCL | [facility] | + + + + | 2018-03-30 00:00 | PROPRANOLOL HCL | [facility] | + + + + | 2018-03-30 00:00 | PROPRANOLOL HCL | [facility] | + + + + | 2021-10-10 00:00 | METOPROLOL SUCCINATE | [facility] | + + + + | 2021-11-12 00:00 | METOPROLOL SUCCINATE | [facility] | + + + + | 2021-11-24 00:00 | METOPROLOL SUCCINATE | [facility] | + + + + | 2021-12-04 00:00 | METOPROLOL SUCCINATE | [facility] | + + + + | 2021-12-08 00:00 | METOPROLOL SUCCINATE | [facility] | + + + + | 2021-12-10 00:00 | METOPROLOL SUCCINATE | [facility] | + + + + | 2021-12-17 00:00 | METOPROLOL SUCCINATE | [facility] | + + + + | 2022-05-24 00:00 | METOPROLOL SUCCINATE | [facility] | + + + + | 2022-05-26 00:00 | METOPROLOL SUCCINATE | [facility] | + + + + | 2022-06-13 00:00 | METOPROLOL SUCCINATE | [facility] | + + + + | 2022-08-19 00:00 | METOPROLOL SUCCINATE | [facility] | + + + + | 2021-10-10 00:00 | METOPROLOL TARTRATE | [facility] | + + + + | 2021-11-12 00:00 | METOPROLOL TARTRATE | [facility] | + + + + | 2021-11-24 00:00 | METOPROLOL TARTRATE | [facility] | + + + + | 2021-12-04 00:00 | METOPROLOL TARTRATE | [facility] | + + + + | 2021-12-08 00:00 | METOPROLOL TARTRATE | [facility] | + + + + | 2021-12-10 00:00 | METOPROLOL TARTRATE | [facility] | + + + + | 2021-12-17 00:00 | METOPROLOL TARTRATE | [facility] | + + + + | 2022-05-24 00:00 | METOPROLOL TARTRATE | [facility] | + + + + | 2022-05-26 00:00 | METOPROLOL TARTRATE | [facility] | + + + + | 2022-06-13 00:00 | METOPROLOL TARTRATE | [facility] | + + + + | 2022-08-19 00:00 | METOPROLOL TARTRATE | [facility] | + + + + | 2022-08-19 00:00 | HYDROMORPHONE HCL | [facility] | + + + + | 2015-07-20 00:00 | PROMETHAZINE HCL | [facility] | + + + + | 2015-07-20 00:00 | PROMETHAZINE HCL | [facility] | + + + + | 2015-07-20 00:00 | PROMETHAZINE HCL | [facility] | + + + + | 2015-07-20 00:00 | PROMETHAZINE HCL | [facility] | + + + + | 2021-10-10 00:00 | hydrOXYzine HCL | [facility] | + + + + | 2021-11-12 00:00 | hydrOXYzine HCL | [facility] | + + + + | 2021-11-24 00:00 | hydrOXYzine HCL | [facility] | + + + + | 2021-12-04 00:00 | hydrOXYzine HCL | [facility] | + + + + | 2021-12-08 00:00 | hydrOXYzine HCL | [facility] | + + + + | 2021-12-10 00:00 | hydrOXYzine HCL | [facility] | + + + + | 2021-12-17 00:00 | hydrOXYzine HCL | [facility] | + + + + | 2022-05-24 00:00 | hydrOXYzine HCL | [facility] | + + + + | 2022-05-26 00:00 | hydrOXYzine HCL | [facility] | + + + + | 2022-06-13 00:00 | hydrOXYzine HCL | [facility] | + + + + | 2022-08-19 00:00 | hydrOXYzine HCL | [facility] | + + + + | 2016-03-04 00:00 | MECLIZINE HCL | [facility] | + + + + | 2016-03-04 00:00 | MECLIZINE HCL | [facility] | + + + + | 2017-08-28 00:00 | MECLIZINE HCL | [facility] | + + + + | 2017-08-28 00:00 | MECLIZINE HCL | [facility] | + + + + | 2021-10-10 00:00 | | [facility] | | | GUAIFENESIN/DEXTROMETHORPHA | | | | N | | + + + + | 2021-11-12 00:00 | | [facility] | | | GUAIFENESIN/DEXTROMETHORPHA | | | | N | | + + + + | 2021-11-24 00:00 | | [facility] | | | GUAIFENESIN/DEXTROMETHORPHA | | | | N | | + + + + | 2021-12-04 00:00 | | [facility] | | | GUAIFENESIN/DEXTROMETHORPHA | | | | N | | + + + + | 2021-12-08 00:00 | | [facility] | | | GUAIFENESIN/DEXTROMETHORPHA | | | | N | | + + + + | 2021-12-10 00:00 | | [facility] | | | GUAIFENESIN/DEXTROMETHORPHA | | | | N | | + + + + | 2021-12-17 00:00 | | [facility] | | | GUAIFENESIN/DEXTROMETHORPHA | | | | N | | + + + + | 2022-05-24 00:00 | | [facility] | | | GUAIFENESIN/DEXTROMETHORPHA | | | | N | | + + + + | 2022-05-26 00:00 | | [facility] | | | GUAIFENESIN/DEXTROMETHORPHA | | | | N | | + + + + | 2022-06-13 00:00 | | [facility] | | | GUAIFENESIN/DEXTROMETHORPHA | | | | N | | + + + + | 2022-08-19 00:00 | | [facility] | | | GUAIFENESIN/DEXTROMETHORPHA | | | | N | | + + + + Problems + + + + | date | description | facility | + + + + | 2015-07-20 00:00 | Orthostatic hypotension | [facility] | + + + + | 2015-07-20 00:00 | Orthostatic hypotension | [facility] | + + + + | 2015-07-20 00:00 | Acute gastritis | [facility] | + + + + | 2015-07-20 00:00 | Acute gastritis | [facility] | + + + + | 2015-07-20 00:00 | Acute headache | [facility] | + + + + | 2015-07-20 00:00 | Acute headache | [facility] | + + + + | 2015-11-04 00:00 | Strain of neck muscle | [facility] | + + + + | 2015-11-04 00:00 | Strain of neck muscle | [facility] | + + + + | 2015-11-04 00:00 | Strain of left shoulder | [facility] | + + + + | 2015-11-04 00:00 | Strain of left shoulder | [facility] | + + + + | 2015-11-04 00:00 | Fall from standing | [facility] | + + + + | 2015-11-04 00:00 | Fall from standing | [facility] | + + + + | 2016-03-04 00:00 | Nausea and vomiting | [facility] | + + + + | 2016-03-04 00:00 | Nausea and vomiting | [facility] | + + + + | 2016-03-04 00:00 | Headache | [facility] | + + + + | 2016-03-04 00:00 | Headache | [facility] | + + + + | 2016-03-22 00:00 | Laceration | [facility] | + + + + | 2016-03-22 00:00 | Laceration | [facility] | + + + + | 2016-03-22 00:00 | Syncope | [facility] | + + + + | 2016-03-22 00:00 | Syncope | [facility] | + + + + | 2016-03-26 00:00 | Chest pain | [facility] | + + + + | 2016-03-26 00:00 | Chest pain | [facility] | + + + + | 2017-05-28 00:00 | Dysesthesia of face | [facility] | + + + + | 2017-05-28 00:00 | Dysesthesia of face | [facility] | + + + + | 2017-08-26 00:00 | Migraine headache | [facility] | + + + + | 2017-08-26 00:00 | Migraine headache | [facility] | + + + + | 2017-08-28 00:00 | Vertigo | [facility] | + + + + | 2017-08-28 00:00 | Vertigo | [facility] | + + + + | 2017-08-28 00:00 | Chronic headache | [facility] | + + + + | 2017-08-28 00:00 | Chronic headache | [facility] | + + + + | 2017-10-14 00:00 | Contusion of face | [facility] | + + + + | 2017-10-14 00:00 | Contusion of face | [facility] | + + + + | 2017-10-14 00:00 | Minor head injury | [facility] | + + + + | 2017-10-14 00:00 | Minor head injury | [facility] | + + + + | 2017-10-14 00:00 | Strain of lumbar region | [facility] | + + + + | 2017-10-14 00:00 | Strain of lumbar region | [facility] | + + + + | 2018-03-30 00:00 | Atypical chest pain | [facility] | + + + + | 2018-03-30 00:00 | Atypical chest pain | [facility] | + + + + | 2018-04-18 00:00 | Hypokalemia | [facility] | + + + + | 2018-04-18 00:00 | Hypokalemia | [facility] | + + + + | 2018-04-21 00:00 | Hypokalemia due to | [facility] | | | inadequate potassium intake | | | | | | + + + + | 2018-04-21 00:00 | Hypokalemia due to | [facility] | | | inadequate potassium intake | | | | | | + + + + | 2018-04-21 00:00 | Vomiting | [facility] | + + + + | 2018-04-21 00:00 | Vomiting | [facility] | + + + + | 2018-06-21 00:00 | Gastroenteritis | [facility] | + + + + | 2018-06-21 00:00 | Gastroenteritis | [facility] | + + + + | 2018-06-21 00:00 | Urinary tract infection | [facility] | + + + + | 2018-06-21 00:00 | Urinary tract infection | [facility] | + + + + | 2019-10-08 00:00 | Concussion | [facility] | + + + + | 2019-10-08 00:00 | Concussion | [facility] | + + + + | 2019-10-08 [...] 00:00 | Contusion of right forearm | [facility] | | | | | + + + + | 2020-12-04 00:00 | Contusion of right forearm | [facility] | | | | | + + + + | 2020-12-04 00:00 | Contusion of left knee | [facility] | + + + + | 2020-12-04 00:00 | Contusion of left knee | [facility] | + + + + | 2021-02-05 00:00 | Gout of right foot | [facility] | + + + + | 2021-02-05 00:00 | Gout of right foot | [facility] | + + + + | 2021-02-07 [...] 2021-10-09 00:00 | Encounter for medical | [facility] | | | screening examination | | + + + + | 2021-10-09 00:00 | Encounter for medical | [facility] | | | screening examination | | + + + + | 2021-11-12 00:00 | Adverse effect of | [facility] | | | prednisone | | + + + + | 2021-11-12 00:00 | Adverse effect of | [facility] | | | prednisone | | + + + + | 2021-11-24 00:00 | Non-cardiac chest pain | [facility] | + + + + | 2021-11-24 00:00 | Non-cardiac chest pain | [facility] | + + + + | 2021-11-24 00:00 | Recurrent episodes of | [facility] | | | unresponsiveness | | + + + + | 2021-11-24 00:00 | Recurrent episodes of | [facility] | | | unresponsiveness | | + + + + | 2021-12-04 00:00 | Generalized seizure | [facility] | | | disorder | | + + + + | 2021-12-04 00:00 | Generalized seizure | [facility] | | | disorder | | + + + + | 2021-12-08 00:00 | Convulsions | [facility] | + + + + | 2021-12-08 00:00 | Convulsions | [facility] | + + + + | 2022-01-29 [...] + + | 2022-05-24 08:43 | 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) | [facility] | | | DRUG THERAPY | | + + + + | 2022-05-24 08:43 | ALLERGY STATUS TO OTH | [facility] | | | DRUG/MEDS/BIOL SUBST STATUS | | | | | | + + + + | 2022-05-26 00:00 | Cat scratch | [facility] | + + + + | 2022-05-26 [...] + + + | 2022-05-26 11:11 | NURSING HOME (CURRENT) USE OF | [facility] | | | ASPIRIN | | + + + + | 2022-05-26 11:11 | OTHER NURSING HOME (CURRENT) | [facility] | | | DRUG [...] + + | 2022-06-12 22:08 | OTHER NURSING HOME (CURRENT) | [facility] | | | DRUG [...] 2022-08-19 00:00 | Postoperative pain | [facility] | + + + + | 2022-08-19 04:40 | OTHER ACUTE POSTPROCEDURAL | [facility] | | | PAIN | | + + + + | 2022-08-19 04:40 | CORE ANALYSIS OPERATOR (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
[~2022-10-08 08:49] MED LIST changes: +AZITHROMYCIN500 MG PO; +DILAUDID2 MG PO; +LIDOCAINE HCL100 ML MT
[2022-10-08 09:16] LABS: BASOPHILS 0.5 % (0-2); EOSINOPHILS 1.1 % (0-6); HEMATOCRIT 41.4 % (35.0-50.0); HEMOGLOBIN 13.9 g/dL (12.0-18.0); LYMPHOCYTES 28.8 % (24-44); MCH 27.1 (27-36); MCHC 33.5 g/dl (30-36); MCV 80.9 fl (81-99); MONOCYTES 10.9 % (0-12); NEUTROPHILS 58.7 % (39-80); PLATELET COUNT 169 K/uL (140-440); RBC 5.12 M/ul (4.3-5.7); RDW 14.4 (10.5-15.0)
[2022-10-08 09:32] LABS: ALBUMIN 4.2 g/dL (3.4-5.0); ALBUMIN/GLOBULIN RATIO 1.11 (1.1-2.4); ALKALINE PHOSPHATASE 118 U/L (46-116); ALT (SGPT) 23 U/L (14-59); ANION GAP 15.4 (7-21); AST (SGOT) 27 U/L (15-37); BILIRUBIN, TOTAL 0.5 ng/dL (0.2-1.0); BUN/CREATININE RATIO 9.09 (6.0-28.6); CALCIUM 9.5 mg/dL (8.5-10.1); CARBON DIOXIDE 26 mmol/L (21-32); CHLORIDE 102 mmol/L (98-107); CREATININE, SERUM 0.77 mg/dL (0.55-1.02); GLOMERULAR FILTRATION RATE,EST 93 mL/min (>60); POTASSIUM 3.4 mmol/L (3.5-5.1); UREA NITROGEN 7 mg/dL (7-18)
[2022-10-08 10:10] LABS: BILIRUBIN, URINE NEGATIVE (negative); BLOOD/HGB, URINE NEGATIVE (Negative); KETONE, URINE TRACE (Negative); LEUK ESTERASE, URINE NEGATIVE (negative); NITRITE, URINE NEGATIVE (negative)
[2022-10-08] MEDS ORDERED: ONDANSETRON ODT8 MG PO (10:33)
[2022-10-08 10:40] VITALS: BP 124/87
--- OUTSIDE RECORDS SUMMARY | 2022-10-08 10:49 | XMS ---
PreManage Notification: JAVIER MARTÍNEZ Security Corn Detasseler Events No recent Security Events currently on file CRITERIA MET - [facility] CARE PROVIDERS JUAN BERGER Family Medicine: Adult Medicine 10/10/2019-Current PHONE: [phone] -Olga- Dentist: Safety Admin Assistant [facility] PHONE: [phone] Travis has no Care Guidelines for this patient. Care History Medical/Surgical 08/03/2018 [facility] - PATIENT TO ESTABLISH CARE WITH DR OSEGUERA ON 08/13/18. - Patient is currently established with [facility]. If patient is seen in the ED during business hours. Please contact CHWs at [facility]. - Care Recommendation: This patient has had 5 or more Emergency Department visits in the last 12 months.\T\nbsp; Patient requires education on the scope and purpose of the ED as an acute care provider not a Primary Care Provider and should not be utilized for chronic conditions.\T\nbsp; These are guidelines and the provider should exercise clinical judgment when providing care. 06/22/2018 [facility] - [place] REFERRAL MADE- DUE TO PATIENT ED UTILIZATION AND PCP UTILIZATION- [place] VISIT COUNT (12 MO.) [address] TOTAL 16 NOTE: Visits indicate total known visits. ED/UCC VISIT TRACKING (12 MO.) 10/08/2022 08:51 [facility] [place] TYPE: Emergency COMPLAINT: - FALLS, V/D, SYNCOPE EPISODE X7, R SIDE WEAKNESS 08/19/2022 04:40 [facility] [place] TYPE: Emergency COMPLAINT: - POST OP PAIN DIAGNOSES: - Allergy status to other drugs, medicaments and biological substances - Allergy status to penicillin - terminal clerk (current) use of aspirin - Other acute postprocedural pain - Other termite treater (current) drug therapy 06/12/2022 22:08 [facility] [place] TYPE: Emergency COMPLAINT: - CHEST PAIN DIAGNOSES: - Allergy status to other drugs, medicaments and biological substances - Allergy status to penicillin - Chest pain, unspecified - Other termite treater (current) drug therapy 05/26/2022 11:11 [facility] [place] TYPE: Emergency COMPLAINT: - CAT BITE BLEEDING DIAGNOSES: - Abrasion of left wrist, 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 - Abrasion of right index finger, 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 - Abrasion of right thumb, 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 - Abrasion of right wrist, 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 - Allergy status to other drugs, medicaments and biological substances - Allergy status to penicillin - Encounter for immunization - nursing home (current) use of aspirin - Other retirement (current) drug therapy - Scratched by cat, 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 05/24/2022 08:43 [facility] [place] TYPE: Emergency COMPLAINT: - ABDOMINAL PAIN DIAGNOSES: - Allergy status to other drugs, medicaments and biological substances - Chest pain, unspecified - Gastro-esophageal reflux disease without esophagitis - Other retirement (current) drug therapy - Unspecified abdominal pain 12/17/2021 14:44 [facility] [place] TYPE: Emergency COMPLAINT: - SEIZURE DIAGNOSES: - Allergy status to other drugs, medicaments and biological substances - Allergy status to penicillin - Contusion of right shoulder, 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 - Fall on same level from slipping, tripping and stumbling with subsequent striking against other object, 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 - nursing home (current) use of aspirin - Migraine, unspecified, not intractable, without status migrainosus - Other termite treater (current) drug therapy - Sprain of joints and ligaments of unspecified parts of neck, 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 12/10/2021 05:42 [facility] [place] TYPE: Emergency COMPLAINT: - SEIZURE DIAGNOSES: - Allergy status to other drugs, medicaments and biological substances - Contusion of right foot, 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 - Exposure to other specified factors, 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 - nursing home (current) use of aspirin - Other termite treater (current) drug therapy - Unspecified convulsions 12/08/2021 14:08 [facility] Mejia TYPE: Emergency COMPLAINT: - SEIZURES DIAGNOSES: - Allergy status to other drugs, medicaments and biological substances - Allergy status to penicillin - Epilepsy, unspecified, not intractable, without status epilepticus 12/07/2021 10:58 [facility] [place] TYPE: Emergency DIAGNOSES: - Tremor, unspecified - Altered Mental Status - Seizure (Adult - Prior Hx Of) 12/06/2021 14:37 [facility] [place] SIMON TYPE: Emergency DIAGNOSES: - Unspecified convulsions - Seizure (Adult - Actively Seizing On Arrival) 12/05/2021 11:39 [facility] [place] TYPE: Emergency DIAGNOSES: - Epilepsy, unspecified, not intractable, without status epilepticus - Chest Pressure - Seizure (Adult - Prior Hx Of) 12/04/2021 03:58 [facility] [place] TYPE: Emergency COMPLAINT: - WEAKNESS, SEIZURE DIAGNOSES: - Allergy status to other drugs, medicaments and biological substances - Allergy status to penicillin - nursing home (current) use of aspirin - Other generalized epilepsy and epileptic syndromes, not intractable, without status epilepticus - Other retirement (current) drug therapy - Unspecified convulsions 11/24/2021 20:08 [facility] [place] TYPE: Emergency COMPLAINT: - CHEST PAIN DIAGNOSES: - Allergy status to other drugs, medicaments and biological substances - Allergy status to penicillin - Migraine, unspecified, not intractable, without status migrainosus - Other chest pain - Personal history of transient ischemic attack (TIA), and cerebral infarction without residual deficits 11/12/2021 02:48 [facility] [place] TYPE: Emergency COMPLAINT: - VOMITING DIAGNOSES: - Adverse effect of glucocorticoids and synthetic analogues, 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 - Allergy status to other drugs, medicaments and biological substances - Allergy status to penicillin - Contact with and (suspected) exposure to COVID-19 - Cough, unspecified - Dizziness and giddiness - nursing home (current) use of aspirin - Nausea with vomiting, unspecified - Other intervertebral disc degeneration, lumbar region - Other termite treater (current) drug therapy 10/31/2021 14:26 [facility] [place] TYPE: Emergency DIAGNOSES: - Lumbago with sciatica, left side - Back Pain - lower back pain numbness in legs and incontinence 10/09/2021 12:14 [facility] Mejia TYPE: Emergency COMPLAINT: - FINGER LACERATION INPATIENT VISIT TRACKING (12 MO.) 08/14/2022 06:12 [facility] [place] TYPE: Burn DIAGNOSES: - Scar conditions and fibrosis of skin [email or web address]
--- NOTE | 2022-10-08 21:09 | EKG ---
[facility] [address] [facility] [place], [place] [address] Signed Sinus tachycardia Otherwise normal ECG When compared with ECG of 12-JUN-2022 22:18, No significant change was found Confirmed by CHARU FRANCO MD ([id number]) on 10/08/2022 9:09:16 PM Electronically Signed By: CHARU FRANCO 10/08/222108 PATIENT NAME: JAVIER MARTÍNEZ Electrocardiogram DATE OF : 70 PHYSICIAN: CHARU FRANCO REPORT #: [id number] REPORT IS CONFIDENTIAL AND NOT TO BE RELEASED WITHOUT AUTHORIZATION
== END 2022-10-08 10:40 | disposition home or self-care (01) ==
LOC: ED 08:49
PROVIDERS: Emergency Medicine
DX: R55 Syncope and collapse (principal); G89.29 Other chronic pain; K52.9 Noninfective gastroenteritis and colitis, unspecified; R53.1 Weakness; G43.909 Migraine, unspecified, not intractable, without status migrainosus; Z88.0 Allergy status to penicillin; Z88.8 Allergy status to other drugs, medicaments and biological substances; Z79.82 Long term (current) use of aspirin; Z79.899 Other long term (current) drug therapy
CPT/HCPCS: 36415; 70450; 71045; 72125; 80053; 81003; 83690; 84484; 85025; 93005; 93010; 96361; 96374; 96376; 99284-25; J2405; J7030

== ENCOUNTER 2022-12-18 10:27 | Emergency (ER) | payer OTHER ==
[~2022-12-18] VITALS: Ht 167.6 cm; Wt 76.2 kg
--- OUTSIDE RECORDS SUMMARY | 2022-12-18 10:28 | XMS ---
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 Care History Medical/Surgical 08/03/2018 [facility] - PATIENT TO ESTABLISH CARE WITH DR OSEGUERA ON 08/13/18. - Patient is currently established with [facility]. If patient is seen in the ED during business hours. Please contact [facility] at [facility]. - Care Recommendation: This patient has had 5 or more Emergency Department visits in the last 12 months.\T\nbsp; Patient requires education on the scope and purpose of the ED as an acute care provider not a Primary Care Provider and should not be utilized for chronic conditions.\T\nbsp; These are guidelines and the provider should exercise clinical judgment when providing care. 06/22/2018 [facility] - EOIPA REFERRAL MADE- DUE TO PATIENT ED UTILIZATION AND PCP UTILIZATION- ETrent VISIT COUNT (12 MO.) 6 [facility] 3 [facility] [place] ([facility]ad Vidales) TOTAL 9 NOTE: Visits indicate total known visits. ED/UCC VISIT TRACKING (12 MO.) 12/18/2022 10:27 [facility] [place] TYPE: Emergency COMPLAINT: - CHEST PAIN 12/10/2022 11:21 [facility] [place] (Sobeida Vidales) TYPE: Emergency DIAGNOSES: - Chest pain, unspecified - Diaphragmatic hernia without obstruction or gangrene - Abdominal Pain - Chest Pain - CP, abd pain, nausea 11/22/2022 11:26 [facility] [place] (Sobeida Vidales) TYPE: Emergency DIAGNOSES: - Injury, unspecified, 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 - Dizziness - fatigue,dizzy,nausea, leg swelling - Leg Swelling - Lightheaded 10/17/2022 14:40 [facility] [place] (Sobeida Vidales) TYPE: Emergency DIAGNOSES: - Pain in left ankle and joints of left foot - Pain in left knee - Unspecified coma - Unspecified fall, 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 - fall - Leg Injury - Loss of Consciousness 10/08/2022 08:51 [place] TYPE: Emergency COMPLAINT: - FALLS, V/D, SYNCOPE EPISODE X7, R SIDE WEAKNESS DIAGNOSES: - Allergy status to other drugs, medicaments and biological substances - Allergy status to penicillin - induction machine setter (current) use of aspirin - Migraine, unspecified, not intractable, without status migrainosus - Noninfective gastroenteritis and colitis, unspecified - Other chronic pain - Other custodial (current) drug therapy - Syncope and collapse - Weakness 08/19/2022 04:[facility] [place] TYPE: Emergency COMPLAINT: - POST OP PAIN DIAGNOSES: - Allergy status to other drugs, medicaments and biological substances - Allergy status to penicillin - snf (current) use of aspirin - Other acute postprocedural pain - Other custodial (current) drug therapy 06/12/2022 22:08 [facility] [place] TYPE: Emergency COMPLAINT: - CHEST PAIN DIAGNOSES: - Allergy status to other drugs, medicaments and biological substances - Allergy status to penicillin - Chest pain, unspecified - Other custodial (current) drug therapy 05/26/2022 11:11 [facility] [...] to penicillin - Encounter for immunization - snf (current) use of aspirin - Other custodial (current) drug therapy - Scratched by cat, 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 05/24/2022 08:43 [facility] [place] TYPE: Emergency COMPLAINT: - ABDOMINAL PAIN DIAGNOSES: - Allergy status to other drugs, medicaments and biological substances - Chest pain, unspecified - Gastro-esophageal reflux disease without esophagitis - Other supervisor 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
[2022-12-18 11:24] LABS: EOSINOPHILS 1.9 % (0-6); HEMATOCRIT 38.4 % (35.0-50.0); HEMOGLOBIN 12.6 g/dL (12.0-18.0); LYMPHOCYTES 24.1 % (24-44); MCH 26.8 (27-36); MCHC 32.9 g/dl (30-36); MCV 81.5 fl (81-99); MONOCYTES 5.9 % (0-12); NEUTROPHILS 67.1 % (39-80); PLATELET COUNT 193 K/uL (140-440); RBC 4.71 M/ul (4.3-5.7); RDW 14.5 (10.5-15.0)
[2022-12-18 11:39] LABS: ALBUMIN 3.8 g/dL (3.4-5.0); ALBUMIN/GLOBULIN RATIO 1.23 (1.1-2.4); ALKALINE PHOSPHATASE 90 U/L (46-116); ALT (SGPT) 19 U/L (14-59); ANION GAP 11.3 (7-21); AST (SGOT) 11 U/L (15-37); BILIRUBIN, TOTAL 0.4 ng/dL (0.2-1.0); BUN/CREATININE RATIO 15.06 (6.0-28.6); CALCIUM 9.5 mg/dL (8.5-10.1); CARBON DIOXIDE 28 mmol/L (21-32); CHLORIDE 105 mmol/L (98-107); CREATININE, SERUM 0.73 mg/dL (0.55-1.02); GLOMERULAR FILTRATION RATE,EST 99 mL/min (>60); POTASSIUM 3.3 mmol/L (3.5-5.1); PROTEIN, TOTAL 6.9 g/dL (6.4-8.2); UREA NITROGEN 11 mg/dL (7-18)
[2022-12-18 12:50] VITALS: BP 145/100
--- NOTE | 2022-12-18 21:02 | EKG ---
[facility] [address] [place] [id number] Signed Normal sinus rhythm Prolonged QT Abnormal ECG When compared with ECG of 08-OCT-2022 09:00, No significant change was found Confirmed by Grecia Gabriel MD () on 12/18/2022 9:02:45 PM Electronically Signed By: GRECIA GABRIEL MD 12/18/222101 PATIENT NAME: IVON MARTÍNEZLILIA SCHMIDARET Electrocardiogram DATE OF : 70 PHYSICIAN: GRECIA GABRIEL MD REPORT #: [id number] REPORT IS CONFIDENTIAL AND NOT TO BE RELEASED WITHOUT AUTHORIZATION
== END 2022-12-18 12:50 | disposition home or self-care (01) ==
LOC: ED 10:27
PROVIDERS: Emergency Medicine
DX: K21.9 Gastro-esophageal reflux disease without esophagitis (principal); G43.909 Migraine, unspecified, not intractable, without status migrainosus; Z88.0 Allergy status to penicillin; Z88.8 Allergy status to other drugs, medicaments and biological substances; Z79.899 Other long term (current) drug therapy; Z79.82 Long term (current) use of aspirin
CPT/HCPCS: 36415; 71045; 80053; 84484; 85025; 85379; 99285-25

== ENCOUNTER 2023-01-12 04:24 | Emergency (ER) | payer OTHER ==
[~2023-01-12] VITALS: Ht 167.6 cm; Wt 76.2 kg
--- OUTSIDE RECORDS SUMMARY | 2023-01-12 04:27 | XMS ---
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 Care History Medical/Surgical 08/03/2018 [facility] - PATIENT TO ESTABLISH CARE WITH DR OSEGUERA ON 08/13/18. - Patient is currently established with [facility]. If patient is seen in the ED during business hours. Please contact [facility] at [facility]. - Care Recommendation: This patient has had 5 or more Emergency Department visits in the last 12 months.\T\nbsp; Patient requires education on the scope and purpose of the ED as an acute care provider not a Primary Care Provider and should not be utilized for chronic conditions.\T\nbsp; These are guidelines and the provider should exercise clinical judgment when providing care. 06/22/2018 [facility] - EOIPA REFERRAL MADE- DUE TO PATIENT ED UTILIZATION AND PCP UTILIZATION- Sehree [facility] (12 MO.) [facility] 1 [facility] TOTAL 12 NOTE: Visits indicate total known visits. ED/UCC VISIT TRACKING (12 MO.) [facility]12[facility]2023 04[facility] [place] [facility] COMPLAINT: - CHEST PAIN [facility] DIAGNOSES: - Diaphragmatic hernia without obstruction or gangrene - Other chest pain - Abdominal Pain - Chest Pain 12/22/2022 14:10 [facility] [place] TYPE: Emergency DIAGNOSES: - Chest pain, unspecified - Diaphragmatic hernia without obstruction or gangrene - CP/SOB 12/18/2022 10:27 [facility] [place] TYPE: Emergency COMPLAINT: - CHEST PAIN DIAGNOSES: - Allergy status to other drugs, medicaments and biological substances - Allergy status to penicillin - Chest pain, unspecified - Gastro-esophageal reflux disease without esophagitis - custodial (current) use of aspirin - Migraine, unspecified, not intractable, without status migrainosus - Other usp (current) drug therapy 12/10/2022 11:21 [facility] Sobeida Vidales ALFRED (Sobeida Vidales) TYPE: Emergency DIAGNOSES: - Chest pain, unspecified - Diaphragmatic hernia without obstruction or gangrene - Abdominal Pain - Chest Pain - CP, abd pain, nausea 11/22/2022 11:26 [facility] Sobeida Vidales ALFRED (Sobeida Vidales) TYPE: Emergency DIAGNOSES: - Injury, unspecified, 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 - Dizziness - fatigue,dizzy,nausea, leg swelling - Leg Swelling - Lightheaded 10/17/2022 14:40 [facility] Sobeida Vidales ALFRED (Sobeida Vidales) TYPE: Emergency DIAGNOSES: - Pain in left ankle and joints of left foot - Pain in left knee - Unspecified coma - Unspecified fall, 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 - fall - Leg Injury - Loss of Consciousness 10/08/2022 08:51 [facility] Marcelo [place] TYPE: Emergency COMPLAINT: - FALLS, V/D, SYNCOPE EPISODE X7, R SIDE WEAKNESS DIAGNOSES: - Allergy status to other drugs, medicaments and biological substances - Allergy status to penicillin - custodial (current) use of aspirin - Migraine, unspecified, not intractable, without status migrainosus - Noninfective gastroenteritis and colitis, unspecified - Other chronic pain - Other usp (current) drug therapy - Syncope and collapse - Weakness 08/19/2022 04:40 [facility] [place] TYPE: Emergency COMPLAINT: - POST OP PAIN DIAGNOSES: - Allergy status to other drugs, medicaments and biological substances - Allergy status to penicillin - custodial (current) use of aspirin - Other acute postprocedural pain - Other terminal supervisor (current) drug therapy 06/12/2022 22:08 [facility] [place] TYPE: Emergency COMPLAINT: - CHEST PAIN DIAGNOSES: - Allergy status to other drugs, medicaments and biological substances - Allergy status to penicillin - Chest pain, unspecified - Other usp (current) drug therapy 05/26/2022 11:11 JADEN Marcelo [...] to penicillin - Encounter for immunization - custodial (current) use of aspirin - Other terminal supervisor (current) drug therapy - Scratched by cat, 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 05/24/2022 08:43 [facility] Marcelo [place] TYPE: Emergency COMPLAINT: - ABDOMINAL PAIN DIAGNOSES: - Allergy status to other drugs, medicaments and biological substances - Chest pain, unspecified - Gastro-esophageal reflux disease without esophagitis - Other terminal supervisor (current) drug therapy - Unspecified abdominal pain INPATIENT VISIT TRACKING (12 MO.) 08/14/2022 06:12 [facility] [place] TYPE: Burn DIAGNOSES: - Scar conditions and fibrosis of skin [email or web address]
[2023-01-12 04:37] LABS: BASOPHILS 1.4 % (0-2); EOSINOPHILS 2.3 % (0-6); HEMATOCRIT 36.2 % (35.0-50.0); HEMOGLOBIN 11.9 g/dL (12.0-18.0); MCH 26.9 (27-36); MCV 81.7 fl (81-99); MONOCYTES 4.3 % (0-12); PLATELET COUNT 213 K/uL (140-440); RBC 4.44 M/ul (4.3-5.7); RDW 14.7 (10.5-15.0)
[2023-01-12] MEDS ORDERED: NITROSTAT0.4 MG SL (04:45)
[2023-01-12 04:55] LABS: ALBUMIN 3.5 g/dL (3.4-5.0); ALBUMIN/GLOBULIN RATIO 1.13 (1.1-2.4); ALKALINE PHOSPHATASE 125 U/L (46-116); ALT (SGPT) 24 U/L (14-59); ANION GAP 11.5 (7-21); AST (SGOT) 9 U/L (15-37); BILIRUBIN, TOTAL 0.2 ng/dL (0.2-1.0); BUN/CREATININE RATIO 14.63 (6.0-28.6); CALCIUM 8.8 mg/dL (8.5-10.1); CARBON DIOXIDE 27 mmol/L (21-32); CHLORIDE 105 mmol/L (98-107); CREATININE, SERUM 0.82 mg/dL (0.55-1.02); GLOMERULAR FILTRATION RATE,EST 86 mL/min (>60); POTASSIUM 3.5 mmol/L (3.5-5.1); PROTEIN, TOTAL 6.6 g/dL (6.4-8.2); UREA NITROGEN 12 mg/dL (7-18)
[2023-01-12 06:52] VITALS: BP 112/79
[2023-01-12] MEDS ORDERED: CARAFATE1 GM/10 ML PO (06:56)
--- NOTE | 2023-01-13 05:46 | EKG ---
[facility] [address] [place], [place] [address] Signed Normal sinus rhythm prolonged QTc Abnormal ECG When compared with ECG of 18-DEC-2022 10:33, No significant change was found Confirmed by KENDALL SERVIN MD ([id number]) on 01/13/2023 5:46:17 AM Electronically Signed By: KENDALL SERVIN 01/13/23 0546 PATIENT NAME: JAVIER MARTÍNEZ Electrocardiogram DATE OF : 70 PHYSICIAN: KENDALL SERVIN REPORT #: [id number] REPORT IS CONFIDENTIAL AND NOT TO BE RELEASED WITHOUT AUTHORIZATION
== END 2023-01-12 06:53 | disposition home or self-care (01) ==
LOC: ED 04:24
PROVIDERS: Internal Medicine
DX: R07.89 Other chest pain (principal); U07.1 COVID-19; I71.22 Aneurysm of the aortic arch, without rupture; Z79.899 Other long term (current) drug therapy; Z88.0 Allergy status to penicillin; Z88.8 Allergy status to other drugs, medicaments and biological substances
CPT/HCPCS: 36415; 71275; 74174; 80053; 83690; 84484; 85025; 85379; 93005; 93010; C9803; J2060; J7121; Q9967; U0002

== ENCOUNTER 2023-02-23 11:03 | Emergency (ER) | payer OTHER ==
[~2023-02-23] VITALS: Ht 167.6 cm; Wt 73.1 kg
--- NOTE | ~2023-02-23 | EKG ---
[facility] [address] [place], [place] [address] Draft EK completed, results pending confirmation PATIENT NAME: JAVIER MARTÍNEZ Electrocardiogram DATE OF : 70 PHYSICIAN: PRELIMINARY REPORT #: [id number] REPORT IS CONFIDENTIAL AND NOT TO BE RELEASED WITHOUT AUTHORIZATION
[~2023-02-23 11:03] MED LIST changes: +CARAFATE1 GM/10 ML PO; +NITROSTAT0.4 MG SL
[2023-02-23 15:24] LABS: BASOPHILS 0.7 % (0-2); EOSINOPHILS 2.1 % (0-6); HEMATOCRIT 38.7 % (35.0-50.0); HEMOGLOBIN 12.7 g/dL (12.0-18.0); LYMPHOCYTES 20.6 % (24-44); MCH 26.8 (27-36); MCHC 32.9 g/dl (30-36); MCV 81.6 fl (81-99); MONOCYTES 5.2 % (0-12); NEUTROPHILS 71.4 % (39-80); PLATELET COUNT 255 K/uL (140-440); RBC 4.74 M/ul (4.3-5.7); RDW 14.1 (10.5-15.0)
[2023-02-23 15:32] LABS: ALBUMIN 3.7 g/dL (3.4-5.0); ALBUMIN/GLOBULIN RATIO 0.97 (1.1-2.4); ANION GAP 10.3 (7-21); BILIRUBIN, TOTAL 0.3 ng/dL (0.2-1.0); BUN/CREATININE RATIO 5.81 (6.0-28.6); CALCIUM 9.1 mg/dL (8.5-10.1); CREATININE, SERUM 0.86 mg/dL (0.55-1.02); POTASSIUM 3.3 mmol/L (3.5-5.1); PROTEIN, TOTAL 7.5 g/dL (6.4-8.2)
[2023-02-23 16:11] VITALS: BP 133/86
== END 2023-02-23 16:13 | disposition home or self-care (01) ==
LOC: ED 11:03
PROVIDERS: Emergency Medicine
DX: B34.9 Viral infection, unspecified (principal); K59.00 Constipation, unspecified; Z88.0 Allergy status to penicillin; Z88.8 Allergy status to other drugs, medicaments and biological substances; Z79.899 Other long term (current) drug therapy
CPT/HCPCS: 36415; 74177; 80053; 83690; 85025; 93005; 93010; 99284-25; J7030; Q9967